=== PATIENT | female | born 1940 | race Hispanic/Latino ===

== ENCOUNTER 2024-09-11 08:48 | Emergency (ER) | payer OTHER ==
--- OUTSIDE RECORDS SUMMARY | 2024-09-11 09:03 | XMS REPORT | Continuity of Care Document ---
Author Name Unknown Address [address] [facility] [address] [place] [address] [facility] Address [address] [facility] [place] [address] Care Team Providers Care Eastern Philosophy Professor Name Role Phone Shayne ALBERTS, Renetta Primary Care Physic keith [phone] Pob, [facility] Main Attending Clinician UnavailDayne Flynn MD Attending Clinician [phone] DAYNE DE LA VEGA Attending Clinician Unavailable DAYNE DE LA VEGA Attending Clinician Unavailable Doctor Unassigned, Pearcy Attending Clinician U chiquita Marieb, [facility] Main Attending Clinician UnavailTOMASA Larios Attending Clinician Unavailab bree Blair MD, Tomasa Attending Clinician [phone] Heath De La Garza MD Attending Clinician [phone] HEATH DE LA GARZA Attending Clinician Unavailrashad martinez Doctor Unassigned, Pearcy Attending Clinician U Lauren Shafer RN Attending Clinician Unavailab MARIA LUISA Lee Attending Clinician Unavailable [place]onia VIDEO CONTROL OPERATOR, Samanta Douglass Attending Clinician [phone] Maria Luisa Mancia DO Attending Clinician [phone] AMADOR CHILDS Attending Clinician Unavailable Katy ALBERTS, Loraine Hooks Attending Clinician [phone] Jose Elias Lopes MD Attending Clinician [phone] Karli Benitez MD Attending Clinician [phone] Amador Childs MD Attending Clinician [phone] Heath Sorto DO Attending Clinician Chantelle Solo MD Attending Clinician [phone] Marcio Ely MD Attending Clinician [phone] MARIELA GIPSON Attending Clinician Unavailable Mariela Crook Attending Clinician RADIOLOGY Attending Clinician Unavailable RENETTA OSMAN Attending Clinician Un available TOMASA BLAIR Admitting Clinician Unavailab MARIA LUISA Lee Admitting Clinician Unavailable Maria Luisa Mancia DO Admitting Clinician [phone] KARLI BENITEZ Admitting Clinician Unavailable Karli Benitez MD Admitting Clinician [phone] RENETTA OSMAN Admitting Clinician Un available Payers Payer Name Policy Type Policy Number Effective Date Expirati on Date Source MEDICARE PART A \\[id number] 2007 00:00:00 FOR LIFE [id number] 2015 00:00:00 Problems Condition Name Condition Details Condition Category Status Onset Date Resolution Date Last Treatment Date Treating Clinician Comments Source COLLINS (dyspnea on exertion) COLLINS (dyspnea on exertion) Disease Active 02-13 00:00: 00 [facility] Pulmonary hypertensi on Pulmonary hypertensi on Disease Active 02-13 00:00: 00 [facility] 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 Disease Active 02-13 00:00: 00 [facility] Hypokalemi a Hypokalemi a Disease Active 02-13 00:00: 00 [facility] Essential hypertensi on Essential hypertensi on Disease Active 02-13 00:00: 00 [facility] Dyslipidem ia Dyslipidem ia Disease Active 02-13 00:00: 00 [facility] VHD (valvular heart disease) VHD (valvular heart disease) Disease Active 02-13 00:00: 00 [facility] Elevated brain natriureti c peptide (BNP) level Elevated brain natriureti c peptide (BNP) level Disease Active 8-06 00:00: 00 [facility] Elevated brain natriureti c peptide (BNP) level Elevated brain natriureti c peptide (BNP) level Disease Active 8-06 00:00: 00 [facility] COVID-19 virus infection COVID-19 virus infection Disease Active 8- 00:00: 00 [facility] Vomiting and diarrhea Vomiting and diarrhea Disease Active 7- 00:00: 00 [facility] Allergies, Adverse Reactions, Alerts Allergy Name Allergy Type Status Severity Reaction(s) Onset Date Inactive Date Treating Clinician Comments Source Sulfa (Sulfona mide Antibiot ics) Propensi ty to adverse reaction to drug Active 7-05 00:00: 00 Dev Steiner Sulfa Antibiot ics - CLASS Propensi ty to adverse reaction to drug Active 830 00:00: 00 Dev Steiner SULFA (SULFONA MIDE ANTIBIOT ICS) Drug Class Active Hives 3-14 00:00: 00 [facility] Sulfa (Sulfona mide Antibiot ics) Propensi ty to adverse reaction s Active Hives 3-14 00:00: 00 [facility] Social History Social Habit Start Date Stop Date Quantity Comments Source Gender identity [facility] Sexual orientation [facility] Alcoholic beverage intake 2023-11-04 00:00:00 2023-11-04 00:00:00 Lifetime non-drinker (finding) [facility] Alcohol intake 2023-11-04 00:00:00 2023-11-04 00:00:00 Lifetime non-drinker (finding) [facility] History of Social function 2023-02-10 00:00:00 2023-02-10 00:00:00 [facility] Tobacco use and exposure 2023-01-17 00:00:00 2023-01-17 00:00:00 Smokeless tobacco non-user [facility] Exposure to SARS-CoV-2 (event) 2022-10-17 00:00:00 2022-10-27 13:42:00 Not sure [facility] Sex assigned at 1940 00:00:00 1940 00:00:00 [facility] Smoking Status Start Date Stop Date Source Never smoked tobacco [facility] Tobacco smoking consumption unknown [facility] Medications Ordered Medication Name Filled Medication Name Start Date Stop Date Current Medication? Ordering Clinician Indication Dosage Frequency Signature (SIG) Comments Components Source sodium bicarbonate 325 mg tablet 2023-07 00:00: 00 Yes mg Dev Steiner sodium polystyrene sulfonate oral powder 2023-07 00:00: 00 Yes Dev Steiner hydralazine 50 mg tablet 2023-07 00:00: 00 Yes mg Dev Steiner Lantus U-100 Insulin 100 unit/mL subcutaneou s solution 2023-07 2- 00:00: 00 Yes unit/mL Dev Steiner pravastatin 40 mg tablet 2023-07 2- 00:00: 00 Yes 1mg Dev Steiner valsartan 160 mg tablet 2023-07 2- 00:00: 00 Yes mg Dev Steiner bisoprolol 10 mg-hydrochl orothiazide 6.25 mg tablet 2023-07 1-30 00:00: 00 Yes 5mg Dev Steiner Lantus U-100 Insulin 100 unit/mL subcutaneou s solution 2023-07 1-06 00:00: 00 Yes unit/mL Dev Steiner bisoprolol fumarate 10 mg tablet 2023-07 0-03 00:00: 00 Yes 1mg Dev Steiner Lantus U-100 Insulin 100 unit/mL subcutaneou s solution 9- 00:00: 00 Yes unit/mL Dev Steiner clonidine HCl 0.3 mg tablet - 00:00: 00 Yes mg Dev Steiner Lantus U-100 Insulin 100 unit/mL subcutaneou s solution -15 00:00: 00 Yes unit/mL Dev Steiner pravastatin 40 mg tablet - 00:00: 00 Yes 1mg Dev Steiner Lantus U-100 Insulin 100 unit/mL subcutaneou s solution - 00:00: 00 Yes unit/mL Dev Steiner Lantus Solostar U-100 Insulin 100 unit/mL (3 mL) subcutaneou s pen 12-14 00:00: 00 Yes (3 mL) Dev Steiner pravastatin 40 mg tablet 12-05 00:00: 00 Yes 1mg Dev Steiner ketorolac (TORADOL) injection 30 mg 11-03 17:52: 00 11-03 17:58 :00 No 30mg 30 mg, Intramuscu lar, ONCE, 1 dose, On Tue11/04/23 at 1300, BAKARI [facility] TAKE 1 TABLET BY MOUTH FOUR TIMES DAILY NEEDED FOR SEVERE PAIN 11-03 00:00: 00 Yes Dev Steiner methocarbam oL 500 mg tablet 11-03 00:00: 00 Yes [id number] 500mg Take 1 tablet by mouth 4 (four) times daily as needed for Pain (scale 7-10). [facility] SODIUM POLYSTYRENE SULF POWDER 10-13 00:00: 00 Yes Dev Steiner TAKE 1 TABLET BY MOUTH IN THE MORNING AND EVENING. DO THIS FOR 7 DAYS. 10-13 00:00: 00 Yes Dev Steiner SODIUM BICARBONATE 325MG TABLETS 10-13 00:00: 00 Yes Dev Steiner insulin glargine (U-100) 100 unit/mL (3 mL) subcutaneou s pen 09-18 00:00: 00 Yes 1(3 mL) Dev Steiner clonidine 0.3 mg/24 hr weekly transdermal patch 09-18 00:00: 00 Yes 1mg/24 hr Dev Steiner amlodipine 10 mg tablet - 00:00: 00 Yes 1mg Dev Steiner bisoprolol 10 mg-hydrochl orothiazide 6.25 mg tablet 09-18 00:00: 00 Yes 1mg Dev Steiner hydralazine 100 mg tablet - 00:00: 00 Yes 1mg Dev Steiner pravastatin 40 mg tablet - 00:00: 00 Yes 1mg Dev Steiner valsartan 320 mg tablet 3-11 00:00: 00 Yes 1mg Dev Steiner hydrochloro thiazide 12.5 mg capsule 3-11 00:00: 00 Yes 1mg Dev Steiner HYDROCHLORO THIAZIDE 12.5 MG TB 2-23 00:00: 00 Yes Dev Steiner AMLODIPINE BESYLATE 10 MG 2-12 00:00: 00 Yes Dev Steiner VALSARTAN 320 MG 1-24 00:00: 00 Yes Dev Steiner TAKE 1 TABLET BY MOUTH FOUR TIMES DAILY 2022-07 2-15 00:00: 00 Yes Dev Steiner PRAVASTATIN SODIUM 40 MG 2022-07 2-12 00:00: 00 Yes Dev Steiner APPLY TO AFFECTED AREA(S) ONCE DAILY DIRECTED. 2022-07 2-12 00:00: 00 Yes [id number] Dev Steiner AMLODIPINE BESYLATE 10 MG 2022-07 1-13 00:00: 00 Yes Dev Steiner BISOPROLOL- HCTZ 10-6.25 MG 2022-07 1-01 00:00: 00 Yes Dev Steiner TAKE 1 TABLET BY MOUTH THREE TIMES DAILY WITH FOOD 2022-07 0-17 00:00: 00 Yes Dev Steiner CLONIDINE HCL 0.3 MG 9-19 00:00: 00 Yes Dev Steiner AMLODIPINE BESYLATE 10 MG 8-15 00:00: 00 Yes 10 Dev Steiner APPLY TO AFFECTED AREA(S) ONCE DAILY DIRECTED. -14 00:00: 00 Yes [id number] Dev Steiner NYSTOP 100,000 UNIT/GM POWDER 8-14 00:00: 00 Yes Dev Steiner cloniDINE (CATAPRES) 0.1 mg tablet -06 15:49: 57 Yes .3mg Take 3 tablets by mouth 4 (four) times daily. [facility] olmesartan (BENICAR) 40 mg tablet 02-13 15:49: 57 Yes 40mg Take 1 tablet by mouth in the morning. [facility] pravastatin (PRAVACHOL) 40 mg tablet 8- 15:49: 57 Yes 40mg Take 1 tablet by mouth at bedtime. [facility] amlodipine besylate (AMLODIPINE ORAL) 02-13 15:49: 57 Yes 10mg Take 10 mg by mouth in the morning. [facility] insulin glargine,vitaliy enriquerec.anlog (LANTUS SC) 02-13 15:49: 57 Yes 25U inject 25 Units under the skin after meals and at bedtime. [facility] bisoproloL- hydrochloro thiazide 10-6.25 mg per tablet 02-13 15:49: 57 Yes 1{tbl} Take 1 tablet by mouth in the morning. [facility] hydrALAZINE 100 mg tablet 02-13 15:49: 57 Yes 100mg Take 1 tablet by mouth in the morning and 1 tablet at noon and 1 tablet in the evening. [facility] valsartan 320 mg tablet 02-13 15:49: 57 Yes 320mg Take 1 tablet by mouth in the morning. [facility] aspirin (ASPIR-81 ORAL) 02-13 15:49: 57 Yes 81mg Take 81 mg by mouth in the morning. [facility] amLODIPine (NORVASC) tablet 10 mg 02-13 14:00: 00 Yes 10mg 10 mg, Oral, DAILY, First dose (after last modificati on) on Tue02/13/23 at 0900, Until Discontinu ed [facility] hydrALAZINE (APRESOLINE ) tablet 100 mg 02-13 13:00: 00 Yes 100mg 100 mg, Oral, TID, First dose (after last modificati on) on Tue02/13/23 at 0800, Until Discontinu ed, Routine [facility] cloNIDine (CATAPRES) tablet 0.3 mg 02-13 13:00: 00 Yes .3mg 0.3 mg, Oral, QID, First dose (after last modificati on) on Tue02/13/23 at 0800, Until Discontinu ed, Routine [facility] metoprolol tartrate (LOPRESSOR) tablet 25 mg 02-13 03:00: 00 Yes 25mg 25 mg, Oral, BID, First dose (after last modificati on) on 02/12/23 at 2200, Until Discontinu ed, [facility] ([facility]AR[facility] 50 mg 02-13 03:00: 00 Yes 50mg 50 mg, Oral, BID, First dose (after last modificati on) on [facility] 02/12/23 at 2200, Until Discontinu ed, Routine [facility] insulin glargine (LANTUS U-100) injection 15 Units 02-13 02:00: 00 Yes 15U 15 Units, Subcutaneo us, QHS, First dose (after last modificati on) on [facility] 02/12/23 at 2100, Until Discontinu ed [facility] dextrometho rphan-guaif enesin 10-100 mg/5 mL solution 02-13 00:00: 00 Yes [id number] 5mL Take 5 mL by mouth every 6 (six) hours as needed for Cough. [facility] furosemide (LASIX) injection 20 mg 02-12 15:15: 00 02-12 18:30 :00 No 20mg 20 mg, Slow IV Push, ONCE, 1 dose, On [facility] 02/12/23 at 1015, Routine [facility] levalbutero l (XOPENEX) nebulizer solution 1.25 mg 02-10 11:00: 00 Yes 1.25mg 1.25 mg, Inhalation , TID, First dose on Tue02/10/23 at 0600, Until Discontinu ed, Routine [facility] dexamethaso ne (DECADRON PHOSPHATE) injection 2 mg 02-10 11:00: 00 02-10 20:46 :00 No 2mg 2 mg, Intravenou s, Q6H, 2 doses, First dose on Tue02/10/23 at 0600, Last dose on Tue02/10/23 at 1200, 1 mL [facility] Sliding Scale Insulin - Lispro (HumaLOG) 02-10 02:00: 00 Yes Subcutaneo us, TID MEALS+HS, First dose on Tue02/09/23 at 2100, Until Discontinu ed, Routine [facility] pravastatin (PRAVACHOL) tablet 40 mg 02-10 02:00: 00 Yes 40mg 40 mg, Oral, QHS, First dose on Tue02/09/23 at 2100, Until Discontinu ed, Routine [facility] insulin glargine (LANTUS U-100) injection 25 Units 02-10 02:00: 00 02-12 03:47 :55 No 25U 25 Units, Subcutaneo us, QHS, First dose on Tue02/09/23 at 2100, Until Discontinu ed [facility] glucagon (GLUCAGEN DIAGNOSTIC KIT) injection 1 mg 02-09 23:57: 00 Yes 1mg 1 mg, Intramuscu lar, PRN, Starting on Tue02/09/23 at 1857, Until Discontinu ed, BAKARI, Blood Glucose < or = 70 mg/dL and patient is NPO, unable to swallow or has mental changes. [facility] dextrose 50 % in water (D50W) injection 25 mL 02-09 23:57: 00 Yes 25mL 25 mL, Slow IV Push, PRN, Starting on Tue02/09/23 at 1857, Until Discontinu ed, BAKARI, Blood Glucose < or = 70 mg/dL and patient is NPO, unable to swallow or has mental status changes. [facility] KCL (KLOR-CON M20) tablet 40 mEq 02-09 22:00: 00 02-10 01:20 :00 No 40meq 40 mEq, Oral, BID, 2 doses, First dose on Tue02/09/23 at 1700, Last dose on Tue02/09/23 at 2000, Routine [facility] codeine-gua ifenesin (ROBITUSSIN AC) 10-100 mg/5 mL oral solution 5 mL 02-09 16:05: 07 Yes 5mL 5 mL, Oral, Q6HPRN, Starting on Tue02/09/23 at 1105, Until Discontinu ed, Routine, Cough [facility] aspirin EC tablet 81 mg 02-09 14:00: 00 Yes 81mg 81 mg, Oral, DAILY, First dose on Tue02/09/23 at 0900, Until Discontinu ed [facility] enoxaparin (LOVENOX) injection 30 mg 02-09 14:00: 00 Yes 30mg 30 mg, Subcutaneo us, DAILY, First dose on Tue02/09/23 at 0900, Until Discontinu ed, Routine [facility] amLODIPine (NORVASC) tablet 10 mg 02-09 14:00: 00 02-13 01:21 :24 No 10mg 10 mg, Oral, DAILY, First dose on Tue02/09/23 at 0900, Until Discontinu ed [facility] losartan (COZAAR) tablet 50 mg 02-09 13:00: 00 02-13 01:21 :24 No 50mg 50 mg, Oral, BID, First dose on Tue02/09/23 at 0800, Until Discontinu ed, Routine [facility] metoprolol tartrate (LOPRESSOR) tablet 25 mg 02-09 13:00: 00 02-13 01:21 :24 No 25mg 25 mg, Oral, BID, First dose on Tue02/09/23 at 0800, Until Discontinu ed, Routine [facility] hydrALAZINE (APRESOLINE ) tablet 100 mg 02-09 13:00: 00 02-13 01:21 :24 No 100mg 100 mg, Oral, TID, First dose on Tue02/09/23 at 0800, Until Discontinu ed, Routine [facility] cloNIDine (CATAPRES) tablet 0.3 mg 02-09 13:00: 00 02-13 01:21 :24 No .3mg 0.3 mg, Oral, QID, First dose on Tue02/09/23 at 0800, Until Discontinu ed, Routine [facility] acetaminoph en (TYLENOL) tablet 650 mg 02-09 04:36: 01 Yes 650mg 650 mg, Oral, Q6HPRN, Starting on Tue02/08/23 at 2336, Until Discontinu ed, Routine, Pain (scale 4-6) [facility] potassium chloride in water 10 mEq/100 mL RTU 10 mEq 02-09 01:00: 00 02-09 03:56 :00 No 10meq 10 mEq, IV Piggyback, Q1H, 2 doses, First dose on Tue02/08/23 at 2000, Last dose on Tue02/08/23 at 2100, Administer over 60 Minutes, 100 mL [facility] acetaminoph en (TYLENOL) tablet 650 mg 02-08 23:45: 55 Yes 650mg 650 mg, Oral, Q6HPRN, Starting on Tue02/08/23 at 1845, Until Discontinu ed, Routine, Pain (scale 1-3) [facility] cefTRIAXone (ROCEPHIN) 1,000 mg in NaCl 0.9% (NS) 100 mL MINI-BAG 02-08 21:45: 00 02-08 22:40 :00 No 1000mg 1,000 mg, IV Piggyback, ONCE, 1 dose, On Tue02/08/23 at 1645, Administer over 30 Minutes, 100 mL
Reas on for Anti-Infec tive: Documented Infection< br>Documen robert Infection Site: Urine
D uration of Therapy: Other (see Comments) [facility] potassium chloride in water 10 mEq/100 mL RTU 10 mEq 02-08 21:00: 00 02-09 01:06 :00 No 10meq 10 mEq, IV Piggyback, ONCE, 1 dose, On Tue02/08/23 at 1600, Administer over 60 Minutes, 100 mL [facility] magnesium sulfate in D5W 1 gram/100 mL RTU IV Piggyback 1 g 02-08 21:00: 00 02-08 22:43 :00 No 1g 1 g, IV Piggyback, ONCE, 1 dose, On Tue02/08/23 at 1600, Administer over 60 Minutes, 100 mL [facility] KCL (KLOR-CON M20) tablet 40 mEq 02-08 20:15: 00 02-08 21:45 :00 No 40meq 40 mEq, Oral, ONCE, 1 dose, On Tue02/08/23 at 1515, BAKARI [facility] NaCl 0.9% (NS) bolus infusion 500 mL 02-08 20:15: 00 02-08 22:50 :00 No 500mL at 999 mL/hr, 500 mL, IV Infusion, ONCE, 1 dose, On Tue02/08/23 at 1515, STAT [facility] cloniDINE (CATAPRES) 0.1 mg tablet 01-21 18:13: 59 Yes .1mg Take 0.1 mg by mouth 2 (two) times daily. [facility] olmesartan (BENICAR) 40 mg tablet 01-21 18:13: 59 Yes 40mg Take 40 mg by mouth daily. [facility] pravastatin (PRAVACHOL) 40 mg tablet 01-21 18:13: 59 Yes 40mg Take 40 mg by mouth at bedtime. [facility] amlodipine besylate (AMLODIPINE ORAL) 01-21 18:13: 59 Yes Take by mouth. [facility] losartan (COZAAR) tablet 50 mg 01-21 14:00: 00 Yes 50mg 50 mg, Oral, DAILY, First dose (after last modificati on) on Tue01/21/23 at 0900, Until Discontinu ed, Routine [facility] KCL (KLOR-CON M20) tablet 40 mEq 01-20 23:00: 00 01-20 22:44 :00 No 40meq 40 mEq, Oral, ONCE, 1 dose, On Tue01/20/23 at 1800, Routine [facility] KCL (KLOR-CON M20) tablet 40 mEq 01-20 17:45: 00 01-20 17:16 :00 No 40meq 40 mEq, Oral, ONCE, 1 dose, On Tue01/20/23 at 1245, BAKARI [facility] potassium chloride in water (KCL) 20 mEq/100 mL RTU IVPB 20 mEq 01-20 10:30: 00 01-20 17:17 :25 No 20meq 20 mEq, IV Piggyback, Q2H ES, 6 doses, First dose on Tue01/20/23 at 0530, Last dose on Tue01/20/23 at 1530, 100 mL [facility] acetaminoph en (TYLENOL) 325 mg tablet 01-20 00:00: 00 Yes [id number] 650mg Take 2 tablets by mouth every 6 (six) hours as needed for Pain (scale 4-6). [facility] benzocaine- menthoL (CEPACOL SORE THROAT (MICHELLE-MEN)) lozenge 1 Lozenge 01-19 21:28: 11 Yes 1{lozen ge} 1 Lozenge, Oral, Q4HPRN, Starting on Tue01/19/23 at 1628, Until Discontinu ed, Routine, Sore throat [facility] lactated ringers IV infusion 1,000 mL 01-19 16:15: 00 Yes 1000mL at 75 mL/hr, 1,000 mL, IV Infusion, CONTINUOUS , Starting on Tue01/19/23 at 1115, Until Discontinu ed, Routine, PACU [facility] bupivacaine (preserv free) (SENSORCAIN E MPF) 0.25 % (2.5 mg/mL) injection 01-19 15:57: 00 01-19 16:16 :43 No PRN, Starting on Tue01/19/23 at 1057, Until Tue01/19/23 at 1116, Routine, Intra-op [facility] sugammadex (BRIDION) injection 01-19 15:51: 00 01-19 16:14 :03 No IV Push, ONCE INTRA PROCEDURE, Starting on Tue01/19/23 at 1051, Until Tue01/19/23 at 1114, Routine, Intra-op [facility] dexamethaso ne (DECADRON PHOSPHATE) injection 01-19 15:09: 00 01-19 16:14 :16 No Slow IV Push, ONCE INTRA PROCEDURE, Starting on Tue01/19/23 at 1009, Until Tue01/19/23 at 1114, Routine, Intra-op [facility] PHENYLephri ne 1000 mcg/10 mL in 0.9% NaCl syringe 01-19 15:09: 00 01-19 16:14 :03 No Intravenou s, ONCE INTRA PROCEDURE, Starting on Tue01/19/23 at 1009, Until Discontinu ed, Routine, Intra-op [facility] FENTanyl PF (SUBLIMAZE (PF)) injection 01-19 15:01: 00 01-19 16:14 :03 No Epidural, ONCE INTRA PROCEDURE, Starting on Tue01/19/23 at 1001, Until Discontinu ed, Routine, Intra-op [facility] rocuronium (ZEMURON) injection 01-19 14:55: 00 01-19 16:14 :03 No IV Push, ONCE INTRA PROCEDURE, Starting on Tue01/19/23 at 0955, Until Discontinu ed, Routine, Intra-op [facility] propofoL IV infusion 01-19 14:55: 00 01-19 16:14 :03 No IV Infusion, ONCE INTRA PROCEDURE, Starting on Tue01/19/23 at 0955, Until Discontinu ed, Routine, Intra-op [facility] lidocaine 1% (XYLOCAINE) 100 mg/10 mL (1 %) injection 01-19 14:55: 00 01-19 16:14 :03 No Slow IV Push, ONCE INTRA PROCEDURE, Starting on Tue01/19/23 at 0955, Until Discontinu ed, Routine, Intra-op [facility] ceFAZolin (ANCEF) injection 01-19 14:41: 00 01-19 16:14 :03 No IV Piggyback, ONCE INTRA PROCEDURE, Starting on Tue01/19/23 at 0941, Until Discontinu ed, BAKARI, Intra-op [facility] magnesium sulfate in water 2 gram/50 mL (4 %) infusion 2 g 01-19 11:30: 00 01-19 18:19 :00 No 2g 2 g, IV Piggyback, Administer over 60 Minutes, ONCE, 1 dose, On Tue01/19/23 at 0630, [facility] in [facility] (KCL) 20 mEq/100 mL RTU IVPB 20 mEq 01-19 07:00: 00 01-19 10:26 :00 No 20meq 20 mEq, IV Piggyback, Q2H, 2 doses, First dose on Tue01/19/23 at 0200, Last dose on Tue01/19/23 at 0400, 100 mL [facility] potassium chloride in water (KCL) 20 mEq/100 mL RTU IVPB 20 mEq 01-18 22:30: 00 01-19 03:05 :00 No 20meq 20 mEq, IV Infusion, Q2H ES, 2 doses, First dose on Tue01/18/23 at 1730, Last dose on Tue01/18/23 at 1930, 100 mL [facility] aspirin EC tablet 81 mg 01-18 14:00: 00 Yes 81mg 81 mg, Oral, DAILY, First dose on Tue01/18/23 at 0900, Until Discontinu ed, Routine [facility] amLODIPine (NORVASC) tablet 10 mg 01-18 14:00: 00 Yes 10mg 10 mg, Oral, DAILY, First dose (after last modificati on) on Tue01/18/23 at 0900, Until Discontinu ed [facility] pantoprazol e (PROTONIX) EC tablet 40 mg 01-18 14:00: 00 Yes 40mg 40 mg, Oral, DAILY, First dose on Tue01/18/23 at 0900, Until Discontinu ed, Routine [facility] losartan (COZAAR) tablet 25 mg 01-18 14:00: 00 Yes 25mg 25 mg, Oral, DAILY, First dose on Tue01/18/23 at 0900, Until Discontinu ed, Routine [facility] hydralAZINE (APRESOLINE ) injection 10 mg 01-18 03:20: 53 Yes 10mg 10 mg, Slow IV Push, Q4HPRN, Starting on Tue01/17/23 at 2220, Until Discontinu ed, Routine, DBP=>100; SBP=>180 [facility] hydrALAZINE 100 mg tablet 01-18 03:00: 00 Yes 100mg Take 1 tablet by mouth in the morning and 1 tablet at noon and 1 tablet in the evening. [facility] heparin (porcine) injection 5,000 Units 01-18 03:00: 00 Yes 5000U 5,000 Units, Subcutaneo us, Q8H, First dose on Tue01/17/23 at 2200, Until Discontinu ed, Routine [facility] pravastatin (PRAVACHOL) tablet 40 mg 01-18 02:00: 00 Yes 40mg 40 mg, Oral, QHS, First dose on Tue01/17/23 at 2100, Until Discontinu ed, Routine [facility] cloNIDine (CATAPRES) tablet 0.1 mg 01-18 01:00: 00 Yes .1mg 0.1 mg, Oral, BID, First dose on Tue01/17/23 at 2000, Until Discontinu ed, Routine [facility] Sliding Scale Insulin-Reg ular 01-17 21:30: 00 Yes Subcutaneo us, AC+HS, First dose on Tue01/17/23 at 1630, Until Discontinu ed, Routine [facility] lactated ringers IV infusion 1,000 mL 01-17 20:00: 00 Yes 1000mL at 100 mL/hr, 1,000 mL, IV Infusion, CONTINUOUS , Starting on Tue01/17/23 at 1500, Until Discontinu ed, Routine [facility] acetaminoph en ADULT (OFIRMEV) injection 1,000 mg 01-17 20:00: 00 01-18 11:32 :00 No 1000mg 1,000 mg, IV Infusion, at 400 mL/hr Administer over 15 Minutes, Q8H, 3 doses, First dose on Tue01/17/23 at 1500, Last dose on Tue01/18/23 at 0600, Routine
Indicatio n: Perioperat boris Patient [facility] HYDROcodone -acetaminop hen (NORCO 5) 5-325 mg tablet 1 tablet 01-17 19:48: 59 Yes 1{tbl} 1 tablet, Oral, Q6HPRN, Starting on Tue01/17/23 at 1448, Until Discontinu ed, Routine, Pain (scale 4-6) [facility] morpHINE (2 mg/mL) injection 2 mg 01-17 19:48: 47 Yes 2mg 2 mg, Slow IV Push, Q4HPRN, Starting on Tue01/17/23 at 1448, Until Discontinu ed, Routine, Pain (scale 7-10) [facility] glucagon (GLUCAGEN DIAGNOSTIC KIT) injection 1 mg 01-17 19:46: 28 Yes 1mg 1 mg, Intramuscu lar, PRN, Starting on Tue01/17/23 at 1446, Until Discontinu ed, BAKARI, Blood Glucose < or = 70 mg/dL and patient is NPO, unable to swallow or has mental changes. [facility] dextrose 50 % in water (D50W) injection 25 mL 01-17 19:46: 28 Yes 25mL 25 mL, Slow IV Push, PRN, Starting on Tue01/17/23 at 1446, Until Discontinu ed, BAKARI, Blood Glucose < or = 70 mg/dL and patient is NPO, unable to swallow or has mental status changes. [facility] ondansetron (ZOFRAN (PF)) injection 4 mg 01-17 19:46: 24 Yes 4mg 4 mg, Slow IV Push, Q6HPRN, Starting on Tue01/17/23 at 1446, Until Discontinu ed, Routine, Nausea and Vomiting (N/V) [facility] metroNIDAZO LE in NaCl (iso-os) (FLAGYL I.V.) RTU IV infusion 500 mg 01-17 15:45: 00 01-17 16:07 :00 No 500mg 500 mg, IV Infusion, ONCE, 1 dose, On Tue01/17/23 at 1045, Administer over 60 Minutes, 100 mL
Reas on for Anti-Infec tive: Documented Infection< br>Documen robert Infection Site: Abdominal< br>Duratio n of Therapy: Other (see Comments) [facility] insulin glargine (LANTUS U-100) 100 unit/mL injection 01-17 14:48: 31 01-17 00:00 :00 No 15U inject 15 Units under the skin daily. [facility] cloniDINE (CATAPRES) 0.1 mg tablet 01-17 14:48: 28 Yes .1mg Take 0.1 mg by mouth 2 (two) times daily. [facility] olmesartan (BENICAR) 40 mg tablet 01-17 14:48: 28 Yes 40mg Take 40 mg by mouth daily. [facility] pravastatin (PRAVACHOL) 40 mg tablet 01-17 14:48: 28 Yes 40mg Take 40 mg by mouth at bedtime. [facility] amlodipine besylate (AMLODIPINE ORAL) 01-17 14:48: 28 Yes Take by mouth. [facility] ondansetron (ZOFRAN (PF)) injection 4 mg 01-17 13:38: 00 01-17 13:41 :00 No 4mg 4 mg, Slow IV Push, ONCE, 1 dose, On Tue01/17/23 at 0845, BAKARI [facility] iopamidol (ISOVUE 370-500 mL) injection 73 mL 01-17 13:15: 00 01-17 13:15 :00 No [id number] 73mL 73 mL, Intravenou s, ONCE, 1 dose, On Tue01/17/23 at 0815, Routine [facility] cefTRIAXone (ROCEPHIN) 1,000 mg in NaCl 0.9% (NS) 100 mL MINI-BAG 01-17 12:15: 00 01-17 12:23 :00 No 1000mg 1,000 mg, IV Piggyback, ONCE, 1 dose, On Tue01/17/23 at 0715, Administer over 30 Minutes, 100 mL
Reas on for Anti-Infec tive: Documented Infection< br>Documen robert Infection Site: Urine
D uration of Therapy: Other (see Comments) [facility] NaCl 0.9% (NS) IV infusion 1,000 mL 01-17 12:00: 00 01-17 19:49 :56 No 1000mL at 999 mL/hr, Intravenou s, CONTINUOUS , Starting on Tue01/17/23 at 0700, Until Tue01/17/23 at 1449, Routine [facility] ondansetron (ZOFRAN (PF)) injection 4 mg 01-17 10:30: 00 01-17 10:26 :00 No 4mg 4 mg, Slow IV Push, ONCE, 1 dose, On Tue01/17/23 at 0530, BAKARI [facility] BISOPROLOL- HCTZ 10-6.25 MG 01-10 00:00: 00 Yes 19032 Dev Steiner VALSARTAN 320 MG 12-29 00:00: 00 Yes 320 Dev Steiner TAKE 1 TABLET BY MOUTH AT BEDTIME 12-09 00:00: 00 Yes 40 Dev Steiner TAKE 1 TABLET BY MOUTH 4 TIMES DAILY 10-25 00:00: 00 Yes Dev Steiner TAKE 1 TABLET DAILY. 10-13 00:00: 00 11-17 00:00 :00 No 500 Dev Steiner TAKE 1 TABLET EVERY 12 HOURS NEEDED. 10-13 00:00: 00 11-17 00:00 :00 No 50 Dev Steiner INJECT 25 UNITS QHS 10-13 00:00: 00 11-17 00:00 :00 No 100 Dev Steiner TAKE 1 TABLET BY MOUTH ONCE DAILY 10-13 00:00: 00 11-17 00:00 :00 No 10 Dev Steiner BISOPROLOL- HCTZ 10-6.25 MG 2023-0 4-03 00:00: 00 Yes Dev Steiner INJECT 25 UNITS QHS 4-03 00:00: 00 11-17 00:00 :00 No 100 Dev Steiner TAKE 1 TABLET AT BEDTIME. 3-28 00:00: 00 11-17 00:00 :00 No 40 Dev Steiner AMLODIPINE BESYLATE 10 MG 2-16 00:00: 00 Yes Dev Steiner TAKE 1 TABLET BY MOUTH ONCE DAILY 2-13 00:00: 00 11-17 00:00 :00 No 10 Dev Steiner VALSARTAN 320 MG 1-10 00:00: 00 Yes Dev Steiner BISOPROLOL- HCTZ 10-6.25 MG 1- 00:00: 00 Yes Dev Steiner CLONIDINE HCL 0.3 MG TABLET 2021-07 2- 00:00: 00 Yes Dev Steiner Dose Unknown 2021-07 2- 00:00: 00 Yes Dev Steiner PRAVASTATIN SODIUM 40 MG TAB 2021-07 2-13 00:00: 00 Yes Dev Steiner Dose Unknown 2021-07 2-13 00:00: 00 Yes Dev Destini Steiner Dose Unknown 2021-07 2- 00:00: 00 Yes Dev F Jatin Dose Unknown 2021-07 2-13 00:00: 00 Yes Dev Steiner Dose Unknown 2021-07 2-13 00:00: 00 Yes Dev Steiner Dose Unknown 2021-07 2- 00:00: 00 Yes Dev Steiner Dose Unknown 2021-07 2-13 00:00: 00 Yes Dev Steiner TAKE 1 TABLET DAILY. 2021-07 2-13 00:00: 00 11-17 00:00 :00 No Dev Destini Steiner HYDRALAZINE 100 MG 2021-07 1-28 00:00: 00 Yes Dev Steiner INJECT 25 UNITS [facility] 2021-07 1-21 00:00: 00 11-17 00:00 :00 No 100 Dev Steiner METFORMIN HCL 500 MG 2021-07 0-14 00:00: 00 Yes 500 Dev Steiner AMLODIPINE BESYLATE 5 MG 2021-07 0-06 00:00: 00 Yes 5 Dve Destini Steiner LANTUS 100 UNIT/ML VIAL 9- 00:00: 00 11-17 00:00 :00 No Devlion Steiner HYDRALAZINE 100 MG TABLET 0 9-24 00:00: 00 Yes Dev Steiner TAKE 1 TABLET AT BEDTIME. 0 9-15 00:00: 00 11-17 00:00 :00 No 40 Dev Steiner HYDRALAZINE 100 MG TABLET 0 - 00:00: 00 Yes 100 Dev Steiner LANTUS 100 UNIT/ML VIAL 0 03-02 00:00: 00 Yes Dev Steiner CLONIDINE HCL 0.3 MG 0 - 00:00: 00 Yes 3 Dev F Jatin Dose Unknown 0 8- 00:00: 00 Yes 250 Dev F Jatin &lt 2-0 8- 00:00: 00 Yes 40 Dev Steiner Lantus U-100 Insulin 100 unit/mL subcutaneou s solution 0 8 00:00: 00 Yes unit/mL Dev Steiner metformin 500 mg tablet 0 8-08 00:00: 00 Yes 1mg Dev F Jatin Dose Unknown 0 8-05 00:00: 00 Yes 250 Dev F Jatin &lt 2022-0 8-05 00:00: 00 Yes 3 Dev F Jatin &lt 2022-0 8-05 00:00: 00 Yes 50 Dev F Jatin &lt 2022-0 7-11 00:00: 00 Yes 4 Dev F Jatin &lt 2022-0 7-11 00:00: 00 Yes 3 Dev F Jatin &lt 2022-0 7-07 00:00: 00 Yes 5 Dev F Jatin &lt 2022-0 7-07 00:00: 00 Yes 3 Dev F Jatin &lt 2022-0 7-07 00:00: 00 Yes 250 Dev F Jatin Dose Unknown 0 7-07 00:00: 00 Yes Dev F Jatin &lt 2022-0 7-07 00:00: 00 Yes 40 Dev F Jatin &lt 2022-0 7-07 00:00: 00 Yes 100 Dev F Jatin &lt 2022-0 7-07 00:00: 00 Yes 4 Dev Steiner &lt 2-0 7-07 00:00: 00 Yes 30 Dev Steiner &lt 2-0 7- 00:00: 00 Yes Dev Steiner &lt 2-0 7- 00:00: 00 Yes Dev Steiner HYDRALAZINE 100 MG 2021-0 4-12 00:00: 00 Yes 100 Dev Steiner AMLODIPINE BESYLATE 5 MG 0 4-11 00:00: 00 Yes 5 Dev Steiner Lantus U-100 Insulin 100 unit/mL subcutaneou s solution 0 4-08 00:00: 00 Yes unit/mL Dev Steiner pravastatin 40 mg tablet 3-09 00:00: 00 Yes 1mg Dev Steiner Dose Unknown 3-09 00:00: 00 Yes Dev Steiner Dose Unknown 2-15 00:00: 00 Yes Dev Steiner Dose Unknown 2- 00:00: 00 Yes eDv Steiner metformin 500 mg tablet 2-01 00:00: 00 Yes 1mg Dev Steiner tizanidine 4 mg capsule 2020-07 2-14 00:00: 00 Yes 1mg Dev Steiner duloxetine 30 mg capsule,del ayed release 2020-07 2-14 00:00: 00 Yes 1mg Dev Steiner metformin 500 mg tablet 2020-07 2-07 00:00: 00 Yes 1mg Dev Steiner Dose Unknown 2020-07 1-29 00:00: 00 Yes Dev Steiner Dose Unknown 2020-07 1-05 00:00: 00 Yes Dev Steiner hydralazine 100 mg tablet 2020-07 1-05 00:00: 00 Yes 1mg Dev Steiner clonidine HCl 0.3 mg tablet 2020-07 1-05 00:00: 00 Yes 1mg Dev Steiner Lantus U-100 Insulin 100 unit/mL subcutaneou s solution 2020-07 0-12 00:00: 00 Yes unit/mL Dev Steiner pravastatin 40 mg tablet 8-26 00:00: 00 Yes 1mg Dev Steiner amlodipine besylate (AMLODIPINE ORAL) 02-15 10:40: 19 Yes 10mg Take 10 mg by mouth in the morning. [facility] Lantus U-100 Insulin 100 unit/mL subcutaneou s solution 01-14 00:00: 00 Yes unit/mL Dev Steiner metformin 500 mg tablet 12-16 00:00: 00 Yes 1mg Dev Steiner Dose Unknown 12-16 00:00: 00 Yes Dev Steiner Lantus U-100 Insulin 100 unit/mL subcutaneou s solution 11-04 00:00: 00 Yes unit/mL Dev Steiner Benicar 40 mg tablet 09-15 00:00: 00 Yes 1mg Dev Steiner Lantus U-100 Insulin 100 unit/mL subcutaneou s solution 08-12 00:00: 00 Yes unit/mL Dev Steiner pravastatin 40 mg tablet 2 00:00: 00 Yes 1mg Dev Steiner Lantus U-100 Insulin 100 unit/mL subcutaneou s solution 1 00:00: 00 Yes unit/mL Dev Steiner clonidine HCl 0.1 mg tablet 2019-07 00:00: 00 Yes 1mg Dev Steiner Lantus U-100 Insulin 100 unit/mL subcutaneou s solution 2019-07 2- 00:00: 00 Yes unit/mL Dev Steiner Benicar 40 mg tablet 2019-07 2- 00:00: 00 Yes 1mg Dev Steiner pravastatin 40 mg tablet 2019-07 2 00:00: 00 Yes 1mg Dev Steiner Lantus U-100 Insulin 100 unit/mL subcutaneou s solution 2019-07 0-16 00:00: 00 Yes unit/mL Dev Steiner amlodipine 5 mg tablet 02-24 00:00: 00 Yes 1mg Dev Steiner Lantus U-100 Insulin 100 unit/mL subcutaneou s solution 02-03 00:00: 00 Yes 15unit/ mL Dev Steiner Lantus U-100 Insulin 100 unit/mL subcutaneou s solution 18 00:00: 00 Yes 15unit/ mL Dev Steiner Ziac 10 mg-6.25 mg tablet 0 -18 00:00: 00 Yes 1mg Dev Steiner buspirone 10 mg tablet 0 -18 00:00: 00 Yes 5mg Dev Steiner Benicar 40 mg tablet 0 -18 00:00: 00 Yes 1mg Dev Steiner pravastatin 40 mg tablet 0 -18 00:00: 00 Yes 1mg Dev Steiner clonidine 0.2 mg/24 hr weekly transdermal patch 0 -20 00:00: 00 Yes 1mg/24 hr Dev Steiner Lantus U-100 Insulin 100 unit/mL subcutaneou s solution 0 18 00:00: 00 Yes 15unit/ mL Dev Steiner Lantus U-100 Insulin 100 unit/mL subcutaneou s solution 0 -17 00:00: 00 Yes 15unit/ mL Dev Steiner meloxicam 15 mg tablet 0 -02 00:00: 00 Yes 1mg Dev Steiner nystatin 100,000 unit/gram topical powder 0 -18 00:00: 00 Yes 1unit/g estee Steiner clonidine HCl 0.1 mg tablet 0 -18 00:00: 00 Yes 1mg Dev Steiner amlodipine 5 mg tablet 0 -18 00:00: 00 Yes 1mg Dev Steiner nystatin 100,000 unit/gram topical powder 0 2-17 00:00: 00 Yes 1unit/g estee Steiner clonidine HCl 0.1 mg tablet 0 -17 00:00: 00 Yes 1mg Dev Steiner Lantus U-100 Insulin 100 unit/mL subcutaneou s solution 0 1-17 00:00: 00 Yes 1unit/m L Dev Steiner Ziac 10 mg-6.25 mg tablet 0 1-17 00:00: 00 Yes 1mg Dev Steiner Lantus U-100 Insulin 100 unit/mL subcutaneou s solution 0 1-07 00:00: 00 Yes 15unit/ mL Dev Steiner pravastatin 40 mg tablet 07-17 00:00: 00 Yes 1mg Dev Steiner clonidine HCl 0.1 mg tablet 07-17 00:00: 00 Yes 1mg Dev Steiner bisoprolol 10 mg-hydrochl orothiazide 6.25 mg tablet 07-17 00:00: 00 Yes 1mg Dev Steiner buspirone 10 mg tablet 07-17 00:00: 00 Yes 5mg Dev Steiner Benicar 40 mg tablet 07-17 00:00: 00 Yes 1mg Dev Steiner amlodipine 5 mg tablet 07-17 00:00: 00 Yes 1mg Dev Steiner pravastatin (PRAVACHOL) 40 mg tablet 09-21 07:50: 54 Yes 40mg Take 1 tablet by mouth at bedtime. [facility] insulin glargine (LANTUS U-100) 100 unit/mL injection 09-21 07:50: 54 Yes 15U inject 15 Units under the skin daily. [facility] cloniDINE (CATAPRES) 0.1 mg tablet 09-21 07:50: 54 Yes .1mg Take 0.1 mg by mouth 2 (two) times daily. [facility] olmesartan (BENICAR) 40 mg tablet 09-21 07:50: 54 Yes 40mg Take 1 tablet by mouth in the morning. [facility] Immunizations Ordered Immunization Name Filled Immunization Name Date Status Comments Source influenza, seasonal vaccine, quadrivalent, adjuvanted, .5mL dose, preservative-free influenza, seasonal vaccine, quadrivalent, adjuvanted, .5mL dose, preservative-free 2024-04-12 00:00:00 Completed Dev Steiner influenza, seasonal vaccine, quadrivalent, adjuvanted, .5mL dose, preservative-free influenza, seasonal vaccine, quadrivalent, adjuvanted, .5mL dose, preservative-free 2023-05-12 00:00:00 Completed Dev Steiner Remdesivir 2023-02-12 00:00:00 Completed [facility] Remdesivir 2023-02-12 00:00:00 Completed [facility] Remdesivir 2023-02-12 00:00:00 Completed [facility] Remdesivir 2023-02-11 00:00:00 Completed [facility] Remdesivir 2023-02-11 00:00:00 Completed [facility] Remdesivir 2023-02-11 00:00:00 Completed Remdesivir 2023-02-10 00:00:00 Completed [facility] Remdesivir 2023-02-10 00:00:00 Completed [facility] Remdesivir 2023-02-10 00:00:00 Completed Remdesivir 2023-02-09 00:00:00 Completed [facility] Remdesivir 2023-02-09 00:00:00 Completed [facility] Remdesivir 2023-02-09 00:00:00 Completed [facility] Remdesivir 2023-02-08 00:00:00 Completed [facility] Remdesivir 2023-02-08 00:00:00 Completed [facility] Remdesivir 2023-02-08 00:00:00 Completed [facility] Moderna COVID-19 Vaccine Moderna COVID-19 Vaccine 2020-09-06 00:00:00 Completed Dev Steiner Moderna COVID-19 Vaccine Moderna COVID-19 Vaccine 2020-08-09 00:00:00 Completed Dev Steiner influenza, high-dose, quadrivalent influenza, high-dose, quadrivalent 2020-04-21 00:00:00 Completed Dev Steiner Remdesivir Unknown Completed [facility] Remdesivir Unknown Completed [facility] Remdesivir Unknown Completed [facility] Remdesivir Unknown Completed [facility] Remdesivir Unknown Completed [facility] Remdesivir Unknown Completed [facility] Remdesivir Unknown [facility]pleted [facility] Remdesivir Unknown Completed [facility] Remdesivir Unknown Completed [facility] Remdesivir Unknown Completed [facility] Remdesivir Unknown Completed [facility] Remdes[facility] Unknown Completed [facility] Remdesivir Unknown Completed [facility]des[facility] Unknown Com[facility] Remdesivir Unknown Completed [facility] Remdesivir Unknown Completed [facility] Vital Signs Vital Name Observation Time Observation Value Comments S zunilda Systolic blood pressure 2023-11-04 17:05:00 143 mm[Hg] [facility] Diastolic blood pressure 2023-11-04 17:05:00 72 mm[Hg] [facility] Heart rate 2023-11-04 17:05:00 76 /min [facility] Body temperature 2023-11-04 17:05:00 37.22 [facility] Respiratory rate 2023-11-04 17:05:00 16 /min [facility] Body height 2023-11-04 17:05:[address] [facility] Body weight 2023-11-04 17:05:[address] [facility] BMI 2023-11-04 17:05:00 22.15 kg/m2 [facility] Oxygen saturation in Arterial blood by Pulse oximetry 2023-11-04 17:05:00 94 /min [facility] Systolic blood pressure 2023-02-13 17:03:00 134 mm[Hg] [facility] Diastolic blood pressure 2023-02-13 17:03:00 62 mm[Hg] [facility] Heart rate 2023-02-13 17:03:00 68 /min [facility] Body temperature 2023-02-13 17:03:00 36.17 [facility] Respiratory rate 2023-02-13 17:03:00 17 /min [facility] Oxygen saturation in Arterial blood by Pulse oximetry 2023-02-13 17:03:00 95 /min [facility] Body weight 2023-02-12 09:14:[address] [facility] BMI 2023-02-12 09:14:00 34.42 kg/m2 [facility] Body height 2023-02-09 00:39:[address] [facility] Systolic blood pressure 2023-01-21 13:33:00 155 mm[Hg] [facility] Diastolic blood pressure 2023-01-21 13:33:00 93 mm[Hg] [facility] Heart rate 2023-01-21 13:33:00 100 /min [facility] Body temperature 2023-01-21 13:33:00 36.89 [facility] Respiratory rate 2023-01-21 13:33:00 20 /min [facility] Oxygen saturation in Arterial blood by Pulse oximetry 2023-01-21 13:33:00 90 /min [facility] Body height 2023-01-17 10:13:[address] [facility] Body weight 2023-01-17 10:13:[address] [facility] BMI 2023-01-17 10:13:00 22.68 kg/m2 [facility] Systolic blood pressure 2023-01-19 16:30:00 156 mm[Hg] [facility] Diastolic blood pressure 2023-01-19 16:30:00 66 mm[Hg] [facility] Respiratory rate 2023-01-19 16:30:00 23 /min [facility] Oxygen saturation in Arterial blood by Pulse oximetry 2023-01-19 16:30:00 95 /min [facility] Heart rate 2023-01-19 16:14:00 87 /min [facility] Body temperature 2023-01-19 16:14:00 36.28 [facility] Body height 2023-01-17 10:13:[address] [facility] Body weight 2023-01-17 10:13:[address] [facility] BMI 2023-01-17 10:13:00 22.68 kg/m2 [facility] Systolic blood pressure 2022-10-27 18:55:00 174 mm[Hg] [facility] Diastolic blood pressure 2022-10-27 18:55:00 71 mm[Hg] [facility] Heart rate 2022-10-27 18:55:00 73 /min [facility] Body height 2022-10-27 18:55:[address] [facility] Body weight 2022-10-27 18:55:[address] [facility] BMI 2022-10-27 18:55:00 23.43 kg/m2 [facility] BP Systolic 2024-07-17 10:30:00 135 mm[Hg] Step hen F Jatin BP Diastolic 2024-07-17 10:30:00 77 mm[Hg] Greg phen F Jatin Weight Measured 2024-07-17 10:30:00 105.70 pounds Dev F Jatin Height Measured 2024-07-17 10:30:00 59.69 inches Dev F Jatin Body Temperature 2024-07-17 10:30:00 97.50 degrees Dev F Jatin Heart Rate 2024-07-17 10:30:00 56.00 /min [facility]atin Respiratory Rate 2024-07-17 10:30:00 16.00 /min Dev F Jatin BP Systolic 2024-07-17 10:27:00 135 mm[Hg] Step hen F Jatin BP Diastolic 2024-07-17 10:27:00 77 mm[Hg] Greg phen F Jatin Weight Measured 2024-07-17 10:27:00 105.70 pounds Dev F Jatin Height Measured 2024-07-17 10:27:00 59.69 inches Dev F Jatin Body Temperature 2024-07-17 10:27:00 97.50 degrees Dev F Jatin Heart Rate 2024-07-17 10:27:00 56.00 /min [facility] Jatin Respiratory Rate 2024-07-17 10:27:00 16.00 /min Dev F Jatin BP Systolic 2024-04-12 10:50:00 139 mm[Hg] Step hen F Jatin BP Diastolic 2024-04-12 10:50:00 78 mm[Hg] Greg phen F Jatin Weight Measured 2024-04-12 10:50:00 107.80 pounds Dev F Jatin Height Measured 2024-04-12 10:50:00 59.69 inches Dev F Jatin Body Temperature 2024-04-12 10:50:00 98.20 degrees Dev F Jatin Heart Rate 2024-04-12 10:50:00 58.00 /min [facility] F Jatin Respiratory Rate 2024-04-12 10:50:00 18.00 /min Dev F Jatin BP Systolic 2024-01-13 10:56:00 168 mm[Hg] Step hen F Jatin BP Diastolic 2024-01-13 10:56:00 72 mm[Hg] Greg phen F Jatin Weight Measured 2024-01-13 10:56:00 105.60 pounds Dev F Jatin Height Measured 2024-01-13 10:56:00 59.69 inches Dev F Jatin Body Temperature 2024-01-13 10:56:00 98.20 degrees Dev F Jatin Heart Rate 2024-01-13 10:56:00 59.00 /min [facility] F Jatin Respiratory Rate 2024-01-13 10:56:00 Dev F Jatin BP Systolic 2023-09-19 14:07:00 137 mm[Hg] Step hen F Jatin BP Diastolic 2023-09-19 14:07:00 82 mm[Hg] Greg phen F Jatin Weight Measured 2023-09-19 14:07:00 107.40 pounds Dev F Jatin Height Measured 2023-09-19 14:07:00 56.69 inches Dev F Jatin Body Temperature 2023-09-19 14:07:00 97.30 degrees Dev F Jatin Heart Rate 2023-09-19 14:07:00 55.00 /min Spring [facility] F Jatin Respiratory Rate 2023-09-19 14:07:00 Dev F Jatin BP Systolic 2023-06-21 13:43:00 152 mm[Hg] Step hen F Jatin BP Diastolic 2023-06-21 13:43:00 86 mm[Hg] Rgeg phen F Jatin Weight Measured 2023-06-21 13:43:00 108.20 pounds Dev F Jatin Height Measured 2023-06-21 13:43:00 56.69 inches Dev F Jatin Body Temperature 2023-06-21 13:43:00 98.00 degrees Dev F Jatin Heart Rate 2023-06-21 13:43:00 60.00 /min Spring en F Jatin Respiratory Rate 2023-06-21 13:43:00 Dev F Jatin BP Systolic 2023-05-12 14:56:00 146 mm[Hg] Step hen F Jatin BP Diastolic 2023-05-12 14:56:00 72 mm[Hg] Greg phen F Jatin Weight Measured 2023-05-12 14:56:00 106.50 pounds Dev F Jatin Height Measured 2023-05-12 14:56:00 56.69 inches Dev F Jatin Body Temperature 2023-05-12 14:56:00 97.90 degrees Dev F Jatin Heart Rate 2023-05-12 14:56:00 53.00 /min Spring en F Jatin Respiratory Rate 2023-05-12 14:56:00 Dev F Jatin BP Systolic 2023-03-22 13:16:00 137 mm[Hg] Step hen F Jatin BP Diastolic 2023-03-22 13:16:00 94 mm[Hg] Greg phen F Jatin Weight Measured 2023-03-22 13:16:00 105.80 pounds Dev F Jatin Height Measured 2023-03-22 13:16:00 56.69 inches Dev F Jatin Body Temperature 2023-03-22 13:16:00 97.90 degrees Dev F Jatin Heart Rate 2023-03-22 13:16:00 68.00 /min Spring en F Jatin Respiratory Rate 2023-03-22 13:16:00 Dev F Jatin BP Systolic 2023-03-22 12:40:00 137 mm[Hg] Step hen F Jatin BP Diastolic 2023-03-22 12:40:00 74 mm[Hg] Greg phen F Jatin Weight Measured 2023-03-22 12:40:00 105.80 pounds Dev F Jatin Height Measured 2023-03-22 12:40:00 56.69 inches Dev F Jatin Body Temperature 2023-03-22 12:40:00 97.90 degrees Dev F Jatin Heart Rate 2023-03-22 12:40:00 68.00 /min Spring en F Jatin Respiratory Rate 2023-03-22 12:40:00 Dev F Jatin BP Systolic 2023-01-26 09:23:00 176 mm[Hg] Step hen F Jatin BP Diastolic 2023-01-26 09:23:00 77 mm[Hg] Greg phen F Jatin Weight Measured 2023-01-26 09:23:00 113.40 pounds Dev F Jatin Height Measured 2023-01-26 09:23:00 56.69 inches Dev F Jatin Body Temperature 2023-01-26 09:23:00 98.20 degrees Dev F Jatin Heart Rate 2023-01-26 09:23:00 86.00 /min Spring en F Jatin Respiratory Rate 2023-01-26 09:23:00 Dev F Jatin BP Systolic 2022-11-25 10:49:00 176 mm[Hg] Step hen F Jatin BP Diastolic 2022-11-25 10:49:00 92 mm[Hg] Greg phen F Jatin Weight Measured 2022-11-25 10:49:00 111.20 pounds Dev F Jatin Height Measured 2022-11-25 10:49:00 56.69 inches Dev F Jatin Body Temperature 2022-11-25 10:49:00 97.00 degrees Dev F Jatin Heart Rate 2022-11-25 10:49:00 80.00 /min Spring en F Jatin Respiratory Rate 2022-11-25 10:49:00 Dev F Jatin BP Systolic 2022-10-13 15:10:00 187 mm[Hg] Step hen F Jatin BP Diastolic 2022-10-13 15:10:00 71 mm[Hg] Greg phen F Jatin Weight Measured 2022-10-13 15:10:00 113.40 pounds Dev F Jatin Height Measured 2022-10-13 15:10:00 56.69 inches Dev F Jatin Body Temperature 2022-10-13 15:10:00 97.90 degrees Dev F Jatin Heart Rate 2022-10-13 15:10:00 68.00 /min Spring en F Jatin Respiratory Rate 2022-10-13 15:10:00 Dev F Jatin BP Systolic 2022-08-23 11:03:00 210 mm[Hg] Step hen F Jatin BP Diastolic 2022-08-23 11:03:00 94 mm[Hg] Greg phen F Jatin Weight Measured 2022-08-23 11:03:00 113.40 pounds Dev F Jatin Height Measured 2022-08-23 11:03:00 56.69 inches Dev F Jatin Body Temperature 2022-08-23 11:03:00 97.90 degrees Dev F Jatin Heart Rate 2022-08-23 11:03:00 77.00 /min Spring en Destini Steiner Respiratory Rate 2022-08-23 11:03:00 Dev Steiner BP Systolic 2022-01-28 11:10:00 161 mm[Hg] Ruy Steiner BP Diastolic 2022-01-28 11:10:00 79 mm[Hg] Greg Steiner Weight Measured 2022-01-28 11:10:00 Dev Steiner Height Measured 2022-01-28 11:10:00 Dev Steiner Body Temperature 2022-01-28 11:10:00 Dev Steiner Heart Rate 2022-01-28 11:10:00 59.00 /min Spring en Destini Steiner Respiratory Rate 2022-01-28 11:10:00 Dev Steiner Procedures Procedure Date / Time Performed Performing Clinician Source PHYSICIAN ORDERS 2024-02-16 19:52:38 Doctor Unas signed, [facility] PHYSICIAN ORDERS 2024-01-04 17:55:51 Doctor Unas signed, [facility] XR CHEST 1 VW 2023-11-04 18:38:09 Tomasa [facility] PHYSICIAN ORDERS 2023-10-25 19:00:22 Doctor Unas signed, [facility] PHYSICIAN ORDERS 2023-09-05 06:01:00 Doctor Unas signed, [facility] POCT GLUCOSE (AUTOMATED) 2023-02-13 17:02:00 Mica Mancia [facility] POCT GLUCOSE (AUTOMATED) 2023-02-13 13:17:00 Mica Mancia [facility] MAGNESIUM 2023-02-13 09:09:00 Mike Cid [facility] acute hospital TROPONIN I 2023-02-13 09:09:00 Justin Leggett [facility] BASIC METABOLIC PANEL (NA, K, CL, CO2, GLUCOSE, BUN, CREATININE, CA) 2023-02-13 09:09:00 Mike Cid [facility] CBC WITH DIFF 2023-02-13 09:09:00 Mike Cid [facility] N-TERMINAL PRO-BNP 2023-02-13 09:09:00 Olekasndr, [facility] ([facility]OMATED) 2023-02-13 01:06:00 Mica Mancia [facility] POCT GLUCOSE (AUTOMATED) 2023-02-12 22:00:00 Mica Mancia [facility] POCT GLUCOSE (AUTOMATED) 2023-02-12 17:06:00 [facility] XR CHEST 1 VW 2023-02-12 15:24:01 Maria Luisa Mancia [facility] POCT GLUCOSE (AUTOMATED) 2023-02-12 13:00:00 Mica Mancia [facility] MAGNESIUM 2023-02-12 10:30:00 Florencia Taylor [facility] COMP. METABOLIC PANEL (46170) 2023-02-12 10:30:00 Florencia Taylor [facility] CBC WITH DIFF 2023-02-12 10:30:00 Florencia Taylor Un [facility] POCT GLUCOSE (AUTOMATED) 2023-02-12 03:12:00 [facility] POCT GLUCOSE (AUTOMATED) 2023-02-11 21:46:00 Mica Mancia [facility] POCT GLUCOSE (AUTOMATED) 2023-02-11 17:23:00 Mica Mancia [facility] POCT GLUCOSE (AUTOMATED) 2023-02-11 13:05:00 Mica Mancia [facility] BASIC METABOLIC PANEL (NA, K, CL, CO2, GLUCOSE, BUN, CREATININE, CA) 2023-02-11 09:51:00 Mike Cid [facility] CBC WITH DIFF 2023-02-11 09:51:00 Mike Cid [facility] POCT GLUCOSE (AUTOMATED) 2023-02-11 02:43:00 Mica Mancia [facility] POCT GLUCOSE (AUTOMATED) 2023-02-10 21:32:00 Mica Mancia [facility] POCT GLUCOSE (AUTOMATED) 2023-02-10 16:41:00 Mica [facility] POCT GLUCOSE (AUTOMATED) 2023-02-10 12:12:00 Mica Mancia [facility] XR CHEST 1 VW 2023-02-10 11:30:00 [facility] 2023-02-10 10:11:00 Mike Cid [facility] acute hospital BASIC METABOLIC PANEL (NA, K, CL, CO2, GLUCOSE, BUN, CREATININE, CA) 2023-02-10 10:11:00 Mike Cid [facility] LIPID PANEL (03834)(TOTAL CHOLESTEROL, TRIGLYCERIDES, HDL) 2023-02-10 10:11:00 Mike Cid [facility] CBC WITH DIFF 2023-02-10 10:11:00 Mike Cid Un [facility] POCT GLUCOSE (AUTOMATED) 2023-02-10 01:17:00 Mica [facility]ancia [facility] POCT GLUCOSE (AUTOMATED) 2023-02-09 21:59:00 Mica Mancia [facility] COMP. METABOLIC PANEL (89292) 2023-02-09 11:16:00 Florencia Taylor [facility] CBC WITH DIFF 2023-02-09 11:16:00 Florencia Taylor [facility] ASSIGNMENT OF BENEFITS 2023-02-08 19:23:13 Docto r Unassigned, [facility] CONSENT/REFUSAL FOR DIAGNOSIS AND TREATMENT 2023-02-08 19:22:41 Doctor Unassigned, [facility] LIPASE 2023-02-08 18:59:[address] [facility] MAGNESIUM 2023-02-08 18:59:[address] [facility] COMP. METABOLIC PANEL (56487) 2023-02-08 18:59:00 Samanta Arenas [facility] CBC WITH DIFF 2023-02-08 18:59:00 Samanta Arenas [facility] acute hospital URINALYSIS 2023-02-08 18:59:[address] [facility] COVID-19 (ID NOW RAPID TESTING) 2023-02-08 17:52:00 Samanta Arenas [facility] LAB ONLY COVID INTERPRETATION 2023-02-08 17:52:00 Samanta Arenas [facility] POCT GLUCOSE (AUTOMATED) 2023-01-21 13:34:00 [facility]FF 2023-01-21 10:30:00 Nicky Vicente [facility] POCT GLUCOSE (AUTOMATED) 2023-01-21 01:53:00 Person, Cece [facility] CLOSTRIDIUM DIFFICILE TOXIN 2023-01-20 23:42:00 Benjamin Moreno [facility] POCT GLUCOSE (AUTOMATED) 2023-01-20 21:06:00 Person, Cece [facility] BASIC METABOLIC PANEL (NA, K, CL, CO2, GLUCOSE, BUN, CREATININE, CA) 2023-01-20 20:43:00 Mikie Park [facility] POCT GLUCOSE (AUTOMATED) 2023-01-20 16:40:00 Person, Cece [facility] POCT GLUCOSE (AUTOMATED) 2023-01-20 16:40:00 Person, Cece [facility] POCT GLUCOSE (AUTOMATED) 2023-01-20 13:03:00 Person, Cece [facility] POCT GLUCOSE (AUTOMATED) 2023-01-20 13:03:00 [facility], [facility] PHOSPHORUS 2023-01-20 09:10:00 Nicky Vicente [facility] MAGNESIUM 2023-01-20 09:10:00 Nicky Vicente [facility] HEPATIC FUNCTION PANEL (19755) (ALB,T.PRO,BILI T,BU/BC,ALT,AST,ALK PHOS) 2023-01-20 09:10:00 Mikie Park [facility] BASIC METABOLIC PANEL (NA, K, CL, CO2, GLUCOSE, BUN, CREATININE, CA) 2023-01-20 09:10:00 Reji Vicente [facility] CBC WITH DIFF 2023-01-20 09:10:00 Nicky Vicente [facility] PHOSPHORUS 2023-01-20 09:10:00 Nicky Vicente [facility] MAGNESIUM 2023-01-20 09:10:00 Nicky Vicente [facility] HEPATIC FUNCTION PANEL (98682) (ALB,T.PRO,BILI T,BU/BC,ALT,AST,ALK PHOS) 2023-01-20 09:10:00 Mikie Prak [facility] BASIC METABOLIC PANEL (NA, K, CL, CO2, GLUCOSE, BUN, CREATININE, CA) 2023-01-20 09:10:00 Reji Vicente [facility] CBC WITH DIFF 2023-01-20 09:10:00 Nicky Vicente [facility] POCT GLUCOSE (AUTOMATED) 2023-01-20 01:54:00 PersonCece [facility] POCT GLUCOSE (AUTOMATED) 2023-01-20 01:54:00 PersonCece [facility] POCT GLUCOSE (AUTOMATED) 2023-01-19 16:56:00 PersonCece [facility] POCT GLUCOSE (AUTOMATED) 2023-01-19 16:56:00 [facility] SURGICAL PATHOLOGY EXAM 2023-01-19 15:28:00 Macario [facility] INTUBATION 2023-01-19 14:58:00 [facility] LAPAROSCOPIC CHOLECYSTECTOMY 2023-01-19 14:28:00 Macario [facility] LYSIS OF ABDOMINAL ADHESIONS 2023-01-19 14:28:00 Macario [facility] LAPAROSCOPIC CHOLECYSTECTOMY 2023-01-19 14:28:00 Macario [facility] LYSIS OF ABDOMINAL ADHESIONS 2023-01-19 14:28:00 Macario [facility] POCT GLUCOSE (AUTOMATED) 2023-01-19 12:31:00 [facility] POCT GLUCOSE (AUTOMATED) 2023-01-19 12:31:00 [facility] PHOSPHORUS 2023-01-19 08:34:00 Nicky Vicente [facility] MAGNESIUM 2023-01-19 08:34:00 Nicky Vicente [facility] BASIC METABOLIC PANEL (NA, K, CL, CO2, GLUCOSE, BUN, CREATININE, CA) 2023-01-19 08:34:00 Reji Vicente [facility] CBC WITH DIFF 2023-01-19 08:34:00 Nicky Vicente [facility] PHOSPHORUS 2023-01-19 08:34:00 Nicky Vicente [facility] MAGNESIUM 2023-01-19 08:34:00 Nicky Vicente [facility] BASIC METABOLIC PANEL (NA, K, CL, CO2, GLUCOSE, BUN, CREATININE, CA) 2023-01-19 08:34:00 Reji Vicente [facility] CBC WITH DIFF 2023-01-19 08:34:00 Nicky Vicente [facility] PHOSPHORUS 2023-01-19 04:33:00 Donovan Park [facility] MAGNESIUM 2023-01-19 04:33:00 Donovan Park [facility] BASIC METABOLIC PANEL (NA, K, CL, CO2, GLUCOSE, BUN, CREATININE, CA) 2023-01-19 04:33:00 Mikie Park [facility] PHOSPHORUS 2023-01-19 04:33:00 Donovan Park [facility] MAGNESIUM 2023-01-19 04:33:00 Donovan Park [facility] BASIC METABOLIC PANEL (NA, K, CL, CO2, GLUCOSE, BUN, CREATININE, CA) 2023-01-19 04:33:00 Mikie Park [facility] POCT GLUCOSE (AUTOMATED) 2023-01-19 [facility]:28[facility] 2023-01-19 01:28:00 Cece Childs [facility] PHOSPHORUS 2023-01-18 20:31:00 Nicky Vicente [facility] MAGNESIUM 2023-01-18 20:31:00 Nicky Vicente [facility] BASIC METABOLIC PANEL (NA, K, CL, CO2, GLUCOSE, BUN, CREATININE, CA) 2023-01-18 20:31:00 Reji Vicente [facility] EXTRA TUBE RED 2023-01-18 20:31:[address] [facility] PHOSPHORUS 2023-01-18 20:31:00 Nicky Vicente [facility] MAGNESIUM 2023-01-18 20:31:00 Nicky Vicente [facility] BASIC METABOLIC PANEL (NA, K, CL, CO2, GLUCOSE, BUN, CREATININE, CA) 2023-01-18 20:31:00 Reji Vicente [facility] EXTRA TUBE RED 2023-01-18 20:31:00 Amadeo [facility] POCT GLUCOSE (AUTOMATED) 2023-01-18 20:10:00 Susanna Benitez [facility] POCT GLUCOSE (AUTOMATED) 2023-01-18 20:10:00 Eli, Susanna [facility] POCT GLUCOSE (AUTOMATED) 2023-01-18 16:49:00 Eli, Susanna [facility] POCT GLUCOSE (AUTOMATED) 2023-01-18 16:49:00 Eli, Susanna [facility] POCT GLUCOSE (AUTOMATED) 2023-01-18 13:29:00 Eli, Susanna [facility] POCT GLUCOSE (AUTOMATED) 2023-01-18 13:29:00 Susanna Benitez [facility] CBC WITH DIFF 2023-01-18 09:52:00 Nicky Vicente [facility] CBC WITH DIFF 2023-01-18 09:52:00 Nicky Vicente [facility] POCT GLUCOSE (AUTOMATED) 2023-01-18 01:49:00 Susanna Benitez [facility] POCT GLUCOSE (AUTOMATED) 2023-01-18 01:49:00 Susanna Benitez [facility] CANCER ANTIGEN-GI (CA 19-9) 2023-01-17 22:00:00 [facility] CARCINOEMBRYONIC ANTIGEN 2023-01-17 22:00:00 [facility] CANCER ANTIGEN-GI (CA 19-9) 2023-01-17 22:00:00 [facility] CARCINOEMBRYONIC ANTIGEN 2023-01-17 22:00:00 [facility] HB ECG ROUTINE & RHYTHM STRIP 2023-01-17 21:27:50 SkylaJeremias gutierrez [facility] HB ECG ROUTINE & RHYTHM STRIP 2023-01-17 21:27:50 Jeremias Crum [facility] POCT GLUCOSE (AUTOMATED) 2023-01-17 21:21:00 Susanna Benitez [facility] POCT GLUCOSE (AUTOMATED) 2023-01-17 21:21:00 Susanna Benitez [facility] US GALL BLADDER 2023-01-17 14:01:41 Jose Elias Lopes [facility] US GALL BLADDER 2023-01-17 14:01:41 Jose Elias Lopes [facility] CT ABDOMEN PELVIS W CONTRAST 2023-01-17 12:21:10 Loraine Burns [facility] CT ABDOMEN PELVIS W CONTRAST 2023-01-17 12:21:10 Loraine Burns [facility] LIPASE 2023-01-17 10:27:[address] [facility] THYROID STIMULATING HORMONE 2023-01-17 10:27:00 Jeremias Crum [facility] COMP. METABOLIC PANEL (48620) 2023-01-17 10:27:00 Loraine Burns [facility] LIPID PANEL (85106)(TOTAL CHOLESTEROL, TRIGLYCERIDES, HDL) 2023-01-17 10:27:00 Jeremias Crum [facility] CBC WITH DIFF 2023-01-17 10:27:00 Loraine [facility] GLYCOSYLATED HEMOGLOBIN (A1C) 2023-01-17 10:27:00 Aren Stanton [facility] URINALYSIS 2023-01-17 10:27:[address] [facility] LIPASE 2023-01-17 10:27:[address] [facility] THYROID STIMULATING HORMONE 2023-01-17 10:27:00 Skyla [facility] COMP. METABOLIC PANEL (21073) 2023-01-17 10:27:00 Loraine Burns [facility] LIPID PANEL (20757)(TOTAL CHOLESTEROL, TRIGLYCERIDES, HDL) 2023-01-17 10:27:00 Skyla [facility] CBC WITH DIFF 2023-01-17 10:27:00 Loraine Burns [facility] GLYCOSYLATED HEMOGLOBIN (A1C) 2023-01-17 10:27:00 Nils Hernandez [facility] URINALYSIS 2023-01-17 10:27:[address] [facility] NOTICE OF PRIVACY PRACTICES 2023-01-17 10:04:58 Doctor Unassigned, [facility] NOTICE OF PRIVACY PRACTICES 2023-01-17 10:04:58 Doctor Unassigned, [facility] CONSENT/REFUSAL FOR DIAGNOSIS AND TREATMENT 2023-01-17 10:03:13 Doctor Unassigned, [facility] CONSENT/REFUSAL FOR DIAGNOSIS AND TREATMENT 2023-01-17 10:03:13 Doctor Unassigned, [facility] HOSPITAL ADMISSION 2023-01-17 05:01:00 Doctor Un assigned, [facility] HOSPITAL ADMISSION 2023-01-17 05:01:00 Doctor Un assigned, [facility] ASSIGNMENT OF BENEFITS 2022-10-27 18:42:25 Docto r Unassigned, [facility] REFERRAL- REQUEST/RESPONSE 2022-10-13 05:01:00 Mica lujan Unassigned, [facility] Encounters Start Date/Time End Date/Time Encounter Type Admission Type Attending [facility] Care Department Encounter ID Source 2021-05-11 13:54:37 Emergency [facility] [id number] [facility] 2024-09-07 11:45:00 2024-09-07 12:00:00 Machinist Supervisor Outside Visit Pob, Adc Lab Main EthelmoreDayne, Adc Lab Main [facility] 1.2.840.114 350.1.13.10 4.2.7.2.686 [id number] [facility] 2024-09-07 11:45:00 2024-09-07 11:45:00 Outpatient R DAYNE DE LA VE[place], DAYNE [facility] [id number] [facility] 2024-01-04 00:00:00 2024-08-25 07:26:33 Orders Only Doctor Unassigned, Pear[facility] Doctor Unassigned, Pear[facility] 1.2.840.114 350.1.13.10 4.2.7.2.686 [id number] [facility] 2024-02-16 00:00:00 2024-08-25 07:10:29 Orders Only Doctor Unassigned, Pearcy Doctor Unassigned, Pearcy [facility] 1.2.840.114 350.1.13.10 4.2.7.2.686 [id number] [facility] 2023-10-25 00:00:00 2024-08-25 02:19:06 Orders Only Doctor Unassigned, [facility] Doctor Unassigned, Pearcy [facility] 1.2.840.114 350.1.13.10 4.2.7.2.686 [id number] [facility] 2024-07-17 10:19:19 2024-07-17 10:19:19 Outpatient SFA [facility] [id number] Dev F Jatin 2024-07-17 00:00:00 2024-07-17 00:00:00 Outpatient Visit [facility] [id number] Dev Steiner 2024-04-12 10:46:03 2024-04-12 10:46:03 Outpatient SFA [facility] [id number] Dev Steiner 2024-04-12 00:00:00 2024-04-12 00:00:00 Outpatient Visit [facility] [id number] Dev Steiner 2024-02-23 10:49:50 2024-02-23 10:49:50 Outpatient SFA [facility] [id number] Dev Steiner 2024-01-13 10:51:42 2024-01-13 10:51:42 Outpatient SFA [facility] [id number] Dev Steiner 2024-01-13 00:00:00 2024-01-13 00:00:00 Outpatient Visit [facility] [id number] Dev Steiner 2023-12-30 13:45:00 2023-12-30 14:00:00 Machinist Supervisor Outside Visit Pob, Adc Lab [facility] Dayne De La Vega [facility] 1..840.114 350.1.13.10 4.2.7.2.686 [id number] [facility] 2023-12-30 13:45:00 2023-12-30 13:45:00 Outpatient R DAYNE DE LA VEGA [facility] [id number] [facility] 2023-11-04 12:09:00 2023-11-04 15:40:00 Emergency X TOMASA BLAIR [facility] ERT [id number] [facility] 2023-11-04 12:09:00 2023-11-04 15:40:00 Emergency SchTomasa cleaning [facility] .840.114 350.1.13.10 4.2.7.2.686 [id number] [facility] 2023-11-03 09:25:57 2023-11-03 09:25:57 Outpatient SFA [facility] [id number] Dev Steiner 2023-11-03 00:00:00 2023-11-03 00:00:00 Outpatient Visit [facility] [id number] Dev Steiner 2023-10-28 11:15:00 2023-10-28 11:30:00 Machinist Supervisor Outside Visit Pob[facility] 1.2.840.114 350.1.13.10 4.2.7.2.686 [id number] [facility] 2023-10-28 11:15:00 2023-10-28 11:15:00 Outpatient R DAYNE DE LA VEGA NAVEED [facility] [id number] [facility] 2023-10-06 12:00:00 2023-10-06 12:15:00 Machinist Supervisor Outside Visit Pob, Adc Lab Main Holli [facility] 1.2.840.114 350.1.13.10 4.2.7.2.686 [id number] [facility] 2023-10-06 12:00:00 2023-10-06 12:00:00 Outpatient Sanaz DE LA GARZA [facility] [id number] [facility] 2023-09-19 14:03:33 2023-09-19 14:03:33 Outpatient SFA [facility] [id number] Dev Steiner 2023-09-05 10:00:00 2023-09-05 10:15:00 Machinist Supervisor Outside Visit Pob, Adc Lab Main [facility] 1.2.840.114 350.1.13.10 4.2.7.2.686 [id number] [facility] 2023-09-05 10:00:00 2023-09-05 10:00:00 Outpatient DAYNE TERRAZAS NAVEED [facility] [id number] [facility] 2023-09-05 00:00:00 2023-09-05 00:00:00 Orders Only Doctor Unassigned, Pearcy [facility] 1.2.840.114 350.1.13.10 4.2.7.2.686 [id number] [facility] 2023-06-21 13:43:03 2023-06-21 13:43:03 Outpatient [facility] [id number] Dev [place] 2023-05-12 14:55:02 2023-05-12 14:55:02 Outpatient [facility] [id number] Dev [place] 2023-03-22 12:38:20 2023-03-22 12:38:20 Outpatient [facility] [id number] Dev [place] 2023-03-02 00:00:00 2023-03-02 00:00:00 Patient Secure Msg Doctor Unassigned, Pearcy [facility] 1.2840.114 350.1.13.10 4.2.7.2.686 [id number] [facility] 2023-02-15 00:00:00 2023-02-15 00:00:00 Transition of Care Lauren Giles ATKINS MIRIAM 1.2.840.114 350.1.13.10 4.2.7.2.686 [id number] [facility] 2023-02-14 00:00:00 2023-02-14 00:00:00 Patient Secure Msg Doctor Unassigned, Pearcy [facility] 1.2.840.114 350.1.13.10 4.2.7.2.686 [id number] [facility] 2023-02-08 12:08:00 2023-02-13 15:39:00 Inpatient MARIA LUISA ZAYAS [facility] [id number] [facility] 2023-02-08 12:08:00 2023-02-13 15:39:00 Hospital Encounter Samanta ArenasMaria Luisa [facility] 1.2.840.114 350.1.13.10 4.2.7.2.686 [id number] [facility] 2023-01-26 09:09:42 2023-01-26 09:09:42 Outpatient SFA [facility] [id number] Dev Steiner 2023-01-24 00:00:00 2023-01-24 00:00:00 Transition of Care Lauren Giles [facility] 1.2.840.114 350.1.13.10 4.2.7.2.686 [id number] [facility] 2023-01-17 05:15:00 2023-01-21 18:13:00 [facility] [id number] [facility] 2023-01-17 05:15:00 2023-01-21 18:13:00 Emergency Loraine Burns, Jose Elias Benitez, Karli Childs [facility] 1.2.840.114 350.1.13.10 4.2.7.2.686 [id number] [facility] 2023-01-19 09:00:00 2023-01-19 11:37:00 Surgery Heath Sorto [facility] 1.2.840.114 350.1.13.10 4.2.7.2.686 [id number] [facility] 2023-01-19 09:43:00 2023-01-19 11:14:00 Anesthesia Event Chantelle Solo Victor [facility] 1.2.840.114 350.1.13.10 4.2.7.2.686 [id number] [facility] 2022-10-27 13:55:00 2022-10-27 23:59:00 Outpatient R MARIELA GIPSON [facility] [id number] [facility] 2022-10-27 14:00:00 2022-10-27 14:30:00 [facility] 1.2.840.114 350.1.13.10 4.2.7.2.686 [id number] [facility] 2022-10-27 00:00:00 2022-10-27 00:00:00 Orders Only Doctor Unassigned, Pearcy [facility] 1.2.840.114 350.1.13.10 4.2.7.2.686 [id number] [facility] 2022-10-13 15:06:29 2022-10-13 15:06:29 Outpatient SFA [facility] [id number] Dev Georges Jatin 2022-10-13 00:00:00 2022-10-13 00:00:00 Orders Only Doctor Unassigned, Pearcy [facility] 1.2.840.114 350.1.13.10 4.2.7.2.686 [id number] [facility] 2022-08-23 10:53:50 2022-08-23 10:53:50 Outpatient SFA [facility] [id number] Dev Georges Jatin 2020-12-04 00:00:00 2020-12-04 00:00:00 Outpatient R [facility] [id number] [facility] 2020-12-03 00:00:00 2020-12-03 00:00:00 Outpatient R [facility] [id number] [facility] 2020-11-26 00:00:00 2020-11-26 00:00:00 Outpatient R RADIOLOGY [facility] [id number] [facility] 2019-09-19 14:47:23 2019-09-19 23:59:00 Outpatient R STEF OSMAN I [facility] [id number] [facility] 2019-08-30 09:49:51 2019-08-30 23:59:00 Outpatient R STEF OSMAN I [facility] [id number] [facility] Results Test Description Test Time Test Comments Results Result Co mments Source HEMOGLOBIN [id number] 00:00:00* Test Item Value Reference Range Interpretation Comme nts HEMOGLOBIN A1c (test code = 41080) 7.1 % Dev SteinerALBUMIN/CREATININE RATIO, URINE, [id number] 07:50:47* Test Item Value Reference Range Interpretation Comme nts CREATININE, URINE, CONC. (test code = 2072) 96.7 MG/DL NOT ESTAB ALBUMIN, URINE, RANDOM (test code = 66559) 82.4 MG/DL NOT ESTAB CALC ALBUMIN/CREAT, RND (test code = 29390) 852 MG/G <30 H Note: Albumin/Cr eatinine ratio reference interval reflects ADA and NKF guidelines. UNLESS OTHERWISE INDICATED, ALL TESTING PERFORMED AT [facility] [address] [place] [address] DIRECTOR GROUP SALES: FREDDY HUTCHISON M.D. CLIA NUMBER [id number] [facility] [place]. [id number] LIPID [id number] 05:51:57* Test Item Value Reference Range Interpretation Comme nts CHOLESTEROL (test code = 2210) 140 MG/DL <200 TRIGLYCERIDES (test code = 2232) 263 MG/DL <150 H HDL CHOLESTEROL (test code = 2220) 39 MG/DL >39 L CALC LDL CHOL (test code = 2237) 66 MG/DL <100 NOTE: CALCULATED LDL IS BASED ON BARBER-MATA METHOD WHICHINCLUDES ADJUSTABLE TRIGLYCERIDE:VLDL CHOLESTEROL RATIO.THIS FACTOR VARIES BY MEASURED TRIGLYCERIDE AND NON-HDLCHOLESTEROL CONCENTRATIONS WITH INCREASED CALCULATED LDL SEENIN HIGHER TRIGLYCERIDE OR LOWER NON-HDL SPECIMENS. FOR MOREINFORMATION, SEE CLIENT ANNOUNCEMENT AT [email or web address] RATIO LDL/HDL (test code = 2238) 1.69 RATIO <3.22 COMPREHENSIVE METABOLIC [id number] 05:51:57* Test Item Value Reference Range Interpretation Comme nts GLUCOSE (test code = 2217) 210 MG/DL 70-99 H BUN (test code = 2208) 36 MG/DL 8-23 H CREATININE (test code = 2213) 1.42 MG/DL 0.60-1.30 H eGFR (2020 CKD-EPI) (test co de = 69838) 37 ML/MIN/1.73 >60 L CALC BUN/CREAT (test code = 2234) 25 RATIO 6-28 SODIUM (test code = 2230) 138 MEQ/L 133-146 POTASSIUM (test code = 2227) 4.8 MEQ/L 3.5-5.4 CHLORIDE (test code = 2214) 104 MEQ/L 95-107 CARBON DIOXIDE (test code = 2205) 19 MEQ/L 19-31 CALCIUM (test code = 2208) 9.3 MG/DL 8.5-10.5 PROTEIN, TOTAL (test code = 2228) 7.3 G/DL 6.1-8.3 ALBUMIN (test code = 2200) 4.3 G/DL 3.5-5.2 CALC GLOBULIN (test code = 0) 3.0 G/DL 1.9-3.7 CALC A/G RATIO (test code = 2233) 1.4 RATIO 1.0-2.6 BILIRUBIN, TOTAL (test code = 2206) 0.2 MG/DL <=1.2 ALKALINE PHOSPHATASE (test code = 2203) 98 U/L 40-142 AST (test code = 8) 14 U/L 9-40 ALT (test code = 2219) 12 U/L 5-40 HEMOGLOBIN [id number] 03:27:05* Test Item Value Reference Range Interpretation Comme [facility] HEMOGLOBIN A1c (test code = 27644) 7.3 % 4.2-5.6 H [employer] GUIDELINES FOR HGB A1C: PREDIABETES/INCREASED RISK . . . . . . . 5.7-6.4% DIAGNOSIS OF DIABETES . . . . . . . . . >=6.5% WITH CONFIRMATION OR APPROPRIATE SYMPTOMS NOTE: ASSAY MAY BE AFFECTED BY HEMOGLOBINOPATHIES (SICKLE CELL ANEMIA, S-C DISEASE, OTHERS) OR ARTIFICIALLY LOWERED BY DECREASED RED CELL SURVIVAL (HEMOLYTIC ANEMIAS, BLOOD LOSS, ETC.). CONSIDER ALTERNATE TESTING OR LABORATORY CONSULTATION. HEMOGLOBIN [id number] 00:00:00* Test Item Value Reference Range Interpretation Comme [facility] HEMOGLOBIN A1c (test code = 71621) 7.3 % Dev F AustinLIPID [id number] 00:00:00* Test Item Value Reference Range Interpretation Comme nts CHOLESTEROL (test code = 2210) 140 MG/DL TRIGLYCERIDES (test code = 2232) 263 MG/DL HDL CHOLESTEROL (test code = 2220) 39 MG/DL CALC LDL CHOL (test code = 2237) 66 MG/DL RISK RATIO LDL/HDL (test cod e = 2238) 1.69 RATIO Dev SteinerCOMPREHENSIVE METABOLIC [id number] 00:00:00* Test Item Value Reference Range Interpretation Comme nts GLUCOSE (test code = 2217) 210 MG/DL BUN (test code = 2208) 36 MG/DL CREATININE (test code = 2214) 1.42 MG/DL eGFR (2020 CKD-EPI) (test co de = 41028) 37 ML/MIN/1.73 CALC BUN/CREAT (test code = 2235) 25 RATIO SODIUM (test code = 2231) 138 MEQ/L POTASSIUM (test code = 2228) 4.8 MEQ/L CHLORIDE (test code = 2215) 104 MEQ/L CARBON DIOXIDE (test code = 2206) 19 MEQ/L CALCIUM (test code = 2209) 9.3 MG/DL PROTEIN, TOTAL (test code = 2229) 7.3 G/DL ALBUMIN (test code = 2201) 4.3 G/DL CALC GLOBULIN (test code = 2240) 3.0 G/DL CALC A/G RATIO (test code = 2234) 1.4 RATIO BILIRUBIN, TOTAL (test code = 2207) 0.2 MG/DL ALKALINE PHOSPHATASE (test code = 2204) 98 U/L AST (test code = 2218) 14 U/L ALT (test code = 2219) 12 U/L Dev SteinerALBUMIN/CREATININE RATIO, RANDOM [id number] 00:00:00* Test Item Value Reference Range Interpretation Comme nts CREATININE, URINE, CONC. (te st code = 2072) 96.7 MG/DL ALBUMIN, URINE, RANDOM (test code = 84994) 82.4 MG/DL CALC ALBUMIN/CREAT, RND (eitan t code = 33103) 852 MG/G Dev SteinerHEMOGLOBIN [id number] 00:00:00* Test Item Value Reference Range Interpretation Comme nts HEMOGLOBIN A1c (test code = 85174) 7.3 % Dev SteinerLIPID [id number] 00:00:00* Test Item Value Reference Range Interpretation Comme nts CHOLESTEROL (test code = 2210) 140 MG/DL TRIGLYCERIDES (test code = 2232) 263 MG/DL HDL CHOLESTEROL (test code = 2220) 39 MG/DL CALC LDL CHOL (test code = 2237) 66 MG/DL RISK RATIO LDL/HDL (test cod e = 2238) 1.69 RATIO Dev SteinerCOMPREHENSIVE METABOLIC [id number] 00:00:00* Test Item Value Reference Range Interpretation Comme nts GLUCOSE (test code = 2217) 210 MG/DL BUN (test code = 2208) 36 MG/DL CREATININE (test code = 2214) 1.42 MG/DL eGFR (2020 CKD-EPI) (test co de = 17321) 37 ML/MIN/1.73 CALC BUN/CREAT (test code = 2235) 25 RATIO SODIUM (test code = 2231) 138 MEQ/L POTASSIUM (test code = 2228) 4.8 MEQ/L CHLORIDE (test code = 2215) 104 MEQ/L CARBON DIOXIDE (test code = 2206) 19 MEQ/L CALCIUM (test code = 2209) 9.3 MG/DL PROTEIN, TOTAL (test code = 2229) 7.3 G/DL ALBUMIN (test code = 2201) 4.3 G/DL CALC GLOBULIN (test code = 2240) 3.0 G/DL CALC A/G RATIO (test code = 2234) 1.4 RATIO BILIRUBIN, TOTAL (test code = 2207) 0.2 MG/DL ALKALINE PHOSPHATASE (test code = 2204) 98 U/L AST (test code = 2218) 14 U/L ALT (test code = 2219) 12 U/L Dev SteinerALBUMIN/CREATININE RATIO, RANDOM [id number] 00:00:00* Test Item Value Reference Range Interpretation Comme nts CREATININE, URINE, CONC. (te st code = 2072) 96.7 MG/DL ALBUMIN, URINE, RANDOM (test code = 34701) 82.4 MG/DL CALC ALBUMIN/CREAT, RND (eitan t code = 51783) 852 MG/G Dev SteinerPHYSICIAN [id number] 19:52:38Ordered by an unspecified provider.[facility] [id number] 17:55:51 Ordered by an unspecified provider.[facility] 1 [id number] 19:00:05EXAM: XR CHEST 1 VW COMPARISON: 02/12/2023 HISTORY: pain & decreased ROM L shoulder ?x 3 days FINDINGS: Lungs: The lungs are adequately expanded. Persistent chronic prominence ofthe interstitium and peribronchial cuffing. Reticulonodular opacities areagain noted especially in the right suprahilarregion. Slightly increasedpatchy opacities in the right infrahilar region and left lung base. Heart/Mediastinum: Mild cardiomegaly persists. Prominent central pulmonaryarteries. Unfolded descending thoracic aorta. Bones and soft tissues: Moderate degenerative changes of the right shoulderjoint with decreased joint space. Moderate spondylosisUnMethod[facility] PH[facility]ICIAN [id number] 19:00:22Ordered by an unspecified provider.[facility]COM[facility] [id number] 05:28:36* Test Item Value Reference Range Interpretation Comme nts GLUCOSE (test code = 2217) 123 MG/DL 70-99 H BUN (test code = 2208) 78 MG/DL 8-23 H CREATININE (test code = 2214) 1.88 MG/DL 0.60-1.30 H eGFR (2020 CKD-EPI) (test code = 51452) 27 ML/MIN/1.73 >60 L CALC BUN/CREAT (test code = 2235) 41 RATIO 6-28 H SODIUM (test code = 2231) 138 MEQ/L 133-146 POTASSIUM (test code = 2228) 6.4 MEQ/L 3.5-5.4 H Analytic results reviewed and verified. Specimen received with red cells in contact with serum. Certain results may be affected. Clinical correlation is advised to determine need for recollection. CHLORIDE (test code = 2215) 105 MEQ/L 95-107 CARBON DIOXIDE (test code = 2206) 18 MEQ/L 19-31 L CALCIUM (test code = 2209) 9.9 MG/DL 8.5-10.5 PROTEIN, TOTAL (test code = 2229) 8.4 G/DL 6.1-8.3 H ALBUMIN (test code = 2201) 5.0 G/DL 3.5-5.2 CALC GLOBULIN (test code = 2240) 3.4 G/DL 1.9-3.7 CALC A/G RATIO (test code = 2234) 1.5 RATIO 1.0-2.6 BILIRUBIN, TOTAL (test code = 7) <0.2 MG/DL <=1.2 ALKALINE PHOSPHATASE (test code = 4) 101 U/L 40-142 AST (test code = 2218) 18 U/L 9-40 ALT (test code = 2219) 15 U/L 5-40 LIPID [id number] 05:28:36* Test Item Value Reference Range Interpretation Comme nts CHOLESTEROL (test code = 2210) 153 MG/DL <200 TRIGLYCERIDES (test code = 2232) 286 MG/DL <150 H HDL CHOLESTEROL (test code = 0) 45 MG/DL >39 CALC LDL CHOL (test code = 2236) 70 MG/DL <100 NOTE: CALCULATED LDL IS BASED ON BARBER-MATA METHOD WHICHINCLUDES ADJUSTABLE TRIGLYCERIDE:VLDL CHOLESTEROL RATIO.THIS FACTOR VARIES BY MEASURED TRIGLYCERIDE AND NON-HDLCHOLESTEROL CONCENTRATIONS WITH INCREASED CALCULATED LDL SEENIN HIGHER TRIGLYCERIDE OR LOWER NON-HDL SPECIMENS. FOR MOREINFORMATION, SEE CLIENT ANNOUNCEMENT AT [email or web address] RISK RATIO LDL/HDL (test code = 2238) 1.56 RATIO <3.22 UNLESS OTHERW ISE INDICATED, ALL TESTING PERFORMED AT [facility] [address] [place] [address] DIRECTOR GROUP SALES: FREDDY HUTCHISON M.D. CLIA NUMBER [id number] [facility] [place]. [id number] HEMOGLOBIN [id number] 02:29:10* Test Item Value Reference Range Interpretation Comme nts HEMOGLOBIN A1c (test code = 00566) 7.0 % 4.2-5.6 H [employer] GUIDELINES FOR HGB A1C: PREDIABETES/INCREASED RISK . . . . . . . 5.7-6.4% DIAGNOSIS OF DIABETES . . . . . . . . . >=6.5% WITH CONFIRMATION OR APPROPRIATE SYMPTOMS NOTE: ASSAY MAY BE AFFECTED BY HEMOGLOBINOPATHIES (SICKLE CELL ANEMIA, S-C DISEASE, OTHERS) OR ARTIFICIALLY LOWERED BY DECREASED RED CELL SURVIVAL (HEMOLYTIC ANEMIAS, BLOOD LOSS, ETC.). CONSIDER ALTERNATE TESTING OR LABORATORY CONSULTATION. HEMOGLOBIN [id number] 00:00:00* Test Item Value Reference Range Interpretation Comme nts HEMOGLOBIN A1c (test code = 12459) 7.0 % Dev Georges AustinLIPID [id number] 00:00:00* Test Item Value Reference Range Interpretation Comme nts CHOLESTEROL (test code = 2210) 153 MG/DL TRIGLYCERIDES (test code = 2232) 286 MG/DL HDL CHOLESTEROL (test code = 2220) 45 MG/DL CALC LDL CHOL (test code = 2237) 70 MG/DL RISK RATIO LDL/HDL (test cod e = 2238) 1.56 RATIO Dev SteinerCOMPREHENSIVE METABOLIC [id number] 00:00:00* Test Item Value Reference Range Interpretation Comme nts GLUCOSE (test code = 2217) 123 MG/DL BUN (test code = 2208) 78 MG/DL CREATININE (test code = 2214) 1.88 MG/DL eGFR (2020 CKD-EPI) (test co de = 12214) 27 ML/MIN/1.73 CALC BUN/CREAT (test code = 2235) 41 RATIO SODIUM (test code = 2231) 138 MEQ/L POTASSIUM (test code = 2228) 6.4 MEQ/L CHLORIDE (test code = 2215) 105 MEQ/L CARBON DIOXIDE (test code = 2206) 18 MEQ/L CALCIUM (test code = 2209) 9.9 MG/DL PROTEIN, TOTAL (test code = 2229) 8.4 G/DL ALBUMIN (test code = 2201) 5.0 G/DL CALC GLOBULIN (test code = 2240) 3.4 G/DL CALC A/G RATIO (test code = 2234) 1.5 RATIO BILIRUBIN, TOTAL (test code = 2207) <0.2 MG/DL ALKALINE PHOSPHATASE (test code = 2204) 101 U/L AST (test code = 2218) 18 U/L ALT (test code = 2219) 15 U/L Dev SteinerHEMOGLOBIN [id number] 00:00:00* Test Item Value Reference Range Interpretation Comme nts HEMOGLOBIN A1c (test code = 53518) 7.0 % Dev Georges AustinLIPID [id number] 00:00:00* Test Item Value Reference Range Interpretation Comme nts CHOLESTEROL (test code = 2210) 153 MG/DL TRIGLYCERIDES (test code = 2232) 286 MG/DL HDL CHOLESTEROL (test code = 2220) 45 MG/DL CALC LDL CHOL (test code = 2237) 70 MG/DL RISK RATIO LDL/HDL (test cod e = 2238) 1.56 RATIO Dev SteinerCOMPREHENSIVE METABOLIC [id number] 00:00:00* Test Item Value Reference Range Interpretation Comme nts GLUCOSE (test code = 2217) 123 MG/DL BUN (test code = 2208) 78 MG/DL CREATININE (test code = 2214) 1.88 MG/DL eGFR (2020 CKD-EPI) (test co de = 96072) 27 ML/MIN/1.73 CALC BUN/CREAT (test code = 2235) 41 RATIO SODIUM (test code = 2231) 138 MEQ/L POTASSIUM (test code = 2228) 6.4 MEQ/L CHLORIDE (test code = 2215) 105 MEQ/L CARBON DIOXIDE (test code = 2206) 18 MEQ/L CALCIUM (test code = 2209) 9.9 MG/DL PROTEIN, TOTAL (test code = 2229) 8.4 G/DL ALBUMIN (test code = 2201) 5.0 G/DL CALC GLOBULIN (test code = 2240) 3.4 G/DL CALC A/G RATIO (test code = 2234) 1.5 RATIO BILIRUBIN, TOTAL (test code = 2207) <0.2 MG/DL ALKALINE PHOSPHATASE (test code = 2204) 101 U/L AST (test code = 2218) 18 U/L ALT (test code = 2219) 15 U/L Dev SteinerHEMOGLOBIN [id number] 00:00:00* Test Item Value Reference Range Interpretation Comme nts HEMOGLOBIN A1c (test code = 29239) 7.0 % Dev SteinerLIPID [id number] 00:00:00* Test Item Value Reference Range Interpretation Comme nts CHOLESTEROL (test code = 2210) 153 MG/DL TRIGLYCERIDES (test code = 2232) 286 MG/DL HDL CHOLESTEROL (test code = 2220) 45 MG/DL CALC LDL CHOL (test code = 2237) 70 MG/DL RISK RATIO LDL/HDL (test cod e = 2238) 1.56 RATIO Dev SteinerCOMPREHENSIVE METABOLIC [id number] 00:00:00* Test Item Value Reference Range Interpretation Comme nts GLUCOSE (test code = 2217) 123 MG/DL BUN (test code = 2208) 78 MG/DL CREATININE (test code = 2214) 1.88 MG/DL eGFR (2020 CKD-EPI) (test co de = 92902) 27 ML/MIN/1.73 CALC BUN/CREAT (test code = 2235) 41 RATIO SODIUM (test code = 2231) 138 MEQ/L POTASSIUM (test code = 2228) 6.4 MEQ/L CHLORIDE (test code = 2215) 105 MEQ/L CARBON DIOXIDE (test code = 2206) 18 MEQ/L CALCIUM (test code = 2209) 9.9 MG/DL PROTEIN, TOTAL (test code = 2229) 8.4 G/DL ALBUMIN (test code = 2201) 5.0 G/DL CALC GLOBULIN (test code = 2240) 3.4 G/DL CALC A/G RATIO (test code = 2234) 1.5 RATIO BILIRUBIN, TOTAL (test code = 2207) <0.2 MG/DL ALKALINE PHOSPHATASE (test code = 2204) 101 U/L AST (test code = 2218) 18 U/L ALT (test code = 2219) 15 U/L Dev SteinerHEMOGLOBIN [id number] 00:00:00* Test Item Value Reference Range Interpretation Comme nts HEMOGLOBIN A1c (test code = 71766) 7.0 % Dev SteinerLIPID [id number] 00:00:00* Test Item Value Reference Range Interpretation Comme nts CHOLESTEROL (test code = 2210) 153 MG/DL TRIGLYCERIDES (test code = 2232) 286 MG/DL HDL CHOLESTEROL (test code = 2220) 45 MG/DL CALC LDL CHOL (test code = 2237) 70 MG/DL RISK RATIO LDL/HDL (test cod e = 2238) 1.56 RATIO Dev Georges AustinCOMPREHENSIVE METABOLIC [id number] 00:00:00* Test Item Value Reference Range Interpretation Comme nts GLUCOSE (test code = 2217) 123 MG/DL BUN (test code = 2208) 78 MG/DL CREATININE (test code = 2214) 1.88 MG/DL eGFR (2020 CKD-EPI) (test co de = 05211) 27 ML/MIN/1.73 CALC BUN/CREAT (test code = 2235) 41 RATIO SODIUM (test code = 223) 138 MEQ/L POTASSIUM (test code = 2228) 6.4 MEQ/L CHLORIDE (test code = 2215) 105 MEQ/L CARBON DIOXIDE (test code = 2206) 18 MEQ/L CALCIUM (test code = 2209) 9.9 MG/DL PROTEIN, TOTAL (test code = 2228) 8.4 G/DL ALBUMIN (test code = 220) 5.0 G/DL CALC GLOBULIN (test code = 2240) 3.4 G/DL CALC A/G RATIO (test code = 2234) 1.5 RATIO BILIRUBIN, TOTAL (test code = 2206) <0.2 MG/DL ALKALINE PHOSPHATASE (test code = 2203) 101 U/L AST (test code = 2217) 18 U/L ALT (test code = 221) 15 U/L Dev SteinerHEPATIC FUNCTION [id number] 05:49:16* Test Item Value Reference Range Interpretation Comme nts PROTEIN, TOTAL (test code = 2228) 7.5 G/DL 6.1-8.3 ALBUMIN (test code = 220) 4.7 G/DL 3.5-5.2 BILIRUBIN, TOTAL (test code = 2206) <0.2 MG/DL <=1.2 BILIRUBIN, DIRECT (test code = 2021) <0.2 MG/DL 0.0-0.3 ALKALINE PHOSPHATASE (test c ode = 2203) 92 U/L 40-142 AST (test code = 221) 17 U/L 9-40 ALT (test code = 2219) 16 U/L 5-40 RENAL FUNCTION [id number] 05:49:16* Test Item Value Reference Range Interpretation Comme nts GLUCOSE (test code = 2217) 163 MG/DL 70-99 H BUN (test code = 2208) 48 MG/DL 8-23 H CREATININE (test code = 2214) 1.54 MG/DL 0.60-1.30 H eGFR (2020 CKD-EPI) (test co de = 14119) 34 ML/MIN/1.73 >60 L CALC BUN/CREAT (test code = 2235) 31 RATIO 6-28 H SODIUM (test code = 2231) 139 MEQ/L 133-146 POTASSIUM (test code = 2228) 5.7 MEQ/L 3.5-5.4 H CHLORIDE (test code = 2215) 104 MEQ/L 95-107 CARBON DIOXIDE (test code = 2206) 19 MEQ/L 19-31 CALCIUM (test code = 2209) 9.5 MG/DL 8.5-10.5 PHOSPHORUS (test code = 2227) 5.4 MG/DL 2.5-4.5 H ALBUMIN (test code = 2201) 4.7 G/DL 3.5-5.2 LIPID [id number] 05:49:16* Test Item Value Reference Range Interpretation Comme nts CHOLESTEROL (test code = 2210) 152 MG/DL <200 TRIGLYCERIDES (test code = 2232) 357 MG/DL <150 H HDL CHOLESTEROL (test code = 2220) 36 MG/DL >39 L CALC LDL CHOL (test code = 2237) 73 MG/DL <100 NOTE: CALCULATED LDL IS BASED ON BARBER-MATA METHOD WHICHINCLUDES ADJUSTABLE TRIGLYCERIDE:VLDL CHOLESTEROL RATIO.THIS FACTOR VARIES BY MEASURED TRIGLYCERIDE AND NON-HDLCHOLESTEROL CONCENTRATIONS WITH INCREASED CALCULATED LDL SEENIN HIGHER TRIGLYCERIDE OR LOWER NON-HDL SPECIMENS. FOR MOREINFORMATION, SEE CLIENT ANNOUNCEMENT AT [email or web address] RISK RATIO LDL/HDL (test code = 2238) 2.03 RATIO <3.22 UNLESS OTHERW ISE INDICATED, ALL TESTING PERFORMED AT [facility] [address] [place] [id number] DIRECTOR GROUP SALES: FREDDY HUTCHISON M.D. CLIA NUMBER [id number] [facility] [place]. [id number] KIDNEY (RENAL) FUNCTION [id number] 00:00:00* Test Item Value Reference Range Interpretation Comme nts GLUCOSE (test code = 2217) 163 MG/DL BUN (test code = 2208) 48 MG/DL CREATININE (test code = 2214) 1.54 MG/DL eGFR (2020 CKD-EPI) (test co de = 03838) 34 ML/MIN/1.73 CALC BUN/CREAT (test code = 223) 31 RATIO SODIUM (test code = 223) 139 MEQ/L POTASSIUM (test code = 2228) 5.7 MEQ/L CHLORIDE (test code = 2215) 104 MEQ/L CARBON DIOXIDE (test code = 2206) 19 MEQ/L CALCIUM (test code = 2209) 9.5 MG/DL PHOSPHORUS (test code = 2227) 5.4 MG/DL ALBUMIN (test code = 2201) 4.7 G/DL Dev SteinerLIPID [id number] 00:00:00* Test Item Value Reference Range Interpretation Comme nts CHOLESTEROL (test code = 2210) 152 MG/DL TRIGLYCERIDES (test code = 2232) 357 MG/DL HDL CHOLESTEROL (test code = 2220) 36 MG/DL CALC LDL CHOL (test code = 2237) 73 MG/DL RISK RATIO LDL/HDL (test cod e = 2238) 2.03 RATIO Dev Colmenares (HEPATIC) FUNCTION [id number] 00:00:00* Test Item Value Reference Range Interpretation Comme nts PROTEIN, TOTAL (test code = 2229) 7.5 G/DL ALBUMIN (test code = 2201) 4.7 G/DL BILIRUBIN, TOTAL (test code = 2207) <0.2 MG/DL BILIRUBIN, DIRECT (test code = 2) <0.2 MG/DL ALKALINE PHOSPHATASE (test c ode = 2204) 92 U/L AST (test code = 2218) 17 U/L ALT (test code = 2219) 16 U/L Devlion Jarquin (RENAL) FUNCTION [id number] 00:00:00* Test Item Value Reference Range Interpretation Comme nts GLUCOSE (test code = 2217) 163 MG/DL BUN (test code = 2208) 48 MG/DL CREATININE (test code = 2214) 1.54 MG/DL eGFR (2020 CKD-EPI) (test co de = 15746) 34 ML/MIN/1.73 CALC BUN/CREAT (test code = 2235) 31 RATIO SODIUM (test code = 2231) 139 MEQ/L POTASSIUM (test code = 2228) 5.7 MEQ/L CHLORIDE (test code = 2215) 104 MEQ/L CARBON DIOXIDE (test code = 2206) 19 MEQ/L CALCIUM (test code = 2209) 9.5 MG/DL PHOSPHORUS (test code = 2227) 5.4 MG/DL ALBUMIN (test code = 2201) 4.7 G/DL Dev SteinerLIPID [id number] 00:00:00* Test Item Value Reference Range Interpretation Comme nts CHOLESTEROL (test code = 2210) 152 MG/DL TRIGLYCERIDES (test code = 2232) 357 MG/DL HDL CHOLESTEROL (test code = 2220) 36 MG/DL CALC LDL CHOL (test code = 2237) 73 MG/DL RISK RATIO LDL/HDL (test cod e = 2238) 2.03 RATIO Dev Georges Dedra (HEPATIC) FUNCTION [id number] 00:00:00* Test Item Value Reference Range Interpretation Comme nts PROTEIN, TOTAL (test code = 2229) 7.5 G/DL ALBUMIN (test code = 2201) 4.7 G/DL BILIRUBIN, TOTAL (test code = 2207) <0.2 MG/DL BILIRUBIN, DIRECT (test code = 2021) <0.2 MG/DL ALKALINE PHOSPHATASE (test c ode = 2204) 92 U/L AST (test code = 2218) 17 U/L ALT (test code = 2219) 16 U/L Dev SteinerNANDO (RENAL) FUNCTION [id number] 00:00:00* Test Item Value Reference Range Interpretation Comme nts GLUCOSE (test code = 2217) 163 MG/DL BUN (test code = 2208) 48 MG/DL CREATININE (test code = 2214) 1.54 MG/DL eGFR (2020 CKD-EPI) (test co de = 85808) 34 ML/MIN/1.73 CALC BUN/CREAT (test code = 2235) 31 RATIO SODIUM (test code = 2231) 139 MEQ/L POTASSIUM (test code = 2228) 5.7 MEQ/L CHLORIDE (test code = 2215) 104 MEQ/L CARBON DIOXIDE (test code = 2206) 19 MEQ/L CALCIUM (test code = 2209) 9.5 MG/DL PHOSPHORUS (test code = 2227) 5.4 MG/DL ALBUMIN (test code = 2201) 4.7 G/DL Dev SteinerLIPID [id number] 00:00:00* Test Item Value Reference Range Interpretation Comme nts CHOLESTEROL (test code = 2210) 152 MG/DL TRIGLYCERIDES (test code = 2232) 357 MG/DL HDL CHOLESTEROL (test code = 2220) 36 MG/DL CALC LDL CHOL (test code = 2237) 73 MG/DL RISK RATIO LDL/HDL (test cod e = 2238) 2.03 RATIO Dev Georges Dedra (HEPATIC) FUNCTION [id number] 00:00:00* Test Item Value Reference Range Interpretation Comme nts PROTEIN, TOTAL (test code = 2229) 7.5 G/DL ALBUMIN (test code = 2201) 4.7 G/DL BILIRUBIN, TOTAL (test code = 2207) <0.2 MG/DL BILIRUBIN, DIRECT (test code = 2021) <0.2 MG/DL ALKALINE PHOSPHATASE (test c ode = 2204) 92 U/L AST (test code = 2218) 17 U/L ALT (test code = 2219) 16 U/L Dev Georges Milka (RENAL) FUNCTION [id number] 00:00:00* Test Item Value Reference Range Interpretation Comme nts GLUCOSE (test code = 2217) 163 MG/DL BUN (test code = 2208) 48 MG/DL CREATININE (test code = 2214) 1.54 MG/DL eGFR (2020 CKD-EPI) (test co de = 28946) 34 ML/MIN/1.73 CALC BUN/CREAT (test code = 2235) 31 RATIO SODIUM (test code = 2231) 139 MEQ/L POTASSIUM (test code = 2228) 5.7 MEQ/L CHLORIDE (test code = 2215) 104 MEQ/L CARBON DIOXIDE (test code = 2206) 19 MEQ/L CALCIUM (test code = 2209) 9.5 MG/DL PHOSPHORUS (test code = 2227) 5.4 MG/DL ALBUMIN (test code = 2201) 4.7 G/DL Dev Georges JatinLIPID [id number] 00:00:00* Test Item Value Reference Range Interpretation Comme nts CHOLESTEROL (test code = 2210) 152 MG/DL TRIGLYCERIDES (test code = 2232) 357 MG/DL HDL CHOLESTEROL (test code = 2220) 36 MG/DL CALC LDL CHOL (test code = 2237) 73 MG/DL RISK RATIO LDL/HDL (test cod e = 2238) 2.03 RATIO Dev Georges Dedra (HEPATIC) FUNCTION [id number] 00:00:00* Test Item Value Reference Range Interpretation Comme nts PROTEIN, TOTAL (test code = 2229) 7.5 G/DL ALBUMIN (test code = 2201) 4.7 G/DL BILIRUBIN, TOTAL (test code = 2207) <0.2 MG/DL BILIRUBIN, DIRECT (test code = 2021) <0.2 MG/DL ALKALINE PHOSPHATASE (test c ode = 2204) 92 U/L AST (test code = 2218) 17 U/L ALT (test code = 2219) 16 U/L Dev tSeinerHEMOGLOBIN [id number] 03:00:27* Test Item Value Reference Range Interpretation Comme nts HEMOGLOBIN A1c (test code = 88978) 6.4 % 4.2-5.6 H [employer] GUIDELINES FOR HGB A1C: PREDIABETES/INCREASED RISK . . . . . . . 5.7-6.4% DIAGNOSIS OF DIABETES . . . . . . . . . >=6.5% WITH CONFIRMATION OR APPROPRIATE SYMPTOMS NOTE: ASSAY MAY BE AFFECTED BY HEMOGLOBINOPATHIES (SICKLE CELL ANEMIA, S-C DISEASE, OTHERS) OR ARTIFICIALLY LOWERED BY DECREASED RED CELL SURVIVAL (HEMOLYTIC ANEMIAS, BLOOD LOSS, ETC.). CONSIDER ALTERNATE TESTING OR LABORATORY CONSULTATION. UNLESS OTHERWISE INDICATED, ALL TESTING PERFORMED AT [facility] [address] [place] [address] DIRECTOR GROUP SALES: FREDDY HUTCHISON M.D. CLIA NUMBER [id number] [facility] [place] [id number] HEMOGLOBIN A1c [ADDED]2023-03-23 00:00:00* Test Item Value Reference Range Interpretation Comme [facility] HEMOGLOBIN A1c (test code = 26508) 6.4 % Dev Georges AustinHEMOGLOBIN A1c [ADDED]2023-03-23 00:00:00* Test Item Value Reference Range Interpretation Comme nts HEMOGLOBIN A1c (test code = 01141) 6.4 % Dev Georges AustinHEMOGLOBIN A1c [ADDED]2023-03-23 00:00:00* Test Item Value Reference Range Interpretation Comme [facility] HEMOGLOBIN A1c (test code = 50488) 6.4 % Dev Georges AustinHEMOGLOBIN A1c [ADDED]2023-03-23 00:00:00* Test Item Value Reference Range Interpretation Comme [facility] HEMOGLOBIN A1c (test code = 26019) 6.4 % Dev Georges AustinPOCT GLUCOSE (AUTOMATED)2023-02-13 17:03:20* Test Item Value Reference Range Interpretation Comme nts POCT GLU (test code = 6174454714) 136 mg/dL 70-110 H Lab Interpretation (test cod e = 32972-4) [id number] 14:02:05* Test Item Value Reference Range Interpretation Comme nts TROPONIN I (test code = 9301405873) 0.001 ng/mL <=0.034 ABRAM (test code = ABRAM) Reference (Normal) Range (defined by the 99th percentile reference limit): <= 0.034 ng/mL Note: Cardiac troponin begins to rise 3-4 hours after the onset of ischemia. Repeat in 4-6 hours if the sample was drawn within 3-4 hours of the onset of the symptom and found normal. Diagnosis of myocardial injury is made with acute changes in cTn concentrations with at least one serial sample above the 99th percentile upper reference limit (URL), taken together with the patient's clinical presentation. Biotin has been reported to cause a negative bias, interpret results relative to patient's use of biotin. Lab Interpretation (test code = 93137-7) [facility] [id number] 14:02:05* Test Item Value Reference Range Interpretation Comme nts NT-proBNP (test code = 21121-1) 651 pg/mL <=125 ABRAM (test code = ABRAM) Result Indeterminate-Consid er causes of NT-proBNP elevation other than Heart failure such as acute coronary syndrome, pulmonary embolism, pulmonary hypertension, sepsis, stroke, and renal dysfunction. Lab Interpretation (test code = 76129-0) [facility]2023-02-13 13:18:32* Test Item Value Reference Range Interpretation Comme nts POCT GLU (test code = 2602549443) 89 mg/dL 70-110 Lab Interpretation (test cod e = 76890-4) [facility] (NA, K, CL, CO2, GLUCOSE, BUN, CREATININE, CA)2023-02-13 10:20:15* Test Item Value Reference Range Interpretation Comme nts NA (test code = 3338983599) 139 mmol/L 135-145 K (test code = 3058311707) 4.7 mmol/L 3.5-5.0 CL (test code = 8259807591) 107 mmol/L 98-108 CO2 TOTAL (test code = 8420884339) 24 mmol/L 23-31 AGAP (test code = 3286225135) 8 2-16 BUN (test code = 2896883066) 16 mg/dL 7-23 GLUCOSE (test code = 7218750216) 109 mg/dL 70-110 CREATININE (test code = 0260432778) 1.21 mg/dL 0.50-1.04 H CALCIUM (test code = 9352954219) 8.3 mg/dL 8.6-10.6 L eGFR (test code = 5212384181) 42.8 mL/min/1.73m2 ABRAM (test code = ABRAM) Association of Glomerular Filtration Rate (GFR) and Staging of Kidney Disease* + --+ --+ ------+| GFR (mL/min/1.73 m2) ?| With Kidney Damage ?| ?Without Kidney Damage+ --------+ --------+ +| ?>90 ?| ?Stage one ?| ? Normal ?+ ---+ ---+ -------+| ?60-89 ?| ?Stage two ?| ? Decreased GFR ? + --+ --+ ------+| ?30-59 ?| ?Stage three ?| ? Stage three ? + --+ --+ ------+| ?15-29 ?| ?Stage four ? | ? Stage four ?+ ---+ ---+ -------+| ?<15 (or dialysis) ? ?| ?Stage five ? | ? Stage five ?+ ---+ ---+ -------+ *Each stage assumes the associated GFR level has been in effect for at least three months. ?Stages 1 to 5, with or without kidney disease, indicate chronic kidney disease. Notes: Determination of stages one and two (with eGFR >59mL/min/1.73 m2) requires estimation of kidney damage for at least three months as defined by structural or functional abnormalities of the kidney, manifested by either:Pathological abnormalities or Markers of kidney damage (including abnormalities in the composition of the blood or urine or abnormalities in imaging tests). Lab Interpretation (test code = 49232-0) [facility] Test Item Value Reference Range Interpretation Comme nts MAGNESIUM (test code = 4433308289) 1.8 mg/dL 1.7-2.4 Lab Interpretation (test cod e = 31668-9) Normal [facility] WITH [id number] 09:58:31* Test Item Value Reference Range Interpretation Comme nts WBC (test code = 6690-2) 6.92 See_Comment [Automated messa ge] The system which generated this result transmitted reference range: 4.30 - 11.10 10*3/?L. The reference range was not used to interpret this result as normal/abnormal. RBC (test code = 789-8) 2.83 See_Comment L [Automated messa ge] The system which generated this result transmitted reference range: 3.93 - 5.25 10*6/?L. The reference range was not used to interpret this result as normal/abnormal. HGB (test code = 718-7) 8.5 g/dL 11.6-15.0 L HCT (test code = 4544-3) 26.5 % 35.7-45.2 L MCV (test code = 787-2) 93.6 fL 80.6-95.5 MCH (test code = 785-6) 30.0 pg 25.9-32.8 MCHC (test code = 786-4) 32.1 g/dL 31.6-35.1 RDW-SD (test code = 38112-0) 45.1 fL 39.0-49.9 RDW-CV (test code = 788-0) 13.3 % 12.0-15.5 PLT (test code = 777-3) 256 See_Comment [Automated messa ge] The system which generated this result transmitted reference range: 166 - 358 10*3/?L. The reference range was not used to interpret this result as normal/abnormal. MPV (test code = 27429-5) 10.9 fL 9.5-12.9 NRBC/100 WBC (test code = 4944541058) 0.0 See_Comment [Automated me ssage] The system which generated this result transmitted reference range: 0.0 - 10.0 /100 WBCs. The reference range was not used to interpret this result as normal/abnormal. NRBC x10^3 (test code = 6950670594) See_Comment [Automated messa ge] The system which generated this result transmitted reference range: 10*3/?L. The reference range was not used to interpret this result as normal/abnormal. GRAN MAT (NEUT) % (test code = 770-8) 61.7 % IMM GRAN % (test code = 8797828027) 1.60 % LYMPH % (test code = 736-9) 27.6 % MONO % (test code = 5905-5) 5.8 % EOS % (test code = 713-8) 3.0 % BASO % (test code = 706-2) 0.3 % GRAN MAT x10^3(ANC) (test code = 3540341398) 4.27 10*3/uL 1.88-7.09 IMM GRAN x10^3 (test code = 1483223895) 0.11 10*3/uL 0.00-0.06 H LYMPH x10^3 (test code = 731-0) 1.91 10*3/uL 1.32-3.29 MONO x10^3 (test code = 742-7) 0.40 10*3/uL 0.33-0.92 EOS x10^3 (test code = 711-2) 0.21 10*3/uL 0.03-0.39 BASO x10^3 (test code = 704-7) 0.01-0.07 Lab Interpretation (test code = 06619-1) Abnormal [facility] GLUCOSE (AUTOMATED)2023-02-13 01:17:31* Test Item Value Reference Range Interpretation Comme nts POCT GLU (test code = 1863716100) 174 mg/dL 70-110 H Lab Interpretation (test cod e = 55708-4) Abnormal [facility] GLUCOSE (AUTOMATED)2023-02-12 22:03:01* Test Item Value Reference Range Interpretation Comme nts POCT GLU (test code = 5508641667) 197 mg/dL 70-110 H Lab Interpretation (test cod e = 55916-9) Abnormal [facility] GLUCOSE (AUTOMATED)2023-02-12 17:07:42* Test Item Value Reference Range Interpretation Comme nts POCT GLU (test code = 9605471114) 137 mg/dL 70-110 H Lab Interpretation (test cod e = 05650-0) Abnormal [facility] GLUCOSE (AUTOMATED)2023-02-12 13:02:23* Test Item Value Reference Range Interpretation Comme nts POCT GLU (test code = 1541112786) 97 mg/dL 70-110 Lab Interpretation (test cod e = 64674-1) Normal [facility] GLUCOSE (AUTOMATED)2023-02-12 03:18:11* Test Item Value Reference Range Interpretation Comme nts POCT GLU (test code = 9618539081) 108 mg/dL 70-110 Lab Interpretation (test cod e = 13310-6) Normal [facility] GLUCOSE (AUTOMATED)2023-02-11 21:47:53* Test Item Value Reference Range Interpretation Comme nts POCT GLU (test code = 9951774374) 152 mg/dL 70-110 H Lab Interpretation (test cod e = 38029-4) Abnormal [facility] GLUCOSE (AUTOMATED)2023-02-11 17:24:08* Test Item Value Reference Range Interpretation Comme nts POCT GLU (test code = 3286540580) 148 mg/dL 70-110 H Lab Interpretation (test cod e = 08236-9) Abnormal [facility] GLUCOSE (AUTOMATED)2023-02-11 13:06:16* Test Item Value Reference Range Interpretation Comme nts POCT GLU (test code = 6997337546) 117 mg/dL 70-110 H Lab Interpretation (test cod e = 45642-0) Abnormal [facility] GLUCOSE (AUTOMATED)2023-02-11 02:44:50* Test Item Value Reference Range Interpretation Comme nts POCT GLU (test code = 8393441192) 122 mg/dL 70-110 H Lab Interpretation (test cod e = 25599-6) Abnormal [facility] GLUCOSE (AUTOMATED)2023-02-10 21:39:06* Test Item Value Reference Range Interpretation Comme nts POCT GLU (test code = 4692846264) 224 mg/dL 70-110 H Lab Interpretation (test cod e = 46858-8) Abnormal [facility] GLUCOSE (AUTOMATED)2023-02-10 16:43:33* Test Item Value Reference Range Interpretation Comme nts POCT GLU (test code = 0006497569) 121 mg/dL 70-110 H Lab Interpretation (test cod e = 42344-6) Abnormal [facility] GLUCOSE (AUTOMATED)2023-02-10 12:23:09* Test Item Value Reference Range Interpretation Comme nts POCT GLU (test code = 2877345552) 87 mg/dL 70-110 Lab Interpretation (test cod e = 60909-5) Normal [facility] GLUCOSE (AUTOMATED)2023-02-10 01:18:25* Test Item Value Reference Range Interpretation Comme nts POCT GLU (test code = 4889466579) 130 mg/dL 70-110 H Lab Interpretation (test cod e = 83905-7) Abnormal [facility] GLUCOSE (AUTOMATED)2023-02-09 22:00:20* Test Item Value Reference Range Interpretation Comme nts POCT GLU (test code = 3385935806) 133 mg/dL 70-110 H Lab Interpretation (test cod e = 27253-9) [facility] [id number] 02:48:02* Test Item Value Reference Range Interpretation Comme nts GLUCOSE (test code = 2217) 139 MG/DL 70-99 H BUN (test code = 2208) 10 MG/DL 8-23 CREATININE (test code = 2214) 0.96 MG/DL 0.60-1.30 eGFR (2020 CKD-EPI) (test code = 20244) 60 ML/MIN/1.73 >60 L CALC BUN/CREAT (test code = 2235) 10 RATIO 6-28 SODIUM (test code = 2231) 141 MEQ/L 133-146 POTASSIUM (test code = 2228) 3.2 MEQ/L 3.5-5.4 L CHLORIDE (test code = 2215) 105 MEQ/L 95-107 CARBON DIOXIDE (test code = 2206) 21 MEQ/L 19-31 CALCIUM (test code = 2209) 8.6 MG/DL 8.5-10.5 PROTEIN, TOTAL (test code = 2229) 6.6 G/DL 6.1-8.3 ALBUMIN (test code = 2201) 3.6 G/DL 3.5-5.2 CALC GLOBULIN (test code = 2240) 3.0 G/DL 1.9-3.7 CALC A/G RATIO (test code = 2234) 1.2 RATIO 1.0-2.6 BILIRUBIN, TOTAL (test code = 2207) 0.2 MG/DL See_Comment [Automated me ssage] The system which generated this result transmitted reference range: <=1.2. The reference range was not used to interpret this result as normal/abnormal. ALKALINE PHOSPHATASE (test code = 2204) 83 U/L 40-142 AST (test code = 2218) 20 U/L 9-40 ALT (test code = 2219) 15 U/L 5-40 UNLESS OTHERWISE INDICATED, ALL TESTING PERFORMED AT [facility] [address] [place] [address] DIRECTOR GROUP SALES: FREDDY HUTCHISON M.D. CLIA NUMBER [id number] [facility] [place]. [id number] CBC W/AUTO DIFF WITH [id number] 02:19:01* Test Item Value Reference Range Interpretation Comme nts WBC (test code = 1001) 9.8 K/UL 3.5-11.0 RBC (test code = 1002) 3.18 M/UL 3.80-5.40 L HEMOGLOBIN (test code = 1003) 10.0 G/DL 11.5-15.5 L HEMATOCRIT (test code = 1004) 29.4 % 34.0-45.0 L MCV (test code = 1005) 92.5 fL 80.0-99.0 MCH (test code = 1006) 31.4 PG 25.0-33.0 MCHC (test code = 1007) 34.0 G/DL 31.0-36.0 RDW (test code = 1038) 13.1 % 11.5-15.0 NEUTROPHILS (test code = 1008) 74.3 % LYMPHOCYTES (test code = 1010) 16.5 % MONOCYTES (test code = 1011) 7.4 % EOSINOPHILS (test code = 1012) 0.6 % BASOPHILS (test code = 1013) 0.1 % IMMATURE GRANULOCYTES (test code = 1036) 1.1 % NUCLEATED RBCS (test code = 1065) 0.0 /100 WBC'S See_Comment [Automated messa ge] The system which generated this result transmitted reference range: 0.0. The reference range was not used to interpret this result as normal/abnormal. PLATELET COUNT (test code = 1015) 325 K/UL 130-400 ABSOLUTE NEUTROPHILS (test code = 1066) 7.31 K/UL 1.50-7.50 ABSOLUTE LYMPHOCYTES (test code = 1067) 1.62 K/UL 1.00-4.00 ABSOLUTE MONOCYTES (test code = 1068) 0.73 K/UL 0.20-1.00 ABSOLUTE EOSINOPHILS (test code = 1040) 0.06 K/UL 0.00-0.50 ABSOLUTE BASOPHILS (test code = 1069) 0.01 K/UL 0.00-0.20 ABS IMMATURE GRANULOCYTES (test code = 1020) 0.11 K/UL 0.00-0.10 H ABS NUCLEATED RBCS (test code = 66078) 0.00 K/UL 0.00-0.11 COMPREHENSIVE METABOLIC PANEL [ADDED]2023-01-27 00:00:00* Test Item Value Reference Range Interpretation Comme nts GLUCOSE (test code = 2217) 139 MG/DL BUN (test code = 2208) 10 MG/DL CREATININE (test code = 2214) 0.96 MG/DL eGFR (2020 CKD-EPI) (test co de = 86181) 60 ML/MIN/1.73 CALC BUN/CREAT (test code = 2235) 10 RATIO SODIUM (test code = 2231) 141 MEQ/L POTASSIUM (test code = 2228) 3.2 MEQ/L CHLORIDE (test code = 2215) 105 MEQ/L CARBON DIOXIDE (test code = 2206) 21 MEQ/L CALCIUM (test code = 2209) 8.6 MG/DL PROTEIN, TOTAL (test code = 2229) 6.6 G/DL ALBUMIN (test code = 2201) 3.6 G/DL CALC GLOBULIN (test code = 2240) 3.0 G/DL CALC A/G RATIO (test code = 2234) 1.2 RATIO BILIRUBIN, TOTAL (test code = 2207) 0.2 MG/DL ALKALINE PHOSPHATASE (test code = 2204) 83 U/L AST (test code = 2218) 20 U/L ALT (test code = 2219) 15 U/L Dev SteinerDenia W/AUTO DIFF WITH PLATELETS [ADDED]2023-01-27 00:00:00* Test Item Value Reference Range Interpretation Comme nts WBC (test code = 1001) 9.8 K/UL RBC (test code = 1002) 3.18 M/UL HEMOGLOBIN (test code = 1003) 10.0 G/DL HEMATOCRIT (test code = 1004) 29.4 % MCV (test code = 1005) 92.5 fL MCH (test code = 1006) 31.4 PG MCHC (test code = 1007) 34.0 G/DL RDW (test code = 1038) 13.1 % NEUTROPHILS (test code = 1008) 74.3 % LYMPHOCYTES (test code = 1010) 16.5 % MONOCYTES (test code = 1011) 7.4 % EOSINOPHILS (test code = 1012) 0.6 % BASOPHILS (test code = 1013) 0.1 % IMMATURE GRANULOCYTES (test code = 1036) 1.1 % NUCLEATED RBCS (test code = 1065) 0.0 /100WBC'S PLATELET COUNT (test code = 1015) 325 K/UL ABSOLUTE NEUTROPHILS (test c ode = 1066) 7.31 K/UL ABSOLUTE LYMPHOCYTES (test c ode = 1067) 1.62 K/UL ABSOLUTE MONOCYTES (test cod e = 1068) 0.73 K/UL ABSOLUTE EOSINOPHILS (test c ode = 1040) 0.06 K/UL ABSOLUTE BASOPHILS (test cod e = 1069) 0.01 K/UL ABS IMMATURE GRANULOCYTES (t est code = 1020) 0.11 K/UL ABS NUCLEATED RBCS (test cod e = 33650) 0.00 K/UL Dev SteinerCOMPREHENSIVE METABOLIC PANEL [ADDED]2023-01-27 00:00:00* Test Item Value Reference Range Interpretation Comme nts GLUCOSE (test code = 2217) 139 MG/DL BUN (test code = 2208) 10 MG/DL CREATININE (test code = 2214) 0.96 MG/DL eGFR (2020 CKD-EPI) (test co de = 12642) 60 ML/MIN/1.73 CALC BUN/CREAT (test code = 2235) 10 RATIO SODIUM (test code = 2231) 141 MEQ/L POTASSIUM (test code = 2228) 3.2 MEQ/L CHLORIDE (test code = 2215) 105 MEQ/L CARBON DIOXIDE (test code = 2206) 21 MEQ/L CALCIUM (test code = 2209) 8.6 MG/DL PROTEIN, TOTAL (test code = 2229) 6.6 G/DL ALBUMIN (test code = 2201) 3.6 G/DL CALC GLOBULIN (test code = 2240) 3.0 G/DL CALC A/G RATIO (test code = 2234) 1.2 RATIO BILIRUBIN, TOTAL (test code = 2207) 0.2 MG/DL ALKALINE PHOSPHATASE (test code = 2204) 83 U/L AST (test code = 2218) 20 U/L ALT (test code = 2219) 15 U/L Dev SteinerCBC W/AUTO DIFF WITH PLATELETS [ADDED]2023-01-27 00:00:00* Test Item Value Reference Range Interpretation Comme nts WBC (test code = 1001) 9.8 K/UL RBC (test code = 1002) 3.18 M/UL HEMOGLOBIN (test code = 1003) 10.0 G/DL HEMATOCRIT (test code = 1004) 29.4 % MCV (test code = 1005) 92.5 fL MCH (test code = 1006) 31.4 PG MCHC (test code = 1007) 34.0 G/DL RDW (test code = 1038) 13.1 % NEUTROPHILS (test code = 1008) 74.3 % LYMPHOCYTES (test code = 1010) 16.5 % MONOCYTES (test code = 1011) 7.4 % EOSINOPHILS (test code = 1012) 0.6 % BASOPHILS (test code = 1013) 0.1 % IMMATURE GRANULOCYTES (test code = 1036) 1.1 % NUCLEATED RBCS (test code = 1065) 0.0 /100WBC'S PLATELET COUNT (test code = 1015) 325 K/UL ABSOLUTE NEUTROPHILS (test c ode = 1066) 7.31 K/UL ABSOLUTE LYMPHOCYTES (test c ode = 1067) 1.62 K/UL ABSOLUTE MONOCYTES (test cod e = 1068) 0.73 K/UL ABSOLUTE EOSINOPHILS (test c ode = 1040) 0.06 K/UL ABSOLUTE BASOPHILS (test cod e = 1069) 0.01 K/UL ABS IMMATURE GRANULOCYTES (t est code = 1020) 0.11 K/UL ABS NUCLEATED RBCS (test cod e = 74516) 0.00 K/UL Dev SteinerCOMPREHENSIVE METABOLIC PANEL [ADDED]2023-01-27 00:00:00* Test Item Value Reference Range Interpretation Comme nts GLUCOSE (test code = 2217) 139 MG/DL BUN (test code = 2208) 10 MG/DL CREATININE (test code = 2214) 0.96 MG/DL eGFR (2020 CKD-EPI) (test co de = 42901) 60 ML/MIN/1.73 CALC BUN/CREAT (test code = 2235) 10 RATIO SODIUM (test code = 2231) 141 MEQ/L POTASSIUM (test code = 2228) 3.2 MEQ/L CHLORIDE (test code = 2215) 105 MEQ/L CARBON DIOXIDE (test code = 2206) 21 MEQ/L CALCIUM (test code = 2209) 8.6 MG/DL PROTEIN, TOTAL (test code = 2229) 6.6 G/DL ALBUMIN (test code = 2201) 3.6 G/DL CALC GLOBULIN (test code = 2240) 3.0 G/DL CALC A/G RATIO (test code = 2234) 1.2 RATIO BILIRUBIN, TOTAL (test code = 2207) 0.2 MG/DL ALKALINE PHOSPHATASE (test code = 2204) 83 U/L AST (test code = 2218) 20 U/L ALT (test code = 2219) 15 U/L Dev SteinerCBC W/AUTO DIFF WITH PLATELETS [ADDED]2023-01-27 00:00:00* Test Item Value Reference Range Interpretation Comme nts WBC (test code = 1001) 9.8 K/UL RBC (test code = 1002) 3.18 M/UL HEMOGLOBIN (test code = 1003) 10.0 G/DL HEMATOCRIT (test code = 1004) 29.4 % MCV (test code = 1005) 92.5 fL MCH (test code = 1006) 31.4 PG MCHC (test code = 1007) 34.0 G/DL RDW (test code = 1038) 13.1 % NEUTROPHILS (test code = 1008) 74.3 % LYMPHOCYTES (test code = 1010) 16.5 % MONOCYTES (test code = 1011) 7.4 % EOSINOPHILS (test code = 1012) 0.6 % BASOPHILS (test code = 1013) 0.1 % IMMATURE GRANULOCYTES (test code = 1036) 1.1 % NUCLEATED RBCS (test code = 1065) 0.0 /100WBC'S PLATELET COUNT (test code = 1015) 325 K/UL ABSOLUTE NEUTROPHILS (test c ode = 1066) 7.31 K/UL ABSOLUTE LYMPHOCYTES (test c ode = 1067) 1.62 K/UL ABSOLUTE MONOCYTES (test cod e = 1068) 0.73 K/UL ABSOLUTE EOSINOPHILS (test c ode = 1040) 0.06 K/UL ABSOLUTE BASOPHILS (test cod e = 1069) 0.01 K/UL ABS IMMATURE GRANULOCYTES (t est code = 1020) 0.11 K/UL ABS NUCLEATED RBCS (test cod e = 40877) 0.00 K/UL Dev SteinerCOMPREHENSIVE METABOLIC PANEL [ADDED]2023-01-27 00:00:00* Test Item Value Reference Range Interpretation Comme nts GLUCOSE (test code = 2217) 139 MG/DL BUN (test code = 2208) 10 MG/DL CREATININE (test code = 2214) 0.96 MG/DL eGFR (2020 CKD-EPI) (test co de = 04151) 60 ML/MIN/1.73 CALC BUN/CREAT (test code = 2235) 10 RATIO SODIUM (test code = 2231) 141 MEQ/L POTASSIUM (test code = 2228) 3.2 MEQ/L CHLORIDE (test code = 2215) 105 MEQ/L CARBON DIOXIDE (test code = 2206) 21 MEQ/L CALCIUM (test code = 2209) 8.6 MG/DL PROTEIN, TOTAL (test code = 2229) 6.6 G/DL ALBUMIN (test code = 2201) 3.6 G/DL CALC GLOBULIN (test code = 2240) 3.0 G/DL CALC A/G RATIO (test code = 2234) 1.2 RATIO BILIRUBIN, TOTAL (test code = 2207) 0.2 MG/DL ALKALINE PHOSPHATASE (test code = 2204) 83 U/L AST (test code = 2218) 20 U/L ALT (test code = 2219) 15 U/L Dev SteinerCBC W/AUTO DIFF WITH PLATELETS [ADDED]2023-01-27 00:00:00* Test Item Value Reference Range Interpretation Comme nts WBC (test code = 1001) 9.8 K/UL RBC (test code = 1002) 3.18 M/UL HEMOGLOBIN (test code = 1003) 10.0 G/DL HEMATOCRIT (test code = 1004) 29.4 % MCV (test code = 1005) 92.5 fL MCH (test code = 1006) 31.4 PG MCHC (test code = 1007) 34.0 G/DL RDW (test code = 1038) 13.1 % NEUTROPHILS (test code = 1008) 74.3 % LYMPHOCYTES (test code = 1010) 16.5 % MONOCYTES (test code = 1011) 7.4 % EOSINOPHILS (test code = 1012) 0.6 % BASOPHILS (test code = 1013) 0.1 % IMMATURE GRANULOCYTES (test code = 1036) 1.1 % NUCLEATED RBCS (test code = 1065) 0.0 /100WBC'S PLATELET COUNT (test code = 1015) 325 K/UL ABSOLUTE NEUTROPHILS (test c ode = 1066) 7.31 K/UL ABSOLUTE LYMPHOCYTES (test c ode = 1067) 1.62 K/UL ABSOLUTE MONOCYTES (test cod e = 1068) 0.73 K/UL ABSOLUTE EOSINOPHILS (test c ode = 1040) 0.06 K/UL ABSOLUTE BASOPHILS (test cod e = 1069) 0.01 K/UL ABS IMMATURE GRANULOCYTES (t est code = 1020) 0.11 K/UL ABS NUCLEATED RBCS (test cod e = 52167) 0.00 K/UL Dev [facility] [id number] 19:55:36* Test Item Value Reference Range Interpretation Comme [facility] Case Report (test code = 0756512523) Surgical Pathology ?Case: [id number] ? Authorizing Provider: ?Heath Sorto DO ? ? ?Collected: ? 01/19/2023 1028 ?Ordering Location: ? ? [facility] OR ? Received: ?01/19/2023 1117 ? Department ? Pathologist: ? Daniel Finnegan MD PhD ?Specimen: ? ?GALLBLADDER, Gallbladder ? Final Diagnosis (test code = 9029717728) c9rfcCSsPBQhv1jiPNNvjK FuZzEwMzNcZnRuYmpcdWMx TRwhbzSrYUiigKodTOO9WK NjVL1zcBkfjHc0kBdbLXVr aiZ8pGOwIAvak1vyPWL5l1 jjzzniUEXzAOcnIp3cySOu yUcwEpScZJZcESj3hX37QL GgsU0ydIDgPSp4AXWhiJCq kzRhKtOhISMofKPsxFT7EM QrKJ1pytldLHnyDTzwIGWs bdM3MOJwmDYqJ1GkHBDlUX 5ojvalRRL4MDtjBMZwRMV3 AsHnHTBgj1Ktgve9PtBdhY FyZFxwbGFpblxmczIwXHBh ciBBLiBHQUxMQkxBRERFUi ffN0ySINVGHJSUIOJCX45D OlxwYXIgICAgICAtIENIUk 7GJXApW4aZYDDQEXNUTGBL G1ocNMSdxSHgjAjvkyImRT qjn8WsW7CaBbXjSEytagDp NBNcAdkmgfmkSOQfDYX1ih FtCSCzHQpoGWGlBBfdCp7g qNPvcAamWnZtFGTje2tgzm QOGZziOmFxX810NDDnSIim w0tyq2OzCKHjbAVyx0X7LH XPpdytfZk5m7izQnSqTeD7 zTPhZOfcS7fwywShzZMzN6 AunSDwrRo3pVfoS41gy5R0 WmftW1vjHLLpRYVgK9GmPU 5uIXBjCth0COY8VPO5XXGp EHVxU6DzIC7sBBMwtUAbQR z6c0lntBeyKEOrQMZ7h8hc QFokkwX5VY1utl6vwYe9d3 xjczEgRGVmYXVsdCBQYXJh V5UbbXfkOh5qaVs1kEdcDy mzKML8Bjw7QR1rew66yvp4 oXkeOYVpdorbJkU7BBtlWQ RvnzmkPPl7OSirWYQugTI7 NYMlmOXiY5JwWPHrCG7pbc s1GRX0MCguQZWvDrB2VTDw yCHqMYYqzWjgQPrnc200IC Y7QqGlCM9dK9Siu0C0pS9d aXRcZGVmdGFiNzIwXGZvcm 8pvUQfIPeuh2FuLTJ7pyP2 rOTpxBBnXWRcDS98Dsikj4 RcVdgqQSZ1SWGkmyZbm6Co i7fkCwXljlLtJ8pqB5KcWA WwOHKgXXXxHqDzoqSkf9Ds b2CmsKMlrWa5o1ylBUBtUS TamMfan4rvIWQ7TFIiU3O0 nCIcm5zpFInvULWytRU0up P2LLAagRKmH9IkeH4cOVZi HQ6hffu2p7ofREO2FIskPM JfSoO6zwK2ETXiwEVvRLHu pIzuCKxim612EPD7XpNcMF Bqq1SyI3XoaYrrL98blKrp B80nPJSuwUpddE0rcSzotC 5cZjBcZnMyNFxxbFxwbGFp blxmMVxmczIwXGxhbmcxMD LtPUmgX0vdWsEgDIRmqWvj CZfex8XyCMXcSDBiOgzbcq IwXHBhciBJIGhhdmUgcGVy n57tAHswsIYyPQNoBQyqLU GryZesb2LuZ2hrEF5wM5Af aWRlcyBhbmQgYWdyZWUgd2 l8wTKvcAjsv1FmvXBwQE00 bdHkMOZtHNI7JSExp9csEJ 99byrjBfVpgC57ugXuavAi UBHnx6unV0uizPSyb9Wst1 XppjArZLqpe6XiVQ3upPIo jumywWJ2ERUplVBekzDjkj N4hZlhPVXetZ9ykC6pcXxz nD1cOdPhJwQdNYczGE6cJY MrO7oirZGtFQRcJLRdN2kv RiFacU6wzSzpCrbxzrE3HW Bhcn19 Clinical Information (test code = [id number]) ABD PAIN Gross Description (test code = [id number]) j9dvsFNrLJRcuHUUTVN9DO ExWJ4iuWpvcOm0hOrdWUNq trX9kZOjARcyj6tuFKQ1v9 ukyhWDDeyvIFWaZS5rMTbf XMWvNQ5pOeAdAZUeJnFvLU BhcGVydzEyMjQwXHBhcGVy xRW9WVPkWM2ahnkvUBdgHB duJTGuksM4IZFkrRFnG7Xj HIHkCZ1eftuoQQT3JABJGq itEn1uvFNxyEsjQsZoZeJf YXJzZXQwXGZuaWwgQXJpYW l1zW6ZKnfjKRE8ZJMBZoil HeypoRjaf0GdrZZmYWIhOL xcaWQgNTEwMDAgXFxkYiBP FhRmPlT5PCJjPNp5HxT9EJ b1SHTLZHPhSgloSKC9QZY9 LQk9SJCpEC5rATgqbWOsPE maRqcmQYfmF595EYjuBDBc V2AsH9KyBBqxUkBhZSllJK UkIPVbQVoxBJMtB6FDZKSx QAGyQnQ8UWQoQDc6XMsjZ2 VOGOViZMTvNPV5YSW1ZqT6 EJg1QOGTRh6oXJk0TYL2Wy etXKC1DTe9NFJdRDEhFxXi OAGwBWJwATfpgMFsRJ0ohS dhZPIlAY6GWDCaUYcbSRVl VoNfF8SFH5tXBS9lUArkqS JjaFxmczIyXHBhciANClxw ZSXxOW6WISYaWDqyLUk1zf EeVBRgNaUpRANqA68mm2GN p9QdMA9MJWx2fhAlpgkzwS 6jKPLckgCoZOlUoYEwcC4e fjXPKZpvYAUpD0UrhqXdVL saQNKigr7avPfzZEosTpUi MSWrj7o1lYK0nBQkzOB8rZ ZtqSkiVN2fpAOwTHOSCZ57 bWJlciwgImdhbGxibGFkZG EaAaqhHO2bQHQjztFeo6Yw MH6uBCOdAUqlkHJkuKUspO IwTo6uzNB4KZ9xfCDmmYgd IUqpgNxklQJuIYQdEOu5Ao IfkRJfJjrnbPDbDsHqO36q LiAgQSBjbGlwIGlzIHByZX UozaKmuBObj5jdZhE2nOBn R9edkFcsSBM1I7OoKWNLpS Gsh4Lby0YtWWrpYOKtmg3w gUSsgFHzGQ1aKRmdfVP0QJ 5fdmhxKVXBnTIyhR6pWTFo ZSBnYWxsYmxhZGRlciByZX ZlYWxzIGdyZWVuLXllbGxv akF7dGXlo6YfAT4siZLyaS IkPjLpB9NbzUF9t54pxxQt vxXgvy42LVGyBSAkqwXqk1 p5fEpiVBOaKQZdMBboCahy EZDhigKsxfRzxERhmA8xub Rxj552FRgfLBLvWZFoNJBl qKAks9JuyFOuuqDpluO8pL U8QB7hL1VlCX2nNX6dGWTg ZZR0XZowYXbjSIIvQiQwrS ZsmcE4qFguk57oi5SuGRER dcHqAJDcr14hEDBuUWShRR VudGlmaWVkLiAgUmVwcmVz ST47IWIxcfLjo1JvtHnexb IkzQ7bqLRyxP6bKVU3s5Fi VdUtyHT1VCXiuxSaJFGvCG hpbmtlZCBibHVlKSwgZnVu UTGsAKQnp1G7RAAldxAnye DwhrYrapEoj8WbvRd1kMZl IGluIEExLlxwYXIgDQpccG EyQU2SBAeeDR3vIG0pgnxr LCBQQSAoQVNDUClccGFyIA 9HKFKaWuLtBLSkP2fdAIMu UT6ZFxrbsH4qyPXiC93gHR poKVMmpLgFNTH6yQQfbfIx ZJyjHNMrH07ot2FXm5Ktz6 hcqRkkp3BkrRSfAZ80VWVd kHIrJWJ2UO1ydMiiBSHlVQ pccGFyZCANCn0= Disclaimer (test code = [id number]) w6zsfZSyBZRxa7gaTXJwkM FuZzEwMzNcZnRuYmpcdWMx NWbgroZoCWwus2EvQ1GgUf AwMFxhbnNpXGRlZmxhbmcx SMYcWGI1jlOjBXOcEZtpVW FxGJdtFd2jlYIalZlsRqSk DZXqp2zdzqDHTWjpRuHtH9 05QWLdXIapr7zjb7OyQXVk sCQuc9E6PGIRhxtegFu3mI gmV55at8G2InelF0ouYSEf IQJyM8PiBX4kRWGbNjv0DE K8OSM1AXDbXCKoM9NaAQ3p RQPhqFGrPZq1o5bxxBhpAW CtDCI0k3juVSmvvxAwVV9n vx7zdLv5b7lcsvDqJTTlZR LdmSVXMEKiX6UxeMpdNa7m jOu3fVewDvuxKIJ8Obe3CG 5hnx86lwq5sWnlIDYbmifu UzG0SDejQOAyjreaWUf5HK fpKWIrhVB2UFIooANcF2Pf SAArHA9wagb2MXZ0SQgaRC YrRqK7XHYiqUBnCMBqrXsv GOxpv955FNK2JpIfBG1yQ5 Vci5V2hM0dnFWuERUffYYp GoZeCWJjce3rgUEyMFdzr3 PiQKP3asA7wFRlsDBaTLUj YB97Vcitx4CbFewjd1LjK2 7cqOR0VBndo0vnZH2fPzO9 swZvPXbam6xgmN8fOyY6GE trQE6pKG1oPKFytW2ucflv XHBnYnJkcmhlYWRccGdicm QnDm5vhUnhQWO9UAfbM4ox gD0iZrE1LVmhC3ehiE1tBU c6MWigaLX9JJYhqU2fXZ3y qiivw3ibWCjaOXbyRLVpok Y7rpH4LFUunQVdL4SxlO6x LGQiKX9akaogd3jsRNB6CZ gwYRUtQNV4HuAsZGYzl0Lu xbt1CjQnt2KuuRRwKUyqR2 2yv646XTZrutRdZ0jgwBEd ixzynCQnqufhFZpeixT3KU XifqZud0FgHTLrOWU5TLfm UOdemLTxIDVvrYbqs7msB6 RscGFyXHBsYWluXGYxXGZz MjBcbGFuZzEwMzNcaGljaF klYJrkFyImTPUzGDzvO7fq AmVuR1SbPAUdHnCpcQCqS1 ggVGhpcyByZXBvcnQgbWF5 FZjwQ0h6WHFalbRwwOx1dc NgHsAlEXBtWDJ9SPkkeDZa PCVzu0YkefrooXReIv5yvT ItKJJgkU0rBAAzCKFyXSyg CR6biCr0QFFKzELuwTSzZf AEJXNbZY49lmNsNFCIgkke z5X8TTquRLAih6TacWXsA5 yqn0DwYAYhb42pXB5gv6N6 q6saCED2IL5ec2HcAZMdaC YivSBiIOWaq9Chsrnmz6Ma UNDtegCkv5TeHNYotoFqsH WnKFTqidOeqe8xzlIeUQZe XTViO5NeexhveRacbjNuON Xmxo2vezBtFYK8DTXVPDVg KPPma4XhfC5muHDCWBC6cQ Ulju9glrVGnMXnFEZgrn81 JSDhET2pA5quJUUdQGDxgr IutOQfs5OpDMEdvPC9oIGj IJ1VFhOBb85hUKTiEUSYke EeBTDkzKrstPY5rmF5tO0o IChGREEpLlx+IFRoZSBGRE QmOD0eyeQqk7SspxPnwZxy FDYkcWNbc2SwbTBur2PdwW yzd6ArpUJthNWeIF9nIRTw clxwYXIgVVRNQiBMYWJvcm V4r6AjSCSaWFSlSTA5sVnm suq2KRCgwN3vHPKxL7tobl qjKGziAXXjh6XyqN2pzXTV wQGqt6ZnuDRseYPTyCAaSN 5aqoGpBOoDUNgUUOH2qlRn JAWhx9McYMqfQ3duD45awW cvvMe9fDR0XVT3lH4iFgw+ IFxwYXJccGFyIEFwcHJvcH SxNLIkkVdcjzWxV2CoxkTy yV9rtPVdmoQlSN1kCM9fT1 S9rCQcWSHyxrSib8yuXMlj dmUgYmVlbiByZXZpZXdlZC Jkp3TaYFibSTN3YFjpwzTj bmNsdWRpbmcgSCZFLCBTcG SneNGoPPF9RBogyuJmhoQt DE8khE4fvHxheQ0jdOOdnE N5otchTSQmDZGgoSgxJTOa FW0hrUOvNCLnhmYFrSohhE LwpM1pP3HnJTCvGPGkan0k NDPmoF5ePLfcx1PtwqrgFA AiDUFbDNNuewGfjd1rOSWn tYAFLA7NTSdwbMUbm8Nsgx OzQ9cMTCQ7ULGmZeKhPtxk ZDAcmXDouGWbFASamo61AS HjqY9kySdxOWCohW4tlM4u mYxlaL4lWxWbTjCmMQqrBW 8vEDBtP6fijAAfXWDiNDTw T3ooTkWngM3szNqwGIjkYq XrIlVyPXbrGJN7pR== Embedded Images (test code = 9794348603) [facility] 13:35:48* Test Item Value Reference Range Interpretation Comme [facility] POCT GLU (test code = 2136632255) 97 mg/dL 70-110 Notified Provide r Lab Interpretation (test code = 79870-4) Normal [facility] WITH [id number] 10:50:03* Test Item Value Reference Range Interpretation Comme [facility] WBC (test code = 6690-2) 9.09 See_Comment [Automated messa ge] The system which generated this result transmitted reference range: 4.30 - 11.10 10*3/?L. The reference range was not used to interpret this result as normal/abnormal. RBC (test code = 789-8) 3.55 See_Comment L [Automated messa ge] The system which generated this result transmitted reference range: 3.93 - 5.25 10*6/?L. The reference range was not used to interpret this result as normal/abnormal. HGB (test code = 718-7) 11.0 g/dL 11.6-15.0 L HCT (test code = 4544-3) 33.2 % 35.7-45.2 L MCV (test code = 787-2) 93.5 fL 80.6-95.5 MCH (test code = 785-6) 31.0 pg 25.9-32.8 MCHC (test code = 786-4) 33.1 g/dL 31.6-35.1 RDW-SD (test code = 26986-1) 42.8 fL 39.0-49.9 RDW-CV (test code = 788-0) 12.6 % 12.0-15.5 PLT (test code = 777-3) 154 See_Comment L [Automated messa ge] The system which generated this result transmitted reference range: 166 - 358 10*3/?L. The reference range was not used to interpret this result as normal/abnormal. MPV (test code = 54848-1) 11.0 fL 9.5-12.9 NRBC/100 WBC (test code = 2276985919) 0.0 See_Comment [Automated [employer] ssage] The system which generated this result transmitted reference range: 0.0 - 10.0 /100 WBCs. The reference range was not used to interpret this result as normal/abnormal. NRBC x10^3 (test code = 6124365968) See_Comment [Automated [employer] ge] The system which generated this result transmitted reference range: 10*3/?L. The reference range was not used to interpret this result as normal/abnormal. GRAN MAT (NEUT) % (test code = 770-8) 71.4 % IMM GRAN % (test code = 8651487125) 1.10 % LYMPH % (test code = 736-9) 19.9 % MONO % (test code = 5905-5) 7.2 % EOS % (test code = 713-8) 0.2 % BASO % (test code = 706-2) 0.2 % GRAN MAT x10^3(ANC) (test code = 8615287150) 6.49 10*3/uL 1.88-7.09 IMM GRAN x10^3 (test code = 8849083151) 0.10 10*3/uL 0.00-0.06 H LYMPH x10^3 (test code = 731-0) 1.81 10*3/uL 1.32-3.29 MONO x10^3 (test code = 742-7) 0.65 10*3/uL 0.33-0.92 EOS x10^3 (test code = 711-2) 0.03-0.39 L BASO x10^3 (test code = 704-7) 0.01-0.07 Lab Interpretation (test code = 60081-4) Abnormal [facility] GLUCOSE (AUTOMATED)2023-01-21 01:54:15* Test Item Value Reference Range Interpretation Comme nts POCT GLU (test code = 4373347349) 91 mg/dL 70-110 Lab Interpretation (test cod e = 97427-4) Normal [facility] GLUCOSE (AUTOMATED)2023-01-20 21:06:44* Test Item Value Reference Range Interpretation Comme nts POCT GLU (test code = 0899562284) 126 mg/dL 70-110 H Notified Provide r Lab Interpretation (test code = 57713-6) Abnormal [facility] GLUCOSE (AUTOMATED)2023-01-20 16:44:17* Test Item Value Reference Range Interpretation Comme nts POCT GLU (test code = 3978507331) 235 mg/dL 70-110 H Notified Provide r Lab Interpretation (test code = 04901-9) Abnormal [facility] GLUCOSE (AUTOMATED)2023-01-20 16:44:17* Test Item Value Reference Range Interpretation Comme nts POCT GLU (test code = 1765590584) 235 mg/dL 70-110 H Notified Provide r Lab Interpretation (test code = 33323-7) Abnormal [facility] GLUCOSE (AUTOMATED)2023-01-20 13:04:49* Test Item Value Reference Range Interpretation Comme nts POCT GLU (test code = 5630091275) 101 mg/dL 70-110 Notified Provide r Lab Interpretation (test code = 29727-7) Normal [facility] GLUCOSE (AUTOMATED)2023-01-20 13:04:49* Test Item Value Reference Range Interpretation Comme nts POCT GLU (test code = 5131212611) 101 mg/dL 70-110 Notified Provide r Lab Interpretation (test code = 81247-8) [facility] (NA, K, CL, CO2, GLUCOSE, BUN, CREATININE, CA)2023-01-20 10:01:16* Test Item Value Reference Range Interpretation Comme nts NA (test code = 2936958333) 142 mmol/L 135-145 K (test code = 2888177558) 2.7 mmol/L 3.5-5.0 LL CL (test code = 1231566290) 110 mmol/L 98-108 H CO2 TOTAL (test code = 1353424997) 22 mmol/L 23-31 L AGAP (test code = 1000824453) 10 2-16 BUN (test code = 6750057968) 14 mg/dL 7-23 GLUCOSE (test code = 7493765890) 108 mg/dL 70-110 CREATININE (test code = 9132331237) 1.04 mg/dL 0.50-1.04 CALCIUM (test code = 7702290445) 7.9 mg/dL 8.6-10.6 L eGFR (test code = 2599624258) 51.0 mL/min/1.73m2 ABRAM (test code = ABRAM) Association of Glomerular Filtration Rate (GFR) and Staging of Kidney Disease* + --+ --+ ------+| GFR (mL/min/1.73 m2) ?| With Kidney Damage ?| ?Without Kidney Damage+ --------+ --------+ +| ?>90 ?| ?Stage one ?| ? Normal ?+ ---+ ---+ -------+| ?60-89 ?| ?Stage two ?| ? Decreased GFR ? + --+ --+ ------+| ?30-59 ?| ?Stage three ?| ? Stage three ? + --+ --+ ------+| ?15-29 ?| ?Stage four ? | ? Stage four ?+ ---+ ---+ -------+| ?<15 (or dialysis) ? ?| ?Stage five ? | ? Stage five ?+ ---+ ---+ -------+ *Each stage assumes the associated GFR level has been in effect for at least three months. ?Stages 1 to 5, with or without kidney disease, indicate chronic kidney disease. Notes: Determination of stages one and two (with eGFR >59mL/min/1.73 m2) requires estimation of kidney damage for at least three months as defined by structural or functional abnormalities of the kidney, manifested by either:Pathological abnormalities or Markers of kidney damage (including abnormalities in the composition of the blood or urine or abnormalities in imaging tests). Lab Interpretation (test code = 26505-7) Abnormal [facility] METABOLIC PANEL (NA, K, CL, CO2, GLUCOSE, BUN, CREATININE, CA)2023-01-20 10:01:16* Test Item Value Reference Range Interpretation Comme nts NA (test code = 1889034816) 142 mmol/L 135-145 K (test code = 6986352085) 2.7 mmol/L 3.5-5.0 LL CL (test code = 0968335587) 110 mmol/L 98-108 H CO2 TOTAL (test code = 8765993479) 22 mmol/L 23-31 L AGAP (test code = 4262315650) 10 2-16 BUN (test code = 5255034735) 14 mg/dL 7-23 GLUCOSE (test code = 9598432999) 108 mg/dL 70-110 CREATININE (test code = 5033599134) 1.04 mg/dL 0.50-1.04 CALCIUM (test code = 9175327668) 7.9 mg/dL 8.6-10.6 L eGFR (test code = 9574217601) 51.0 mL/min/1.73m2 ABRAM (test code = ABRAM) Association of Glomerular Filtration Rate (GFR) and Staging of Kidney Disease* + --+ --+ ------+| GFR (mL/min/1.73 m2) ?| With Kidney Damage ?| ?Without Kidney Damage+ --------+ --------+ +| ?>90 ?| ?Stage one ?| ? Normal ?+ ---+ ---+ -------+| ?60-89 ?| ?Stage two ?| ? Decreased GFR ? + --+ --+ ------+| ?30-59 ?| ?Stage three ?| ? Stage three ? + --+ --+ ------+| ?15-29 ?| ?Stage four ? | ? Stage four ?+ ---+ ---+ -------+| ?<15 (or dialysis) ? ?| ?Stage five ? | ? Stage five ?+ ---+ ---+ -------+ *Each stage assumes the associated GFR level has been in effect for at least three months. ?Stages 1 to 5, with or without kidney disease, indicate chronic kidney disease. Notes: Determination of stages one and two (with eGFR >59mL/min/1.73 m2) requires estimation of kidney damage for at least three months as defined by structural or functional abnormalities of the kidney, manifested by either:Pathological abnormalities or Markers of kidney damage (including abnormalities in the composition of the blood or urine or abnormalities in imaging tests). Lab Interpretation (test code = 61219-3) [facility] 09:56:28* Test Item Value Reference Range Interpretation Comme nts PHOSPHORUS (test code = 7005876280) 2.4 mg/dL 2.5-5.0 L Lab Interpretation (test cod e = 48400-6) [facility] 09:56:28* Test Item Value Reference Range Interpretation Comme nts MAGNESIUM (test code = 4357995187) 1.9 mg/dL 1.7-2.4 Lab Interpretation (test cod e = 47075-2) [facility] (ALB,T.PRO,BILI T,BU/BC,ALT,AST,ALK PHOS)2023-01-20 09:56:28* Test Item Value Reference Range Interpretation Comme nts TOTAL BILI (test code = 1429559765) 0.5 mg/dL 0.1-1.1 BILI UNCON (test code = 9600031191) 0.3 mg/dL 0.1-1.1 BILI CONJ (test code = 3203703917) 0.0 mg/dL 0.0-0.3 T PROTEIN (test code = 3216309063) 5.9 g/dL 6.3-8.2 L ALBUMIN (test code = 2260143534) 3.1 g/dL 3.5-5.0 L ALK PHOS (test code = 3984300191) 48 U/L 34-122 ALTv (test code = 1742-6) 29 U/L 5-35 AST(SGOT) (test code = 4877186085) 79 U/L 13-40 H Lab Interpretation (test cod e = 76129-6) [facility] 09:56:28* Test Item Value Reference Range Interpretation Comme nts PHOSPHORUS (test code = 5069130529) 2.4 mg/dL 2.5-5.0 L Lab Interpretation (test cod e = 67187-4) [facility] 09:56:28* Test Item Value Reference Range Interpretation Comme nts MAGNESIUM (test code = 5332038098) 1.9 mg/dL 1.7-2.4 Lab Interpretation (test cod e = 96519-4) [facility]80567[facility] (ALB,T.PRO,BILI T,BU/BC,ALT,AST,ALK PHOS)2023-01-20 09:56:28* Test Item Value Reference Range Interpretation Comme nts TOTAL BILI (test code = 4629666820) 0.5 mg/dL 0.1-1.1 BILI UNCON (test code = 1619300875) 0.3 mg/dL 0.1-1.1 BILI CONJ (test code = 5900219793) 0.0 mg/dL 0.0-0.3 T PROTEIN (test code = 9121379139) 5.9 g/dL 6.3-8.2 L ALBUMIN (test code = 2194486082) 3.1 g/dL 3.5-5.0 L ALK PHOS (test code = 8356662694) 48 U/L 34-122 ALTv (test code = 1742-6) 29 U/L 5-35 AST(SGOT) (test code = 9553836895) 79 U/L 13-40 H Lab Interpretation (test cod e = 99368-0) [facility] [id number] 09:38:25* Test Item Value Reference Range Interpretation Comme nts WBC (test code = 6690-2) 7.92 See_Comment [Automated messa ge] The system which generated this result transmitted reference range: 4.30 - 11.10 10*3/?L. The reference range was not used to interpret this result as normal/abnormal. RBC (test code = 789-8) 3.12 See_Comment L [Automated messa ge] The system which generated this result transmitted reference range: 3.93 - 5.25 10*6/?L. The reference range was not used to interpret this result as normal/abnormal. HGB (test code = 718-7) 9.8 g/dL 11.6-15.0 L HCT (test code = 4544-3) 28.7 % 35.7-45.2 L MCV (test code = 787-2) 92.0 fL 80.6-95.5 MCH (test code = 785-6) 31.4 pg 25.9-32.8 MCHC (test code = 786-4) 34.1 g/dL 31.6-35.1 RDW-SD (test code = 28820-4) 42.3 fL 39.0-49.9 RDW-CV (test code = 788-0) 12.7 % 12.0-15.5 PLT (test code = 777-3) 164 See_Comment L [Automated messa ge] The system which generated this result transmitted reference range: 166 - 358 10*3/?L. The reference range was not used to interpret this result as normal/abnormal. MPV (test code = 94328-7) 10.5 fL 9.5-12.9 NRBC/100 WBC (test code = 3797161760) 0.0 See_Comment [Automated me ssage] The system which generated this result transmitted reference range: 0.0 - 10.0 /100 WBCs. The reference range was not used to interpret this result as normal/abnormal. NRBC x10^3 (test code = 9747178985) See_Comment [Automated messa ge] The system which generated this result transmitted reference range: 10*3/?L. The reference range was not used to interpret this result as normal/abnormal. GRAN MAT (NEUT) % (test code = 770-8) 71.1 % IMM GRAN % (test code = 1237707369) 0.60 % LYMPH % (test code = 736-9) 19.8 % MONO % (test code = 5905-5) 8.3 % EOS % (test code = 713-8) 0.1 % BASO % (test code = 706-2) 0.1 % GRAN MAT x10^3(ANC) (test code = 9670644107) 5.62 10*3/uL 1.88-7.09 IMM GRAN x10^3 (test code = 0599294565) 0.05 10*3/uL 0.00-0.06 LYMPH x10^3 (test code = 731-0) 1.57 10*3/uL 1.32-3.29 MONO x10^3 (test code = 742-7) 0.66 10*3/uL 0.33-0.92 EOS x10^3 (test code = 711-2) 0.03-0.39 L BASO x10^3 (test code = 704-7) 0.01-0.07 Lab Interpretation (test code = 34398-5) Abnormal [facility] WITH [id number] 09:38:25* Test Item Value Reference Range Interpretation Comme nts WBC (test code = 6690-2) 7.92 See_Comment [Automated [employer]] The system which generated this result transmitted reference range: 4.30 - 11.10 10*3/?L. The reference range was not used to interpret this result as normal/abnormal. RBC (test code = 789-8) 3.12 See_Comment L [Automated [employer]] The system which generated this result transmitted reference range: 3.93 - 5.25 10*6/?L. The reference range was not used to interpret this result as normal/abnormal. HGB (test code = 718-7) 9.8 g/dL 11.6-15.0 L HCT (test code = 4544-3) 28.7 % 35.7-45.2 L MCV (test code = 787-2) 92.0 fL 80.6-95.5 MCH (test code = 785-6) 31.4 pg 25.9-32.8 MCHC (test code = 786-4) 34.1 g/dL 31.6-35.1 RDW-SD (test code = 31059-9) 42.3 fL 39.0-49.9 RDW-CV (test code = 788-0) 12.7 % 12.0-15.5 PLT (test code = 777-3) 164 See_Comment L [Automated messa ge] The system which generated this result transmitted reference range: 166 - 358 10*3/?L. The reference range was not used to interpret this result as normal/abnormal. MPV (test code = 28803-0) 10.5 fL 9.5-12.9 NRBC/100 WBC (test code = 9780048571) 0.0 See_Comment [Automated me ssage] The system which generated this result transmitted reference range: 0.0 - 10.0 /100 WBCs. The reference range was not used to interpret this result as normal/abnormal. NRBC x10^3 (test code = 2839891171) See_Comment [Automated messa ge] The system which generated this result transmitted reference range: 10*3/?L. The reference range was not used to interpret this result as normal/abnormal. GRAN MAT (NEUT) % (test code = 770-8) 71.1 % IMM GRAN % (test code = 4116973101) 0.60 % LYMPH % (test code = 736-9) 19.8 % MONO % (test code = 5905-5) 8.3 % EOS % (test code = 713-8) 0.1 % BASO % (test code = 706-2) 0.1 % GRAN MAT x10^3(ANC) (test code = 9554743721) 5.62 10*3/uL 1.88-7.09 IMM GRAN x10^3 (test code = 0894983679) 0.05 10*3/uL 0.00-0.06 LYMPH x10^3 (test code = 731-0) 1.57 10*3/uL 1.32-3.29 MONO x10^3 (test code = 742-7) 0.66 10*3/uL 0.33-0.92 EOS x10^3 (test code = 711-2) 0.03-0.39 L BASO x10^3 (test code = 704-7) 0.01-0.07 Lab Interpretation (test code = 30858-0) Abnormal [facility] GLUCOSE (AUTOMATED)2023-01-20 01:55:21* Test Item Value Reference Range Interpretation Comme nts POCT GLU (test code = 0802422863) 126 mg/dL 70-110 H Lab Interpretation (test cod e = 29584-8) Abnormal [facility] GLUCOSE (AUTOMATED)2023-01-20 01:55:21* Test Item Value Reference Range Interpretation Comme nts POCT GLU (test code = 1497244603) 126 mg/dL 70-110 H Lab Interpretation (test cod e = 21576-2) Abnormal [facility] GLUCOSE (AUTOMATED)2023-01-19 16:57:26* Test Item Value Reference Range Interpretation Comme nts POCT GLU (test code = 2616739308) 119 mg/dL 70-110 H Lab Interpretation (test cod e = 98259-5) Abnormal [facility] GLUCOSE (AUTOMATED)2023-01-19 16:57:26* Test Item Value Reference Range Interpretation Comme nts POCT GLU (test code = 1394525605) 119 mg/dL 70-110 H Lab Interpretation (test cod e = 74507-4) Abnormal [facility] GLUCOSE (AUTOMATED)2023-01-19 12:33:01* Test Item Value Reference Range Interpretation Comme nts POCT GLU (test code = 1325028344) 87 mg/dL 70-110 Lab Interpretation (test cod e = 93866-3) Normal [facility] GLUCOSE (AUTOMATED)2023-01-19 12:33:01* Test Item Value Reference Range Interpretation Comme nts POCT GLU (test code = 0844899820) 87 mg/dL 70-110 Lab Interpretation (test cod e = 53102-1) Normal [facility] METABOLIC PANEL (NA, K, CL, CO2, GLUCOSE, BUN, CREATININE, CA)2023-01-19 09:22:46* Test Item Value Reference Range Interpretation Comme nts NA (test code = 6274474859) 145 mmol/L 135-145 K (test code = 7742049610) 3.5 mmol/L 3.5-5.0 Slight hemolysis CL (test code = 5905496227) 111 mmol/L 98-108 H CO2 TOTAL (test code = 3504873957) 20 mmol/L 23-31 L AGAP (test code = 8844173404) 14 2-16 BUN (test code = 1402831935) 21 mg/dL 7-23 Slight hemolysis GLUCOSE (test code = 5501886824) 111 mg/dL 70-110 H CREATININE (test code = 1009633331) 1.21 mg/dL 0.50-1.04 H CALCIUM (test code = 8315684019) 8.3 mg/dL 8.6-10.6 L eGFR (test code = 7151994877) 42.8 mL/min/1.73m2 ABRAM (test code = ABRAM) Association of Glomerular Filtration Rate (GFR) and Staging of Kidney Disease* + -----+ --------+ +| GFR (mL/min/1.73 m2) ?| With Kidney Damage ?| ?Without Kidney Damage+ +------- +---- --+| ?>90 ?| ?Stage one ?| ? Normal ?+ ------+ ---------+--------- +| ?60-89 ?| ?Stage two ?| ? Decreased GFR ? + -----+ --------+ +| ?30-59 ?| ?Stage three ?| ? Stage three ? + -----+ --------+ +| ?15-29 ?| ?Stage four ? | ? Stage four ?+ ------+ ---------+--------- +| ?<15 (or dialysis) ? ?| ?Stage five ? | ? Stage five ?+ ------+ ---------+--------- + *Each stage assumes the associated GFR level has been in effect for at least three months. ?Stages 1 to 5, with or without kidney disease, indicate chronic kidney disease. Notes: Determination of stages one and two (with eGFR >59mL/min/1.73 m2) requires estimation of kidney damage for at least three months as defined by structural or functional abnormalities of the kidney, manifested by either:Pathological abnormalities or Markers of kidney damage (including abnormalities in the composition of the blood or urine or abnormalities in imaging tests). Lab Interpretation (test code = 93641-2) [facility] 09:22:46* Test Item Value Reference Range Interpretation Comme nts PHOSPHORUS (test code = 5223008443) 3.1 mg/dL 2.5-5.0 Lab Interpretation (test cod e = 74515-8) [facility] 09:22:46* Test Item Value Reference Range Interpretation Comme nts MAGNESIUM (test code = 1541831083) 1.9 mg/dL 1.7-2.4 Lab Interpretation (test cod e = 10299-1) Normal [facility] METABOLIC PANEL (NA, K, CL, CO2, GLUCOSE, BUN, CREATININE, CA)2023-01-19 09:22:46* Test Item Value Reference Range Interpretation Comme nts NA (test code = 2980019150) 145 mmol/L 135-145 K (test code = 0336362983) 3.5 mmol/L 3.5-5.0 Slight hemolysis CL (test code = 4640205984) 111 mmol/L 98-108 H CO2 TOTAL (test code = 2292320143) 20 mmol/L 23-31 L AGAP (test code = 1511800032) 14 2-16 BUN (test code = 6023812959) 21 mg/dL 7-23 Slight hemolysis GLUCOSE (test code = 3954974863) 111 mg/dL 70-110 H CREATININE (test code = 1349099100) 1.21 mg/dL 0.50-1.04 H CALCIUM (test code = 2026312963) 8.3 mg/dL 8.6-10.6 L eGFR (test code = 1213575754) 42.8 mL/min/1.73m2 ABRAM (test code = ABRAM) Association of Glomerular Filtration Rate (GFR) and Staging of Kidney Disease* + -----+ --------+ +| GFR (mL/min/1.73 m2) ?| With Kidney Damage ?| ?Without Kidney Damage+ +------- +---- --+| ?>90 ?| ?Stage one ?| ? Normal ?+ ------+ ---------+--------- +| ?60-89 ?| ?Stage two ?| ? Decreased GFR ? + -----+ --------+ +| ?30-59 ?| ?Stage three ?| ? Stage three ? + -----+ --------+ +| ?15-29 ?| ?Stage four ? | ? Stage four ?+ ------+ ---------+--------- +| ?<15 (or dialysis) ? ?| ?Stage five ? | ? Stage five ?+ ------+ ---------+--------- + *Each stage assumes the associated GFR level has been in effect for at least three months. ?Stages 1 to 5, with or without kidney disease, indicate chronic kidney disease. Notes: Determination of stages one and two (with eGFR >59mL/min/1.73 m2) requires estimation of kidney damage for at least three months as defined by structural or functional abnormalities of the kidney, manifested by either:Pathological abnormalities or Markers of kidney damage (including abnormalities in the composition of the blood or urine or abnormalities in imaging tests). Lab Interpretation (test code = 71840-5) [facility] 09:22:46* Test Item Value Reference Range Interpretation Comme nts PHOSPHORUS (test code = 4869786462) 3.1 mg/dL 2.5-5.0 Lab Interpretation (test cod e = 82479-6) [facility] 09:22:46* Test Item Value Reference Range Interpretation Comme nts MAGNESIUM (test code = 0303236588) 1.9 mg/dL 1.7-2.4 Lab Interpretation (test cod e = 96853-6) [facility] [id number] 08:46:39* Test Item Value Reference Range Interpretation Comme nts WBC (test code = 6690-2) 7.24 See_Comment [Automated [employer]] The system which generated this result transmitted reference range: 4.30 - 11.10 10*3/?L. The reference range was not used to interpret this result as normal/abnormal. RBC (test code = 789-8) 3.41 See_Comment L [Automated [employer]] The system which generated this result transmitted reference range: 3.93 - 5.25 10*6/?L. The reference range was not used to interpret this result as normal/abnormal. HGB (test code = 718-7) 10.5 g/dL 11.6-15.0 L HCT (test code = 4544-3) 31.7 % 35.7-45.2 L MCV (test code = 787-2) 93.0 fL 80.6-95.5 MCH (test code = 785-6) 30.8 pg 25.9-32.8 MCHC (test code = 786-4) 33.1 g/dL 31.6-35.1 RDW-SD (test code = 97692-6) 43.1 fL 39.0-49.9 RDW-CV (test code = 788-0) 12.6 % 12.0-15.5 PLT (test code = 777-3) 197 See_Comment [Automated messa ge] The system which generated this result transmitted reference range: 166 - 358 10*3/?L. The reference range was not used to interpret this result as normal/abnormal. MPV (test code = 61651-2) 10.2 fL 9.5-12.9 NRBC/100 WBC (test code = 2772940951) 0.0 See_Comment [Automated me ssage] The system which generated this result transmitted reference range: 0.0 - 10.0 /100 WBCs. The reference range was not used to interpret this result as normal/abnormal. NRBC x10^3 (test code = 9568763354) See_Comment [Automated messa ge] The system which generated this result transmitted reference range: 10*3/?L. The reference range was not used to interpret this result as normal/abnormal. GRAN MAT (NEUT) % (test code = 770-8) 69.2 % IMM GRAN % (test code = 6912558918) 0.40 % LYMPH % (test code = 736-9) 21.8 % MONO % (test code = 5905-5) 8.3 % EOS % (test code = 713-8) 0.0 % BASO % (test code = 706-2) 0.3 % GRAN MAT x10^3(ANC) (test code = 2526612129) 5.01 10*3/uL 1.88-7.09 IMM GRAN x10^3 (test code = 9603757203) 0.03 10*3/uL 0.00-0.06 LYMPH x10^3 (test code = 731-0) 1.58 10*3/uL 1.32-3.29 MONO x10^3 (test code = 742-7) 0.60 10*3/uL 0.33-0.92 EOS x10^3 (test code = 711-2) 0.03-0.39 L BASO x10^3 (test code = 704-7) 0.01-0.07 Lab Interpretation (test code = 52448-8) Abnormal [facility] WITH [id number] 08:46:39* Test Item Value Reference Range Interpretation Comme nts WBC (test code = 6690-2) 7.24 See_Comment [Automated messa ge] The system which generated this result transmitted reference range: 4.30 - 11.10 10*3/?L. The reference range was not used to interpret this result as normal/abnormal. RBC (test code = 789-8) 3.41 See_Comment L [Automated messa ge] The system which generated this result transmitted reference range: 3.93 - 5.25 10*6/?L. The reference range was not used to interpret this result as normal/abnormal. HGB (test code = 718-7) 10.5 g/dL 11.6-15.0 L HCT (test code = 4544-3) 31.7 % 35.7-45.2 L MCV (test code = 787-2) 93.0 fL 80.6-95.5 MCH (test code = 785-6) 30.8 pg 25.9-32.8 MCHC (test code = 786-4) 33.1 g/dL 31.6-35.1 RDW-SD (test code = 28937-2) 43.1 fL 39.0-49.9 RDW-CV (test code = 788-0) 12.6 % 12.0-15.5 PLT (test code = 777-3) 197 See_Comment [Automated messa ge] The system which generated this result transmitted reference range: 166 - 358 10*3/?L. The reference range was not used to interpret this result as normal/abnormal. MPV (test code = 82001-5) 10.2 fL 9.5-12.9 NRBC/100 WBC (test code = 6443574095) 0.0 See_Comment [Automated me ssage] The system which generated this result transmitted reference range: 0.0 - 10.0 /100 WBCs. The reference range was not used to interpret this result as normal/abnormal. NRBC x10^3 (test code = 1765306127) See_Comment [Automated messa ge] The system which generated this result transmitted reference range: 10*3/?L. The reference range was not used to interpret this result as normal/abnormal. GRAN MAT (NEUT) % (test code = 770-8) 69.2 % IMM GRAN % (test code = 9786245918) 0.40 % LYMPH % (test code = 736-9) 21.8 % MONO % (test code = 5905-5) 8.3 % EOS % (test code = 713-8) 0.0 % BASO % (test code = 706-2) 0.3 % GRAN MAT x10^3(ANC) (test code = 1713647822) 5.01 10*3/uL 1.88-7.09 IMM GRAN x10^3 (test code = 5135779560) 0.03 10*3/uL 0.00-0.06 LYMPH x10^3 (test code = 731-0) 1.58 10*3/uL 1.32-3.29 MONO x10^3 (test code = 742-7) 0.60 10*3/uL 0.33-0.92 EOS x10^3 (test code = 711-2) 0.03-0.39 L BASO x10^3 (test code = 704-7) 0.01-0.07 Lab Interpretation (test code = 96111-0) Abnormal [facility] METABOLIC PANEL (NA, K, CL, CO2, GLUCOSE, BUN, CREATININE, CA)2023-01-19 05:31:14* Test Item Value Reference Range Interpretation Comme nts NA (test code = 5954206562) 147 mmol/L 135-145 H K (test code = 0206333315) 3.4 mmol/L 3.5-5.0 L Slight hemolysis CL (test code = 6999042606) 112 mmol/L 98-108 H CO2 TOTAL (test code = 7181704178) 21 mmol/L 23-31 L AGAP (test code = 5016440735) 14 2-16 BUN (test code = 4876290645) 22 mg/dL 7-23 Slight hemolysis GLUCOSE (test code = 1616684656) 127 mg/dL 70-110 H CREATININE (test code = 9573335304) 1.23 mg/dL 0.50-1.04 H CALCIUM (test code = 3698691575) 8.4 mg/dL 8.6-10.6 L eGFR (test code = 3466715159) 42.0 mL/min/1.73m2 ABRAM (test code = ABRAM) Association of Glomerular Filtration Rate (GFR) and Staging of Kidney Disease* + -----+ --------+ +| GFR (mL/min/1.73 m2) ?| With Kidney Damage ?| ?Without Kidney Damage+ +------- +---- --+| ?>90 ?| ?Stage one ?| ? Normal ?+ ------+ ---------+--------- +| ?60-89 ?| ?Stage two ?| ? Decreased GFR ? + -----+ --------+ +| ?30-59 ?| ?Stage three ?| ? Stage three ? + -----+ --------+ +| ?15-29 ?| ?Stage four ? | ? Stage four ?+ ------+ ---------+--------- +| ?<15 (or dialysis) ? ?| ?Stage five ? | ? Stage five ?+ ------+ ---------+--------- + *Each stage assumes the associated GFR level has been in effect for at least three months. ?Stages 1 to 5, with or without kidney disease, indicate chronic kidney disease. Notes: Determination of stages one and two (with eGFR >59mL/min/1.73 m2) requires estimation of kidney damage for at least three months as defined by structural or functional abnormalities of the kidney, manifested by either:Pathological abnormalities or Markers of kidney damage (including abnormalities in the composition of the blood or urine or abnormalities in imaging tests). Lab Interpretation (test code = 67116-2) Abnormal [facility] METABOLIC PANEL (NA, K, CL, CO2, GLUCOSE, BUN, CREATININE, CA)2023-01-19 05:31:14* Test Item Value Reference Range Interpretation Comme nts NA (test code = 0399371884) 147 mmol/L 135-145 H K (test code = 1601609499) 3.4 mmol/L 3.5-5.0 L Slight hemolysis CL (test code = 5354016043) 112 mmol/L 98-108 H CO2 TOTAL (test code = 5336378920) 21 mmol/L 23-31 L AGAP (test code = 2471750581) 14 2-16 BUN (test code = 7283717323) 22 mg/dL 7-23 Slight hemolysis GLUCOSE (test code = 1753518204) 127 mg/dL 70-110 H CREATININE (test code = 4900949861) 1.23 mg/dL 0.50-1.04 H CALCIUM (test code = 5819694474) 8.4 mg/dL 8.6-10.6 L eGFR (test code = 2594169440) 42.0 mL/min/1.73m2 ABRAM (test code = ABRAM) Association of Glomerular Filtration Rate (GFR) and Staging of Kidney Disease* + -----+ --------+ +| GFR (mL/min/1.73 m2) ?| With Kidney Damage ?| ?Without Kidney Damage+ +------- +---- --+| ?>90 ?| ?Stage one ?| ? Normal ?+ ------+ ---------+--------- +| ?60-89 ?| ?Stage two ?| ? Decreased GFR ? + -----+ --------+ +| ?30-59 ?| ?Stage three ?| ? Stage three ? + -----+ --------+ +| ?15-29 ?| ?Stage four ? | ? Stage four ?+ ------+ ---------+--------- +| ?<15 (or dialysis) ? ?| ?Stage five ? | ? Stage five ?+ ------+ ---------+--------- + *Each stage assumes the associated GFR level has been in effect for at least three months. ?Stages 1 to 5, with or without kidney disease, indicate chronic kidney disease. Notes: Determination of stages one and two (with eGFR >59mL/min/1.73 m2) requires estimation of kidney damage for at least three months as defined by structural or functional abnormalities of the kidney, manifested by either:Pathological abnormalities or Markers of kidney damage (including abnormalities in the composition of the blood or urine or abnormalities in imaging tests). Lab Interpretation (test code = 13873-2) [facility]* Test Item Value Reference Range Interpretation Comme nts MAGNESIUM (test code = 9580002675) 2.0 mg/dL 1.7-2.4 Lab Interpretation (test cod e = 57650-5) [facility]:07:[facility]* Test Item Value Reference Range Interpretation Comme nts PHOSPHORUS (test code = 6556424451) 3.1 mg/dL 2.5-5.0 Lab Interpretation (test cod e = 68513-5) [facility] 05:07:33* Test Item Value Reference Range Interpretation Comme nts MAGNESIUM (test code = 6654045387) 2.0 mg/dL 1.7-2.4 Lab Interpretation (test cod e = 38725-7) [facility] 05:07:[facility]* Test Item Value Reference Range Interpretation Comme nts PHOSPHORUS (test code = 2388728796) 3.1 mg/dL 2.5-5.0 Lab Interpretation (test cod e = 26947-8) Normal [facility] GLUCOSE (AUTOMATED)2023-01-19 01:30:01* Test Item Value Reference Range Interpretation Comme nts POCT GLU (test code = 4959191511) 153 mg/dL 70-110 H Lab Interpretation (test cod e = 56891-4) Abnormal [facility] GLUCOSE (AUTOMATED)2023-01-19 01:30:01* Test Item Value Reference Range Interpretation Comme nts POCT GLU (test code = 3522519403) 153 mg/dL 70-110 H Lab Interpretation (test cod e = 95380-8) Abnormal [facility] GLUCOSE (AUTOMATED)2023-01-18 20:11:32* Test Item Value Reference Range Interpretation Comme nts POCT GLU (test code = 1969320885) 145 mg/dL 70-110 H Lab Interpretation (test cod e = 97927-3) Abnormal [facility] GLUCOSE (AUTOMATED)2023-01-18 20:11:32* Test Item Value Reference Range Interpretation Comme nts POCT GLU (test code = 0835709954) 145 mg/dL 70-110 H Lab Interpretation (test cod e = 65939-0) Abnormal [facility] GLUCOSE (AUTOMATED)2023-01-18 16:50:23* Test Item Value Reference Range Interpretation Comme nts POCT GLU (test code = 9201937674) 196 mg/dL 70-110 H Lab Interpretation (test cod e = 67160-8) Abnormal [facility] GLUCOSE (AUTOMATED)2023-01-18 16:50:23* Test Item Value Reference Range Interpretation Comme nts POCT GLU (test code = 5594871781) 196 mg/dL 70-110 H Lab Interpretation (test cod e = 31333-0) Abnormal [facility] GLUCOSE (AUTOMATED)2023-01-18 13:30:37* Test Item Value Reference Range Interpretation Comme nts POCT GLU (test code = 1823297434) 193 mg/dL 70-110 H Lab Interpretation (test cod e = 67315-4) Abnormal [facility] GLUCOSE (AUTOMATED)2023-01-18 13:30:37* Test Item Value Reference Range Interpretation Comme nts POCT GLU (test code = 1961675785) 193 mg/dL 70-110 H Lab Interpretation (test cod e = 60771-6) Abnormal [facility] WITH [id number] 10:18:27* Test Item Value Reference Range Interpretation Comme nts WBC (test code = 6690-2) 7.06 See_Comment [Automated messa ge] The system which generated this result transmitted reference range: 4.30 - 11.10 10*3/?L. The reference range was not used to interpret this result as normal/abnormal. RBC (test code = 789-8) 3.81 See_Comment L [Automated messa ge] The system which generated this result transmitted reference range: 3.93 - 5.25 10*6/?L. The reference range was not used to interpret this result as normal/abnormal. HGB (test code = 718-7) 11.8 g/dL 11.6-15.0 HCT (test code = 4544-3) 34.6 % 35.7-45.2 L MCV (test code = 787-2) 90.8 fL 80.6-95.5 MCH (test code = 785-6) 31.0 pg 25.9-32.8 MCHC (test code = 786-4) 34.1 g/dL 31.6-35.1 RDW-SD (test code = 43081-2) 41.4 fL 39.0-49.9 RDW-CV (test code = 788-0) 12.6 % 12.0-15.5 PLT (test code = 777-3) 229 See_Comment [Automated [employer]] The system which generated this result transmitted reference range: 166 - 358 10*3/?L. The reference range was not used to interpret this result as normal/abnormal. MPV (test code = 97085-9) 10.7 fL 9.5-12.9 NRBC/100 WBC (test code = 8055441207) 0.0 See_Comment [Automated [employer] ssage] The system which generated this result transmitted reference range: 0.0 - 10.0 /100 WBCs. The reference range was not used to interpret this result as normal/abnormal. NRBC x10^3 (test code = 6582066509) See_Comment [Automated [employer]] The system which generated this result transmitted reference range: 10*3/?L. The reference range was not used to interpret this result as normal/abnormal. GRAN MAT (NEUT) % (test code = 770-8) 65.1 % IMM GRAN % (test code = 9738199676) 0.10 % LYMPH % (test code = 736-9) 21.1 % MONO % (test code = 5905-5) 13.6 % EOS % (test code = 713-8) 0.0 % BASO % (test code = 706-2) 0.1 % GRAN MAT x10^3(ANC) (test code = 1609773562) 4.59 10*3/uL 1.88-7.09 IMM GRAN x10^3 (test code = 1898817938) 0.00-0.06 LYMPH x10^3 (test code = 731-0) 1.49 10*3/uL 1.32-3.29 MONO x10^3 (test code = 742-7) 0.96 10*3/uL 0.33-0.92 H EOS x10^3 (test code = 711-2) 0.03-0.39 L BASO x10^3 (test code = 704-7) 0.01-0.07 Lab Interpretation (test code = 26386-4) Abnormal [facility] WITH [id number] 10:18:27* Test Item Value Reference Range Interpretation Comme nts WBC (test code = 6690-2) 7.06 See_Comment [Automated messa ge] The system which generated this result transmitted reference range: 4.30 - 11.10 10*3/?L. The reference range was not used to interpret this result as normal/abnormal. RBC (test code = 789-8) 3.81 See_Comment L [Automated messa ge] The system which generated this result transmitted reference range: 3.93 - 5.25 10*6/?L. The reference range was not used to interpret this result as normal/abnormal. HGB (test code = 718-7) 11.8 g/dL 11.6-15.0 HCT (test code = 4544-3) 34.6 % 35.7-45.2 L MCV (test code = 787-2) 90.8 fL 80.6-95.5 MCH (test code = 785-6) 31.0 pg 25.9-32.8 MCHC (test code = 786-4) 34.1 g/dL 31.6-35.1 RDW-SD (test code = 83862-4) 41.4 fL 39.0-49.9 RDW-CV (test code = 788-0) 12.6 % 12.0-15.5 PLT (test code = 777-3) 229 See_Comment [Automated messa ge] The system which generated this result transmitted reference range: 166 - 358 10*3/?L. The reference range was not used to interpret this result as normal/abnormal. MPV (test code = 86255-3) 10.7 fL 9.5-12.9 NRBC/100 WBC (test code = 6492294092) 0.0 See_Comment [Automated [employer] ssage] The system which generated this result transmitted reference range: 0.0 - 10.0 /100 WBCs. The reference range was not used to interpret this result as normal/abnormal. NRBC x10^3 (test code = 2960481042) See_Comment [Automated messa ge] The system which generated this result transmitted reference range: 10*3/?L. The reference range was not used to interpret this result as normal/abnormal. GRAN MAT (NEUT) % (test code = 770-8) 65.1 % IMM GRAN % (test code = 0664375941) 0.10 % LYMPH % (test code = 736-9) 21.1 % MONO % (test code = 5905-5) 13.6 % EOS % (test code = 713-8) 0.0 % BASO % (test code = 706-2) 0.1 % GRAN MAT x10^3(ANC) (test code = 9699530129) 4.59 10*3/uL 1.88-7.09 IMM GRAN x10^3 (test code = 5556558260) 0.00-0.06 LYMPH x10^3 (test code = 731-0) 1.49 10*3/uL 1.32-3.29 MONO x10^3 (test code = 742-7) 0.96 10*3/uL 0.33-0.92 H EOS x10^3 (test code = 711-2) 0.03-0.39 L BASO x10^3 (test code = 704-7) 0.01-0.07 Lab Interpretation (test code = 81867-0) Abnormal [facility] GLUCOSE (AUTOMATED)2023-01-18 01:50:38* Test Item Value Reference Range Interpretation Comme nts POCT GLU (test code = 7890259590) 192 mg/dL 70-110 H Lab Interpretation (test cod e = 64044-4) Abnormal [facility] GLUCOSE (AUTOMATED)2023-01-18 01:50:38* Test Item Value Reference Range Interpretation Comme nts POCT GLU (test code = 8134061586) 192 mg/dL 70-110 H Lab Interpretation (test cod e = 03742-1) [facility] [id number] 22:41:19 * Test Item Value Reference Range Interpretation Comme nts TSH (test code = 6625810264) 0.59 See_Comment [Automated messa ge] The system which generated this result transmitted reference range: 0.45 - 4.70 mIU/L. The reference range was not used to interpret this result as normal/abnormal. Lab Interpretation (test code = 19580-6) [facility] [id number] 22:41:19 * Test Item Value Reference Range Interpretation Comme nts TSH (test code = 4344058392) 0.59 See_Comment [Automated [employer]] The system which generated this result transmitted reference range: 0.45 - 4.70 mIU/L. The reference range was not used to interpret this result as normal/abnormal. Lab Interpretation (test code = 81978-0) [facility] (86601)(TOTAL CHOLESTEROL, TRIGLYCERIDES, HDL)2023-01-17 22:10:08* Test Item Value Reference Range Interpretation Comme nts CHOL (test code = 4496652895) 151 mg/dL 120-200 HDL (test code = 5717646632) 52 mg/dL >=50 HDLC RATIO (test code = 8288402291) 2.9 <=4.5 TRIG (test code = 7539464922) 148 mg/dL 30-170 LDL CHOL (test code = 71325-2) 69 mg/dL <=160 VLDL (test code = 0937438796) 30 mg/dL 5-60 Lab Interpretation (test cod e = 89436-6) [facility] (67680)(TOTAL CHOLESTEROL, TRIGLYCERIDES, HDL)2023-01-17 22:10:08* Test Item Value Reference Range Interpretation Comme nts CHOL (test code = 6662355122) 151 mg/dL 120-200 HDL (test code = 1370292030) 52 mg/dL >=50 HDLC RATIO (test code = 7127600622) 2.9 <=4.5 TRIG (test code = 1726621757) 148 mg/dL 30-170 LDL CHOL (test code = 11424-4) 69 mg/dL <=160 VLDL (test code = 3938648302) 30 mg/dL 5-60 Lab Interpretation (test cod e = 05289-5) Normal [facility] GLUCOSE (AUTOMATED)2023-01-17 21:23:09* Test Item Value Reference Range Interpretation Comme nts POCT GLU (test code = 8934893004) 119 mg/dL 70-110 H Lab Interpretation (test cod e = 86792-2) Abnormal [facility] GLUCOSE (AUTOMATED)2023-01-17 21:23:09* Test Item Value Reference Range Interpretation Comme nts POCT GLU (test code = 0020279060) 119 mg/dL 70-110 H Lab Interpretation (test cod e = 04421-3) [facility]2023-01-17 20:50:54* Test Item Value Reference Range Interpretation Comme nts HGB A1C (test code = 4548-4) 7.1 % 4.0-5.7 H ABRAM (test code = ABRAM) Reference RangesNormal: <5.7%Prediabetes: 5.7 - 6.4%Diabetes: > 6.5% Lab Interpretation (test code = 62100-3) [facility]normal [facility]2023-01-17 20:50:54* Test Item Value Reference Range Interpretation Comme nts HGB A1C (test code = 4548-4) 7.1 % 4.0-5.7 H ABRAM (test code = ABRAM) Reference RangesNormal: <5.7%Prediabetes: 5.7 - 6.4%Diabetes: > 6.5% Lab Interpretation (test code = 66539-7) [facility]OL[facility] (16360)2023-01-17 11:58:31* Test Item Value Reference Range Interpretation Comme nts NA (test code = 9664920175) 147 mmol/L 135-145 H K (test code = 9748626720) 3.4 mmol/L 3.5-5.0 L CL (test code = 1510446341) 107 mmol/L 98-108 CO2 TOTAL (test code = 1804879398) 20 mmol/L 23-31 L AGAP (test code = 0361766209) 20 2-16 H BUN (test code = 3082916495) 33 mg/dL 7-23 H GLUCOSE (test code = 9920535752) 217 mg/dL 70-110 H CREATININE (test code = 0740274547) 1.45 mg/dL 0.50-1.04 H TOTAL BILI (test code = 2867129667) 0.6 mg/dL 0.1-1.1 CALCIUM (test code = 5540985164) 10.0 mg/dL 8.6-10.6 T PROTEIN (test code = 5144023770) 8.7 g/dL 6.3-8.2 H ALBUMIN (test code = 5439751400) 5.0 g/dL 3.5-5.0 ALK PHOS (test code = 9025647135) 86 U/L 34-122 ALTv (test code = 1742-6) 38 U/L 5-35 H AST(SGOT) (test code = 8950603305) 46 U/L 13-40 H eGFR (test code = 5336780023) 34.7 mL/min/1.73m2 ABRAM (test code = ABRAM) Association of Glomerular Filtration Rate (GFR) and Staging of Kidney Disease* + --+ --+ ------+| GFR (mL/min/1.73 m2) ?| With Kidney Damage ?| ?Without Kidney Damage+ --------+ --------+ +| ?>90 ?| ?Stage one ?| ? Normal ?+ ---+ ---+ -------+| ?60-89 ?| ?Stage two ?| ? Decreased GFR ? + --+ --+ ------+| ?30-59 ?| ?Stage three ?| ? Stage three ? + --+ --+ ------+| ?15-29 ?| ?Stage four ? | ? Stage four ?+ ---+ ---+ -------+| ?<15 (or dialysis) ? ?| ?Stage five ? | ? Stage five ?+ ---+ ---+ -------+ *Each stage assumes the associated GFR level has been in effect for at least three months. ?Stages 1 to 5, with or without kidney disease, indicate chronic kidney disease. Notes: Determination of stages one and two (with eGFR >59mL/min/1.73 m2) requires estimation of kidney damage for at least three months as defined by structural or functional abnormalities of the kidney, manifested by either:Pathological abnormalities or Markers of kidney damage (including abnormalities in the composition of the blood or urine or abnormalities in imaging tests). Lab Interpretation (test code = 30551-3) Abnormal [facility]. METABOLIC PANEL (45076)2023-01-17 11:58:31* Test Item Value Reference Range Interpretation Comme nts NA (test code = 4933068001) 147 mmol/L 135-145 H K (test code = 0258697771) 3.4 mmol/L 3.5-5.0 L CL (test code = 3965519393) 107 mmol/L 98-108 CO2 TOTAL (test code = 6495151853) 20 mmol/L 23-31 L AGAP (test code = 2168624388) 20 2-16 H BUN (test code = 9978371560) 33 mg/dL 7-23 H GLUCOSE (test code = 4168179602) 217 mg/dL 70-110 H CREATININE (test code = 1498914461) 1.45 mg/dL 0.50-1.04 H TOTAL BILI (test code = 4761971833) 0.6 mg/dL 0.1-1.1 CALCIUM (test code = 2322268899) 10.0 mg/dL 8.6-10.6 T PROTEIN (test code = 3293460319) 8.7 g/dL 6.3-8.2 H ALBUMIN (test code = 5478687647) 5.0 g/dL 3.5-5.0 ALK PHOS (test code = 2804004664) 86 U/L 34-122 ALTv (test code = 1742-6) 38 U/L 5-35 H AST(SGOT) (test code = 1727497731) 46 U/L 13-40 H eGFR (test code = 4393274903) 34.7 mL/min/1.73m2 ABRAM (test code = ABRAM) Association of Glomerular Filtration Rate (GFR) and Staging of Kidney Disease* + --+ --+ ------+| GFR (mL/min/1.73 m2) ?| With Kidney Damage ?| ?Without Kidney Damage+ --------+ --------+ +| ?>90 ?| ?Stage one ?| ? Normal ?+ ---+ ---+ -------+| ?60-89 ?| ?Stage two ?| ? Decreased GFR ? + --+ --+ ------+| ?30-59 ?| ?Stage three ?| ? Stage three ? + --+ --+ ------+| ?15-29 ?| ?Stage four ? | ? Stage four ?+ ---+ ---+ -------+| ?<15 (or dialysis) ? ?| ?Stage five ? | ? Stage five ?+ ---+ ---+ -------+ *Each stage assumes the associated GFR level has been in effect for at least three months. ?Stages 1 to 5, with or without kidney disease, indicate chronic kidney disease. Notes: Determination of stages one and two (with eGFR >59mL/min/1.73 m2) requires estimation of kidney damage for at least three months as defined by structural or functional abnormalities of the kidney, manifested by either:Pathological abnormalities or Markers of kidney damage (including abnormalities in the composition of the blood or urine or abnormalities in imaging tests). Lab Interpretation (test code = 54877-7) [facility] 11:15:48* Test Item Value Reference Range Interpretation Comme nts LIPASE (test code = 5152351735) 94 U/L 0-220 Lab Interpretation (test cod e = 91072-4) [facility] 11:15:48* Test Item Value Reference Range Interpretation Comme nts LIPASE (test code = 0846547927) 94 U/L 0-220 Lab Interpretation (test cod e = 31015-9) Normal [facility] WITH [id number] 11:10:34* Test Item Value Reference Range Interpretation Comme nts WBC (test code = 6690-2) 10.88 See_Comment [Automated [employer] The system which generated this result transmitted reference range: 4.30 - 11.10 10*3/?L. The reference range was not used to interpret this result as normal/abnormal. RBC (test code = 789-8) 4.37 See_Comment [[employer]] The system which generated this result transmitted reference range: 3.93 - 5.25 10*6/?L. The reference range was not used to interpret this result as normal/abnormal. HGB (test code = 718-7) 14.0 g/dL 11.6-15.0 HCT (test code = 4544-3) 41.1 % 35.7-45.2 MCV (test code = 787-2) 94.1 fL 80.6-95.5 MCH (test code = 785-6) 32.0 pg 25.9-32.8 MCHC (test code = 786-4) 34.1 g/dL 31.6-35.1 RDW-SD (test code = 83055-1) 41.4 fL 39.0-49.9 RDW-CV (test code = 788-0) 11.9 % 12.0-15.5 L PLT (test code = 777-3) 289 See_Comment [Automated messa ge] The system which generated this result transmitted reference range: 166 - 358 10*3/?L. The reference range was not used to interpret this result as normal/abnormal. MPV (test code = 90409-7) 11.0 fL 9.5-12.9 NRBC/100 WBC (test code = 2556803491) 0.0 See_Comment [Automated me ssage] The system which generated this result transmitted reference range: 0.0 - 10.0 /100 WBCs. The reference range was not used to interpret this result as normal/abnormal. NRBC x10^3 (test code = 7234825310) See_Comment [Automated messa ge] The system which generated this result transmitted reference range: 10*3/?L. The reference range was not used to interpret this result as normal/abnormal. GRAN MAT (NEUT) % (test code = 770-8) 59.3 % IMM GRAN % (test code = 3208376207) 0.50 % LYMPH % (test code = 736-9) 24.5 % MONO % (test code = 5905-5) 15.4 % EOS % (test code = 713-8) 0.0 % BASO % (test code = 706-2) 0.3 % GRAN MAT x10^3(ANC) (test code = 6784800024) 6.45 10*3/uL 1.88-7.09 IMM GRAN x10^3 (test code = 0414333192) 0.05 10*3/uL 0.00-0.06 LYMPH x10^3 (test code = 731-0) 2.67 10*3/uL 1.32-3.29 MONO x10^3 (test code = 742-7) 1.68 10*3/uL 0.33-0.92 H EOS x10^3 (test code = 711-2) 0.03-0.39 L BASO x10^3 (test code = 704-7) 0.03 10*3/uL 0.01-0.07 Lab Interpretation (test code = 95702-3) Abnormal [facility] WITH [id number] 11:10:34* Test Item Value Reference Range Interpretation Comme nts WBC (test code = 6690-2) 10.88 See_Comment [Automated messa ge] The system which generated this result transmitted reference range: 4.30 - 11.10 10*3/?L. The reference range was not used to interpret this result as normal/abnormal. RBC (test code = 789-8) 4.37 See_Comment [Automated messa ge] The system which generated this result transmitted reference range: 3.93 - 5.25 10*6/?L. The reference range was not used to interpret this result as normal/abnormal. HGB (test code = 718-7) 14.0 g/dL 11.6-15.0 HCT (test code = 4544-3) 41.1 % 35.7-45.2 MCV (test code = 787-2) 94.1 fL 80.6-95.5 MCH (test code = 785-6) 32.0 pg 25.9-32.8 MCHC (test code = 786-4) 34.1 g/dL 31.6-35.1 RDW-SD (test code = 23854-7) 41.4 fL 39.0-49.9 RDW-CV (test code = 788-0) 11.9 % 12.0-15.5 L PLT (test code = 777-3) 289 See_Comment [Automated messa ge] The system which generated this result transmitted reference range: 166 - 358 10*3/?L. The reference range was not used to interpret this result as normal/abnormal. MPV (test code = 48459-2) 11.0 fL 9.5-12.9 NRBC/100 WBC (test code = 3926652543) 0.0 See_Comment [Automated [employer] ssage] The system which generated this result transmitted reference range: 0.0 - 10.0 /100 WBCs. The reference range was not used to interpret this result as normal/abnormal. NRBC x10^3 (test code = [id number]) See_Comment [Automated messa ge] The system which generated this result transmitted reference range: 10*3/?L. The reference range was not used to interpret this result as normal/abnormal. GRAN MAT (NEUT) % (test code = 770-8) 59.3 % IMM GRAN % (test code = [id number]) 0.50 % LYMPH % (test code = 736-9) 24.5 % MONO % (test code = 5905-5) 15.4 % EOS % (test code = 713-8) 0.0 % BASO % (test code = 706-2) 0.3 % GRAN MAT x10^3(ANC) (test code = 1256724708) 6.45 10*3/uL 1.88-7.09 IMM GRAN x10^3 (test code = 0457260460) 0.05 10*3/uL 0.00-0.06 LYMPH x10^3 (test code = 731-0) 2.67 10*3/uL 1.32-3.29 MONO x10^3 (test code = 742-7) 1.68 10*3/uL 0.33-0.92 H EOS x10^3 (test code = 711-2) 0.03-0.39 L BASO x10^3 (test code = 704-7) 0.03 10*3/uL 0.01-0.07 Lab Interpretation (test code = 53736-5) [facility] [id number] 07:05:52* Test Item Value Reference Range Interpretation Comme nts HEMOGLOBIN A1c (test code = 46604) 7.6 % 4.2-5.6 H [employer] GUIDELINES FOR HGB A1C: PREDIABETES/INCREASED RISK . . . . . . . 5.7-6.4% DIAGNOSIS OF DIABETES . . . . . . . . . >=6.5% WITH CONFIRMATION OR APPROPRIATE SYMPTOMS NOTE: ASSAY MAY BE AFFECTED BY HEMOGLOBINOPATHIES (SICKLE CELL ANEMIA, S-C DISEASE, OTHERS) OR ARTIFICIALLY LOWERED BY DECREASED RED CELL SURVIVAL (HEMOLYTIC ANEMIAS, BLOOD LOSS, ETC.). CONSIDER ALTERNATE TESTING OR LABORATORY CONSULTATION. UNLESS OTHERWISE INDICATED, ALL TESTING PERFORMED AT [facility] [address] [place] [id number] DIRECTOR GROUP SALES: FREDDY HUTCHISON M.D. CLIA NUMBER [id number] [facility] [place]. [id number] HEMOGLOBIN [id number] 00:00:00* Test Item Value Reference Range Interpretation Comme sara HEMOGLOBIN A1c (test code = 98524) 7.6 % Dev SteinerHEMOGLOBIN [id number] 00:00:00* Test Item Value Reference Range Interpretation Comme sara HEMOGLOBIN A1c (test code = 89655) 7.6 % Dev SteinerHEMOGLOBIN [id number] 00:00:00* Test Item Value Reference Range Interpretation Comme sara HEMOGLOBIN A1c (test code = 94556) 7.6 % Dev SteinerHEMOGLOBIN [id number] 00:00:00* Test Item Value Reference Range Interpretation Comme sara HEMOGLOBIN A1c (test code = 62590) 7.6 % Dev SteinerURINE CULTURE, NO [id number] 13:07:33SPECIMEN NUMBER: [id number] URINE CULTURE, NO SENS SPECIMEN NUMBER: [id number] SPECIMEN COMMENT: URINE SOURCE: URINE REPORT STATUS: FINAL FINAL REPORT: 08/25/2022 <10,000 CFU/ML UROGENITAL VENANCIO PRESENT NO COMMON PATHOGENSURINE CULTURE, NO [id number] 00:00:00* Test Item Value Reference Range Interpretation Comme nts URINE CULTURE, NO SENS (test code = 17174) SPECIMEN NUMBER: [id number] Dev Georges AustinURINE CULTURE, NO [id number] 00:00:00* Test Item Value Reference Range Interpretation Comme nts URINE CULTURE, NO SENS (test code = 22690) SPECIMEN NUMBER: [id number] Dev Georges AustinURINE CULTURE, NO [id number] 00:00:00* Test Item Value Reference Range Interpretation Comme nts URINE CULTURE, NO SENS (test code = 26701) SPECIMEN NUMBER: [id number] Dev Georges AustinURINE CULTURE, NO [id number] 00:00:00* Test Item Value Reference Range Interpretation Comme nts URINE CULTURE, NO SENS (test code = 93154) SPECIMEN NUMBER: [id number] Dev SteinerLIPID [id number] 05:33:31* Test Item Value Reference Range Interpretation Comme nts CHOLESTEROL (test code = 2210) 165 MG/DL <200 TRIGLYCERIDES (test code = 2232) 182 MG/DL <150 H HDL CHOLESTEROL (test code = 2220) 50 MG/DL >39 CALC LDL CHOL (test code = 2236) 87 MG/DL <100 NOTE: CALCULATED LDL IS BASED ON BARBER-MATA METHOD WHICHINCLUDES ADJUSTABLE TRIGLYCERIDE:VLDL CHOLESTEROL RATIO.THIS FACTOR VARIES BY MEASURED TRIGLYCERIDE AND NON-HDLCHOLESTEROL CONCENTRATIONS WITH INCREASED CALCULATED LDL SEENIN HIGHER TRIGLYCERIDE OR LOWER NON-HDL SPECIMENS. FOR MOREINFORMATION, SEE CLIENT ANNOUNCEMENT AT [email or web address] RISK RATIO LDL/HDL (test code = 2237) 1.74 RATIO <3.22 HEPATIC FUNCTION [id number] 05:33:31* Test Item Value Reference Range Interpretation Comme nts PROTEIN, TOTAL (test code = 2228) 7.9 G/DL 6.1-8.3 ALBUMIN (test code = 2200) 4.9 G/DL 3.5-5.2 BILIRUBIN, TOTAL (test code = 2206) <0.2 MG/DL See_Comment [Automated [employer] The system which generated this result transmitted reference range: <=1.2. The reference range was not used to interpret this result as normal/abnormal. BILIRUBIN, DIRECT (test code = 2021) <0.2 MG/DL 0.0-0.3 ALKALINE PHOSPHATASE (test code = 4) 92 U/L 40-142 AST (test code = 2218) 18 U/L 9-40 ALT (test code = 2219) 16 U/L 5-40 RENAL FUNCTION [id number] 05:33:31* Test Item Value Reference Range Interpretation Comme nts GLUCOSE (test code = 2216) 144 MG/DL 70-99 H BUN (test code = 2208) 32 MG/DL 8-23 H CREATININE (test code = 2214) 1.14 MG/DL 0.60-1.30 eGFR (2020 CKD-EPI) (test code = 54264) 49 ML/MIN/1.73 >60 L The NKF-ASN Taskforce recommends use of Cystatin C to confirm eGFR inadults at risk for CKD. [facility] offers eGFR with Cystatin C-Creatinineusing the 2020 CKD-EPI eGFR_creat-cystat equation (order code 3057) toincrease the accuracy of estimated GFR. For more information, contactyour assistant account executive or see announcement [email or web address] CALC BUN/CREAT (test code = 2235) 28 RATIO 6-28 SODIUM (test code = 2231) 143 MEQ/L 133-146 POTASSIUM (test code = 2228) 4.6 MEQ/L 3.5-5.4 CHLORIDE (test code = 2215) 108 MEQ/L 95-107 H CARBON DIOXIDE (test code = 2206) 19 MEQ/L 19-31 CALCIUM (test code = 2209) 10.1 MG/DL 8.5-10.5 PHOSPHORUS (test code = 2227) 4.4 MG/DL 2.5-4.5 ALBUMIN (test code = 2201) 4.9 G/DL 3.5-5.2 [facility] has impo rtant pathology staff changes effective 09/08/2022. New pathology staff will provide uninterrupted, excellent patient care and clinical consultation. See URL: [email or web address]. UNLESS OTHERWISE INDICATED, ALL TESTING PERFORMED AT [facility] [address] [place] [address] CLIA: [id number], CAP: [id number] HEMOGLOBIN [id number] 03:58:30* Test Item Value Reference Range Interpretation Comme [facility] HEMOGLOBIN A1c (test code = 13622) 7.5 % 4.2-5.6 H [employer] GUIDELINES FOR HGB A1C: PREDIABETES/INCREASED RISK . . . . . . . 5.7-6.4% DIAGNOSIS OF DIABETES . . . . . . . . . >=6.5% WITH CONFIRMATION OR APPROPRIATE SYMPTOMS NOTE: ASSAY MAY BE AFFECTED BY HEMOGLOBINOPATHIES (SICKLE CELL ANEMIA, S-C DISEASE, OTHERS) OR ARTIFICIALLY LOWERED BY DECREASED RED CELL SURVIVAL (HEMOLYTIC ANEMIAS, BLOOD LOSS, ETC.). CONSIDER ALTERNATE TESTING OR LABORATORY CONSULTATION. HEMOGLOBIN [id number] 00:00:00* Test Item Value Reference Range Interpretation Comme nts HEMOGLOBIN A1c (test code = 40578) 7.5 % Dev Georges AustinLIPID [id number] 00:00:00* Test Item Value Reference Range Interpretation Comme nts CHOLESTEROL (test code = 2210) 165 MG/DL TRIGLYCERIDES (test code = 2232) 182 MG/DL HDL CHOLESTEROL (test code = 2220) 50 MG/DL CALC LDL CHOL (test code = 2237) 87 MG/DL RISK RATIO LDL/HDL (test cod e = 2238) 1.74 RATIO Dev Georges Dedra (HEPATIC) FUNCTION [id number] 00:00:00* Test Item Value Reference Range Interpretation Comme nts PROTEIN, TOTAL (test code = 2229) 7.9 G/DL ALBUMIN (test code = 2201) 4.9 G/DL BILIRUBIN, TOTAL (test code = 2207) <0.2 MG/DL BILIRUBIN, DIRECT (test code = 2021) <0.2 MG/DL ALKALINE PHOSPHATASE (test c ode = 2204) 92 U/L AST (test code = 2218) 18 U/L ALT (test code = 2219) 16 U/L Dev Georges Milka (RENAL) FUNCTION [id number] 00:00:00* Test Item Value Reference Range Interpretation Comme nts GLUCOSE (test code = 2217) 144 MG/DL BUN (test code = 2208) 32 MG/DL CREATININE (test code = 2214) 1.14 MG/DL eGFR (2020 CKD-EPI) (test co de = 91974) 49 ML/MIN/1.73 CALC BUN/CREAT (test code = 2235) 28 RATIO SODIUM (test code = 2231) 143 MEQ/L POTASSIUM (test code = 2228) 4.6 MEQ/L CHLORIDE (test code = 2215) 108 MEQ/L CARBON DIOXIDE (test code = 2206) 19 MEQ/L CALCIUM (test code = 2209) 10.1 MG/DL PHOSPHORUS (test code = 2227) 4.4 MG/DL ALBUMIN (test code = 2201) 4.9 G/DL Dev Georges JatinHEMOGLOBIN [id number] 00:00:00* Test Item Value Reference Range Interpretation Comme nts HEMOGLOBIN A1c (test code = 55956) 7.5 % Dev Georges JatinLIPID [id number] 00:00:00* Test Item Value Reference Range Interpretation Comme nts CHOLESTEROL (test code = 2210) 165 MG/DL TRIGLYCERIDES (test code = 2232) 182 MG/DL HDL CHOLESTEROL (test code = 2220) 50 MG/DL CALC LDL CHOL (test code = 2237) 87 MG/DL RISK RATIO LDL/HDL (test cod e = 2238) 1.74 RATIO Dev Georges Dedra (HEPATIC) FUNCTION [id number] 00:00:00* Test Item Value Reference Range Interpretation Comme nts PROTEIN, TOTAL (test code = 2229) 7.9 G/DL ALBUMIN (test code = 2201) 4.9 G/DL BILIRUBIN, TOTAL (test code = 2207) <0.2 MG/DL BILIRUBIN, DIRECT (test code = 2022) <0.2 MG/DL ALKALINE PHOSPHATASE (test c ode = 2204) 92 U/L AST (test code = 2218) 18 U/L ALT (test code = 2219) 16 U/L Dev Georges Milka (RENAL) FUNCTION [id number] 00:00:00* Test Item Value Reference Range Interpretation Comme nts GLUCOSE (test code = 2217) 144 MG/DL BUN (test code = 2208) 32 MG/DL CREATININE (test code = 2214) 1.14 MG/DL eGFR (2020 CKD-EPI) (test co de = 03042) 49 ML/MIN/1.73 CALC BUN/CREAT (test code = 2235) 28 RATIO SODIUM (test code = 2231) 143 MEQ/L POTASSIUM (test code = 2228) 4.6 MEQ/L CHLORIDE (test code = 2215) 108 MEQ/L CARBON DIOXIDE (test code = 2206) 19 MEQ/L CALCIUM (test code = 2209) 10.1 MG/DL PHOSPHORUS (test code = 2227) 4.4 MG/DL ALBUMIN (test code = 2201) 4.9 G/DL Dev SteinerHEMOGLOBIN [id number] 00:00:00* Test Item Value Reference Range Interpretation Comme nts HEMOGLOBIN A1c (test code = 72000) 7.5 % Dev SteinerLIPID [id number] 00:00:00* Test Item Value Reference Range Interpretation Comme nts CHOLESTEROL (test code = 2210) 165 MG/DL TRIGLYCERIDES (test code = 2232) 182 MG/DL HDL CHOLESTEROL (test code = 2220) 50 MG/DL CALC LDL CHOL (test code = 2237) 87 MG/DL RISK RATIO LDL/HDL (test cod e = 2238) 1.74 RATIO Dev Georges Dedra (HEPATIC) FUNCTION [id number] 00:00:00* Test Item Value Reference Range Interpretation Comme nts PROTEIN, TOTAL (test code = 2229) 7.9 G/DL ALBUMIN (test code = 2201) 4.9 G/DL BILIRUBIN, TOTAL (test code = 2207) <0.2 MG/DL BILIRUBIN, DIRECT (test code = 2022) <0.2 MG/DL ALKALINE PHOSPHATASE (test c ode = 2204) 92 U/L AST (test code = 2218) 18 U/L ALT (test code = 2219) 16 U/L Dev Jarquin (RENAL) FUNCTION [id number] 00:00:00* Test Item Value Reference Range Interpretation Comme nts GLUCOSE (test code = 2217) 144 MG/DL BUN (test code = 2208) 32 MG/DL CREATININE (test code = 2214) 1.14 MG/DL eGFR (2020 CKD-EPI) (test co de = 00439) 49 ML/MIN/1.73 CALC BUN/CREAT (test code = 2235) 28 RATIO SODIUM (test code = 2231) 143 MEQ/L POTASSIUM (test code = 2228) 4.6 MEQ/L CHLORIDE (test code = 2215) 108 MEQ/L CARBON DIOXIDE (test code = 2206) 19 MEQ/L CALCIUM (test code = 2209) 10.1 MG/DL PHOSPHORUS (test code = 2227) 4.4 MG/DL ALBUMIN (test code = 2201) 4.9 G/DL Dev Georges JatinHEMOGLOBIN [id number] 00:00:00* Test Item Value Reference Range Interpretation Comme nts HEMOGLOBIN A1c (test code = 62367) 7.5 % Dev Georges JatinLIPID [id number] 00:00:00* Test Item Value Reference Range Interpretation Comme nts CHOLESTEROL (test code = 2210) 165 MG/DL TRIGLYCERIDES (test code = 2232) 182 MG/DL HDL CHOLESTEROL (test code = 2220) 50 MG/DL CALC LDL CHOL (test code = 2237) 87 MG/DL RISK RATIO LDL/HDL (test cod e = 2238) 1.74 RATIO Dev Destini Dedra (HEPATIC) FUNCTION [id number] 00:00:00* Test Item Value Reference Range Interpretation Comme nts PROTEIN, TOTAL (test code = 2229) 7.9 G/DL ALBUMIN (test code = 2201) 4.9 G/DL BILIRUBIN, TOTAL (test code = 220) <0.2 MG/DL BILIRUBIN, DIRECT (test code = 2021) <0.2 MG/DL ALKALINE PHOSPHATASE (test c ode = 2204) 92 U/L AST (test code = 2218) 18 U/L ALT (test code = 2219) 16 U/L Dev Jarquin (RENAL) FUNCTION [id number] 00:00:00* Test Item Value Reference Range Interpretation Comme nts GLUCOSE (test code = 2217) 144 MG/DL BUN (test code = 2208) 32 MG/DL CREATININE (test code = 2214) 1.14 MG/DL eGFR (2020 CKD-EPI) (test co de = 50878) 49 ML/MIN/1.73 CALC BUN/CREAT (test code = 2235) 28 RATIO SODIUM (test code = 2231) 143 MEQ/L POTASSIUM (test code = 2228) 4.6 MEQ/L CHLORIDE (test code = 2215) 108 MEQ/L CARBON DIOXIDE (test code = 2206) 19 MEQ/L CALCIUM (test code = 2209) 10.1 MG/DL PHOSPHORUS (test code = 2227) 4.4 MG/DL ALBUMIN (test code = 2201) 4.9 G/DL Dev SteinerRENAL FUNCTION PANEL + [id number] 03:54:06* Test Item Value Reference Range Interpretation Comme nts GLUCOSE (test code = 2217) 214 MG/DL 70-99 H BUN (test code = 2208) 31 MG/DL 8-23 H CREATININE (test code = 2214) 1.13 MG/DL 0.60-1.30 eGFR (2020 CKD-EPI) (test code = 34979) 49 ML/MIN/1.73 >60 L CALC BUN/CREAT (test code = 2235) 27 RATIO 6-28 SODIUM (test code = 2231) 139 MEQ/L 133-146 POTASSIUM (test code = 2228) 4.6 MEQ/L 3.5-5.4 CHLORIDE (test code = 2215) 103 MEQ/L 95-107 CARBON DIOXIDE (test code = 2206) 21 MEQ/L 19-31 CALCIUM (test code = 2209) 9.7 MG/DL 8.5-10.5 PHOSPHORUS (test code = 2227) 3.8 MG/DL 2.5-4.5 ALBUMIN (test code = 2201) 4.4 G/DL 3.5-5.2 UNLESS OTHERWISE INDICATED, ALL TESTING PERFORMED ATCLINMailWriter [facility] [employer] [address] [place] [id number] DIRECTOR GROUP SALES: THAO CARDONA M.D. IA NUMBER [id number] [facility] [place] [place]. [id number] HEMOGLOBIN [id number] 03:30:01* Test Item Value Reference Range Interpretation Comme nts HEMOGLOBIN A1c (test code = 83253) 7.5 % 4.2-5.6 H [employer] GUIDELINES FOR HGB A1C: PREDIABETES/INCREASED RISK . . . . . . . 5.7-6.4% DIAGNOSIS OF DIABETES . . . . . . . . . >=6.5% WITH CONFIRMATION OR APPROPRIATE SYMPTOMS NOTE: ASSAY MAY BE AFFECTED BY HEMOGLOBINOPATHIES (SICKLE CELL ANEMIA, S-C DISEASE, OTHERS) OR ARTIFICIALLY LOWERED BY DECREASED RED CELL SURVIVAL (HEMOLYTIC ANEMIAS, BLOOD LOSS, ETC.). CONSIDER ALTERNATE TESTING OR LABORATORY CONSULTATION. RENAL FUNCTION PANEL + [id number] 00:00:00* Test Item Value Reference Range Interpretation Comme nts GLUCOSE (test code = 2217) 214 MG/DL BUN (test code = 2208) 31 MG/DL CREATININE (test code = 2214) 1.13 MG/DL eGFR (2020 CKD-EPI) (test co de = 63331) 49 ML/MIN/1.73 CALC BUN/CREAT (test code = 2235) 27 RATIO SODIUM (test code = 2231) 139 MEQ/L POTASSIUM (test code = 2228) 4.6 MEQ/L CHLORIDE (test code = 2215) 103 MEQ/L CARBON DIOXIDE (test code = 2206) 21 MEQ/L CALCIUM (test code = 2209) 9.7 MG/DL PHOSPHORUS (test code = 2227) 3.8 MG/DL ALBUMIN (test code = 2201) 4.4 G/DL Dev Georges AustinHEMOGLOBIN [id number] 00:00:00* Test Item Value Reference Range Interpretation Comme nts HEMOGLOBIN A1c (test code = 14748) 7.5 % Dev F AustinRENAL FUNCTION PANEL + [id number] 00:00:00* Test Item Value Reference Range Interpretation Comme nts GLUCOSE (test code = 2217) 214 MG/DL BUN (test code = 2208) 31 MG/DL CREATININE (test code = 2214) 1.13 MG/DL eGFR (2020 CKD-EPI) (test co de = 67868) 49 ML/MIN/1.73 CALC BUN/CREAT (test code = 2235) 27 RATIO SODIUM (test code = 2231) 139 MEQ/L POTASSIUM (test code = 2228) 4.6 MEQ/L CHLORIDE (test code = 2215) 103 MEQ/L CARBON DIOXIDE (test code = 2206) 21 MEQ/L CALCIUM (test code = 2209) 9.7 MG/DL PHOSPHORUS (test code = 2227) 3.8 MG/DL ALBUMIN (test code = 2201) 4.4 G/DL Dev Georges AustinHEMOGLOBIN [id number] 00:00:00* Test Item Value Reference Range Interpretation Comme nts HEMOGLOBIN A1c (test code = 02301) 7.5 % Dev Georges AustinRENAL FUNCTION PANEL + [id number] 00:00:00* Test Item Value Reference Range Interpretation Comme nts GLUCOSE (test code = 2217) 214 MG/DL BUN (test code = 2208) 31 MG/DL CREATININE (test code = 2214) 1.13 MG/DL eGFR (2020 CKD-EPI) (test co de = 66208) 49 ML/MIN/1.73 CALC BUN/CREAT (test code = 2235) 27 RATIO SODIUM (test code = 2231) 139 MEQ/L POTASSIUM (test code = 2228) 4.6 MEQ/L CHLORIDE (test code = 2215) 103 MEQ/L CARBON DIOXIDE (test code = 2206) 21 MEQ/L CALCIUM (test code = 2209) 9.7 MG/DL PHOSPHORUS (test code = 2227) 3.8 MG/DL ALBUMIN (test code = 2201) 4.4 G/DL Dev Georges AustinHEMOGLOBIN [id number] 00:00:00* Test Item Value Reference Range Interpretation Comme nts HEMOGLOBIN A1c (test code = 06413) 7.5 % Dev Georges AustinRENAL FUNCTION PANEL + [id number] 00:00:00* Test Item Value Reference Range Interpretation Comme nts GLUCOSE (test code = 2217) 214 MG/DL BUN (test code = 2208) 31 MG/DL CREATININE (test code = 2214) 1.13 MG/DL eGFR (2020 CKD-EPI) (test co de = 80343) 49 ML/MIN/1.73 CALC BUN/CREAT (test code = 2235) 27 RATIO SODIUM (test code = 2231) 139 MEQ/L POTASSIUM (test code = 2228) 4.6 MEQ/L CHLORIDE (test code = 2215) 103 MEQ/L CARBON DIOXIDE (test code = 2206) 21 MEQ/L CALCIUM (test code = 2209) 9.7 MG/DL PHOSPHORUS (test code = 2227) 3.8 MG/DL ALBUMIN (test code = 2201) 4.4 G/DL Dev SteinerHEMOGLOBIN [id number] 00:00:00* Test Item Value Reference Range Interpretation Comme nts HEMOGLOBIN A1c (test code = 62800) 7.5 % Dev Destini JatinCOMPREHENSIVE METABOLIC [id number] 04:09:01* Test Item Value Reference Range Interpretation Comme nts GLUCOSE (test code = 2217) 156 MG/DL 70-99 H BUN (test code = 2208) 42 MG/DL 8-23 H CREATININE (test code = 2214) 1.33 MG/DL 0.60-1.30 H eGFR (2020 CKD-EPI) (test code = 83089) 41 ML/MIN/1.73 >60 L CALC BUN/CREAT (test code = 2235) 32 RATIO 6-28 H SODIUM (test code = 2231) 138 MEQ/L 133-146 POTASSIUM (test code = 2228) 4.5 MEQ/L 3.5-5.4 CHLORIDE (test code = 2215) 102 MEQ/L 95-107 CARBON DIOXIDE (test code = 2206) 19 MEQ/L 19-31 CALCIUM (test code = 2209) 10.2 MG/DL 8.5-10.5 PROTEIN, TOTAL (test code = 2229) 7.9 G/DL 6.1-8.3 ALBUMIN (test code = 2201) 4.7 G/DL 3.5-5.2 CALC GLOBULIN (test code = 2240) 3.2 G/DL 1.9-3.7 CALC A/G RATIO (test code = 2234) 1.5 RATIO 1.0-2.6 BILIRUBIN, TOTAL (test code = 2207) 0.3 MG/DL See_Comment [Automated [employer]] The system which generated this result transmitted reference range: <=1.2. The reference range was not used to interpret this result as normal/abnormal. ALKALINE PHOSPHATASE (test code = 2204) 94 U/L 40-142 AST (test code = 2218) 17 U/L 9-40 ALT (test code = 2219) 13 U/L 5-40 LIPID [id number] 04:09:01* Test Item Value Reference Range Interpretation Comme nts CHOLESTEROL (test code = 2210) 137 MG/DL <200 TRIGLYCERIDES (test code = 2232) 150 MG/DL <150 H HDL CHOLESTEROL (test code = 2220) 48 MG/DL >39 CALC LDL CHOL (test code = 2237) 66 MG/DL <100 NOTE: CALCULATED LDL IS BASED ON BARBER-MATA METHOD WHICHINCLUDES ADJUSTABLE TRIGLYCERIDE:VLDL CHOLESTEROL RATIO.THIS FACTOR VARIES BY MEASURED TRIGLYCERIDE AND NON-HDLCHOLESTEROL CONCENTRATIONS WITH INCREASED CALCULATED LDL SEENIN HIGHER TRIGLYCERIDE OR LOWER NON-HDL SPECIMENS. FOR MOREINFORMATION, SEE CLIENT ANNOUNCEMENT AT [email or web address] /CalcLDL-C RISK RATIO LDL/HDL (test code = 2238) 1.38 RATIO <3.22 UNLESS OTHERW ISE INDICATED, ALL TESTING PERFORMED ATCL[facility] [address] [place] [id number] DIRECTOR GROUP SALES: THAO CARDONA M.D. CLIA NUMBER [id number] [facility] [place]. [id number] LIPID PANEL [ADDED]2021-10-17 00:00:00* Test Item Value Reference Range Interpretation Comme nts CHOLESTEROL (test code = 2210) 137 MG/DL TRIGLYCERIDES (test code = 2232) 150 MG/DL HDL CHOLESTEROL (test code = 2220) 48 MG/DL CALC LDL CHOL (test code = 2237) 66 MG/DL RISK RATIO LDL/HDL (test cod e = 2238) 1.38 RATIO Dev SteinerCOMPREHENSIVE METABOLIC PANEL [ADDED]2021-10-17 00:00:00* Test Item Value Reference Range Interpretation Comme nts GLUCOSE (test code = 2217) 156 MG/DL BUN (test code = 2208) 42 MG/DL CREATININE (test code = 2214) 1.33 MG/DL eGFR (2020 CKD-EPI) (test co de = 50668) 41 ML/MIN/1.73 CALC BUN/CREAT (test code = 2235) 32 RATIO SODIUM (test code = 2231) 138 MEQ/L POTASSIUM (test code = 2228) 4.5 MEQ/L CHLORIDE (test code = 2215) 102 MEQ/L CARBON DIOXIDE (test code = 2206) 19 MEQ/L CALCIUM (test code = 2209) 10.2 MG/DL PROTEIN, TOTAL (test code = 2229) 7.9 G/DL ALBUMIN (test code = 2201) 4.7 G/DL CALC GLOBULIN (test code = 2240) 3.2 G/DL CALC A/G RATIO (test code = 2234) 1.5 RATIO BILIRUBIN, TOTAL (test code = 2207) 0.3 MG/DL ALKALINE PHOSPHATASE (test code = 2204) 94 U/L AST (test code = 2218) 17 U/L ALT (test code = 2219) 13 U/L Dev SteinerLIPID PANEL [ADDED]2021-10-17 00:00:00* Test Item Value Reference Range Interpretation Comme nts CHOLESTEROL (test code = 2210) 137 MG/DL TRIGLYCERIDES (test code = 2232) 150 MG/DL HDL CHOLESTEROL (test code = 2220) 48 MG/DL CALC LDL CHOL (test code = 2237) 66 MG/DL RISK RATIO LDL/HDL (test cod e = 2238) 1.38 RATIO Dev SteinerCOMPREHENSIVE METABOLIC PANEL [ADDED]2021-10-17 00:00:00* Test Item Value Reference Range Interpretation Comme nts GLUCOSE (test code = 2217) 156 MG/DL BUN (test code = 2208) 42 MG/DL CREATININE (test code = 2214) 1.33 MG/DL eGFR (2020 CKD-EPI) (test co de = 47276) 41 ML/MIN/1.73 CALC BUN/CREAT (test code = 2235) 32 RATIO SODIUM (test code = 2231) 138 MEQ/L POTASSIUM (test code = 2228) 4.5 MEQ/L CHLORIDE (test code = 2215) 102 MEQ/L CARBON DIOXIDE (test code = 2206) 19 MEQ/L CALCIUM (test code = 2209) 10.2 MG/DL PROTEIN, TOTAL (test code = 2229) 7.9 G/DL ALBUMIN (test code = 2201) 4.7 G/DL CALC GLOBULIN (test code = 2240) 3.2 G/DL CALC A/G RATIO (test code = 2234) 1.5 RATIO BILIRUBIN, TOTAL (test code = 2207) 0.3 MG/DL ALKALINE PHOSPHATASE (test code = 2204) 94 U/L AST (test code = 2218) 17 U/L ALT (test code = 2219) 13 U/L Dev SteinerLIPID PANEL [ADDED]2021-10-17 00:00:00* Test Item Value Reference Range Interpretation Comme nts CHOLESTEROL (test code = 2210) 137 MG/DL TRIGLYCERIDES (test code = 2232) 150 MG/DL HDL CHOLESTEROL (test code = 2220) 48 MG/DL CALC LDL CHOL (test code = 2237) 66 MG/DL RISK RATIO LDL/HDL (test cod e = 2238) 1.38 RATIO Dev SteinerCOMPREHENSIVE METABOLIC PANEL [ADDED]2021-10-17 00:00:00* Test Item Value Reference Range Interpretation Comme nts GLUCOSE (test code = 2217) 156 MG/DL BUN (test code = 2208) 42 MG/DL CREATININE (test code = 2214) 1.33 MG/DL eGFR (2020 CKD-EPI) (test co de = 71407) 41 ML/MIN/1.73 CALC BUN/CREAT (test code = 2235) 32 RATIO SODIUM (test code = 2231) 138 MEQ/L POTASSIUM (test code = 2228) 4.5 MEQ/L CHLORIDE (test code = 2215) 102 MEQ/L CARBON DIOXIDE (test code = 2206) 19 MEQ/L CALCIUM (test code = 2209) 10.2 MG/DL PROTEIN, TOTAL (test code = 2229) 7.9 G/DL ALBUMIN (test code = 2201) 4.7 G/DL CALC GLOBULIN (test code = 2240) 3.2 G/DL CALC A/G RATIO (test code = 2234) 1.5 RATIO BILIRUBIN, TOTAL (test code = 2207) 0.3 MG/DL ALKALINE PHOSPHATASE (test code = 2204) 94 U/L AST (test code = 2218) 17 U/L ALT (test code = 2219) 13 U/L Dev SteinerLIPID PANEL [ADDED]2021-10-17 00:00:00* Test Item Value Reference Range Interpretation Comme nts CHOLESTEROL (test code = 2210) 137 MG/DL TRIGLYCERIDES (test code = 2232) 150 MG/DL HDL CHOLESTEROL (test code = 2220) 48 MG/DL CALC LDL CHOL (test code = 2237) 66 MG/DL RISK RATIO LDL/HDL (test cod e = 2238) 1.38 RATIO Dev SteinerCOMPREHENSIVE METABOLIC PANEL [ADDED]2021-10-17 00:00:00* Test Item Value Reference Range Interpretation Comme nts GLUCOSE (test code = 2217) 156 MG/DL BUN (test code = 2208) 42 MG/DL CREATININE (test code = 2214) 1.33 MG/DL eGFR (2020 CKD-EPI) (test co de = 17074) 41 ML/MIN/1.73 CALC BUN/CREAT (test code = 2235) 32 RATIO SODIUM (test code = 2231) 138 MEQ/L POTASSIUM (test code = 2228) 4.5 MEQ/L CHLORIDE (test code = 2215) 102 MEQ/L CARBON DIOXIDE (test code = 2206) 19 MEQ/L CALCIUM (test code = 2209) 10.2 MG/DL PROTEIN, TOTAL (test code = 2229) 7.9 G/DL ALBUMIN (test code = 2201) 4.7 G/DL CALC GLOBULIN (test code = 2240) 3.2 G/DL CALC A/G RATIO (test code = 2234) 1.5 RATIO BILIRUBIN, TOTAL (test code = 2207) 0.3 MG/DL ALKALINE PHOSPHATASE (test code = 2204) 94 U/L AST (test code = 2218) 17 U/L ALT (test code = 2219) 13 U/L Dev SteinerHEMOGLOBIN [id number] 04:37:22* Test Item Value Reference Range Interpretation Comme nts HEMOGLOBIN A1c (test code = 77477) 7.6 % 4.2-5.6 H [employer] GUIDELINES FOR HGB A1C: PREDIABETES/INCREASED RISK . . . . . . . 5.7-6.4% DIAGNOSIS OF DIABETES . . . . . . . . . >=6.5% WITH CONFIRMATION OR APPROPRIATE SYMPTOMS NOTE: ASSAY MAY BE AFFECTED BY HEMOGLOBINOPATHIES (SICKLE CELL ANEMIA, S-C DISEASE, OTHERS) OR ARTIFICIALLY LOWERED BY DECREASED RED CELL SURVIVAL (HEMOLYTIC ANEMIAS, BLOOD LOSS, ETC.). CONSIDER ALTERNATE TESTING OR LABORATORY CONSULTATION. UNLESS OTHERWISE INDICATED, ALL TESTING PERFORMED [facility] [employer] [address] [place] [id number] DIRECTOR GROUP SALES: THAO CARDONA M.D. [place] NUMBER [id number] [facility] [place]. [id number] HEMOGLOBIN [id number] 00:00:00* Test Item Value Reference Range Interpretation Comme [facility] HEMOGLOBIN A1c (test code = 66737) 7.6 % Dev Georges AustinHEMOGLOBIN [id number] 00:00:00* Test Item Value Reference Range Interpretation Comme [facility] HEMOGLOBIN A1c (test code = 95547) 7.6 % Dev Georges AustinHEMOGLOBIN [id number] 00:00:00* Test Item Value Reference Range Interpretation Comme [facility] HEMOGLOBIN A1c (test code = 16221) 7.6 % Dev Georges AustinHEMOGLOBIN [id number] 00:00:00* Test Item Value Reference Range Interpretation Comme [facility] HEMOGLOBIN A1c (test code = 00718) 7.6 % Dev Georges AustinHEMOGLOBIN [id number] 00:00:00* Test Item Value Reference Range Interpretation Comme [facility] HEMOGLOBIN A1c (test code = 05831) 7.8 % Dev Georges [place] RestCBC W/AUTO [id number] 00:00:00* Test Item Value Reference Range Interpretation Comme [facility] WBC (test code = 1001) 8.0 K/UL RBC (test code = 1002) 3.72 M/UL HEMOGLOBIN (test code = 1003) 11.5 G/DL HEMATOCRIT (test code = 1004) 34.5 % MCV (test code = 1005) 92.7 fL MCH (test code = 1006) 30.9 PG MCHC (test code = 1007) 33.3 G/DL RDW (test code = 1038) 11.8 % NEUTROPHILS (test code = 1008) 64.2 % LYMPHOCYTES (test code = 1010) 26.1 % MONOCYTES (test code = 1011) 8.4 % EOSINOPHILS (test code = 1012) 0.6 % BASOPHILS (test code = 1013) 0.5 % IMMATURE GRANULOCYTES (test code = 1036) 0.2 % NUCLEATED RBCS (test code = 1065) 0.0 /100WBC'S PLATELET COUNT (test code = 1015) 290 K/UL ABSOLUTE NEUTROPHILS (test c ode = 1066) 5.14 K/UL ABSOLUTE LYMPHOCYTES (test c ode = 1067) 2.09 K/UL ABSOLUTE MONOCYTES (test cod e = 1068) 0.67 K/UL ABSOLUTE EOSINOPHILS (test c ode = 1040) 0.05 K/UL ABSOLUTE BASOPHILS (test cod e = 1069) 0.04 K/UL ABS IMMATURE GRANULOCYTES (t est code = 1020) 0.02 K/UL ABS NUCLEATED RBCS (test cod e = 99577) 0.00 K/UL Dev SteinerHEMOGLOBIN [id number] 00:00:00* Test Item Value Reference Range Interpretation Comme nts HEMOGLOBIN A1c (test code = 82598) 7.8 % Dev SteinerCBC W/AUTO [id number] 00:00:00* Test Item Value Reference Range Interpretation Comme nts WBC (test code = 1001) 8.0 K/UL RBC (test code = 1002) 3.72 M/UL HEMOGLOBIN (test code = 1003) 11.5 G/DL HEMATOCRIT (test code = 1004) 34.5 % MCV (test code = 1005) 92.7 fL MCH (test code = 1006) 30.9 PG MCHC (test code = 1007) 33.3 G/DL RDW (test code = 1038) 11.8 % NEUTROPHILS (test code = 1008) 64.2 % LYMPHOCYTES (test code = 1010) 26.1 % MONOCYTES (test code = 1011) 8.4 % EOSINOPHILS (test code = 1012) 0.6 % BASOPHILS (test code = 1013) 0.5 % IMMATURE GRANULOCYTES (test code = 1036) 0.2 % NUCLEATED RBCS (test code = 1065) 0.0 /100WBC'S PLATELET COUNT (test code = 1015) 290 K/UL ABSOLUTE NEUTROPHILS (test c ode = 1066) 5.14 K/UL ABSOLUTE LYMPHOCYTES (test c ode = 1067) 2.09 K/UL ABSOLUTE MONOCYTES (test cod e = 1068) 0.67 K/UL ABSOLUTE EOSINOPHILS (test c ode = 1040) 0.05 K/UL ABSOLUTE BASOPHILS (test cod e = 1069) 0.04 K/UL ABS IMMATURE GRANULOCYTES (t est code = 1020) 0.02 K/UL ABS NUCLEATED RBCS (test cod e = 01780) 0.00 K/UL Dev Georges AustinHEMOGLOBIN [id number] 00:00:00* Test Item Value Reference Range Interpretation Comme nts HEMOGLOBIN A1c (test code = 61300) 7.8 % Dev SteinerCBC W/AUTO [id number] 00:00:00* Test Item Value Reference Range Interpretation Comme nts WBC (test code = 1001) 8.0 K/UL RBC (test code = 1002) 3.72 M/UL HEMOGLOBIN (test code = 1003) 11.5 G/DL HEMATOCRIT (test code = 1004) 34.5 % MCV (test code = 1005) 92.7 fL MCH (test code = 1006) 30.9 PG MCHC (test code = 1007) 33.3 G/DL RDW (test code = 1038) 11.8 % NEUTROPHILS (test code = 1008) 64.2 % LYMPHOCYTES (test code = 1010) 26.1 % MONOCYTES (test code = 1011) 8.4 % EOSINOPHILS (test code = 1012) 0.6 % BASOPHILS (test code = 1013) 0.5 % IMMATURE GRANULOCYTES (test code = 1036) 0.2 % NUCLEATED RBCS (test code = 1065) 0.0 /100WBC'S PLATELET COUNT (test code = 1015) 290 K/UL ABSOLUTE NEUTROPHILS (test c ode = 1066) 5.14 K/UL ABSOLUTE LYMPHOCYTES (test c ode = 1067) 2.09 K/UL ABSOLUTE MONOCYTES (test cod e = 1068) 0.67 K/UL ABSOLUTE EOSINOPHILS (test c ode = 1040) 0.05 K/UL ABSOLUTE BASOPHILS (test cod e = 1069) 0.04 K/UL ABS IMMATURE GRANULOCYTES (t est code = 1020) 0.02 K/UL ABS NUCLEATED RBCS (test cod e = 40036) 0.00 K/UL Dev Georges AustinHEMOGLOBIN [id number] 00:00:00* Test Item Value Reference Range Interpretation Comme nts HEMOGLOBIN A1c (test code = 30919) 7.8 % Dev SteinerCBC W/AUTO [id number] 00:00:00* Test Item Value Reference Range Interpretation Comme nts WBC (test code = 1001) 8.0 K/UL RBC (test code = 1002) 3.72 M/UL HEMOGLOBIN (test code = 1003) 11.5 G/DL HEMATOCRIT (test code = 1004) 34.5 % MCV (test code = 1005) 92.7 fL MCH (test code = 1006) 30.9 PG MCHC (test code = 1007) 33.3 G/DL RDW (test code = 1038) 11.8 % NEUTROPHILS (test code = 1008) 64.2 % LYMPHOCYTES (test code = 1010) 26.1 % MONOCYTES (test code = 1011) 8.4 % EOSINOPHILS (test code = 1012) 0.6 % BASOPHILS (test code = 1013) 0.5 % IMMATURE GRANULOCYTES (test code = 1036) 0.2 % NUCLEATED RBCS (test code = 1065) 0.0 /100WBC'S PLATELET COUNT (test code = 1015) 290 K/UL ABSOLUTE NEUTROPHILS (test c ode = 1066) 5.14 K/UL ABSOLUTE LYMPHOCYTES (test c ode = 1067) 2.09 K/UL ABSOLUTE MONOCYTES (test cod e = 1068) 0.67 K/UL ABSOLUTE EOSINOPHILS (test c ode = 1040) 0.05 K/UL ABSOLUTE BASOPHILS (test cod e = 1069) 0.04 K/UL ABS IMMATURE GRANULOCYTES (t est code = 1020) 0.02 K/UL ABS NUCLEATED RBCS (test cod e = 65513) 0.00 K/UL Dev SteinerLIPID [id number] 00:00:00* Test Item Value Reference Range Interpretation Comme nts CHOLESTEROL (test code = 2210) 157 MG/DL TRIGLYCERIDES (test code = 2232) 181 MG/DL HDL CHOLESTEROL (test code = 2220) 52 MG/DL CALC LDL CHOL (test code = 2237) 77 MG/DL RISK RATIO LDL/HDL (test cod e = 2238) 1.48 RATIO Dev SteinerCOMPREHENSIVE METABOLIC [id number] 00:00:00* Test Item Value Reference Range Interpretation Comme nts GLUCOSE (test code = 2216) 242 MG/DL BUN (test code = 2208) 32 MG/DL CREATININE (test code = 2214) 1.31 MG/DL eGFR AMER. (test cod e = 92987) 45 ML/MIN/1.73 eGFR NON- AMER. (test code = 38913) 39 ML/MIN/1.73 CALC BUN/CREAT (test code = 2235) 24 RATIO SODIUM (test code = 2231) 139 MEQ/L POTASSIUM (test code = 2228) 4.7 MEQ/L CHLORIDE (test code = 2215) 102 MEQ/L CARBON DIOXIDE (test code = 2206) 20 MEQ/L CALCIUM (test code = 2209) 9.9 MG/DL PROTEIN, TOTAL (test code = 222) 8.0 G/DL ALBUMIN (test code = 2201) 4.8 G/DL CALC GLOBULIN (test code = 2240) 3.2 G/DL CALC A/G RATIO (test code = 2234) 1.5 RATIO BILIRUBIN, TOTAL (test code = 2207) 0.3 MG/DL ALKALINE PHOSPHATASE (test code = 2204) 110 U/L AST (test code = 2218) 16 U/L ALT (test code = 2219) 13 U/L Dev SteinerVITAMIN D, 25 [id number] 00:00:00* Test Item Value Reference Range Interpretation Comme nts VITAMIN D, 25 OH (test code = 4958) 25 NG/ML Dev SteinerLIPID [id number] 00:00:00* Test Item Value Reference Range Interpretation Comme nts CHOLESTEROL (test code = 2210) 157 MG/DL TRIGLYCERIDES (test code = 2232) 181 MG/DL HDL CHOLESTEROL (test code = 2220) 52 MG/DL CALC LDL CHOL (test code = 2237) 77 MG/DL RISK RATIO LDL/HDL (test cod e = 2238) 1.48 RATIO Dev SteinerCOMPREHENSIVE METABOLIC [id number] 00:00:00* Test Item Value Reference Range Interpretation Comme nts GLUCOSE (test code = 2216) 242 MG/DL BUN (test code = 8) 32 MG/DL CREATININE (test code = 2214) 1.31 MG/DL eGFR AMER. (test cod e = 21528) 45 ML/MIN/1.73 eGFR NON- AMER. (test code = 47039) 39 ML/MIN/1.73 CALC BUN/CREAT (test code = 2235) 24 RATIO SODIUM (test code = 2231) 139 MEQ/L POTASSIUM (test code = 2228) 4.7 MEQ/L CHLORIDE (test code = 2215) 102 MEQ/L CARBON DIOXIDE (test code = 2206) 20 MEQ/L CALCIUM (test code = 2209) 9.9 MG/DL PROTEIN, TOTAL (test code = 2229) 8.0 G/DL ALBUMIN (test code = 2201) 4.8 G/DL CALC GLOBULIN (test code = 2240) 3.2 G/DL CALC A/G RATIO (test code = 2234) 1.5 RATIO BILIRUBIN, TOTAL (test code = 2207) 0.3 MG/DL ALKALINE PHOSPHATASE (test code = 2204) 110 U/L AST (test code = 2218) 16 U/L ALT (test code = 2219) 13 U/L Dev Georges JatinVITAMIN D, 25 [id number] 00:00:00* Test Item Value Reference Range Interpretation Comme nts VITAMIN D, 25 OH (test code = 4958) 25 NG/ML Dev SteinerLIPID [id number] 00:00:00* Test Item Value Reference Range Interpretation Comme nts CHOLESTEROL (test code = 2210) 157 MG/DL TRIGLYCERIDES (test code = 2232) 181 MG/DL HDL CHOLESTEROL (test code = 2220) 52 MG/DL CALC LDL CHOL (test code = 2237) 77 MG/DL RISK RATIO LDL/HDL (test cod e = 2238) 1.48 RATIO Dev Georges JatinCOMPREHENSIVE METABOLIC [id number] 00:00:00* Test Item Value Reference Range Interpretation Comme nts GLUCOSE (test code = 2217) 242 MG/DL BUN (test code = 2208) 32 MG/DL CREATININE (test code = 2214) 1.31 MG/DL eGFR AMER. (test cod e = 51021) 45 ML/MIN/1.73 eGFR NON- AMER. (test code = 62995) 39 ML/MIN/1.73 CALC BUN/CREAT (test code = 2235) 24 RATIO SODIUM (test code = 2231) 139 MEQ/L POTASSIUM (test code = 2228) 4.7 MEQ/L CHLORIDE (test code = 2215) 102 MEQ/L CARBON DIOXIDE (test code = 2206) 20 MEQ/L CALCIUM (test code = 2209) 9.9 MG/DL PROTEIN, TOTAL (test code = 2229) 8.0 G/DL ALBUMIN (test code = 2201) 4.8 G/DL CALC GLOBULIN (test code = 2240) 3.2 G/DL CALC A/G RATIO (test code = 2234) 1.5 RATIO BILIRUBIN, TOTAL (test code = 2207) 0.3 MG/DL ALKALINE PHOSPHATASE (test code = 220) 110 U/L AST (test code = 221) 16 U/L ALT (test code = 221) 13 U/L Dev SteinerVITAMIN D, 25 [id number] 00:00:00* Test Item Value Reference Range Interpretation Comme nts VITAMIN D, 25 OH (test code = 4958) 25 NG/ML Dev SteinerLIPID [id number] 00:00:00* Test Item Value Reference Range Interpretation Comme nts CHOLESTEROL (test code = 2210) 157 MG/DL TRIGLYCERIDES (test code = 2232) 181 MG/DL HDL CHOLESTEROL (test code = 0) 52 MG/DL CALC LDL CHOL (test code = 7) 77 MG/DL RISK RATIO LDL/HDL (test cod e = 2238) 1.48 RATIO Dev SteinerCOMPREHENSIVE METABOLIC [id number] 00:00:00* Test Item Value Reference Range Interpretation Comme nts GLUCOSE (test code = 2217) 242 MG/DL BUN (test code = 8) 32 MG/DL CREATININE (test code = 2214) 1.31 MG/DL eGFR AMER. (test cod e = 07528) 45 ML/MIN/1.73 eGFR NON- AMER. (test code = 98224) 39 ML/MIN/1.73 CALC BUN/CREAT (test code = 2235) 24 RATIO SODIUM (test code = 2231) 139 MEQ/L POTASSIUM (test code = 2228) 4.7 MEQ/L CHLORIDE (test code = 2215) 102 MEQ/L CARBON DIOXIDE (test code = 2206) 20 MEQ/L CALCIUM (test code = 2209) 9.9 MG/DL PROTEIN, TOTAL (test code = 2229) 8.0 G/DL ALBUMIN (test code = 2201) 4.8 G/DL CALC GLOBULIN (test code = 2240) 3.2 G/DL CALC A/G RATIO (test code = 2234) 1.5 RATIO BILIRUBIN, TOTAL (test code = 2207) 0.3 MG/DL ALKALINE PHOSPHATASE (test code = 2204) 110 U/L AST (test code = 2218) 16 U/L ALT (test code = 2219) 13 U/L Dev SteinerVITAMIN D, 25 [id number] 00:00:00* Test Item Value Reference Range Interpretation Comme nts VITAMIN D, 25 OH (test code = 4958) 25 NG/ML Dev Jarquin (RENAL) FUNCTION [id number] 00:00:00* Test Item Value Reference Range Interpretation Comme nts GLUCOSE (test code = 2217) 173 MG/DL BUN (test code = 2208) 31 MG/DL CREATININE (test code = 2214) 1.09 MG/DL eGFR AMER. (test cod e = 40898) 56 ML/MIN/1.73 eGFR NON- AMER. (test code = 31880) 49 ML/MIN/1.73 CALC BUN/CREAT (test code = 2235) 28 RATIO SODIUM (test code = 2231) 140 MEQ/L POTASSIUM (test code = 2228) 4.3 MEQ/L CHLORIDE (test code = 2215) 104 MEQ/L CARBON DIOXIDE (test code = 2206) 21 MEQ/L CALCIUM (test code = 2209) 9.8 MG/DL PHOSPHORUS (test code = 2227) 3.5 MG/DL ALBUMIN (test code = 2201) 4.4 G/DL Dev Jarquin (RENAL) FUNCTION [id number] 00:00:00* Test Item Value Reference Range Interpretation Comme nts GLUCOSE (test code = 2217) 173 MG/DL BUN (test code = 2208) 31 MG/DL CREATININE (test code = 2214) 1.09 MG/DL eGFR AMER. (test cod e = 98526) 56 ML/MIN/1.73 eGFR NON- AMER. (test code = 44183) 49 ML/MIN/1.73 CALC BUN/CREAT (test code = 2235) 28 RATIO SODIUM (test code = 2231) 140 MEQ/L POTASSIUM (test code = 2228) 4.3 MEQ/L CHLORIDE (test code = 2215) 104 MEQ/L CARBON DIOXIDE (test code = 2206) 21 MEQ/L CALCIUM (test code = 2209) 9.8 MG/DL PHOSPHORUS (test code = 2227) 3.5 MG/DL ALBUMIN (test code = 2201) 4.4 G/DL Dev Jarquin (RENAL) FUNCTION [id number] 00:00:00* Test Item Value Reference Range Interpretation Comme nts GLUCOSE (test code = 2217) 173 MG/DL BUN (test code = 2208) 31 MG/DL CREATININE (test code = 2214) 1.09 MG/DL eGFR AMER. (test cod e = 27811) 56 ML/MIN/1.73 eGFR NON- AMER. (test code = 56683) 49 ML/MIN/1.73 CALC BUN/CREAT (test code = 2235) 28 RATIO SODIUM (test code = 2231) 140 MEQ/L POTASSIUM (test code = 2228) 4.3 MEQ/L CHLORIDE (test code = 2215) 104 MEQ/L CARBON DIOXIDE (test code = 2206) 21 MEQ/L CALCIUM (test code = 2209) 9.8 MG/DL PHOSPHORUS (test code = 2227) 3.5 MG/DL ALBUMIN (test code = 2201) 4.4 G/DL Dev Jarquin (RENAL) FUNCTION [id number] 00:00:00* Test Item Value Reference Range Interpretation Comme nts GLUCOSE (test code = 2217) 173 MG/DL BUN (test code = 2208) 31 MG/DL CREATININE (test code = 2214) 1.09 MG/DL eGFR AMER. (test cod e = 29278) 56 ML/MIN/1.73 eGFR NON- AMER. (test code = 52103) 49 ML/MIN/1.73 CALC BUN/CREAT (test code = 2235) 28 RATIO SODIUM (test code = 2231) 140 MEQ/L POTASSIUM (test code = 2228) 4.3 MEQ/L CHLORIDE (test code = 2215) 104 MEQ/L CARBON DIOXIDE (test code = 2206) 21 MEQ/L CALCIUM (test code = 2209) 9.8 MG/DL PHOSPHORUS (test code = 2227) 3.5 MG/DL ALBUMIN (test code = 2201) 4.4 G/DL Dev SteinerLIPID [id number] 00:00:00* Test Item Value Reference Range Interpretation Comme nts CHOLESTEROL (test code = 2210) 156 MG/DL TRIGLYCERIDES (test code = 2232) 206 MG/DL HDL CHOLESTEROL (test code = 2220) 47 MG/DL CALC LDL CHOL (test code = 2237) 79 MG/DL RISK RATIO LDL/HDL (test cod e = 2238) 1.68 RATIO Dev SteinerTSH + FREE T4 [id number] 00:00:00* Test Item Value Reference Range Interpretation Comme nts TSH, THIRD GENERATION (test code = 2821) 1.660 UIU/ML FREE T4 (THYROXINE) (test co de = 2823) 1.17 NG/DL Dev SteinerVITAMIN D, 25 [id number] 00:00:00* Test Item Value Reference Range Interpretation Comme nts VITAMIN D, 25 OH (test code = 4958) 16 NG/ML Dev SteinerLIVER (HEPATIC) FUNCTION [id number] 00:00:00* Test Item Value Reference Range Interpretation Comme nts PROTEIN, TOTAL (test code = 2229) 7.9 G/DL ALBUMIN (test code = 2201) 4.6 G/DL BILIRUBIN, TOTAL (test code = 2207) 0.2 MG/DL BILIRUBIN, DIRECT (test code = 2021) 0.1 MG/DL ALKALINE PHOSPHATASE (test c ode = 2204) 90 U/L AST (test code = 2218) 19 U/L ALT (test code = 2219) 16 U/L Dev SteinerRENAL FUNCTION PANEL + [id number] 00:00:00* Test Item Value Reference Range Interpretation Comme nts GLUCOSE (test code = 2217) 234 MG/DL BUN (test code = 2208) 36 MG/DL CREATININE (test code = 2214) 1.16 MG/DL eGFR AMER. (test cod e = 69433) 52 ML/MIN/1.73 eGFR NON- AMER. (test code = 63423) 45 ML/MIN/1.73 CALC BUN/CREAT (test code = 2235) 31 RATIO SODIUM (test code = 2231) 140 MEQ/L POTASSIUM (test code = 2228) 4.6 MEQ/L CHLORIDE (test code = 2215) 101 MEQ/L CARBON DIOXIDE (test code = 2206) 21 MEQ/L CALCIUM (test code = 2209) 10.0 MG/DL PHOSPHORUS (test code = 2227) 4.4 MG/DL ALBUMIN (test code = 2201) 4.6 G/DL Dev Georges JatinHEMOGLOBIN [id number] 00:00:00* Test Item Value Reference Range Interpretation Comme nts HEMOGLOBIN A1c (test code = 98264) 8.7 % Dev Georges JatinLIPID [id number] 00:00:00* Test Item Value Reference Range Interpretation Comme nts CHOLESTEROL (test code = 2210) 156 MG/DL TRIGLYCERIDES (test code = 2232) 206 MG/DL HDL CHOLESTEROL (test code = 2220) 47 MG/DL CALC LDL CHOL (test code = 2237) 79 MG/DL RISK RATIO LDL/HDL (test cod e = 2238) 1.68 RATIO Dev Georges JatinTSH + FREE T4 [id number] 00:00:00* Test Item Value Reference Range Interpretation Comme nts TSH, THIRD GENERATION (test code = 2821) 1.660 UIU/ML FREE T4 (THYROXINE) (test co de = 2823) 1.17 NG/DL Dev Georges JatinVITAMIN D, 25 [id number] 00:00:00* Test Item Value Reference Range Interpretation Comme nts VITAMIN D, 25 OH (test code = 4958) 16 NG/ML Dev Georges JatinLIVER (HEPATIC) FUNCTION [id number] 00:00:00* Test Item Value Reference Range Interpretation Comme nts PROTEIN, TOTAL (test code = 2229) 7.9 G/DL ALBUMIN (test code = 2201) 4.6 G/DL BILIRUBIN, TOTAL (test code = 2207) 0.2 MG/DL BILIRUBIN, DIRECT (test code = 2021) 0.1 MG/DL ALKALINE PHOSPHATASE (test c ode = 2203) 90 U/L AST (test code = 2218) 19 U/L ALT (test code = 2219) 16 U/L Dev SteinerRENAL FUNCTION PANEL + [id number] 00:00:00* Test Item Value Reference Range Interpretation Comme nts GLUCOSE (test code = 2217) 234 MG/DL BUN (test code = 2208) 36 MG/DL CREATININE (test code = 2214) 1.16 MG/DL eGFR AMER. (test cod e = 40281) 52 ML/MIN/1.73 eGFR NON- AMER. (test code = 51961) 45 ML/MIN/1.73 CALC BUN/CREAT (test code = 2235) 31 RATIO SODIUM (test code = 2231) 140 MEQ/L POTASSIUM (test code = 2228) 4.6 MEQ/L CHLORIDE (test code = 2215) 101 MEQ/L CARBON DIOXIDE (test code = 2206) 21 MEQ/L CALCIUM (test code = 2209) 10.0 MG/DL PHOSPHORUS (test code = 2227) 4.4 MG/DL ALBUMIN (test code = 2201) 4.6 G/DL Dev SteinerHEMOGLOBIN [id number] 00:00:00* Test Item Value Reference Range Interpretation Comme nts HEMOGLOBIN A1c (test code = 79798) 8.7 % Dev SteinerLIPID [id number] 00:00:00* Test Item Value Reference Range Interpretation Comme nts CHOLESTEROL (test code = 2210) 156 MG/DL TRIGLYCERIDES (test code = 2232) 206 MG/DL HDL CHOLESTEROL (test code = 2220) 47 MG/DL CALC LDL CHOL (test code = 2237) 79 MG/DL RISK RATIO LDL/HDL (test cod e = 2238) 1.68 RATIO Dev SteinerTSH + FREE T4 [id number] 00:00:00* Test Item Value Reference Range Interpretation Comme nts TSH, THIRD GENERATION (test code = 2821) 1.660 UIU/ML FREE T4 (THYROXINE) (test co de = 2823) 1.17 NG/DL Dev SteinerVITAMIN D, 25 [id number] 00:00:00* Test Item Value Reference Range Interpretation Comme nts VITAMIN D, 25 OH (test code = 4958) 16 NG/ML Dev SteinerLIVER (HEPATIC) FUNCTION [id number] 00:00:00* Test Item Value Reference Range Interpretation Comme nts PROTEIN, TOTAL (test code = 2229) 7.9 G/DL ALBUMIN (test code = 2201) 4.6 G/DL BILIRUBIN, TOTAL (test code = 2207) 0.2 MG/DL BILIRUBIN, DIRECT (test code = 2021) 0.1 MG/DL ALKALINE PHOSPHATASE (test c ode = 2204) 90 U/L AST (test code = 2218) 19 U/L ALT (test code = 2219) 16 U/L Dev SteinerRENAL FUNCTION PANEL + [id number] 00:00:00* Test Item Value Reference Range Interpretation Comme nts GLUCOSE (test code = 2217) 234 MG/DL BUN (test code = 2208) 36 MG/DL CREATININE (test code = 2214) 1.16 MG/DL eGFR AMER. (test cod e = 42996) 52 ML/MIN/1.73 eGFR NON- AMER. (test code = 56460) 45 ML/MIN/1.73 CALC BUN/CREAT (test code = 2235) 31 RATIO SODIUM (test code = 2231) 140 MEQ/L POTASSIUM (test code = 2228) 4.6 MEQ/L CHLORIDE (test code = 2215) 101 MEQ/L CARBON DIOXIDE (test code = 2206) 21 MEQ/L CALCIUM (test code = 2209) 10.0 MG/DL PHOSPHORUS (test code = 2227) 4.4 MG/DL ALBUMIN (test code = 2201) 4.6 G/DL Dev SteinerHEMOGLOBIN [id number] 00:00:00* Test Item Value Reference Range Interpretation Comme nts HEMOGLOBIN A1c (test code = 77025) 8.7 % Dev SteinerLIPID [id number] 00:00:00* Test Item Value Reference Range Interpretation Comme nts CHOLESTEROL (test code = 2210) 156 MG/DL TRIGLYCERIDES (test code = 2232) 206 MG/DL HDL CHOLESTEROL (test code = 2220) 47 MG/DL CALC LDL CHOL (test code = 2237) 79 MG/DL RISK RATIO LDL/HDL (test cod e = 2238) 1.68 RATIO Dev SteinerTSH + FREE T4 [id number] 00:00:00* Test Item Value Reference Range Interpretation Comme nts TSH, THIRD GENERATION (test code = 2821) 1.660 UIU/ML FREE T4 (THYROXINE) (test co de = 2823) 1.17 NG/DL Dev SteinerVITAMIN D, 25 [id number] 00:00:00* Test Item Value Reference Range Interpretation Comme nts VITAMIN D, 25 OH (test code = 4958) 16 NG/ML Dev SteinerLIVER (HEPATIC) FUNCTION [id number] 00:00:00* Test Item Value Reference Range Interpretation Comme nts PROTEIN, TOTAL (test code = 2229) 7.9 G/DL ALBUMIN (test code = 2201) 4.6 G/DL BILIRUBIN, TOTAL (test code = 2207) 0.2 MG/DL BILIRUBIN, DIRECT (test code = 2021) 0.1 MG/DL ALKALINE PHOSPHATASE (test c ode = 2204) 90 U/L AST (test code = 2218) 19 U/L ALT (test code = 2219) 16 U/L Dev SteinerRENAL FUNCTION PANEL + [id number] 00:00:00* Test Item Value Reference Range Interpretation Comme nts GLUCOSE (test code = 2217) 234 MG/DL BUN (test code = 2208) 36 MG/DL CREATININE (test code = 2214) 1.16 MG/DL eGFR AMER. (test cod e = 26666) 52 ML/MIN/1.73 eGFR NON- AMER. (test code = 31545) 45 ML/MIN/1.73 CALC BUN/CREAT (test code = 2235) 31 RATIO SODIUM (test code = 2231) 140 MEQ/L POTASSIUM (test code = 2228) 4.6 MEQ/L CHLORIDE (test code = 2215) 101 MEQ/L CARBON DIOXIDE (test code = 2206) 21 MEQ/L CALCIUM (test code = 2209) 10.0 MG/DL PHOSPHORUS (test code = 2227) 4.4 MG/DL ALBUMIN (test code = 2201) 4.6 G/DL Dev SteinerHEMOGLOBIN [id number] 00:00:00* Test Item Value Reference Range Interpretation Comme nts HEMOGLOBIN A1c (test code = 32734) 8.7 % Dev SteinerHEMOGLOBIN [id number] 00:00:00* Test Item Value Reference Range Interpretation Comme nts HEMOGLOBIN A1c (test code = 39976) 9.7 % Dev SteinerLIPID [id number] 00:00:00* Test Item Value Reference Range Interpretation Comme nts CHOLESTEROL (test code = 2210) 143 MG/DL TRIGLYCERIDES (test code = 2232) 204 MG/DL HDL CHOLESTEROL (test code = 2220) 46 MG/DL CALC LDL CHOL (test code = 2237) 70 MG/DL RISK RATIO LDL/HDL (test cod e = 2238) 1.52 RATIO Dev SteinerCOMPREHENSIVE METABOLIC [id number] 00:00:00* Test Item Value Reference Range Interpretation Comme nts GLUCOSE (test code = 2217) 339 MG/DL BUN (test code = 2208) 30 MG/DL CREATININE (test code = 2214) 1.12 MG/DL eGFR AMER. (test cod e = 20213) 55 ML/MIN/1.73 eGFR NON- AMER. (test code = 15288) 47 ML/MIN/1.73 CALC BUN/CREAT (test code = 2235) 27 RATIO SODIUM (test code = 2231) 140 MEQ/L POTASSIUM (test code = 2228) 4.4 MEQ/L CHLORIDE (test code = 2215) 103 MEQ/L CARBON DIOXIDE (test code = 2206) 24 MEQ/L CALCIUM (test code = 2209) 9.6 MG/DL PROTEIN, TOTAL (test code = 2229) 7.9 G/DL ALBUMIN (test code = 2201) 4.2 G/DL CALC GLOBULIN (test code = 2240) 3.7 G/DL CALC A/G RATIO (test code = 2234) 1.1 RATIO BILIRUBIN, TOTAL (test code = 2207) 0.2 MG/DL ALKALINE PHOSPHATASE (test code = 2204) 98 U/L AST (test code = 2218) 12 U/L ALT (test code = 2219) 12 U/L Dev SteinerMICROALBUMIN/CREATININE, RANDOM AND [id number] 00:00:00* Test Item Value Reference Range Interpretation Comme nts CREATININE, URINE, CONC. (te st code = 2072) 137.7 MG/DL ALBUMIN, URINE, RANDOM (test code = 10312) 137.1 MG/DL CALC ALBUMIN/CREAT, RND (eitan t code = 62675) 996 MG/G Dev SteinerHEMOGLOBIN [id number] 00:00:00* Test Item Value Reference Range Interpretation Comme sara HEMOGLOBIN A1c (test code = 44480) 9.7 % Dve SteinerLIPID [id number] 00:00:00* Test Item Value Reference Range Interpretation Comme nts CHOLESTEROL (test code = 2210) 143 MG/DL TRIGLYCERIDES (test code = 2232) 204 MG/DL HDL CHOLESTEROL (test code = 2220) 46 MG/DL CALC LDL CHOL (test code = 2237) 70 MG/DL RISK RATIO LDL/HDL (test cod e = 2238) 1.52 RATIO Dev SteinerCOMPREHENSIVE METABOLIC [id number] 00:00:00* Test Item Value Reference Range Interpretation Comme nts GLUCOSE (test code = 2217) 339 MG/DL BUN (test code = 2208) 30 MG/DL CREATININE (test code = 2214) 1.12 MG/DL eGFR AMER. (test cod e = 66981) 55 ML/MIN/1.73 eGFR NON- AMER. (test code = 95688) 47 ML/MIN/1.73 CALC BUN/CREAT (test code = 2235) 27 RATIO SODIUM (test code = 2231) 140 MEQ/L POTASSIUM (test code = 2228) 4.4 MEQ/L CHLORIDE (test code = 2215) 103 MEQ/L CARBON DIOXIDE (test code = 2206) 24 MEQ/L CALCIUM (test code = 2209) 9.6 MG/DL PROTEIN, TOTAL (test code = 2229) 7.9 G/DL ALBUMIN (test code = 2201) 4.2 G/DL CALC GLOBULIN (test code = 2240) 3.7 G/DL CALC A/G RATIO (test code = 2234) 1.1 RATIO BILIRUBIN, TOTAL (test code = 2207) 0.2 MG/DL ALKALINE PHOSPHATASE (test code = 2204) 98 U/L AST (test code = 2218) 12 U/L ALT (test code = 2219) 12 U/L Dev SteinerMICROALBUMIN/CREATININE, RANDOM AND [id number] 00:00:00* Test Item Value Reference Range Interpretation Comme nts CREATININE, URINE, CONC. (te st code = 2072) 137.7 MG/DL ALBUMIN, URINE, RANDOM (test code = 07787) 137.1 MG/DL CALC ALBUMIN/CREAT, RND (eitan t code = 34681) 996 MG/G Dev SteinerHEMOGLOBIN [id number] 00:00:00* Test Item Value Reference Range Interpretation Comme nts HEMOGLOBIN A1c (test code = 32481) 9.7 % Dev SteinerLIPID [id number] 00:00:00* Test Item Value Reference Range Interpretation Comme nts CHOLESTEROL (test code = 2210) 143 MG/DL TRIGLYCERIDES (test code = 2232) 204 MG/DL HDL CHOLESTEROL (test code = 2220) 46 MG/DL CALC LDL CHOL (test code = 2237) 70 MG/DL RISK RATIO LDL/HDL (test cod e = 2238) 1.52 RATIO Dev SteinerCOMPREHENSIVE METABOLIC [id number] 00:00:00* Test Item Value Reference Range Interpretation Comme nts GLUCOSE (test code = 2217) 339 MG/DL BUN (test code = 2208) 30 MG/DL CREATININE (test code = 2214) 1.12 MG/DL eGFR AMER. (test cod e = 89834) 55 ML/MIN/1.73 eGFR NON- AMER. (test code = 79458) 47 ML/MIN/1.73 CALC BUN/CREAT (test code = 2235) 27 RATIO SODIUM (test code = 2231) 140 MEQ/L POTASSIUM (test code = 2228) 4.4 MEQ/L CHLORIDE (test code = 2215) 103 MEQ/L CARBON DIOXIDE (test code = 2206) 24 MEQ/L CALCIUM (test code = 2209) 9.6 MG/DL PROTEIN, TOTAL (test code = 2229) 7.9 G/DL ALBUMIN (test code = 2201) 4.2 G/DL CALC GLOBULIN (test code = 2240) 3.7 G/DL CALC A/G RATIO (test code = 2234) 1.1 RATIO BILIRUBIN, TOTAL (test code = 2207) 0.2 MG/DL ALKALINE PHOSPHATASE (test code = 2204) 98 U/L AST (test code = 2218) 12 U/L ALT (test code = 2219) 12 U/L Dev SteinerMICROALBUMIN/CREATININE, RANDOM AND [id number] 00:00:00* Test Item Value Reference Range Interpretation Comme nts CREATININE, URINE, CONC. (te st code = 2072) 137.7 MG/DL ALBUMIN, URINE, RANDOM (test code = 53121) 137.1 MG/DL CALC ALBUMIN/CREAT, RND (eitan t code = 23380) 996 MG/G Dev SteinerHEMOGLOBIN [id number] 00:00:00* Test Item Value Reference Range Interpretation Comme sara HEMOGLOBIN A1c (test code = 07785) 9.7 % Dev SteinerLIPID [id number] 00:00:00* Test Item Value Reference Range Interpretation Comme nts CHOLESTEROL (test code = 2210) 143 MG/DL TRIGLYCERIDES (test code = 2232) 204 MG/DL HDL CHOLESTEROL (test code = 2220) 46 MG/DL CALC LDL CHOL (test code = 2237) 70 MG/DL RISK RATIO LDL/HDL (test cod e = 2238) 1.52 RATIO Dev SteinerCOMPREHENSIVE METABOLIC [id number] 00:00:00* Test Item Value Reference Range Interpretation Comme nts GLUCOSE (test code = 2217) 339 MG/DL BUN (test code = 2208) 30 MG/DL CREATININE (test code = 2214) 1.12 MG/DL eGFR AMER. (test cod e = 27399) 55 ML/MIN/1.73 eGFR NON- AMER. (test code = 76629) 47 ML/MIN/1.73 CALC BUN/CREAT (test code = 2235) 27 RATIO SODIUM (test code = 2231) 140 MEQ/L POTASSIUM (test code = 2228) 4.4 MEQ/L CHLORIDE (test code = 2215) 103 MEQ/L CARBON DIOXIDE (test code = 2206) 24 MEQ/L CALCIUM (test code = 2209) 9.6 MG/DL PROTEIN, TOTAL (test code = 2229) 7.9 G/DL ALBUMIN (test code = 2201) 4.2 G/DL CALC GLOBULIN (test code = 2240) 3.7 G/DL CALC A/G RATIO (test code = 2234) 1.1 RATIO BILIRUBIN, TOTAL (test code = 2207) 0.2 MG/DL ALKALINE PHOSPHATASE (test code = 2204) 98 U/L AST (test code = 2218) 12 U/L ALT (test code = 2219) 12 U/L Dev Georges AustinMICROALBUMIN/CREATININE, RANDOM AND [id number] 00:00:00* Test Item Value Reference Range Interpretation Comme nts CREATININE, URINE, CONC. (te st code = 2072) 137.7 MG/DL ALBUMIN, URINE, RANDOM (test code = 31528) 137.1 MG/DL CALC ALBUMIN/CREAT, RND (eitan t code = 71774) 996 MG/G Dev Georges AustinCCP [id number] 00:00:00* Test Item Value Reference Range Interpretation Comme nts CCP IgG (test code = 32994) 2 UNITS Dev Georges AustinCCP [id number] 00:00:00* Test Item Value Reference Range Interpretation Comme nts CCP IgG (test code = 74011) 2 UNITS Dev Georges AustinCCP [id number] 00:00:00* Test Item Value Reference Range Interpretation Comme nts CCP IgG (test code = 74308) 2 UNITS Dev Georges AustinCCP [id number] 00:00:00* Test Item Value Reference Range Interpretation Comme nts CCP IgG (test code = 69741) 2 UNITS Dev SteinerCOMPREHENSIVE METABOLIC [id number] 00:00:00* Test Item Value Reference Range Interpretation Comme nts GLUCOSE (test code = 2217) 199 MG/DL BUN (test code = 2208) 31 MG/DL CREATININE (test code = 2214) 0.94 MG/DL eGFR AMER. (test cod e = 03765) 68 ML/MIN/1.73 eGFR NON- AMER. (test code = 45190) 59 ML/MIN/1.73 CALC BUN/CREAT (test code = 2235) 33 RATIO SODIUM (test code = 2231) 139 MEQ/L POTASSIUM (test code = 2228) 3.9 MEQ/L CHLORIDE (test code = 2215) 101 MEQ/L CARBON DIOXIDE (test code = 2206) 22 MEQ/L CALCIUM (test code = 2209) 9.6 MG/DL PROTEIN, TOTAL (test code = 2229) 7.8 G/DL ALBUMIN (test code = 2201) 4.5 G/DL CALC GLOBULIN (test code = 2240) 3.3 G/DL CALC A/G RATIO (test code = 2234) 1.4 RATIO BILIRUBIN, TOTAL (test code = 2207) <0.2 MG/DL ALKALINE PHOSPHATASE (test code = 2204) 90 U/L AST (test code = 2218) 15 U/L ALT (test code = 2219) 13 U/L Dev SteinerSEDIMENTATION [id number] 00:00:00* Test Item Value Reference Range Interpretation Comme nts SEDIMENTATION RATE (test cod e = 1017) 71 MM/HOUR Dev SteinerANA (ANTI-NUCLEAR AB) WITH REFLEX [id number] 00:00:00* Test Item Value Reference Range Interpretation Comme sara ANTI-NUCLEAR ANTIBODIES (eitan t code = 3506) NEGATIVE Dev SteinerURIC [id number] 00:00:00* Test Item Value Reference Range Interpretation Comme nts URIC ACID (test code = 2233) 7.8 MG/DL Dev SteinerC-REACTIVE [id number] 00:00:00* Test Item Value Reference Range Interpretation Comme nts C-REACTIVE PROTEIN (test cod e = 3513) 0.8 MG/DL Dev SteinerRHEUMATOID FACTOR, [id number] 00:00:00* Test Item Value Reference Range Interpretation Comme nts RHEUMATOID FACTOR, QUANT (te st code = 3502) <10 IU/ML Dev SteinerCBC W/AUTO [id number] 00:00:00* Test Item Value Reference Range Interpretation Comme nts WBC (test code = 1001) 8.7 K/UL RBC (test code = 1002) 4.18 M/UL HEMOGLOBIN (test code = 1003) 13.3 G/DL HEMATOCRIT (test code = 1004) 38.7 % MCV (test code = 1005) 92.6 fL MCH (test code = 1006) 31.8 PG MCHC (test code = 1007) 34.4 G/DL RDW (test code = 1038) 11.7 % NEUTROPHILS (test code = 1008) 66.4 % LYMPHOCYTES (test code = 1010) 25.9 % MONOCYTES (test code = 1011) 6.7 % EOSINOPHILS (test code = 1012) 0.5 % BASOPHILS (test code = 1013) 0.5 % PLATELET COUNT (test code = 1015) 255 K/UL Dev SteinerCOMPREHENSIVE METABOLIC [id number] 00:00:00* Test Item Value Reference Range Interpretation Comme nts GLUCOSE (test code = 2217) 199 MG/DL BUN (test code = 2208) 31 MG/DL CREATININE (test code = 2214) 0.94 MG/DL eGFR AMER. (test cod e = 04519) 68 ML/MIN/1.73 eGFR NON- AMER. (test code = 36080) 59 ML/MIN/1.73 CALC BUN/CREAT (test code = 2235) 33 RATIO SODIUM (test code = 2231) 139 MEQ/L POTASSIUM (test code = 2228) 3.9 MEQ/L CHLORIDE (test code = 2215) 101 MEQ/L CARBON DIOXIDE (test code = 2206) 22 MEQ/L CALCIUM (test code = 2209) 9.6 MG/DL PROTEIN, TOTAL (test code = 2229) 7.8 G/DL ALBUMIN (test code = 2201) 4.5 G/DL CALC GLOBULIN (test code = 2240) 3.3 G/DL CALC A/G RATIO (test code = 2234) 1.4 RATIO BILIRUBIN, TOTAL (test code = 2207) <0.2 MG/DL ALKALINE PHOSPHATASE (test code = 2204) 90 U/L AST (test code = 2218) 15 U/L ALT (test code = 2219) 13 U/L Dev SteinerSEDIMENTATION [id number] 00:00:00* Test Item Value Reference Range Interpretation Comme nts SEDIMENTATION RATE (test cod e = 1017) 71 MM/HOUR Dev SteinerANA (ANTI-NUCLEAR AB) WITH REFLEX [id number] 00:00:00* Test Item Value Reference Range Interpretation Comme nts ANTI-NUCLEAR ANTIBODIES (eitan t code = 3506) NEGATIVE Dev SteinerURIC [id number] 00:00:00* Test Item Value Reference Range Interpretation Comme nts URIC ACID (test code = 2233) 7.8 MG/DL Dev SteinerC-REACTIVE [id number] 00:00:00* Test Item Value Reference Range Interpretation Comme nts C-REACTIVE PROTEIN (test cod e = 3513) 0.8 MG/DL Dev SteinerRHEUMATOID FACTOR, [id number] 00:00:00* Test Item Value Reference Range Interpretation Comme nts RHEUMATOID FACTOR, QUANT (te st code = 3502) <10 IU/ML Dev SteinerCBC W/AUTO [id number] 00:00:00* Test Item Value Reference Range Interpretation Comme nts WBC (test code = 1001) 8.7 K/UL RBC (test code = 1002) 4.18 M/UL HEMOGLOBIN (test code = 1003) 13.3 G/DL HEMATOCRIT (test code = 1004) 38.7 % MCV (test code = 1005) 92.6 fL MCH (test code = 1006) 31.8 PG MCHC (test code = 1007) 34.4 G/DL RDW (test code = 1038) 11.7 % NEUTROPHILS (test code = 1008) 66.4 % LYMPHOCYTES (test code = 1010) 25.9 % MONOCYTES (test code = 1011) 6.7 % EOSINOPHILS (test code = 1012) 0.5 % BASOPHILS (test code = 1013) 0.5 % PLATELET COUNT (test code = 1015) 255 K/UL Dev SteinerCOMPREHENSIVE METABOLIC [id number] 00:00:00* Test Item Value Reference Range Interpretation Comme nts GLUCOSE (test code = 2217) 199 MG/DL BUN (test code = 2208) 31 MG/DL CREATININE (test code = 2214) 0.94 MG/DL eGFR AMER. (test cod e = 40765) 68 ML/MIN/1.73 eGFR NON- AMER. (test code = 11398) 59 ML/MIN/1.73 CALC BUN/CREAT (test code = 2235) 33 RATIO SODIUM (test code = 2231) 139 MEQ/L POTASSIUM (test code = 2228) 3.9 MEQ/L CHLORIDE (test code = 2215) 101 MEQ/L CARBON DIOXIDE (test code = 2206) 22 MEQ/L CALCIUM (test code = 2209) 9.6 MG/DL PROTEIN, TOTAL (test code = 2229) 7.8 G/DL ALBUMIN (test code = 2201) 4.5 G/DL CALC GLOBULIN (test code = 2240) 3.3 G/DL CALC A/G RATIO (test code = 2234) 1.4 RATIO BILIRUBIN, TOTAL (test code = 2207) <0.2 MG/DL ALKALINE PHOSPHATASE (test code = 2204) 90 U/L AST (test code = 2218) 15 U/L ALT (test code = 2219) 13 U/L Dev SteinerSEDIMENTATION [id number] 00:00:00* Test Item Value Reference Range Interpretation Comme nts SEDIMENTATION RATE (test cod e = 1017) 71 MM/HOUR Dev Hoffman (ANTI-NUCLEAR AB) WITH REFLEX [id number] 00:00:00* Test Item Value Reference Range Interpretation Comme nts ANTI-NUCLEAR ANTIBODIES (eitan t code = 3506) NEGATIVE Dev SteinerURIC [id number] 00:00:00* Test Item Value Reference Range Interpretation Comme nts URIC ACID (test code = 2233) 7.8 MG/DL Dev SteinerC-REACTIVE [id number] 00:00:00* Test Item Value Reference Range Interpretation Comme nts C-REACTIVE PROTEIN (test cod e = 3513) 0.8 MG/DL Dev SteinerRHEUMATOID FACTOR, [id number] 00:00:00* Test Item Value Reference Range Interpretation Comme nts RHEUMATOID FACTOR, QUANT (te st code = 3502) <10 IU/ML Dev SteinerCBC W/AUTO [id number] 00:00:00* Test Item Value Reference Range Interpretation Comme nts WBC (test code = 1001) 8.7 K/UL RBC (test code = 1002) 4.18 M/UL HEMOGLOBIN (test code = 1003) 13.3 G/DL HEMATOCRIT (test code = 1004) 38.7 % MCV (test code = 1005) 92.6 fL MCH (test code = 1006) 31.8 PG MCHC (test code = 1007) 34.4 G/DL RDW (test code = 1038) 11.7 % NEUTROPHILS (test code = 1008) 66.4 % LYMPHOCYTES (test code = 1010) 25.9 % MONOCYTES (test code = 1011) 6.7 % EOSINOPHILS (test code = 1012) 0.5 % BASOPHILS (test code = 1013) 0.5 % PLATELET COUNT (test code = 1015) 255 K/UL Dev SteinerCOMPREHENSIVE METABOLIC [id number] 00:00:00* Test Item Value Reference Range Interpretation Comme nts GLUCOSE (test code = 2217) 199 MG/DL BUN (test code = 2208) 31 MG/DL CREATININE (test code = 2214) 0.94 MG/DL eGFR AMER. (test cod e = 51668) 68 ML/MIN/1.73 eGFR NON- AMER. (test code = 07519) 59 ML/MIN/1.73 CALC BUN/CREAT (test code = 2235) 33 RATIO SODIUM (test code = 2231) 139 MEQ/L POTASSIUM (test code = 2228) 3.9 MEQ/L CHLORIDE (test code = 2215) 101 MEQ/L CARBON DIOXIDE (test code = 2206) 22 MEQ/L CALCIUM (test code = 2209) 9.6 MG/DL PROTEIN, TOTAL (test code = 2229) 7.8 G/DL ALBUMIN (test code = 2201) 4.5 G/DL CALC GLOBULIN (test code = 2240) 3.3 G/DL CALC A/G RATIO (test code = 2234) 1.4 RATIO BILIRUBIN, TOTAL (test code = 2207) <0.2 MG/DL ALKALINE PHOSPHATASE (test code = 2204) 90 U/L AST (test code = 2218) 15 U/L ALT (test code = 2219) 13 U/L Dev SteinerSEDIMENTATION [id number] 00:00:00* Test Item Value Reference Range Interpretation Comme nts SEDIMENTATION RATE (test cod e = 1017) 71 MM/HOUR Dev SteinerANA (ANTI-NUCLEAR AB) WITH REFLEX [id number] 00:00:00* Test Item Value Reference Range Interpretation Comme nts ANTI-NUCLEAR ANTIBODIES (eitan t code = 3506) NEGATIVE Dev SteinerURIC [id number] 00:00:00* Test Item Value Reference Range Interpretation Comme nts URIC ACID (test code = 2233) 7.8 MG/DL Dev SteinerC-REACTIVE [id number] 00:00:00* Test Item Value Reference Range Interpretation Comme nts C-REACTIVE PROTEIN (test cod e = 3513) 0.8 MG/DL Dev SteinerRHEUMATOID FACTOR, [id number] 00:00:00* Test Item Value Reference Range Interpretation Comme sara RHEUMATOID FACTOR, QUANT (te st code = 3502) <10 IU/ML Dev SteinerCBC W/AUTO [id number] 00:00:00* Test Item Value Reference Range Interpretation Comme nts WBC (test code = 1001) 8.7 K/UL RBC (test code = 1002) 4.18 M/UL HEMOGLOBIN (test code = 1003) 13.3 G/DL HEMATOCRIT (test code = 1004) 38.7 % MCV (test code = 1005) 92.6 fL MCH (test code = 1006) 31.8 PG MCHC (test code = 1007) 34.4 G/DL RDW (test code = 1038) 11.7 % NEUTROPHILS (test code = 1008) 66.4 % LYMPHOCYTES (test code = 1010) 25.9 % MONOCYTES (test code = 1011) 6.7 % EOSINOPHILS (test code = 1012) 0.5 % BASOPHILS (test code = 1013) 0.5 % PLATELET COUNT (test code = 1015) 255 K/UL Dev SteinerLIPID [id number] 00:00:00* Test Item Value Reference Range Interpretation Comme nts CHOLESTEROL (test code = 2210) 139 MG/DL TRIGLYCERIDES (test code = 2232) 131 MG/DL HDL CHOLESTEROL (test code = 2220) 48 MG/DL CALC LDL CHOL (test code = 2237) 65 MG/DL RISK RATIO LDL/HDL (test cod e = 2238) 1.35 RATIO Dev SteinerHEMOGLOBIN [id number] 00:00:00* Test Item Value Reference Range Interpretation Comme sara HEMOGLOBIN A1c (test code = 66972) 9.0 % Dev SteinerCOMPREHENSIVE METABOLIC [id number] 00:00:00* Test Item Value Reference Range Interpretation Comme nts GLUCOSE (test code = 2217) 168 MG/DL BUN (test code = 2208) 27 MG/DL CREATININE (test code = 2214) 1.01 MG/DL eGFR AMER. (test cod e = 74105) 62 ML/MIN/1.73 eGFR NON- AMER. (test code = 75574) 54 ML/MIN/1.73 CALC BUN/CREAT (test code = 2235) 27 RATIO SODIUM (test code = 2231) 139 MEQ/L POTASSIUM (test code = 2228) 4.9 MEQ/L CHLORIDE (test code = 2215) 100 MEQ/L CARBON DIOXIDE (test code = 2206) 23 MEQ/L CALCIUM (test code = 2209) 9.7 MG/DL PROTEIN, TOTAL (test code = 2229) 7.8 G/DL ALBUMIN (test code = 2201) 4.3 G/DL CALC GLOBULIN (test code = 2240) 3.5 G/DL CALC A/G RATIO (test code = 2234) 1.2 RATIO BILIRUBIN, TOTAL (test code = 2207) 0.3 MG/DL ALKALINE PHOSPHATASE (test code = 2204) 89 U/L AST (test code = 2218) 13 U/L ALT (test code = 2219) 13 U/L Dev SteinerLIPID [id number] 00:00:00* Test Item Value Reference Range Interpretation Comme nts CHOLESTEROL (test code = 2210) 139 MG/DL TRIGLYCERIDES (test code = 2232) 131 MG/DL HDL CHOLESTEROL (test code = 2220) 48 MG/DL CALC LDL CHOL (test code = 2237) 65 MG/DL RISK RATIO LDL/HDL (test cod e = 2238) 1.35 RATIO Dev SteinerHEMOGLOBIN [id number] 00:00:00* Test Item Value Reference Range Interpretation Comme nts HEMOGLOBIN A1c (test code = 99538) 9.0 % Dev SteinerCOMPREHENSIVE METABOLIC [id number] 00:00:00* Test Item Value Reference Range Interpretation Comme nts GLUCOSE (test code = 2217) 168 MG/DL BUN (test code = 2208) 27 MG/DL CREATININE (test code = 2214) 1.01 MG/DL eGFR AMER. (test cod e = 57993) 62 ML/MIN/1.73 eGFR NON- AMER. (test code = 87186) 54 ML/MIN/1.73 CALC BUN/CREAT (test code = 2235) 27 RATIO SODIUM (test code = 2231) 139 MEQ/L POTASSIUM (test code = 2228) 4.9 MEQ/L CHLORIDE (test code = 2215) 100 MEQ/L CARBON DIOXIDE (test code = 2206) 23 MEQ/L CALCIUM (test code = 2209) 9.7 MG/DL PROTEIN, TOTAL (test code = 2229) 7.8 G/DL ALBUMIN (test code = 2201) 4.3 G/DL CALC GLOBULIN (test code = 2240) 3.5 G/DL CALC A/G RATIO (test code = 2234) 1.2 RATIO BILIRUBIN, TOTAL (test code = 2207) 0.3 MG/DL ALKALINE PHOSPHATASE (test code = 2204) 89 U/L AST (test code = 2218) 13 U/L ALT (test code = 2219) 13 U/L Dev SteinerLIPID [id number] 00:00:00* Test Item Value Reference Range Interpretation Comme nts CHOLESTEROL (test code = 2210) 139 MG/DL TRIGLYCERIDES (test code = 2232) 131 MG/DL HDL CHOLESTEROL (test code = 2220) 48 MG/DL CALC LDL CHOL (test code = 2237) 65 MG/DL RISK RATIO LDL/HDL (test cod e = 223) 1.35 RATIO Dev SteinerHEMOGLOBIN [id number] 00:00:00* Test Item Value Reference Range Interpretation Comme sara HEMOGLOBIN A1c (test code = 49464) 9.0 % Dev SteinerCOMPREHENSIVE METABOLIC [id number] 00:00:00* Test Item Value Reference Range Interpretation Comme nts GLUCOSE (test code = 2217) 168 MG/DL BUN (test code = 8) 27 MG/DL CREATININE (test code = 2214) 1.01 MG/DL eGFR AMER. (test cod e = 20720) 62 ML/MIN/1.73 eGFR NON- AMER. (test code = 77481) 54 ML/MIN/1.73 CALC BUN/CREAT (test code = 2235) 27 RATIO SODIUM (test code = 2231) 139 MEQ/L POTASSIUM (test code = 2228) 4.9 MEQ/L CHLORIDE (test code = 2215) 100 MEQ/L CARBON DIOXIDE (test code = 2206) 23 MEQ/L CALCIUM (test code = 2209) 9.7 MG/DL PROTEIN, TOTAL (test code = 2229) 7.8 G/DL ALBUMIN (test code = 2201) 4.3 G/DL CALC GLOBULIN (test code = 2240) 3.5 G/DL CALC A/G RATIO (test code = 2234) 1.2 RATIO BILIRUBIN, TOTAL (test code = 2207) 0.3 MG/DL ALKALINE PHOSPHATASE (test code = 2204) 89 U/L AST (test code = 2218) 13 U/L ALT (test code = 2219) 13 U/L Dev SteinerLIPID [id number] 00:00:00* Test Item Value Reference Range Interpretation Comme nts CHOLESTEROL (test code = 2210) 139 MG/DL TRIGLYCERIDES (test code = 2232) 131 MG/DL HDL CHOLESTEROL (test code = 2220) 48 MG/DL CALC LDL CHOL (test code = 2237) 65 MG/DL RISK RATIO LDL/HDL (test cod e = 2238) 1.35 RATIO Dev SteinerHEMOGLOBIN [id number] 00:00:00* Test Item Value Reference Range Interpretation Comme nts HEMOGLOBIN A1c (test code = 66827) 9.0 % Dev SteinerCOMPREHENSIVE METABOLIC [id number] 00:00:00* Test Item Value Reference Range Interpretation Comme nts GLUCOSE (test code = 2217) 168 MG/DL BUN (test code = 2208) 27 MG/DL CREATININE (test code = 2214) 1.01 MG/DL eGFR AMER. (test cod e = 70406) 62 ML/MIN/1.73 eGFR NON- AMER. (test code = 19049) 54 ML/MIN/1.73 CALC BUN/CREAT (test code = 2235) 27 RATIO SODIUM (test code = 2231) 139 MEQ/L POTASSIUM (test code = 2228) 4.9 MEQ/L CHLORIDE (test code = 2215) 100 MEQ/L CARBON DIOXIDE (test code = 2206) 23 MEQ/L CALCIUM (test code = 2209) 9.7 MG/DL PROTEIN, TOTAL (test code = 2229) 7.8 G/DL ALBUMIN (test code = 2201) 4.3 G/DL CALC GLOBULIN (test code = 2240) 3.5 G/DL CALC A/G RATIO (test code = 2234) 1.2 RATIO BILIRUBIN, TOTAL (test code = 2207) 0.3 MG/DL ALKALINE PHOSPHATASE (test code = 2204) 89 U/L AST (test code = 2218) 13 U/L ALT (test code = 2219) 13 U/L Dev Georges Jatin Consult Notes Date/Time Note Provider Source 2023-02-12 12:19:00 Associated Order(s): CONSULT CARDIOLOGY [facility] Cardiology Consult Note Patient: Latasha Elam Date of : 1940 Date of service: 02/13/2023 Primary Care Physician: Renetta Osman CHIEF COMPLAINT: Chief Complaint Patient presents with Cough Other "Test to see if I still have covid" HISTORY OF PRESENT ILLNESS: Latasha Elam is a 82 year old female presented to the ER for evaluation for intractable nausea and vomiting. History from patient. Pertinent cardiac related history reviewed from chart Presented with intractable nausea and vomiting that has been going on for the last couple of weeks. She had a laparoscopic cholecystectomy performed about 2 weeks ago at [place]. Earlier today she was having intractable nausea and vomiting. In the emergency room patient was found to have severe hypokalemia and acute renal insufficiency. Patient also has tested positive for COVID-19 on Tuesday. COLLINS NYHA class II. Reports having exertional fatigue. No chest pain at rest. No PND or orthopnea. No pedal edema. No exertional palpitations or palpitations at rest. No syncopal attacks. Patient with a history of congestive heart failure, type 2 diabetes, and dyslipidemia. Previous Cardiac Studies: IMAGING - I personally reviewed, pertinent results as below: EKG 01/17/2023 reviewed shows sinus rhythm, T wave inversion across anterior leads/inferior leads., Narrow QRS complex. Chest x-ray 02/12/2023 reviewed shows bilateral consolidation noted which is improving. PAST MEDICAL HISTORY No past medical history on file. Past Surgical History: Procedure Laterality Date LAPAROSCOPIC CHOLECYSTECTOMY N/A 01/19/2023 Surgeon: Heath Sorto DO; [facility] LYSIS OF ABDOMINAL ADHESIONS N/A 01/19/2023 Surgeon: Heath Sorto DO; [facility] No family history on file. SOCIAL HISTORY Social History Socioeconomic History Marital status: Number of children: 3 Years of education: 10 Tobacco Use Smoking status: Never Passive exposure: Never Smokeless tobacco: Never Substance and Sexual Activity Alcohol use: Never Drug use: Never Social Determinants of Health Financial Resource Strain: Low Risk (02/10/2023) Overall Financial Resource Strain (CARDIA) Difficulty of Paying Living Expenses: Not hard at all Food Insecurity: No Food Insecurity (02/10/2023) Hunger Vital Sign Worried About Running Out of Food in the Last Year: Never true Ran Out of Food in the Last Year: Never true Transportation Needs: No Transportation Needs (02/10/2023) PRAPARE - Transportation Lack of Transportation (Medical): No Lack of Transportation (Non-Medical): No Physical Activity: Inactive (02/10/2023) Exercise Vital Sign Days of Exercise per Week: 0 days Minutes of Exercise per Session: 0 min Social Connections: Unknown (02/10/2023) Social Connection and Isolation Panel [NHANES] Frequency of Communication with Friends and Family: More than three times a week Marital Status: Housing Stability: Low Risk (02/10/2023) Housing Stability Vital Sign Unable to Pay for Housing in the Last Year: No Number of Places Lived in the Last Year: 1 Unstable Housing in the Last Year: No ALLERGIES Allergies Allergen Reactions Sulfa (Sulfonamide Antibiotics) Hives MEDICATIONS Current Discharge Medication List STOP taking these medications aspirin (ASPIR-81 ORAL) Comments: Reason for Stopping: bisoproloL-hydrochlorothiazid e 10-6.25 mg per tablet Comments: Reason for Stopping: hydrALAZINE 100 mg tablet Comments: Reason for Stopping: insulin glargine,hum.[email or web address].anlog (LANTUS SC) Comments: Reason for Stopping: valsartan 320 mg tablet Comments: Reason for Stopping: acetaminophen (TYLENOL) 325 mg tablet Comments: Reason for Stopping: amlodipine besylate (AMLODIPINE ORAL) Comments: Reason for Stopping: cloniDINE (CATAPRES) 0.1 mg tablet Comments: Reason for Stopping: olmesartan (BENICAR) 40 mg tablet Comments: Reason for Stopping: pravastatin (PRAVACHOL) 40 mg tablet Comments: Reason for Stopping: Current Facility-Administered Medications: amLODIPine (NORVASC) tablet 10 mg, 10 mg, Oral, DAILY, Triny Roman MD cloNIDine (CATAPRES) tablet 0.3 mg, 0.3 mg, Oral, QID, Triny Roman MD hydrALAZINE (APRESOLINE) tablet 100 mg, 100 mg, Oral, TID, Triny Roman MD losartan (COZAAR) tablet 50 mg, 50 mg, Oral, BID, Triny Roman MD, 50 mg at 02/12/232208 metoprolol tartrate (LOPRESSOR) tablet 25 mg, 25 mg, Oral, BID, Triny Roman MD, 25 mg at 02/12/232209 insulin glargine (LANTUS U-100) injection 15 Units, 15 Units, Subcutaneous, QHS, Florencia Taylor MD, 15 Units at 02/12/232006 levalbuterol (XOPENEX) nebulizer solution 1.25 mg, 1.25 mg, Inhalation, TID, Florencia Taylor MD, 1.25 mg at 02/12/232107 codeine-guaifenesin (ROBITUSSIN AC) 10-100 mg/5 mL oral solution 5 mL, 5 mL, Oral, Q6HPRN, Mike Cid PA, 5 mL at 02/12/23 0416 dextrose 50 % in water (D50W) injection 25 mL, 25 mL, Slow IV Push, PRN, Mike Cid PA glucagon (GLUCAGEN DIAGNOSTIC KIT) injection 1 mg, 1 mg, Intramuscular, PRN, Mike Cid PA Sliding Scale Insulin - Lispro (HumaLOG), , Subcutaneous, TID MEALS+HS, Mike Cid PA, 2 Units at 02/12/232009 acetaminophen (TYLENOL) tablet 650 mg, 650 mg, Oral, Q6HPRN, Maria Luisa Mancia DO acetaminophen (TYLENOL) tablet 650 mg, 650 mg, Oral, Q6HPSanazN, Florencia Taylor MD aspirin EC tablet 81 mg, 81 mg, Oral, DAILY, Florencia Taylor MD, 81 mg at 02/12/23 0826 enoxaparin (LOVENOX) injection 30 mg, 30 mg, Subcutaneous, DAILY, Maria Luisa Mancia DO, 30 mg at 02/12/23 0825 pravastatin (PRAVACHOL) tablet 40 mg, 40 mg, Oral, QHS, Florencia Taylor MD, 40 mg at 02/12/232006 REVIEW OF SYSTEMS: Comprehensive 10-system review was conducted and were negative except for what's noted in the HPI. The following systems were reviewed: Constitutional, cardiovascular, respiratory, gastrointestinal, genitourinary, musculoskeletal, neurologic, psychiatric, endocrinological, and hematological. PHYSICAL EXAMINATION: Vitals: 02/12/23200502/12/23 2108 02/12/23 2206 02/12/23 2352 BP: 122/66 123/57 BP Location: Left arm Pulse: 62 60 72 68 Resp: 18 18 Temp: 35.9 ?C (96.6 ?F) 36.1 ?C (97 ?F) TempSrc: Temporal Artery SpO2: 96% 96% 95% 90% Weight: Height: General: no apparent distress HEENT: normocephalic atraumatic Neck: supple, no lymphadenopathy, no bruits, no JVD Lungs: clear to auscultation bilaterally. No wheezes or rhonchi. No increased work of breathing. Cardio: Regular rate and rhythm, S1&S2 normal, no murmurs, rubs or gallops Abdomen: soft; non-tender; non-distended; normoactive bowel sounds. : not examined Rectal: not examined Extremities: no clubbing, cyanosis, or edema. Skin: no rashes, no visible lesions. Neuro: no gross focal deficits LABS - Reviewed pertinent labs as below: CBC BMP PT/INR WBC (10*3/?L) Date Value 02/12/2023 7.01 NA (mmol/L) Date Value 02/12/2023 141 No results found for: "PT" PLT (10*3/?L) Date Value 02/12/2023 240 K (mmol/L) Date Value 02/12/2023 4.6 INR (no units) Date Value 10/03/2017 1.0 HGB (g/dL) Date Value 02/12/2023 8.2 (L) BUN (mg/dL) Date Value 02/12/2023 16 HCT (%) Date Value 02/12/2023 26.1 (L) CREATININE (mg/dL) Date Value 02/12/2023 1.15 (H) LIPID PROFILE GLUCOSE (mg/dL) Date Value 02/12/2023 102 CHOL (mg/dL) Date Value 02/10/2023 126 TSH LDL CHOL (mg/dL) Date Value 02/10/2023 66 TSH (mIU/L) Date Value 01/17/2023 0.59 CARDIAC ENZYMES HDL (mg/dL) Date Value 02/10/2023 23 (L) No results found for: "CK" TRIG (mg/dL) Date Value 02/10/2023 185 (H) LFTs CK-MB (ng/mL) Date Value 09/22/2015 0.37 AST(SGOT) (U/L) Date Value 02/12/2023 31 TROPONIN I (ng/mL) Date Value 02/15/2021 0.004 ALT(SGPT) (U/L) Date Value 10/03/2017 24 ALTv (U/L) Date Value 02/12/2023 15 No results found for: "BNP" LDL CHOL (mg/dL) Date Value 02/10/2023 66 There are no current results on file for these tests and/or test for 1 year. Recent Labs 02/10/23 0511 TRIG 185* LDL CHOL (mg/dL) Date Value 02/10/2023 66 NT-proBNP (pg/mL) Date Value 02/15/2021 183 ASSESSMENT/PLAN Principal Problem: COVID-19 virus infection Active Problems: COLLINS (dyspnea on exertion) Pulmonary hypertension Anemia associated with nutritional deficiency Hypokalemia Essential hypertension Dyslipidemia VHD (valvular heart disease) Outside cardiac testing from Dr. Matute's office reviewed. Echocardiogram dated 11/07/2022 reviewed shows mild positive LVH, biatrial enlargement, moderate tricuspid regurgitation, moderate mitral regurgitation, mild mitral regurgitation, preserved LV systolic function, preserved systolic function, pulmonary hypertension noted 25-60. Nuclear stress test dated 10/24/2020 negative for ischemic noted. COVID-19: Rx/work-up as per primary team. Shortness of breath NYHA class II-III along with exertional fatigue. EKG 01/17/2023 reviewed shows sinus rhythm, T wave inversion across anterior leads/inferior leads., Narrow QRS complex. Chest x-ray 02/12/2023 reviewed shows bilateral consolidation noted which is improving. Recommend Serial trop X 2, Echo to assess to EF and wall motion changes. Telemetry reviewed. No significant arrhythmias noted. Continue telemetry monitoring Continue aspirin 81 daily. NT-proBNP (pg/mL) Date Value 02/15/2021 183 Hypertension: Stable. Continue with the current dose of amlodipine 10 mg daily along with Catapres 0.3 mg 4 times daily, hydralazine 100 3 times daily, metoprolol 25 mg twice daily Dyslipidemia: Continue with pravastatin 40 mg daily. Anemia: Rx/work-up as per primary. Recommended keep hemoglobin more than 8 from the cardiac standpoint. Pulmonary hypertension: Stable. Will reassess based on echocardiogram in a.m. tomorrow. May consider starting low-dose diuretics. My diagnostic impression and treatment plans were discussed at length with the patient. Primary propellant charge loader: Dr. Matute Thank you for allowing us to participate in the care of aLtasha Elam. If you have any questions or concerns please feel free to call our office at [phone]. I would be happy to be of further assistance for Latasha Elam wellbeing. Voice recognition software has been used to create portions of this document. An attempt to proofread has been made to minimize errors. Please do not hesitate to call with any questions. Jake Orourke MD Bag Filler Machine Operator, Division of Cardiology [facility] hospital 2023-02-10 11:11:00 Associated Order(s): CONSULT ADULT PHYSICAL THERAPY 02/10/23 Patient agreeable to working with physical therapy. Patient met semi reclined in bed. Recommend nursing staff utilize gait belt, hand held assist, and SBA to safely assist patient with mobility out of the bed or chair. PHYSICAL THERAPY EVALUATION Consult received, chart reviewed and evaluation complete this date. Patient is referred to PT for evaluation and treatment. Patient is a 82 year old female who presents to hospital for COVID-19 virus infection [U07.1]. Discharge Recommendations: Therapy Needs and Potential: Patient would benefit from continued physical therapy services to address: decline in gait and/or balance Challenges to Home Transition: increased risk of falls Equipment recommendations: Patient has or access to necessary equipment Current Functional Status and/or Treatment: AM-PAC 6 Clicks (Raw Score 0=Dependent, 24=Independent; Low function Raw Score 0= Dependent, 32=Independent): 02/10/23 1110 AM-PAC? Basic Mobility Inpatient Short Form (6-Clicks) 1) Turning from your back to your side while in a flat bed without using bedrails? 4 2) Moving from lying on back to sitting on the side of the bed without using bedrails? 4 3) Moving to and from a bed to a chair (including a wheelchair)? 3 4) Standing up from a chair using your arms (e.g., wheelchair, or bedside chair)? 3 5) Walking in hospital room? 3 6) Climbing 3-5 steps with a railing? 3 Raw Score - Basic Mobility 20 T-Scale Score - Basic Mobility 43.99 Bed Mobility: Rolling: Independent Supine-sit: Supervision Sitting balance Good Scooting to edge of bed: Independent Transfers: Sit to stand: Supervision using no device Stand to sit: Minimal Assistance using no device Static/dynamic standing balance: Fair+ Verbal cueing provided for correct hand placement and correct use of AD Ambulation: Assisted patient with ambulation as follows: 45 feet using hand held assistance by therapist, but patient would benefit from RW and Minimal Assistance. After session, patient up in chair. Call button provided. RN made aware of status. SPO2 during evaluation was stable and varied between 88-97%. Pt on 2L of NC and room air numbers were stable as well. PLAN OF CARE: While in the hospital, PT will follow patient at least 2 times per week,once or twice a day, per patient's tolerance and needs. See below for complete details. Admit Date: 02/08/2023 Hospital Diagnosis:COVID-19 virus infection [U07.1] PT Diagnosis: Weakness Weight Bearing Precaution: NA General Precautions: PPE used:Gloves, Gown, N-95 Mask, and Goggles, General, Covid isolation,IV LUE Bracing/Cast present or required:N/A PMH: No past medical history on file. PSH: Past Surgical History: Procedure Laterality Date LAPAROSCOPIC CHOLECYSTECTOMY N/A 01/19/2023 Surgeon: Heath Sorto DO; Location: [facility] LYSIS OF ABDOMINAL ADHESIONS N/A 01/19/2023 Surgeon: Heath Sorto DO; Location: [facility] Prior Living Situation: lives with their family and in a house, level entry DME: Single Point Cane, Rolling Walker Prior level of Mobility: house hold ambulation Suspected ischemic or hemorraghic stroke:No Subjective: " I can move around, I don't feel too bad." Patient/Family Goals: Get better Patient/Family verbalizes understanding of condition: Yes PAIN: denies pain before and after session COMMUNICATION Primary Language: [place]ese Able to Verbalize needs: Yes Vision:good; no issues reported Hearing:good; no issues reported ORIENTATION/COGNITION: Oriented to: person, place, date/time, and situation Awake: Yes Alert: Yes Dizzy: No Follows Commands: Yes 1-Step Yes Multi-Step Yes Inconsistent: No NEUROLOGICAL Light Touch: within functional limits bilateral LE BALANCE: Sitting: Static: Good Dynamic: Good Standing: Static: Fair+ Dynamic: Fair+ RANGE OF MOTION: within functional limits bilateral LE STRENGTH: 4-/5 (G-), bilateral LE ENDURANCE: Fair+, Nasal canula, Room air SKIN INTEGRITY: intact PROBLEM LIST: Decline in gait, Decreased endurance, and Decreased balance ASSESSMENT: Patient is a 82 year old female seen secondary to the above listed diagnosis. Patient would benefit from continued PT to address the above listed deficits to maximize independence and safety with functional mobility. Rehabilitation Potential: good Goals: The following goals are to maximize independence and safety with functional mobility to eventually return to prior living situation and prior functional status. Upon discharge, patient and/or family will demonstrate the followin. Supine-sit: Independent Sit to supine: Independent 2. Sit to stand: Independent using no device Stand to sit: Independent using no device 3. Supervision with ambulation, Feet: 100 using least assistive device. Treatment Plan: Gait training, Therapeutic exercise, Balance training, Equipment needs assessment, and Safety education, patient/caregiver education PATIENT EDUCATION: Patient provided with preferred teaching of verbal information, written information, and demonstration on role of PT, plan of care, and goals. Shows readiness to learn. Verbal instruction, Written material, and Demonstration teaching provided. Individual is able to read and verbalizes understanding of teaching provided and accurately returns demonstration of skill. Total Time Tx Codes in Minutes: 15 min Total Treatment Time in Minutes: 25 min Lizeth Pina PT Pharmacy Clerk [place] PT License [id number] [facility] Health Rehab Services Dept [facility] [phone] (fax) Lizeth Fields PT [facility] - Health History and Physical Notes Date/Time Note Provider Source 2023-02-08 23:35:39 Formatting of this n ote is different from the original. [facility] Hospitalist Admission H&P Date of Service: 02/08/2023 CHIEF COMPLAINT: Intractable nausea and vomiting; hypokalemia HISTORY OF PRESENT ILLNESS Latasha Elam is a 82 year old female who presents with intractable nausea and vomiting that has been going on for the last couple of weeks. She had a laparoscopic cholecystectomy performed about 2 weeks ago at [place]. She had recovered and had gone home from that hospitalization. Still having some mild pain but she was noticing that she was really weak. She went to see her PCP and they encouraged her to increase her hydration. Earlier today she was having intractable nausea and vomiting. She vomited twice. She called her primary care provider yesterday who told her to come into the emergency room. In the emergency room patient was found to have severe hypokalemia and acute renal insufficiency. Patient also has tested positive for COVID-19 on Tuesday. Patient with a history of congestive heart failure, type 2 diabetes, and dyslipidemia. Patient urine analysis was also positive. She did have some diarrhea over the last couple of days since her COVID diagnosis but this is let up a little bit. She will be admitted to the hospital for IV hydration and correction of her potassium. We will monitor her pulmonary status and anticipate discharge over the next 48 to 72 hours. She will need some physical therapy to get her strength built up. PAST MEDICAL HISTORY No past medical history on file. PAST SURGICAL HISTORY Past Surgical History: Procedure Laterality Date LAPAROSCOPIC CHOLECYSTECTOMY N/A 01/19/2023 Surgeon: Heath Sorto DO; [facility] LYSIS OF ABDOMINAL ADHESIONS N/A 01/19/2023 Surgeon: Heath Sorto DO; Location: [facility] ALLERGIES Allergies Allergen Reactions Sulfa (Sulfonamide Antibiotics) Hives MEDICATIONS Current home medication list reviewed: Current Discharge Medication List STOP taking these medications aspirin (ASPIR-81 ORAL) Comments: Reason for Stopping: bisoproloL-hydrochlorothiazide 10-6.25 mg per tablet Comments: Reason for Stopping: hydrALAZINE 100 mg tablet Comments: Reason for Stopping: insulin glargine,hum.rec.anlog (LANTUS SC) Comments: Reason for Stopping: valsartan 320 mg tablet Comments: Reason for Stopping: acetaminophen (TYLENOL) 325 mg tablet Comments: Reason for Stopping: amlodipine besylate (AMLODIPINE ORAL) Comments: Reason for Stopping: cloniDINE (CATAPRES) 0.1 mg tablet Comments: Reason for Stopping: olmesartan (BENICAR) 40 mg tablet Comments: Reason for Stopping: pravastatin (PRAVACHOL) 40 mg tablet Comments: Reason for Stopping: FAMILY HISTORY No family history on file. SOCIAL HISTORY Social History Socioeconomic History Marital status: Number of children: 3 Years of education: 10 Tobacco Use Smoking status: Never Passive exposure: Never Smokeless tobacco: Never Substance and Sexual Activity Alcohol use: Never Drug use: Never Social Determinants of Health Financial Resource Strain: Low Risk (01/18/2023) Overall Financial Resource Strain (CARDIA) Difficulty of Paying Living Expenses: Not hard at all Food Insecurity: No Food Insecurity (01/18/2023) Hunger Vital Sign Worried About Running Out of Food in the Last Year: Never true Ran Out of Food in the Last Year: Never true Transportation Needs: No Transportation Needs (01/18/2023) PRAPARE - Transportation Lack of Transportation (Medical): No Lack of Transportation (Non-Medical): No Physical Activity: Inactive (01/18/2023) Exercise Vital Sign Days of Exercise per Week: 0 days Minutes of Exercise per Session: 0 min Social Connections: Unknown (01/18/2023) Social Connection and Isolation Panel [NHANES] Frequency of Communication with Friends and Family: More than three times a week Marital Status: Housing Stability: Low Risk (01/18/2023) Housing Stability Vital Sign Unable to Pay for Housing in the Last Year: No Number of Places Lived in the Last Year: 1 Unstable Housing in the Last Year: No REVIEW OF SYSTEMS 10 systems negative except per HPI PHYSICAL EXAMINATION BP (!) 166/76 | Pulse 78 | Temp 36.2 ?C (97.1 ?F) | Resp 17 | Ht 1.168 m (3' 10") | Wt 45.5 kg (100 lb 4.8 oz) | SpO2 100% | BMI 33.33 kg/m? General: No acute distress HEENT: Normal oral mucosa, anicteric sclerae, NCAT Cardiovascular: RRR Lungs: Symmetric expansion, CTAB Abdomen: Soft, NTND Musculoskeletal: No synovitis, normal muscle mass Genitourinary: Normal Skin: No rash, lesions Neuro: AAOx3, no focal deficits Psych: Normal affect LABS - reviewed pertinent labs as below: CBC BMP PT/INR WBC (10*3/?L) Date Value 02/08/2023 10.25 NA (mmol/L) Date Value 02/08/2023 142 No results found for: "PT" RBC (10*6/?L) Date Value 02/08/2023 3.46 (L) K (mmol/L) Date Value 02/08/2023 2.7 (LL) INR (no units) Date Value 10/03/2017 1.0 PLT (10*3/?L) Date Value 02/08/2023 328 CALCIUM (mg/dL) Date Value 02/08/2023 8.9 HGB (g/dL) Date Value 02/08/2023 10.3 (L) CL (mmol/L) Date Value 02/08/2023 101 aPTT HCT (%) Date Value 02/08/2023 32.4 (L) BUN (mg/dL) Date Value 02/08/2023 19 APTT Patient (Seconds) Date Value 10/03/2017 26 CREATININE (mg/dL) Date Value 02/08/2023 1.57 (H) IMAGING - reviewed, pertinent results as below: No results found for this visit on 02/08/23. ASSESSMENT: 1. Intractable nausea and vomiting 2. Acute renal insufficiency 3. Urinary tract infection 4. Hypokalemia 5. Anemia 6. COVID-19 7. History of type 2 diabetes 8. History of dyslipidemia 9. History of CHF PLAN: 1. IV fluids 2. Monitor renal function 3. IV antibiotics 4. Correct potassium level 5. Monitor H&H 6. Monitor pulmonary status as well as O2 sats 7. Strict blood pressure and blood sugar control 8. Resume immunosuppressant 9. GI DVT prophylaxis DVT prophylaxis: enoxaparin Stress ulcer prophylaxis: pantoprazole Code status: full Advanced Care Planning (Z71.89) Above assessment and plan discussed at length with patient, patient expressed full understanding. Questions and concerned addressed. Surrogate decision maker: N/A Level of care expected after discharge: HOME Time spent: 3 minutes discussing the advanced care plan Smoking Cessation: (Z71.6) Tobacco user?: NO Patient will require inpatient stay of 2 midnights or more given high risk of morbidity and mortality. [place] [employer] was verified during stay Florencia Taylor MD [facility] Notes Date/Time Note Provider Source 2024-09-07 11:45:00 Images from the original note were not included. Venipuncture collection performed by clean technique on the left anticubitus. Total of 1 attempts were made. Slight pressure and a bandage/dressing were applied to the site(s). The patient experienced no complications. The following specimens were processed according to instructions and sent to [facility] laboratories per lab order on 06/29/24: LT BLUE SST 1 RED LAV PPT DK GREEN (LiHep) DK GREEN (SodH) BOOTH DK BLUE (K2) DK BLUE (S) ACD Blood Culture NIPT/NTD [place]2024-10-03 00:00:00 [facility]2024-07-05 00:00:00 [facility]2024-06-21 13:45:00 Images from the original note were not included. Venipuncture collection performed by clean technique on the left anticubitus. Total of 1 attempts were made. Slight pressure and a bandage/dressing were applied to the site(s). The patient experienced no complications. The following specimens were processed according to instructions and sent to [facility] laboratories per lab order on 12/30/23: LT BLUE SST 1 RED LAV 1 PPT DK GREEN (LiHep) DK GREEN (SodH) BOOTH DK BLUE (K2) DK BLUE (S) ACD Blood Culture [facility]D [id number] 12:04:12 Patient arrived ambulatory with daughter in law via private car c/o of left shoulder pain. Denies any falls, denies any injury to her knowledge. Left shoulder pain started 3 days ago. [id number] Dev Shaffer [facility]2024-04-19 11:15:00 Images from the original note were not included. Venipuncture collection performed by clean technique on the left anticubitus. Total of 1 attempts were made. Slight pressure and a bandage/dressing were applied to the site(s). The patient experienced no complications. The following specimens were processed according to instructions and sent to [facility] laboratories per lab order on 10/28/2023 : LT BLUE SST 1 RED LAV PPT DK GREEN (LiHep) DK GREEN (SodH) BOOTH DK BLUE (K2) DK BLUE (S) ACD Blood Culture NIPT/NTD Patient has been identified by and name and was provided with cup, antiseptic towelette, and clean catch instructions. 4 urine specimen(s) sent. Unpreserved 3 Urine Culture 1 Aptima tube Other urine [id number] 12:00:00 Images from the original note were not included. Venipuncture collection performed by clean technique on the left anticubitus. Total of 1 attempts were made. Slight pressure and a bandage/dressing were applied to the site(s). The patient experienced no complications. The following specimens were processed according to instructions and sent to [facility] laboratories per lab order on 10/06/2023: LT BLUE SST 1 RED LAV PPT DK GREEN (LiHep) DK GREEN (SodH) BOOTH DK BLUE (K2) DK BLUE (S) ACD Blood Culture NIPT/NTD Patient has been identified by and name and was provided with cup, antiseptic towelette, and clean catch instructions. 2 urine specimen(s) sent. Unpreserved 1 Urine Culture 1 Aptima tube Other urine [id number] 10:00:00 Images from the original note were not included. Venipuncture collection performed by clean technique on the right anticubitus. Total of 1 attempts were made. Slight pressure and a bandage/dressing were applied to the site(s). The patient experienced no complications. The following specimens were processed according to instructions and sent to [facility] laboratories per lab order on 09/05/2023: LT BLUE SST 1 RED LAV PPT DK GREEN (LiHep) DK GREEN (SodH) BOOTH DK BLUE (K2) DK BLUE (S) ACD Blood Culture NIPT/NTD Patient has been identified by and name and was provided with cup, antiseptic towelette, and clean catch instructions. 3 urine specimen(s) sent. 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 She was discharged on 02/13/23 with discharge disposition of HR- Routine Discharge. Admitting Physician: Maria Luisa Mancia Discharge Diagnosis: COVID-19 No linked episodes TCM Tla-bdvw-ez-face outreach documentation: Discharge Assessment Chart Assessed: 02/15/23 TCM Outreach Completed: 02/15/23 Do you have a few minutes to speak with me about how you are doing at home?: Yes (Per daughter patient is doing much better) Discharge Instructions Do you understand your at-home instructions?: Yes Medications Have you filled your prescriptions and do you have them in your home? : See comments (Per daughter will pickle solution maker today) Do you know how to take your medications?: Yes Supplies Did you receive applicable home medical supplies/equipment?: N/A Follow Up Appointment Has a follow up appointment been scheduled?: No May I assist with scheduling this appointment?: Patient will schedule (Daughter to follow up) Do you have any questions about your follow up appointments?: No Are you able to get to your appointment? Who will be taking you?: Yes (family member) Home Health Assistance Has the home health nurse contacted you since you've been home?: N/A Survey - Recognition Is there anything you would like to share about your recent hospitalization, or anyone you would like to recognize?: No Do you have any suggestions for improvement?: No Do you have any other questions or concerns at this time?: No Future Appointments: Lauren Giles [facility] - [id number] 12:23:23 Problem: Pain Goal: Control of pain at or below patient's documented comfort goal Outcome: Adequate for discharge Goal: Reduction in pain sensation Outcome: Adequate for discharge Problem: Venous Thromboembolism, (actual or risk of) Goal: Absence of venous thromboembolism (Risk) Outcome: Adequate for discharge Problem: Falls, Risk of Goal: Absence of falls Outcome: Adequate for discharge Problem: Discharge Planning Goal: Adequate for discharge Outcome: Adequate for discharge Goal: Effective communication Outcome: Adequate for discharge Problem: Skin integrity Impaired (Risk or Actual) Goal: Wound healing Outcome: Adequate for discharge Goal: Prevention of new skin breakdown Outcome: Adequate for discharge Nancy Leyva [facility] - [id number] 22:21:49 Problem: Pain Goal: Control of pain at or below patient's documented comfort goal Outcome: Progressing as expected Goal: Reduction in pain sensation Outcome: Progressing as expected Problem: Venous Thromboembolism, (actual or risk of) Goal: Absence of venous thromboembolism (Risk) Outcome: Progressing as expected Problem: Falls, Risk of Goal: Absence of falls Outcome: Progressing as expected Problem: Discharge Planning Goal: Adequate for discharge Outcome: Progressing as expected Goal: Effective communication Outcome: Progressing as expected Problem: Skin integrity Impaired (Risk or Actual) Goal: Wound healing Outcome: Progressing as expected Goal: Prevention of new skin breakdown Outcome: Progressing as expected Isa Sal [facility] - [id number] 10:13:15 Problem: Pain Goal: Control of pain at or below patient's documented comfort goal Outcome: Progressing as expected Problem: Venous Thromboembolism, (actual or risk of) Goal: Absence of venous thromboembolism (Risk) Outcome: Progressing as expected Problem: Falls, Risk of Goal: Absence of falls Outcome: Progressing as expected Problem: Discharge Planning Goal: Adequate for discharge Outcome: Progressing as expected Problem: Skin integrity Impaired (Risk or Actual) Goal: Wound healing Outcome: Progressing as expected [facility] [id number] 01:41:37 Problem: Pain Goal: Control of pain at or below patient's documented comfort goal Outcome: Progressing as expected Goal: Reduction in pain sensation Outcome: Progressing as expected Problem: Venous Thromboembolism, (actual or risk of) Goal: Absence of venous thromboembolism (Risk) Outcome: Progressing as expected Goal: Prevent further complications associated with VTE diagnosis (Actual) Outcome: Progressing as expected Problem: Falls, Risk of Goal: Absence of falls Outcome: Progressing as expected Problem: Discharge Planning Goal: Adequate for discharge Outcome: Progressing as expected Goal: Effective communication Outcome: Progressing as expected Problem: Skin integrity Impaired (Risk or Actual) Goal: Wound healing Outcome: Progressing as expected Goal: Prevention of new skin breakdown Outcome: Progressing as expected Tim Aquino [facility] - [id number] 15:11:48 Problem: Pain Goal: Control of pain at or below patient's documented comfort goal Outcome: Progressing as expected Goal: Reduction in pain sensation Outcome: Progressing as expected Problem: Venous Thromboembolism, (actual or risk of) Goal: Absence of venous thromboembolism (Risk) Outcome: Progressing as expected Goal: Prevent further complications associated with VTE diagnosis (Actual) Outcome: Progressing as expected Problem: Falls, Risk of Goal: Absence of falls Outcome: Progressing as expected Problem: Discharge Planning Goal: Adequate for discharge Outcome: Progressing as expected Goal: Effective communication Outcome: Progressing as expected Problem: Skin integrity Impaired (Risk or Actual) Goal: Wound healing Outcome: Progressing as expected Goal: Prevention of new skin breakdown Outcome: Progressing as expected [facility] 02:13:25 Problem: Pain Goal: Control of pain at or below patient's documented comfort goal Outcome: Progressing as expected Goal: Reduction in pain sensation Outcome: Progressing as expected Problem: Venous Thromboembolism, (actual or risk of) Goal: Absence of venous thromboembolism (Risk) Outcome: Progressing as expected Goal: Prevent further complications associated with VTE diagnosis (Actual) Outcome: Progressing as expected Problem: Falls, Risk of Goal: Absence of falls Outcome: Progressing as expected Problem: Discharge Planning Goal: Adequate for discharge Outcome: Progressing as expected Goal: Effective communication Outcome: Progressing as expected Problem: Skin integrity Impaired (Risk or Actual) Goal: Wound healing Outcome: Progressing as expected Goal: Prevention of new skin breakdown Outcome: Progressing as expected [facility]2023[facility]08[facility]02 22:53:13 Problem: Pain Goal: Control of pain at or below patient's documented comfort goal 02/09/20232252 by Lynn Mesa RN Outcome: Progressing as expected 02/09/20232209 by Lynn Mesa RN Outcome: Progressing as expected Goal: Reduction in pain sensation 02/09/20232252 by Lynn Mesa RN Outcome: Progressing as expected 02/09/20232209 by Lynn Mesa RN Outcome: Progressing as expected Problem: Venous Thromboembolism, (actual or risk of) Goal: Absence of venous thromboembolism (Risk) 02/09/20232252 by Lynn Mesa, RN Outcome: Progressing as expected 02/09/20232209 by Lynn Mesa RN Outcome: Progressing as expected Goal: Prevent further complications associated with VTE diagnosis (Actual) 02/09/20232252 by Lynn Mesa RN Outcome: Progressing as expected 02/09/20232209 by Lynn Mesa RN Outcome: Progressing as expected Problem: Falls, Risk of Goal: Absence of falls 02/09/20232252 by Lynn Mesa RN Outcome: Progressing as expected 02/09/20232209 by Lynn Mesa RN Outcome: Progressing as expected Problem: Discharge Planning Goal: Adequate for discharge Outcome: Progressing as expected Goal: Effective communication Outcome: Progressing as expected Problem: Skin integrity Impaired (Risk or Actual) Goal: Wound healing Outcome: Progressing as expected Goal: Prevention of new skin breakdown Outcome: Progressing as expected [place] [id number] 22:10:30 Problem: Pain Goal: Control of pain at or below patient's documented comfort goal Outcome: Progressing as expected Goal: Reduction in pain sensation Outcome: Progressing as expected Problem: Venous Thromboembolism, (actual or risk of) Goal: Absence of venous thromboembolism (Risk) Outcome: Progressing as expected Goal: Prevent further complications associated with VTE diagnosis (Actual) Outcome: Progressing as expected Problem: Falls, Risk of Goal: Absence of falls Outcome: Progressing as expected [facility]2023[facility]02 04:48:32 Problem: Pain Goal: Control of pain at or below patient's documented comfort goal Outcome: Progressing as expected Goal: Reduction in pain sensation Outcome: Progressing as expected Problem: Venous Thromboembolism, (actual or risk of) Goal: Absence of venous thromboembolism (Risk) Outcome: Progressing as expected Goal: Prevent further complications associated with VTE diagnosis (Actual) Outcome: Progressing as expected Problem: Falls, Risk of Goal: Absence of falls Outcome: Progressing as expected [place] [id number] 19:15:33 Report given to T[employer] accounts investigator Maria Isabel De Los [facility] - [id number] 12:05:35 Nausea/vomiting x1 month. Had gallbladder taken out shortly after. Still has some nausea when eating. Also complaining of cough-diagnosed with covid 2 days ago. Wants to know if she still has covid. Called her PCP Dr Gunter and was advised to come to ED. Mayela Mota [facility] - [id number] 12:00:00 [facility] Emergency Department Note Patient Name: Latasha Elam Date of : 1940 82 year old female Treatment Room: [place] [address] Primary Care Physician: Renetta Osman Patient Escorted by: Self [9] Mode of Arrival: EMS - [place] [46] EMS Treatment Prior to ED Arrival: [facility] treatment: None Chief Complaint: Chief Complaint Patient presents with Cough Other "Test to see if I still have covid" History of Present Illness: Latasha Elam is a 82 year old female who presents to the ED with complaint of continued vomitingand diarrhea since early January .Seen here at that time and underwent a cholecystectomy . She reportsvomiting and diarrhea continue. Contacted her PCP who advised to come to ED. Diagnosed Tuesday Home Test + Covid Plan: COVID-19 (ID NOW TESTING) LAB ONLY COVID INTERPRETATION CBC WITH DIFF URINALYSIS COMP. METABOLIC PANEL (68586) LIPASE History provided by: Patient Vomiting Severity: Moderate Duration: 4 weeks Timing: Intermittent Quality: Undigested food Progression: Unchanged Chronicity: New Recent urination: Normal Relieved by: None tried Worsened by: Food smell and liquids Ineffective treatments: None tried Associated symptoms: cough, diarrhea and myalgias Associated symptoms: no abdominal pain and no headaches Past Medical History/Immunizations: No past medical history on file. Tetanus received in last 5 years: Unknown Childhood immunizations: Up-to-date Allergies: Allergies Allergen Reactions Sulfa (Sulfonamide Antibiotics) Hives Past Social History: Tobacco Use Never smoked or used smokeless tobacco. Passive Exposure: Never Alcohol Use Never. Drug Use Never. Past Surgical History: Past Surgical History: Procedure Laterality Date LAPAROSCOPIC CHOLECYSTECTOMY N/A 01/19/2023 Surgeon: Heath Sorto DO; Location: [facility] OR [facility] LYSIS OF ABDOMINAL ADHESIONS N/A 01/19/2023 Surgeon: Heath Sorto DO; Location: [facility] OR LOCATION Review of Systems: Review of Systems Unable to perform ROS Constitutional: Negative. HENT: Negative. Respiratory: Positive for cough. Cardiovascular: Negative. Gastrointestinal: Positive for diarrhea and vomiting. Negative for abdominal pain. Genitourinary: Negative. Musculoskeletal: Positive for myalgias. Neurological: Negative for headaches. Psychiatric/Behavioral: Negative. All other systems reviewed and are negative. Endocrine: Endocrine negative Physical Exam: ED Triage Vitals [02/08/23 1206] Weight 47.2 kg (104 lb) Actual or estimated Estimated by patient/family report Height 1.448 m (4' 9") BP 109/69 Pulse 67 Resp 14 Temp 37.2 ?C (99 ?F) Temp source Oral SpO2 95 % Measured on Room air Physical Exam Vitals and nursing note reviewed. Constitutional: General: She is not in acute distress. Appearance: Normal appearance. She is well-developed and normal weight. She is not ill-appearing, toxic-appearing or diaphoretic. HENT: Head: Normocephalic. Right Ear: External ear normal. Left Ear: External ear normal. Nose: Nose normal. Mouth/Throat: Mouth: Mucous membranes are moist. Pharynx: Oropharynx is clear. No oropharyngeal exudate or posterior oropharyngeal erythema. Eyes: General: No scleral icterus. Right eye: No discharge. Left eye: No discharge. Extraocular Movements: Extraocular movements intact. Conjunctiva/sclera: Conjunctivae normal. Pupils: Pupils are equal, round, and reactive to light. Neck: Vascular: No carotid bruit. Cardiovascular: Rate and Rhythm: Normal rate and regular rhythm. Pulses: Normal pulses. Heart sounds: Normal heart sounds. No murmur heard. No friction rub. No gallop. Pulmonary: Effort: Pulmonary effort is normal. No respiratory distress. Breath sounds: Normal breath sounds. No stridor. No wheezing, rhonchi or rales. Chest: Chest wall: No tenderness. Abdominal: General: Abdomen is flat. Bowel sounds are normal. There is no distension. Palpations: Abdomen is soft. There is no mass. Tenderness: There is no abdominal tenderness. There is no right CVA tenderness, left CVA tenderness, guarding or rebound. Hernia: No hernia is present. Musculoskeletal: General: No swelling, tenderness, deformity or signs of injury. Normal range of motion. Cervical back: Normal range of motion and neck supple. No rigidity or tenderness. Right lower leg: No edema. Left lower leg: No edema. Lymphadenopathy: Cervical: No cervical adenopathy. Skin: General: Skin is warm and dry. Capillary Refill: Capillary refill takes less than 2 seconds. Coloration: Skin is not jaundiced or pale. Findings: No bruising, erythema or lesion. Neurological: General: No focal deficit present. Mental Status: She is alert and oriented to person, place, and time. Cranial Nerves: No cranial nerve deficit. Sensory: No sensory deficit. Motor: No weakness. Coordination: Coordination normal. Gait: Gait normal. Psychiatric: Mood and Affect: Mood normal. Behavior: Behavior normal. Thought Content: Thought content normal. Judgment: Judgment normal. Radiology: No orders to display Lab Results: covid + mild anemia , urine + , K+ decreased , creatinine trending up Lab Results COVID-19 (ID NOW RAPID TESTING) - Abnormal Result Value Ref Range SARS-CoV-2 Rapid ID NOW Positive (*) Not Detected CBC WITH DIFF - Abnormal WBC 10.25 4.30 - 11.10 10*3/?L RBC 3.46 (*) 3.93 - 5.25 10*6/?L HGB 10.3 (*) 11.6 - 15.0 g/dL HCT 32.4 (*) 35.7 - 45.2 % MCV 93.6 80.6 - 95.5 fL MCH 29.8 25.9 - 32.8 pg MCHC 31.8 31.6 - 35.1 g/dL RDW-SD 44.9 39.0 - 49.9 fL RDW-CV 13.2 12.0 - 15.5 % PLT 328 166 - 358 10*3/?L MPV 10.2 9.5 - 12.9 fL NRBC/100 WBC 0.0 0.0 - 10.0 /100 WBCs NRBC x10^3 <0.01 10*3/?L GRAN MAT (NEUT) % 67.5 % IMM GRAN % 1.20 % LYMPH % 17.6 % MONO % 10.0 % EOS % 3.2 % BASO % 0.5 % GRAN MAT x10^3(ANC) 6.92 1.88 - 7.09 10*3/uL IMM GRAN x10^3 0.12 (*) 0.00 - 0.06 10*3/uL LYMPH x10^3 1.80 1.32 - 3.29 10*3/uL MONO x10^3 1.03 (*) 0.33 - 0.92 10*3/uL EOS x10^3 0.33 0.03 - 0.39 10*3/uL BASO x10^3 0.05 0.01 - 0.07 10*3/uL URINALYSIS - Abnormal APPEARANCE Cloudy (*) Clear COLOR Kassandra (*) Yellow PH 5.0 4.8 - 8.0 SP GRAVITY 1.024 1.003 - 1.030 GLU U QUAL 50 mg/dL (*) Normal BLOOD Negative Negative KETONES Negative Negative PROTEIN 500 mg/dL (*) Negative UROBILIN Normal Normal BILIRUBIN Negative Negative NITRITE Negative Negative LEUK DIONICIO 25/uL (*) Negative RBC/HPF 26 (*) 0 - 3 HPF WBC/HPF 18 (*) 0 - 5 HPF BACTERIA Few (*) Negative MUCOUS Slight (*) Negative LPF SQ EPITH 15 HPF YEAST BUD 7 (*) <=1 HPF HYAL CAST 3 (*) <=2 LPF COMP. METABOLIC PANEL (84213) - Abnormal NA 142 135 - 145 mmol/L K 2.7 (*) 3.5 - 5.0 mmol/L CL 101 98 - 108 mmol/L CO2 TOTAL 28 23 - 31 mmol/L AGAP 13 2 - 16 BUN 19 7 - 23 mg/dL GLUCOSE 209 (*) 70 - 110 mg/dL CREATININE 1.57 (*) 0.50 - 1.04 mg/dL TOTAL BILI 0.6 0.1 - 1.1 mg/dL CALCIUM 8.9 8.6 - 10.6 mg/dL T PROTEIN 7.7 6.3 - 8.2 g/dL ALBUMIN 3.7 3.5 - 5.0 g/dL ALK PHOS 86 34 - 122 U/L ALTv 32 5 - 35 U/L AST(SGOT) 30 13 - 40 U/L eGFR 31.7 mL/min/1.73m2 LIPASE - Normal LIPASE 54 0 - 220 U/L MAGNESIUM - Normal MAGNESIUM 2.2 1.7 - 2.4 mg/dL Orders and Treatments: Orders Placed This Encounter Procedures COVID-19 (ID NOW TESTING) LAB ONLY COVID INTERPRETATION CBC WITH DIFF URINALYSIS COMP. METABOLIC PANEL (56482) LIPASE MAGNESIUM O2 Per Protocol Incentive Spirometer Set Up and Education by RT Orders Placed This Encounter Medications NaCl 0.9% (NS) bolus infusion 500 mL magnesium sulfate in D5W 1 gram/100 mL RTU IV Piggyback 1 g potassium chloride in water 10 mEq/100 mL RTU 10 mEq KCL (KLOR-CON M20) tablet 40 mEq cefTRIAXone (ROCEPHIN) 1,000 mg in NaCl 0.9% (NS) 100 mL MINI-BAG DISCONTD: enoxaparin (LOVENOX) injection 40 mg acetaminophen (TYLENOL) tablet 650 mg HYDROcodone-acetaminophen (NORCO 5) 5-325 mg tablet 1 tablet AND Linked Order Group remdesivir 200 mg in NaCl 0.9% (NS) 100 mL infusion remdesivir 100 mg in NaCl 0.9% (NS) 100 mL MINI-BAG DISCONTD: furosemide (LASIX) injection 20 mg potassium chloride in water 10 mEq/100 mL RTU 10 mEq enoxaparin (LOVENOX) injection 30 mg First Provider Eval: ED Events Date/Time Event User Comments 02/08/23 133 Medical Screening Begins [facility]AILASH ARENAS -- 02/08/23 133 First Provider Evaluation KAILASH ARENAS -- No notes of EC Admission Criteria type on file. ED COURSE ED Course as of 02/08/231944Feb 08, 2023 1800 Accepts by Hospitalist for observation, Potassium repleted, rocephin for UTI [PD] 1658 Discussed lab findings, diagnosis, , given age, NIESHA, UTI and hypokalemia offered admission. She agrees. NOtified [facility]spital team of request [PD] ED Course User Index [PD] Samanta Arenas NP Diagnosis/Impression as of 02/08/231944 COVID-19 virus infection Acute renal failure superimposed on chronic kidney disease, unspecified CKD stage, unspecified acute renal failure type Anemia, unspecified type Urinary tract infection without hematuria, site unspecified Hyperglycemia Hypokalemia Procedures: Procedures MDM: Medical Decision Making Latasha Elam is a 82 year old female who presents to the ED with complaint of continued vomitingand diarrhea since early January .Seen here at that time and underwent a cholecystectomy . She reportsvomiting and diarrhea continue. Contacted her PCP who advised to come to ED. Differentials : gastroenteritis, electrolyze abnormality, colitis , gastroparesis , DKA Problems Addressed: Anemia, unspecified type: acute illness or injury COVID-19 virus infection: acute illness or injury Hyperglycemia: acute illness or injury Hypokalemia: acute illness or injury Urinary tract infection without hematuria, site unspecified: acute illness or injury Amount and/or Complexity of Data Reviewed Labs: ordered. Decision-making details documented in ED Course. Details: covid + mild anemia , urine + , K+ decreased , creatinine trending up Risk Prescription drug management. Flowsheet Documentation: Patient Vitals for the past 24 hrs: BP Temp Temp src Pulse Resp SpO2 Height Weight 02/08/23 1939 (!) 166/76 36.2 ?C (97.1 ?F) -- 78 17 100 % 1.168 m (3' 10") 45.5 kg (100 lb 4.8 oz) 02/08/23 1900 (!) 141/93 -- -- 82 21 97 % -- -- 02/08/23 1830 (!) 142/69 -- -- 73 26 100 % -- -- 02/08/23 1800 (!) 156/69 -- -- 75 (!) 37 100 % -- -- 02/08/23 1730 (!) 151/70 -- -- 76 (!) 35 97 % -- -- 02/08/23 1717 -- -- -- 81 17 92 % -- -- 02/08/23 1700 (!) 152/52 -- -- 76 17 94 % -- -- 02/08/23 1630 125/63 -- -- 82 18 94 % -- -- 02/08/23 1206 109/69 37.2 ?C (99 ?F) Oral 67 14 95 % 1.448 m (4' 9") 47.2 kg (104 lb) Disposition/Condition: ED Disposition ED Disposition Admit - Observation Condition -- Comment Is (or was) this a planned re-admission?: No Treatment Team: [facility] [[id number]] Is this patient COVID positive or a patient under investigation (PUI)?: No Electronically signed by: Samanta Arenas NP 02/08/231945 Associated attestation - Sumeet Marin MD - 02/08/2023 10:40 PM CDT Addendum I was personally available for consultation in the Emergency Department during this encounter and patient evaluation by ELKE Arenas. [facility]
[2024-09-11 09:39] LABS: Absolute Basophils 0.1 K/uL (0-0.5); Absolute Eosinophils 0.1 K/uL (0-0.5); Absolute Lymphocytes (CBC) 1.6 K/uL (0.7-4.9); Absolute Monocytes 0.8 K/uL (0.1-1.3); Absolute Neutrophil 10.9 K/uL (1.8-8.0); Basophils % 0.8 % (0-1.3); Eosinophils % 0.5 % (0-4.4); Hematocrit 36.2 % (36.0-45.0); Hemoglobin 12.5 g/dL (12.0-15.0); Lymphocytes % 11.8 % (15.3-44.8); MCH 32.3 pg (27.0-35.0); MCHC 34.6 g/dL (32.0-36.0); MCV 93.5 fL (80-100); MPV 8.9 fL (7.6-11.3); Monocytes % 6.2 % (3.3-12.3); Neutrophils % 80.7 % (41.7-73.7); Nucleated Red Blood Cells % 0.1 % (0-0); Platelets 303 thou/uL (152-406); RBC Red Blood Cell Count 3.87 M/uL (3.86-4.86); Red Cell Distribution Width 12.7 % (12.1-15.2)
[2024-09-11] MEDS ORDERED: NA CHLORIDE 0.9% 500 ML ONE (09:44)
[2024-09-11 09:51] LABS: Anion Gap 12.4 mEq/L (5.0-15.0); Potassium 4.4 mEq/L (3.5-5.1)
[2024-09-11 11:36] LABS: Specific Gravity 1.013 (1.005-1.030); Transitional Epithelial <5 /HPF (None Seen); Urine Bacteria <20 /HPF (<20); Urine Bilirubin NEGATIVE (Negative); Urine Blood Negative (Negative); Urine Clarity Turbid (Clear); Urine Color Light-Yellow (Yellow); Urine Culture Reflex Order REFLEXED; Urine Glucose NEGATIVE (Negative); Urine Ketones NEGATIVE (Negative); Urine Microscopic Reflex YN ORDER UMIC; Urine Mucus Slight /HPF (None Seen); Urine Nitrite NEGATIVE (Negative); Urine Protein 1+ (Negative); Urine RBC <5 /HPF (None Seen); Urine Urobilinogen Normal (Normal); Urine WBC 20-50 /HPF (<5)
--- NOTE | 2024-09-11 12:24 | EDPHYS ---
Physician Documentation [facility] Name: Latasha Black Age: 84 yrs Sex: Female : 1940 Arrival Date: 09/11/2024 Time: 08:48 Bed 6 Private MD: ED Physician Yg Garcia HPI: 09/11 09:22 This 84 yrs old Female presents to ER via Wheelchair with complaints of Low rn Blood Sugar. 09:22 The patient or guardian reports hypoglycemia. Associated signs and symptoms: Pertinent rn positives: Shaking. Current symptoms: In the emergency department the patient's symptoms have improved. The patient has experienced similar episodes in the past. Patient reports low blood sugar this morning, blood sugar read in the 70s. Patient checked blood sugar because she felt shaky. No fever or chills. Went to bed fine last night. No recent illness. No cough or shortness of breath. No vomiting or diarrhea. No chest pain. Patient ate peanut butter and feels a little better but still does not feel back to baseline. Patient has known chronic kidney disease and family member states has been getting worse, sees nephrology for this. Insulin dosing has not been modified accordingly. Patient states this is what it felt like the other times her blood sugar goes low.. Historical: - Allergies: 09:21 No Known Allergies; bp - PMHx: 09:21 Diabetes mellitus; Kidney disease; bp - Immunization history:: Adult Immunizations up to date. - Infectious Disease History:: Denies. - Social history:: Smoking status: Patient denies any tobacco usage or history of. - Family history:: not pertinent. - Hospitalizations: : No recent hospitalization is reported. ROS: 09:22 Constitutional: Negative for fever, chills, and weight loss, Neck: Negative for injury, rn pain, and swelling, Cardiovascular: Negative for chest pain, palpitations, and edema, Respiratory: Negative for shortness of breath, cough, wheezing, and pleuritic chest pain, Abdomen/GI: Negative for abdominal pain, nausea, vomiting, diarrhea, and constipation, MS/Extremity: Negative for injury and deformity, Skin: Negative for injury, rash, and discoloration, Neuro: Negative for headache, weakness, numbness, tingling, and seizure, Exam: :22 Constitutional: This is a well developed, well nourished patient who is awake, alert, rn and in no acute distress. Head/Face: Normocephalic, atraumatic. ENT: Dry mucous membranes Cardiovascular: Regular rate and rhythm. No pulse deficits. Respiratory: No increased work of breathing, no retractions or nasal flaring. Abdomen/GI: Soft, non-tender MS/ Extremity: Pulses equal, no cyanosis. Neuro: Awake and alert, GCS 15, oriented to person, place, time, and situation. Cranial nerves II-XII grossly intact. Motor strength 5/5 in all extremities. Sensory grossly intact. Cerebellar exam normal. 16:45 ECG was reviewed by the Attending Physician. rn Vital Signs: 09:19 BP 151 / 71; Pulse 72; Resp 16; Temp 97; Pulse Ox 96% ; bp 10:01 BP 117 / 57; Pulse 60; Pulse Ox 98% on R/A; rs6 10:35 BP 117 / 57; Pulse 56; Pulse Ox 92% on R/A; rs6 11:12 BP 103 / 56; Pulse 58; Pulse Ox 98% on R/A; rs6 12:36 BP 118 / 80; Pulse 58; Resp 16; Pulse Ox 96% ; bp MDM: 08:59 Medical Screening Exam initiated rn 12:22 Differential diagnosis: hypoglycemic episode, Worsening renal function, dehydration, rn urinary tract infection. Data reviewed: vital signs, nurses notes, lab test result(s), and as a result, I will discharge patient. Counseling: I had a detailed discussion with the patient and/or guardian regarding the historical points, exam findings, and any diagnostic results supporting the discharge/admit diagnosis, lab results, the need for outpatient follow up, to return to the emergency department if symptoms worsen or persist or if there are any questions or concerns that arise at home. Response to treatment: the patient's symptoms have markedly improved after treatment, and as a result, I will discharge patient. Special discussion: I discussed with the patient/guardian in detail that at this point there is no indication for admission to the hospital. It is understood, however, that if the symptoms persist or worsen the patient needs to return immediately for re-evaluation. ED course: Patient feels much better, back to baseline, no further shaking episodes since correction of glucose. Had long conversation with patient and family regarding chronic kidney disease and its effect on insulin clearance, they will follow-up with nephrology and PCP. For now recommend close glucose monitoring and might need decrease in insulin dose. Possible UTI. Will discharge home with antibiotics and return precautions. 09/11 09:14 Order name: CBC with Diff; Complete Time: 09:40 rn 09/11 09:14 Order name: Basic Metabolic Panel; Complete Time: 10:26 rn 09/11 09:14 Order name: Urinalysis w/ reflexes; Complete Time: 12:14 rn 09/11 09:29 Order name: Glucose, Ancillary Testing; Complete Time: 09:40 EDMS 09/11 11:40 Order name: Urine Culture EDMS 09/11 09:15 Order name: EKG; Complete Time: 09:15 rn 09/11 09:14 Order name: Glucose Level; Complete Time: 09:25 rn 09/11 09:14 Order name: IV Start; Complete Time: :25 rn 09/11 09:14 Order name: Cardiac monitoring; Complete Time: 09:25 rn 09/11 09:14 Order name: PO challenge; Complete Time: 09:25 rn 09/11 09:15 Order name: EKG - Nurse/Tech; Complete Time: 09:42 rn EC:45 Rate is 58 beats/min. Rhythm is regular. QRS [place] is Normal. [place] interval is normal. QRS rn interval is normal. QT interval is normal. No Q waves. No ST changes noted. Clinical impression: Sinus bradycardia. Interpreted by me. Reviewed by me. Administered Medications: 09:46 Drug: NS 0.9% IV 500 ml 500 ml IV at 1 bolus once; to be given as a bolus over 30 bp minutes Volume: 500 ml; Route: IV; Rate: 1 bolus; Site: right forearm; 12:35 Follow up: IV Status: Completed infusion; IV Intake: 500ml bp Disposition Summary: 09/11/24 12:23 Discharge Ordered Notes: Location: Home rn Problem: new rn Symptoms: have improved rn Condition: Stable rn Diagnosis - Hypoglycemia, unspecified rn - UTI/ Urinary tract infection, site not specified rn Followup: rn - With: Private Physician - When: As needed - Reason: Recheck today's complaints, Re-evaluation by your physician Discharge Instructions: - Discharge Summary Sheet rn - Urinary Tract Infection, Adult rn Forms: - Medication Reconciliation Form rn - Antibiotic warning analyst - Prescription Opioid Use rn - Patient Portal Instructions rn - Leadership Thank You Letter rn Prescriptions: - Augmentin 875-125 mg Oral Tablet - take 1 tablet ORAL route every 12 hours for 10 days; 20 tablet; Refills: 0, rn Product Selection Permitted Signatures: Dispatcher [employer] Yg Rodriguez MD MD rn Jose Stoner, RN RN bp
--- NOTE | 2024-09-11 12:24 | ER ---
Nurse's Notes [facility] Name: Latasha Black Age: 84 yrs Sex: Female : 1940 Arrival Date: 09/11/2024 Time: 08:48 Bed 6 Private MD: Diagnosis: Hypoglycemia, unspecified;UTI/ Urinary tract infection, site not specified Presentation: 09/11 09:19 Chief complaint: Patient states: SHAKY AFTER BGL 78 THIS AM. Coronavirus screen: At bp this time, the client does not indicate any symptoms associated with coronavirus-19. Ebola Screen: No symptoms or risks identified at this time. Initial Sepsis Screen: Does the patient meet any 2 criteria? No. Patient's initial sepsis screen is negative. Does the patient have a suspected source of infection? No. Patient's initial sepsis screen is negative. Risk Assessment: Do you want to hurt yourself or someone else? Patient reports no desire to harm self or others. Onset of symptoms was September 11, 2024. 09:19 Method Of Arrival: Wheelchair bp 09:19 Acuity: SESAR 3 bp Triage Assessment: 09:21 General: Appears in no apparent distress. Behavior is cooperative, appropriate for age, bp anxious. Pain: Denies pain. EENT: No deficits noted. Neuro: No deficits noted. Cardiovascular: No deficits noted. Respiratory: No deficits noted. GI: No signs and/or symptoms were reported involving the gastrointestinal system. : No signs and/or symptoms were reported regarding the genitourinary system. Derm: No deficits noted. Musculoskeletal: No deficits noted. Historical: - Allergies: 09:21 No Known Allergies; bp - PMHx: 09:21 Diabetes mellitus; Kidney disease; bp - Immunization history:: Adult Immunizations up to date. - Infectious Disease History:: Denies. - Social history:: Smoking status: Patient denies any tobacco usage or history of. - Family history:: not pertinent. - Hospitalizations: : No recent hospitalization is reported. Screenin:24 [facility] ED Fall Risk Assessment (Adult) History of falling in the last 3 months, bp including since admission No falls in past 3 months (0 pts) Confusion or Disorientation No (0 pts) Intoxicated or Sedated No (0 pts) Impaired Gait No (0 pts) Mobility Assist Device Used No (0 pt) Altered Elimination No (0 pt) Score/Fall Risk Level 0 - 2 = Low Risk Oriented to surroundings. Abuse screen: Denies threats or abuse. Denies injuries from another. Nutritional screening: No deficits noted. Tuberculosis screening: No symptoms or risk factors identified. Assessment: 09:24 General: Appears in no apparent distress. Behavior is cooperative, appropriate for age, bp anxious. Vital Signs: 09:19 BP 151 / 71; Pulse 72; Resp 16; Temp 97; Pulse Ox 96% ; bp 10:01 BP 117 / 57; Pulse 60; Pulse Ox 98% on R/A; rs6 10:35 BP 117 / 57; Pulse 56; Pulse Ox 92% on R/A; rs6 11:12 BP 103 / 56; Pulse 58; Pulse Ox 98% on R/A; rs6 12:36 BP 118 / 80; Pulse 58; Resp 16; Pulse Ox 96% ; bp ED Course: 08:52 Patient arrived in ED. cj3 08:59 Yg Garcia MD is Attending Physician. rn 09:02 Jose Stoner RN is Primary Nurse. bp 09:18 Initial lab(s) drawn, by de, sent to lab. Inserted saline lock: 22 gauge in right bp forearm, using aseptic technique. Blood collected. Flushed with 10 mL NS. 09:21 Triage completed. bp 09:21 Arm band placed on. bp 09:24 Patient has correct armband on for positive identification. bp 12:35 No provider procedures requiring assistance completed. IV discontinued, intact, bp bleeding controlled, No redness/swelling at site. Pressure dressing applied. Administered Medications: 09:46 Drug: NS 0.9% IV 500 ml 500 ml IV at 1 bolus once; to be given as a bolus over 30 bp minutes Volume: 500 ml; Route: IV; Rate: 1 bolus; Site: right forearm; 12:35 Follow up: IV Status: Completed infusion; IV Intake: 500ml bp Medication: 12:35 VIS not applicable for this client. bp Intake: 12:35 IV: 500ml; Total: 500ml. bp Outcome: 12:23 Discharge ordered by MD. rn 12:35 Discharged to home ambulatory, with family, bp 12:35 Condition: stable 12:35 Discharge instructions given to patient, family, Instructed on discharge instructions, follow up and referral plans. medication usage, Demonstrated understanding of instructions, follow-up care, medications, Prescriptions given X 1, 12:36 Patient left the ED. bp Signatures: Yg Garcia MD MD rn Peltier, Brian, RN RN bp Smith, Ryan rs6 Marge Arias cj3
[2024-09-11 12:54] VITALS: TEMP 97
[2024-09-11 13:03] VITALS: BP 118/80; O2SAT 96
--- NOTE | 2024-09-12 11:06 | EKG ---
Test Date: 2024-09-11 Test Time: 09:39:30 Aeronautical Engineering Teacher: ZACK MEASUREMENT RESULTS: Intervals: Rate: 58 RI: 146 QRSD: 74 QT: 442 QTc: 433 [place]: P: 42 RI: 146 QRS: -4 T: -2 INTERPRETIVE STATEMENTS: Sinus bradycardia Anterior infarct, age undetermined T wave abnormality, consider lateral ischemia Abnormal ECG Compared to ECG 08/04/2005 09:17:00 Myocardial infarct finding now present T-wave abnormality now present Possible ischemia now present Sinus tachycardia no longer present Left ventricular hypertrophy no longer present Electronically Signed On 09-12-24 11:05:21 BODY COMPONENT ENGINEER by James Bird
== END 2024-09-11 12:36 | disposition home or self-care (01) ==
LOC: ER 08:48
DX: E11.649 Type 2 diabetes mellitus with hypoglycemia without coma (principal); N39.0 Urinary tract infection, site not specified
CPT/HCPCS: 96361; 93005; 87088; 85025; 81001; 87086; 80048; 36415; 82947; 96360; 99284; J7040

== ENCOUNTER 2025-02-24 14:52 | Inpatient (IN) | payer OTHER ==
--- OUTSIDE RECORDS SUMMARY | 2025-02-24 15:12 | XMS REPORT | Continuity of Care Document ---
Author Name Unknown Address [address] [facility] [address] [place] [address] [facility] [place] Address [address] [facility] [place] [address] Care Team Providers Care Charge Attendant Name Role Phone Shayne ALBERTS, Renetta Primary Care Physic keith [phone] Pob, [facility] Main Attending Clinician Dayne Bonner MD Attending Clinician [phone] DAYNE DE LA VEGA Attending Clinician Unavailable DAYNE DE LA VEGA Attending Clinician Unavailable Doctor Unassigned, [employer] Attending Clinician U chiquita Pob, [facility] Main Attending Clinician UnavailTOMASA Larios Attending Clinician Unavailab bree Blair MD, Tomasa Attending Clinician [phone] Heath De La Garza MD Attending Clinician [phone] HEATH DE LA GARZA Attending Clinician Unavailrashad martinez Doctor Unassigned, [employer] Attending Clinician U Lauren Shafer RN Attending Clinician Unavailab MARIA LUISA Lee Attending Clinician Unavailable [place] [employer], Samanta Douglass Attending Clinician [phone] Maria Luisa Hernández DO Attending Clinician [phone] AMADOR CHILDS Attending Clinician Unavailable Katy ALBERTS, Loraine Hooks Attending Clinician [phone] Jose Elias Lopes MD Attending Clinician [phone] Karli Benitez MD Attending Clinician [phone] Amador Childs MD Attending Clinician Heath Sorto DO Attending Clinician [phone] Chantelle Solo MD Attending Clinician [phone] Marcio Ely MD Attending Clinician [phone] MARIELA GIPSON Attending Clinician Unavailable Mariela Crook Attending Clinician [phone] RADIOLOGY Attending Clinician Unavailable RENETTA OSMAN Attending Clinician Un available TOMASA BLAIR Admitting Clinician Unavailab MARIA LUISA Lee Admitting Clinician Unavailable Maria Luisa Hernández DO Admitting Clinician KARLI BENITEZ Admitting Clinician Unavailable Karli Benitez MD Admitting Clinician [phone] RENETTA OSMAN Admitting Clinician Un available Payers Payer Name Policy Type Policy Number Effective Date Expirati on Date Source MEDICARE PART A \\T\\ [id number] 2007 00:00:00 FOR LIFE [id number] 2015 00:00:00 Problems Condition Name Condition Details Condition Category Status Onset Date Resolution Date Last Treatment Date Treating Clinician Comments Source COLLINS (dyspnea on exertion) COLLINS (dyspnea on exertion) Disease Active 02-13 00:00: 00 [facility] Pulmonary hypertensi on Pulmonary hypertensi on Disease Active 02-13 00:00: 00 [facility] 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 Disease Active 02-13 00:00: 00 [facility] Hypokalemi a Hypokalemi a Disease Active 02-13 00:00: 00 [facility] Essential hypertensi on Essential hypertensi on Disease Active 8 00:00: 00 [facility] Dyslipidem ia Dyslipidem ia Disease Active 02-13 00:00: 00 [facility] VHD (valvular heart disease) VHD (valvular heart disease) Disease Active 02-13 00:00: 00 [facility] Elevated brain natriureti c peptide (BNP) level Elevated brain natriureti c peptide (BNP) level Disease Active 8-06 00:00: 00 [facility] Elevated brain natriureti c peptide (BNP) level Elevated brain natriureti c peptide (BNP) level Disease Active 8-06 00:00: 00 [facility] COVID-19 virus infection COVID-19 virus infection Disease Active 8- 00:00: 00 [facility] Vomiting and diarrhea Vomiting and diarrhea Disease Active 7- 00:00: 00 [facility] Allergies, Adverse Reactions, Alerts Allergy Name Allergy [...] Drug Class Active Hives 3-14 00:00: 00 [facility] Sulfa (Sulfona mide Antibiot ics) Propensi ty to adverse reaction s Active Hives 3-14 00:00: 00 [facility] Social History Social Habit Start Date Stop Date Quantity Comments Source Gender identity [facility] Alcoholic beverage intake 2023-11-04 00:00:00 2023-11-04 00:00:00 Lifetime non-drinker (finding) [facility] Alcohol intake 2023-11-04 00:00:00 2023-11-04 00:00:00 Lifetime non-drinker (finding) [facility] History of Social function 2023-02-10 00:00:00 2023-02-10 00:00:00 [facility] Tobacco use and exposure 2023-01-17 00:00:00 2023-01-17 00:00:00 Smokeless tobacco non-user [facility] Exposure to SARS-CoV-2 (event) 2022-10-17 00:00:00 2022-10-27 13:42:00 Not sure [facility] Sex assigned at 1940 00:00:00 1940 00:00:00 [facility] Smoking Status Start Date Stop Date Source Never smoked tobacco [facility] Tobacco smoking consumption unknown [facility] Medications Ordered Medication Name Filled Medication Name Start Date Stop Date Current Medication? Ordering Clinician Indication Dosage Frequency Signature (SIG) Comments Components Source Lantus U-100 Insulin 100 unit/mL subcutaneou s solution 3-13 00:00: 00 Yes unit/mL Dev Steiner Lantus U-100 Insulin 100 unit/mL subcutaneou s solution 08-09 00:00: 00 Yes unit/mL Dev Steiner sodium bicarbonate 325 mg tablet 2023-07 2-20 00:00: 00 Yes mg Dev Steiner sodium polystyrene sulfonate oral powder 2023-07 2-20 00:00: 00 Yes Dev Steiner hydralazine 50 mg tablet 2023-07 2-08 00:00: 00 Yes mg Dev Steiner Lantus U-100 Insulin 100 unit/mL subcutaneou s solution 2023-07 2-05 00:00: 00 Yes unit/mL Dev Steiner pravastatin 40 mg tablet 2023-07 2-05 00:00: 00 Yes 1mg Dev Steiner valsartan [...] U-100 Insulin 100 unit/mL subcutaneou s solution 9-03 00:00: 00 Yes unit/mL Dev Steiner clonidine HCl 0.3 mg tablet 8- 00:00: 00 Yes mg Dev Steiner Lantus U-100 Insulin 100 unit/mL subcutaneou s solution 8-15 00:00: 00 Yes unit/mL Dev Steiner pravastatin 40 mg tablet 815 00:00: 00 Yes 1mg Dev Steiner Lantus U-100 Insulin 100 unit/mL subcutaneou s solution 8-02 00:00: 00 Yes unit/mL Dev Steiner Lantus Solostar U-100 Insulin 100 unit/mL (3 mL) subcutaneou s pen 06 00:00: 00 Yes (3 mL) Dev Steiner pravastatin 40 mg tablet 12-05 00:00: 00 Yes 1mg Dev Steiner ketorolac (TORADOL) injection 30 mg 11-03 17:52: 00 11-03 17:58 :00 No 30mg 30 mg, Intramuscu lar, ONCE, 1 dose, On Tue11/04/23 at 1300, BAKARI [facility] methocarbam oL 500 mg tablet 11-03 00:00: 00 Yes [id number] 500mg Take 1 tablet by mouth 4 (four) times daily as needed for Pain (scale 7-10). [facility] TAKE 1 TABLET BY MOUTH FOUR TIMES DAILY NEEDED FOR SEVERE PAIN 11-03 00:00: 00 Yes Dev Steiner SODIUM POLYSTYRENE SULF POWDER 10-13 00:00: 00 [...] clonidine 0.3 mg/24 hr weekly transdermal patch - 00:00: 00 Yes 1mg/24 hr Dev Steiner amlodipine 10 mg tablet - 00:00: 00 Yes 1mg Dev Steiner bisoprolol 10 mg-hydrochl orothiazide 6.25 mg tablet 3-11 00:00: 00 Yes 1mg Dev Steiner hydralazine 100 mg tablet 3-11 00:00: 00 Yes 1mg Dev Steiner pravastatin 40 mg tablet 3-11 00:00: 00 Yes 1mg Dev Stiener valsartan 320 mg tablet 3-11 00:00: 00 [...] DAILY DIRECTED. 2022-07 2-12 00:00: 00 Yes [id number] Dev Steiner AMLODIPINE BESYLATE 10 MG 2022-07 [...] APPLY TO AFFECTED AREA(S) ONCE DAILY DIRECTED. 8-14 00:00: 00 Yes [id number] Dev Steiner NYSTOP 100,000 UNIT/GM POWDER 8-14 00:00: 00 Yes Dev Steiner cloniDINE (CATAPRES) 0.1 mg tablet 8-06 15:49: 57 Yes .3mg Take 3 tablets by mouth 4 (four) times daily. [facility] olmesartan (BENICAR) 40 mg tablet 02-13 15:49: 57 Yes 40mg Take 1 tablet by mouth in the morning. [facility] pravastatin (PRAVACHOL) 40 mg tablet 02-13 15:49: 57 Yes 40mg Take 1 tablet by mouth at bedtime. [facility] amlodipine besylate (AMLODIPINE ORAL) 02-13 15:49: 57 Yes 10mg Take 10 mg by mouth in the morning. [facility] insulin glargine,hu m.rec.anlog (LANTUS SC) 02-13 15:49: 57 Yes 25U inject 25 Units under the skin after meals and at bedtime. [facility] bisoproloL- hydrochloro thiazide 10-6.25 mg per tablet 02-13 15:49: 57 Yes 1{tbl} Take 1 tablet by mouth in the morning. [facility] hydrALAZINE 100 mg tablet 02-13 15:49: 57 Yes 100mg Take 1 tablet by mouth in the morning and 1 tablet at noon and 1 tablet in the evening. [facility] valsartan 320 mg tablet 02-13 15:49: 57 Yes 320mg Take 1 tablet by mouth in the morning. [facility] aspirin (ASPIR-81 ORAL) 02-13 15:49: 57 Yes 81mg Take 81 mg by mouth in the morning. [facility] amLODIPine (NORVASC) tablet 10 mg 02-13 14:00: 00 Yes 10mg 10 mg, Oral, DAILY, First dose (after last modificati on) on Tue02/13/23 at 0900, Until Discontinu ed [facility] hydrALAZINE (APRESOLINE ) tablet 100 mg 02-13 13:00: 00 Yes 100mg 100 mg, Oral, TID, First dose (after last modificati on) on Tue02/13/23 at 0800, Until Discontinu ed, Routine [facility] cloNIDine (CATAPRES) tablet 0.3 mg 02-13 13:00: 00 Yes .3mg 0.3 mg, Oral, QID, First dose (after last modificati on) on 02/13/23 at 0800, Until Discontinu ed, Routine [facility] metoprolol tartrate (LOPRESSOR) tablet 25 mg 02-13 03:00: 00 Yes 25mg 25 mg, Oral, BID, First dose (after last modificati on) on 02/12/23 at 2200, Until Discontinu ed, Routine [facility] losartan (COZAAR) tablet 50 mg 02-13 03:00: 00 Yes 50mg 50 mg, Oral, BID, First dose (after last modificati on) on 02/12/23 at 2200, Until Discontinu ed, Routine [facility] insulin glargine (LANTUS U-100) injection 15 Units 02-13 02:00: 00 Yes 15U 15 Units, Subcutaneo us, QHS, First dose (after last modificati on) on 02/12/23 at 2100, Until Discontinu ed [facility] dextrometho rphan-guaif enesin 10-100 mg/5 mL solution 02-13 00:00: 00 Yes [id number] 5mL Take 5 mL by mouth every 6 (six) hours as needed for Cough. [facility] furosemide (LASIX) injection 20 mg 02-12 15:15: 00 02-12 18:30 :00 No 20mg 20 mg, Slow IV Push, ONCE, 1 dose, On 02/12/23 at 1015, Routine [facility] levalbutero l (XOPENEX) nebulizer solution 1.25 mg 02-10 11:00: 00 Yes 1.25mg 1.25 mg, Inhalation , TID, First dose on Vanessa 02/10/23 at 0600, Until Discontinu ed, Routine [facility] dexamethaso ne (DECADRON PHOSPHATE) injection 2 mg 02-10 11:00: 00 02-10 20:46 :00 No 2mg 2 mg, Intravenou s, Q6H, 2 doses, First dose on Tue02/10/23 at 0600, Last dose on Tue02/10/23 at 1200, 1 mL [facility] Sliding Scale Insulin - Lispro (HumaLOG) 02-10 02:00: 00 Yes Subcutaneo us, TID MEALS+HS, First dose on Tue02/09/23 at 2100, Until Discontinu ed, Routine [facility] pravastatin (PRAVACHOL) tablet 40 mg 02-10 02:00: 00 Yes 40mg 40 mg, Oral, QHS, First dose on Tue02/09/23 at 2100, Until Discontinu ed, Routine [facility] insulin glargine (LANTUS U-100) injection 25 Units 02-10 02:00: 00 02-12 03:47 :55 No 25U 25 Units, Subcutaneo us, QHS, First dose on Tue02/09/23 at 2100, Until Discontinu ed [facility] glucagon (GLUCAGEN DIAGNOSTIC KIT) injection 1 mg 02-09 23:57: 00 Yes 1mg 1 mg, Intramuscu lar, PRN, Starting on Tue02/09/23 at 1857, Until Discontinu ed, BAKARI, Blood Glucose < or = 70 mg/dL and patient is NPO, unable to swallow or has mental changes. [facility] dextrose 50 % in water (D50W) injection 25 mL 02-09 23:57: 00 Yes 25mL 25 mL, Slow IV Push, PRN, Starting on Tue02/09/23 at 1857, Until Discontinu ed, BAKARI, Blood Glucose < or = 70 mg/dL and patient is NPO, unable to swallow or has mental status changes. [facility] KCL (KLOR-CON M20) tablet 40 mEq 02-09 22:00: 00 02-10 01:20 :00 No 40meq 40 mEq, Oral, BID, 2 doses, First dose on Tue02/09/23 at 1700, Last dose on Tue02/09/23 at 2000, Routine [facility] codeine-gua ifenesin (ROBITUSSIN AC) 10-100 mg/5 mL oral solution 5 mL 02-09 16:05: 07 Yes 5mL 5 mL, Oral, Q6HPRN, Starting on Tue02/09/23 at 1105, Until Discontinu ed, Routine, Cough [facility] aspirin EC tablet 81 mg 02-09 14:00: 00 Yes 81mg 81 mg, Oral, DAILY, First dose on Tue02/09/23 at 0900, Until Discontinu ed [facility] enoxaparin (LOVENOX) injection 30 mg 02-09 14:00: 00 Yes 30mg 30 mg, Subcutaneo us, DAILY, First dose on Tue02/09/23 at 0900, Until Discontinu ed, Routine [facility] amLODIPine (NORVASC) tablet 10 mg 02-09 14:00: 00 02-13 01:21 :24 No 10mg 10 mg, Oral, DAILY, First dose on Tue02/09/23 at 0900, Until Discontinu ed [facility] losartan (COZAAR) tablet 50 mg 02-09 13:00: 00 02-13 01:21 :24 No 50mg 50 mg, Oral, BID, First dose on Tue02/09/23 at 0800, Until Discontinu ed, Routine [facility] metoprolol tartrate (LOPRESSOR) tablet 25 mg 02-09 13:00: 00 02-13 01:21 :24 No 25mg 25 mg, Oral, BID, First dose on Tue02/09/23 at 0800, Until Discontinu ed, Routine [facility] hydrALAZINE (APRESOLINE ) tablet 100 mg 02-09 13:00: 00 02-13 01:21 :24 No 100mg 100 mg, Oral, TID, First dose on Tue02/09/23 at 0800, Until Discontinu ed, Routine [facility] cloNIDine (CATAPRES) tablet 0.3 mg 02-09 13:00: 00 02-13 01:21 :24 No .3mg 0.3 mg, Oral, QID, First dose on Tue02/09/23 at 0800, Until Discontinu ed, Routine [facility] acetaminoph en (TYLENOL) tablet 650 mg 02-09 04:36: 01 Yes 650mg 650 mg, Oral, Q6HPRN, Starting on Tue02/08/23 at 2336, Until Discontinu ed, Routine, Pain (scale 4-6) [facility] potassium chloride in water 10 mEq/100 mL RTU 10 mEq 02-09 01:00: 00 02-09 03:56 :00 No 10meq 10 mEq, IV Piggyback, Q1H, 2 doses, First dose on Tue02/08/23 at 2000, Last dose on Tue02/08/23 at 2100, Administer over 60 Minutes, 100 mL [facility] acetaminoph en (TYLENOL) tablet 650 mg 02-08 23:45: 55 Yes 650mg 650 mg, Oral, Q6HPRN, Starting on Tue02/08/23 at 1845, Until Discontinu ed, Routine, Pain (scale 1-3) [facility] cefTRIAXone (ROCEPHIN) 1,000 mg in NaCl 0.9% (NS) 100 mL MINI-BAG 02-08 21:45: 00 02-08 22:40 :00 No 1000mg 1,000 mg, IV Piggyback, ONCE, 1 dose, On Tue02/08/23 at 1645, Administer over 30 Minutes, 100 mL
Reas on for Anti-Infec tive: Documented Infection< br>Documen robert Infection Site: Urine
D uration of Therapy: Other (see Comments) [facility] potassium chloride in water 10 mEq/100 mL RTU 10 mEq 02-08 21:00: 00 02-09 01:06 :00 No 10meq 10 mEq, IV Piggyback, ONCE, 1 dose, On Tue02/08/23 at 1600, Administer over 60 Minutes, 100 mL [facility] magnesium sulfate in D5W 1 gram/100 mL RTU IV Piggyback 1 g 02-08 21:00: 00 02-08 22:43 :00 No 1g 1 g, IV Piggyback, ONCE, 1 dose, On Tue02/08/23 at 1600, Administer over 60 Minutes, 100 mL [facility] KCL (KLOR-CON M20) tablet 40 mEq 02-08 20:15: 00 02-08 21:45 :00 No 40meq 40 mEq, Oral, ONCE, 1 dose, On Tue02/08/23 at 1515, BAKARI [facility] NaCl 0.9% (NS) bolus infusion 500 mL 02-08 20:15: 00 02-08 22:50 :00 No 500mL at 999 mL/hr, 500 mL, IV Infusion, ONCE, 1 dose, On Tue02/08/23 at 1515, STAT [facility] cloniDINE (CATAPRES) 0.1 mg tablet 01-21 18:13: 59 Yes .1mg Take 0.1 mg by mouth 2 (two) times daily. [facility] olmesartan (BENICAR) 40 mg tablet 01-21 18:13: 59 Yes 40mg Take 40 mg by mouth daily. [facility] pravastatin (PRAVACHOL) 40 mg tablet 01-21 18:13: 59 Yes 40mg Take 40 mg by mouth at bedtime. [facility] amlodipine besylate (AMLODIPINE ORAL) 01-21 18:13: 59 Yes Take by mouth. [facility] losartan (COZAAR) tablet 50 mg 01-21 14:00: 00 Yes 50mg 50 mg, Oral, DAILY, First dose (after last modificati on) on Tue01/21/23 at 0900, Until Discontinu ed, Routine [facility] KCL (KLOR-CON M20) tablet 40 mEq 01-20 23:00: 00 01-20 22:44 :00 No 40meq 40 mEq, Oral, ONCE, 1 dose, On Tue01/20/23 at 1800, Routine [facility] KCL (KLOR-CON M20) tablet 40 mEq 01-20 17:45: 00 01-20 17:16 :00 No 40meq 40 mEq, Oral, ONCE, 1 dose, On Tue01/20/23 at 1245, BAKARI [facility] potassium chloride in water (KCL) 20 mEq/100 mL RTU IVPB 20 mEq 01-20 10:30: 00 01-20 17:17 :25 No 20meq 20 mEq, IV Piggyback, Q2H ES, 6 doses, First dose on Tue01/20/23 at 0530, Last dose on Tue01/20/23 at 1530, 100 mL [facility] acetaminoph en (TYLENOL) 325 mg tablet 01-20 00:00: 00 Yes [id number] 650mg Take 2 tablets by mouth every 6 (six) hours as needed for Pain (scale 4-6). [facility] benzocaine- menthoL (CEPACOL SORE THROAT (MICHELLE-MEN)) lozenge 1 Lozenge 01-19 21:28: 11 Yes 1{lozen ge} 1 Lozenge, Oral, Q4HPRN, Starting on Tue01/19/23 at 1628, Until Discontinu ed, Routine, Sore throat [facility] lactated ringers IV infusion 1,000 mL 01-19 16:15: 00 Yes 1000mL at 75 mL/hr, 1,000 mL, IV Infusion, CONTINUOUS , Starting on Tue01/19/23 at 1115, Until Discontinu ed, Routine, PACU [facility] bupivacaine (preserv free) (SENSORCAIN E MPF) 0.25 % (2.5 mg/mL) injection 01-19 15:57: 00 01-19 16:16 :43 No PRN, Starting on Tue01/19/23 at 1057, Until Tue01/19/23 at 1116, Routine, Intra-op [facility] sugammadex (BRIDION) injection 01-19 15:51: 00 01-19 16:14 :03 No IV Push, ONCE INTRA PROCEDURE, Starting on Tue01/19/23 at 1051, Until Tue01/19/23 at 1114, Routine, Intra-op [facility] dexamethaso ne (DECADRON PHOSPHATE) injection 01-19 15:09: 00 01-19 16:14 :16 No Slow IV Push, ONCE INTRA PROCEDURE, Starting on Tue01/19/23 at 1009, Until Tue01/19/23 at 1114, Routine, Intra-op [facility] PHENYLephri ne 1000 mcg/10 mL in 0.9% NaCl syringe 01-19 15:09: 00 01-19 16:14 :03 No Intravenou s, ONCE INTRA PROCEDURE, Starting on Tue01/19/23 at 1009, Until Discontinu ed, Routine, Intra-op [facility] FENTanyl PF (SUBLIMAZE (PF)) injection 01-19 15:01: 00 01-19 16:14 :03 No Epidural, ONCE INTRA PROCEDURE, Starting on Tue01/19/23 at 1001, Until Discontinu ed, Routine, Intra-op [facility] rocuronium (ZEMURON) injection 01-19 14:55: 00 01-19 16:14 :03 No IV Push, ONCE INTRA PROCEDURE, Starting on Tue01/19/23 at 0955, Until Discontinu ed, Routine, Intra-op [facility] propofoL IV infusion 01-19 14:55: 00 01-19 16:14 :03 No IV Infusion, ONCE INTRA PROCEDURE, Starting on Tue01/19/23 at 0955, Until Discontinu ed, Routine, Intra-op [facility] lidocaine 1% (XYLOCAINE) 100 mg/10 mL (1 %) injection 01-19 14:55: 00 01-19 16:14 :03 No Slow IV Push, ONCE INTRA PROCEDURE, Starting on Tue01/19/23 at 0955, Until Discontinu ed, Routine, Intra-op [facility] ceFAZolin (ANCEF) injection 01-19 14:41: 00 01-19 16:14 :03 No IV Piggyback, ONCE INTRA PROCEDURE, Starting on Tue01/19/23 at 0941, Until Discontinu ed, BAKARI, [facility] sulfate in water 2 gram/50 mL (4 %) infusion 2 g 01-19 11:30: 00 01-19 18:19 :00 No 2g 2 g, IV Piggyback, Administer over 60 Minutes, ONCE, 1 dose, On Tue01/19/23 at 0630, Routine [facility] potassium chloride in water (KCL) 20 mEq/100 mL RTU IVPB 20 mEq 01-19 07:00: 00 01-19 10:26 :00 No 20meq 20 mEq, IV Piggyback, Q2H, 2 doses, First dose on Tue01/19/23 at 0200, Last dose on Tue01/19/23 at 0400, 100 mL [facility] potassium chloride in water (KCL) 20 mEq/100 mL RTU IVPB 20 mEq 01-18 22:30: 00 01-19 03:05 :00 No 20meq 20 mEq, IV Infusion, Q2H ES, 2 doses, First dose on Tue01/18/23 at 1730, Last dose on Tue01/18/23 at 1930, 100 mL [facility] aspirin EC tablet 81 mg 01-18 14:00: 00 Yes 81mg 81 mg, Oral, DAILY, First dose on Tue01/18/23 at 0900, Until Discontinu ed, Routine [facility] amLODIPine (NORVASC) tablet 10 mg 01-18 14:00: 00 Yes 10mg 10 mg, Oral, DAILY, First dose (after last modificati on) on Tue01/18/23 at 0900, Until Discontinu ed [facility] pantoprazol e (PROTONIX) EC tablet 40 mg 01-18 14:00: 00 Yes 40mg 40 mg, Oral, DAILY, First dose on Tue01/18/23 at 0900, Until Discontinu ed, Routine [facility] losartan (COZAAR) tablet 25 mg 01-18 14:00: 00 Yes 25mg 25 mg, Oral, DAILY, First dose on Tue01/18/23 at 0900, Until Discontinu ed, Routine [facility] hydralAZINE (APRESOLINE ) injection 10 mg 01-18 03:20: 53 Yes 10mg 10 mg, Slow IV Push, Q4HPRN, Starting on Tue01/17/23 at 2220, Until Discontinu ed, Routine, DBP=>100; SBP=>180 [facility] hydrALAZINE 100 mg tablet 01-18 03:00: 00 Yes 100mg Take 1 tablet by mouth in the morning and 1 tablet at noon and 1 tablet in the evening. [facility] heparin (porcine) injection 5,000 Units 01-18 03:00: 00 Yes 5000U 5,000 Units, Subcutaneo us, Q8H, First dose on Tue01/17/23 at 2200, Until Discontinu ed, Routine [facility] pravastatin (PRAVACHOL) tablet 40 mg 01-18 02:00: 00 Yes 40mg 40 mg, Oral, QHS, First dose on Tue01/17/23 at 2100, Until Discontinu ed, Routine [facility] cloNIDine (CATAPRES) tablet 0.1 mg 01-18 01:00: 00 Yes .1mg 0.1 mg, Oral, BID, First dose on Tue01/17/23 at 2000, Until Discontinu ed, Routine [facility] Sliding Scale Insulin-Reg ular 01-17 21:30: 00 Yes Subcutaneo us, AC+HS, First dose on Tue01/17/23 at 1630, Until Discontinu ed, Routine [facility] lactated ringers IV infusion 1,000 mL 01-17 20:00: 00 Yes 1000mL at 100 mL/hr, 1,000 mL, IV Infusion, CONTINUOUS , Starting on Tue01/17/23 at 1500, Until Discontinu ed, Routine [facility] acetaminoph en ADULT (OFIRMEV) injection 1,000 mg 01-17 20:00: 00 01-18 11:32 :00 No 1000mg 1,000 mg, IV Infusion, at 400 mL/hr Administer over 15 Minutes, Q8H, 3 doses, First dose on Tue01/17/23 at 1500, Last dose on Tue01/18/23 at 0600, Routine
Indicatio n: Perioperat boris Patient [facility] HYDROcodone -acetaminop hen (NORCO 5) 5-325 mg tablet 1 tablet 01-17 19:48: 59 Yes 1{tbl} 1 tablet, Oral, Q6HPRN, Starting on Tue01/17/23 at 1448, Until Discontinu ed, Routine, Pain (scale 4-6) [facility] morpHINE (2 mg/mL) injection 2 mg 01-17 19:48: 47 Yes 2mg 2 mg, Slow IV Push, Q4HPRN, Starting on Tue01/17/23 at 1448, Until Discontinu ed, Routine, Pain (scale 7-10) [facility] glucagon (GLUCAGEN DIAGNOSTIC KIT) injection 1 mg 01-17 19:46: 28 Yes 1mg 1 mg, Intramuscu lar, PRN, Starting on Tue01/17/23 at 1446, Until Discontinu ed, BAKARI, Blood Glucose < or = 70 mg/dL and patient is NPO, unable to swallow or has mental changes. [facility] dextrose 50 % in water (D50W) injection 25 mL 01-17 19:46: 28 Yes 25mL 25 mL, Slow IV Push, PRN, Starting on Tue01/17/23 at 1446, Until Discontinu ed, BAKARI, Blood Glucose < or = 70 mg/dL and patient is NPO, unable to swallow or has mental status changes. [facility] ondansetron (ZOFRAN (PF)) injection 4 mg 01-17 19:46: 24 Yes 4mg 4 mg, Slow IV Push, Q6HPRN, Starting on Tue01/17/23 at 1446, Until Discontinu ed, Routine, Nausea and Vomiting (N/V) [facility] metroNIDAZO LE in NaCl (iso-os) (FLAGYL I.V.) RTU IV infusion 500 mg 01-17 15:45: 00 01-17 16:07 :00 No 500mg 500 mg, IV Infusion, ONCE, 1 dose, On Tue01/17/23 at 1045, Administer over 60 Minutes, 100 mL
Reas on for Anti-Infec tive: Documented Infection< br>Documen robert Infection Site: Abdominal< br>Duratio n of Therapy: Other (see Comments) [facility] insulin glargine (LANTUS U-100) 100 unit/mL injection 01-17 14:48: 31 01-17 00:00 :00 No 15U inject 15 Units under the skin daily. [facility] cloniDINE (CATAPRES) 0.1 mg tablet 01-17 14:48: 28 Yes .1mg Take 0.1 mg by mouth 2 (two) times daily. [facility] olmesartan (BENICAR) 40 mg tablet 01-17 14:48: 28 Yes 40mg Take 40 mg by mouth daily. [facility] pravastatin (PRAVACHOL) 40 mg tablet 01-17 14:48: 28 Yes 40mg Take 40 mg by mouth at bedtime. [facility] amlodipine besylate (AMLODIPINE ORAL) 01-17 14:48: 28 Yes Take by mouth. [facility] ondansetron (ZOFRAN (PF)) injection 4 mg 01-17 13:38: 00 01-17 13:41 :00 No 4mg 4 mg, Slow IV Push, ONCE, 1 dose, On Tue01/17/23 at 0845, BAKARI [facility] iopamidol (ISOVUE 370-500 mL) injection 73 mL 01-17 13:15: 00 01-17 13:15 :00 No [id number] 73mL 73 mL, Intravenou s, ONCE, 1 dose, On Tue01/17/23 at 0815, Routine [facility] cefTRIAXone (ROCEPHIN) 1,000 mg in NaCl 0.9% (NS) 100 mL MINI-BAG 01-17 12:15: 00 01-17 12:23 :00 No 1000mg 1,000 mg, IV Piggyback, ONCE, 1 dose, On Tue01/17/23 at 0715, Administer over 30 Minutes, 100 mL
Reas on for Anti-Infec tive: Documented Infection< br>Documen robert Infection Site: Urine
D uration of Therapy: Other (see Comments) [facility] NaCl 0.9% (NS) IV infusion 1,000 mL 01-17 12:00: 00 01-17 19:49 :56 No 1000mL at 999 mL/hr, Intravenou s, CONTINUOUS , Starting on Tue01/17/23 at 0700, Until Tue01/17/23 at 1449, Routine [facility] ondansetron (ZOFRAN (PF)) injection 4 mg 01-17 10:30: 00 01-17 10:26 :00 No 4mg 4 mg, Slow IV Push, ONCE, 1 dose, On Tue01/17/23 at 0530, BAKARI [facility] BISOPROLOL- HCTZ 10-6.25 MG 7-03 00:00: 00 Yes [id number] Dev Steiner VALSARTAN 320 MG - 00:00: 00 Yes 320 Dev Steiner TAKE 1 TABLET BY MOUTH AT BEDTIME 6- 00:00: 00 Yes 40 Dev Steiner TAKE 1 TABLET BY MOUTH 4 TIMES DAILY 4-17 00:00: 00 Yes Dev Steiner TAKE 1 TABLET DAILY. -05 00:00: 00 11-17 00:00 :00 No 500 Dev Steiner TAKE 1 TABLET EVERY 12 HOURS NEEDED. -05 00:00: 00 11-17 00:00 :00 No 50 Dev Steiner INJECT 25 UNITS QHS 4-05 00:00: 00 11-17 00:00 :00 No 100 Dev Steiner TAKE 1 TABLET BY MOUTH ONCE DAILY 4-05 00:00: 00 11-17 00:00 :00 No 10 Devlion Steiner BISOPROLOL- HCTZ 10-6.25 MG 4- 00:00: 00 Yes Dev Steiner INJECT 25 UNITS [facility] 4- 00:00: 00 11-17 00:00 :00 No 100 Dev Steiner TAKE 1 TABLET AT BEDTIME. 3- 00:00: 00 11-17 00:00 :00 No 40 eDv Steiner AMLODIPINE BESYLATE 10 MG 2-16 00:00: 00 Yes Dev Steiner TAKE 1 TABLET BY MOUTH ONCE DAILY 2- 00:00: 00 11-17 00:00 :00 No 10 Dev Steiner VALSARTAN 320 MG 1-10 00:00: 00 Yes Dev Steiner BISOPROLOL- HCTZ 10-6.25 MG 1- 00:00: 00 Yes Dev Steiner CLONIDINE HCL 0.3 MG TABLET 2021-07 2- 00:00: 00 Yes Dev Steiner Dose Unknown 2021-07 2- 00:00: 00 Yes Dev Steiner PRAVASTATIN SODIUM 40 MG TAB 2021-07 2- 00:00: 00 Yes Dev F Jatin Dose Unknown 2021-07 2- 00:00: 00 Yes Dev F Jatin Dose Unknown 2021-07 2- 00:00: 00 Yes Dev F Jatin Dose Unknown 2021-07 2- 00:00: 00 Yes Dev F Jatin Dose Unknown 2021-07 2- 00:00: 00 Yes Dev F Jatin Dose Unknown 2021-07 2- 00:00: 00 Yes Dev F Jatin Dose Unknown 2021-07 2- 00:00: 00 Yes Dev Steiner TAKE 1 TABLET DAILY. 2021-07 2- 00:00: 00 11-17 00:00 :00 No Dev Steiner HYDRALAZINE 100 MG 2021-07 1-28 00:00: 00 Yes Dev Steiner INJECT 25 UNITS [facility] 2021-07 1-21 00:00: 00 11-17 00:00 :00 No 100 Dev Steiner METFORMIN HCL 500 MG 2021-07 0-14 00:00: 00 Yes 500 Dev Steiner AMLODIPINE BESYLATE 5 MG 2021-07 0-06 00:00: 00 Yes 5 Dev Steiner LANTUS 100 UNIT/ML VIAL 9-26 00:00: 00 11-17 00:00 :00 No Dev Steiner HYDRALAZINE 100 MG TABLET 0 9-24 00:00: 00 Yes Dev Steiner TAKE 1 TABLET AT BEDTIME. 9-15 00:00: 00 11-17 00:00 :00 No 40 Dev Steiner HYDRALAZINE 100 MG TABLET 0 8-23 00:00: 00 Yes 100 Dev Steiner LANTUS 100 UNIT/ML VIAL 8-23 00:00: 00 Yes Dev Steiner CLONIDINE HCL 0.3 MG 8-15 00:00: 00 Yes 3 Dev Steiner Dose Unknown 0 8-09 00:00: 00 Yes 250 Dev Georges Jatin &lt 2022-0 8-09 00:00: 00 Yes 40 Dev Steiner Lantus U-100 Insulin 100 unit/mL subcutaneou s solution 0 8-08 00:00: 00 Yes unit/mL Dev Steiner metformin 500 mg tablet 0 8-08 00:00: 00 Yes 1mg Dev Steiner Dose Unknown 2021-0 8-05 00:00: 00 Yes 250 Dev F [...] 2022-0 7-07 00:00: 00 Yes 250 Dev Steiner Dose Unknown 2021-0 7-07 00:00: 00 Yes Dev Steiner &lt 2022-0 7- 00:00: 00 Yes 40 Dev Steiner &lt 2022-0 7- 00:00: 00 Yes 100 Dev Steiner &lt 2022-0 7- 00:00: 00 Yes 4 Dev Steiner &lt 2022-0 7- 00:00: 00 Yes 30 Dev Steiner &lt 2022-0 7- 00:00: 00 Yes Dev Steiner &lt 2-0 7- 00:00: 00 Yes Dev Steiner HYDRALAZINE 100 MG 0 4-12 00:00: 00 Yes 100 Dev Steiner AMLODIPINE BESYLATE 5 MG 4- 00:00: 00 Yes 5 Dev Steiner Lantus U-100 Insulin 100 unit/mL subcutaneou s solution 4-08 00:00: 00 Yes unit/mL Dev Steiner pravastatin 40 mg tablet 3-09 00:00: 00 Yes 1mg Dev Steiner Dose Unknown 3-09 00:00: 00 Yes Dev Steiner Dose Unknown 2-15 00:00: 00 Yes Dev Steiner Dose Unknown 2- 00:00: 00 Yes Dev Steiner metformin 500 mg tablet 2- 00:00: 00 Yes 1mg Dev Steiner tizanidine 4 mg capsule 2020-07 2-14 00:00: 00 Yes 1mg Dev Steiner duloxetine 30 mg capsule,del ayed release 2020-07 2-14 00:00: 00 Yes 1mg Dev Steiner metformin 500 mg tablet 2020-07 2- 00:00: 00 Yes 1mg Dev Steiner Dose Unknown 2020-07- 00:00: 00 Yes Dev Steiner Dose Unknown 2020-07- 00:00: 00 Yes Dev Steiner hydralazine 100 mg tablet 2020-07 1- 00:00: 00 Yes 1mg Dev Steiner clonidine HCl 0.3 mg tablet 2021-1 1-05 00:00: 00 Yes 1mg Dev Steiner Lantus U-100 Insulin 100 unit/mL subcutaneou s solution 2020-07 0-12 00:00: 00 Yes unit/mL Dev Steiner pravastatin 40 mg tablet 8- 00:00: 00 Yes 1mg Dev Steiner amlodipine besylate (AMLODIPINE ORAL) 8-08 10:40: 19 Yes 10mg Take 10 mg by mouth in the morning. [facility] Lantus U-100 Insulin 100 unit/mL subcutaneou s solution - 00:00: 00 Yes unit/mL Dev Steiner metformin 500 mg tablet 12-16 00:00: 00 Yes 1mg Dev Steiner Dose Unknown 12-16 00:00: 00 Yes Dev Steiner Lantus U-100 Insulin 100 unit/mL subcutaneou s solution 4- 00:00: 00 Yes unit/mL Dev Steiner Benicar 40 mg tablet 3-08 00:00: 00 Yes 1mg Dev Steiner Lantus U-100 Insulin 100 unit/mL subcutaneou s solution 2- 00:00: 00 Yes unit/mL Dev Steiner pravastatin 40 mg tablet 2- 00:00: 00 Yes 1mg Dev Steiner Lantus U-100 Insulin 100 unit/mL subcutaneou s solution 1-11 00:00: 00 Yes unit/mL Dev Steiner clonidine HCl 0.1 mg tablet 2019-07 2-21 00:00: 00 Yes 1mg Dev Steiner Lantus U-100 Insulin 100 unit/mL subcutaneou s solution 2019-07 2- 00:00: 00 Yes unit/mL Dev Steiner Benicar 40 mg tablet 2019-07 2- 00:00: 00 Yes 1mg Dev Steiner pravastatin 40 mg tablet 2019-07 2- 00:00: 00 Yes 1mg Dev Steiner Lantus U-100 Insulin 100 unit/mL subcutaneou s solution 2019-07 0-16 00:00: 00 Yes unit/mL Dev Steiner amlodipine 5 mg tablet 2019-0 8-17 00:00: 00 Yes 1mg Dev Steiner Lantus U-100 Insulin 100 unit/mL subcutaneou s solution 2019-0 7-27 00:00: 00 Yes 15unit/ mL Dev Steiner Lantus U-100 Insulin 100 unit/mL subcutaneou s solution 2019-0 6-18 00:00: 00 Yes 15unit/ mL Dev Steiner Ziac 10 mg-6.25 mg tablet 0 5-18 00:00: 00 Yes 1mg Dve Steiner buspirone 10 mg tablet 0 5-18 00:00: 00 Yes 5mg Dev Steiner Benicar 40 mg tablet 0 5-18 00:00: 00 Yes 1mg Dev Steiner pravastatin 40 mg tablet 0 5-18 00:00: 00 Yes 1mg Dev Steiner clonidine 0.2 mg/24 hr weekly transdermal patch 2019-0 4-20 00:00: 00 Yes 1mg/24 hr Dev Steiner Lantus U-100 Insulin 100 unit/mL subcutaneou s solution 0 3-18 00:00: 00 Yes 15unit/ mL Dev Steiner Lantus U-100 Insulin 100 unit/mL subcutaneou s solution 0 3-17 00:00: 00 Yes 15unit/ mL Dev Steiner meloxicam 15 mg tablet 0 3-02 00:00: 00 Yes 1mg Dev Steiner nystatin 100,000 unit/gram topical powder 2019-0 2-18 00:00: 00 Yes 1unit/g estee Steiner clonidine HCl 0.1 mg tablet 0 2-18 00:00: 00 Yes 1mg Dev Steiner amlodipine 5 mg tablet 0 2-18 00:00: 00 Yes 1mg Dev Steiner nystatin 100,000 unit/gram topical powder 0 2-17 00:00: 00 Yes 1unit/g estee Steiner clonidine HCl 0.1 mg tablet 0 2-17 00:00: 00 Yes 1mg Dev Steiner Lantus U-100 Insulin 100 unit/mL subcutaneou s solution 0 1-17 00:00: 00 Yes 1unit/m L Dev Steiner Ziac 10 mg-6.25 mg tablet 07-27 00:00: 00 Yes 1mg Dev Steiner Lantus U-100 Insulin 100 unit/mL subcutaneou s solution 07-17 00:00: 00 Yes 15unit/ mL Dev Steiner [...] Take 1 tablet by mouth at bedtime. [facility] insulin glargine (LANTUS U-100) 100 unit/mL injection 09-21 07:50: 54 Yes 15U inject 15 Units under the skin daily. [facility] cloniDINE (CATAPRES) 0.1 mg tablet 09-21 07:50: 54 Yes .1mg Take 0.1 mg by mouth 2 (two) times daily. [facility] olmesartan (BENICAR) 40 mg tablet 09-21 07:50: 54 Yes 40mg Take 1 tablet by mouth in the morning. [facility] Immunizations Ordered Immunization Name Filled Immunization Name Date Status Comments Source influenza, seasonal vaccine, quadrivalent, adjuvanted, .5mL dose, preservative-free influenza, seasonal vaccine, quadrivalent, adjuvanted, .5mL dose, preservative-free 2024-04-12 00:00:00 Completed Dev Steiner Remdesivir 2023-12-30 13:45:00 Completed [facility] Remdesivir 2023-12-30 13:45:00 Completed [facility] Remdesivir 2023-11-04 12:09:00 Completed [facility] Remdesivir 2023-11-04 12:09:00 Completed [facility] Remdesivir 2023-10-28 11:15:00 Completed [facility] Remdesivir 2023-10-28 11:15:00 Completed [facility] Remdesivir 2023-10-06 12:00:00 Completed [facility] Remdesivir 2023-10-06 12:00:00 Completed [facility] Remdesivir 2023-09-05 10:00:00 Completed [facility] Remdesivir 2023-09-05 10:00:00 Completed [facility] Remdesivir 2023-09-05 00:00:00 Completed [facility] Remdesivir 2023-09-05 00:00:00 Completed [facility] influenza, seasonal vaccine, quadrivalent, adjuvanted, .5mL dose, preservative-free influenza, seasonal vaccine, quadrivalent, adjuvanted, .5mL dose, preservative-free 2023-05-12 00:00:00 Completed Dev Steiner Remdesivir 2023-03-02 00:00:00 Completed [facility] Remdesivir 2023-03-02 00:00:00 Completed [facility] Remdesivir 2023-02-14 00:00:00 Completed [facility] Remdesivir 2023-02-14 00:00:00 Completed [facility] Remdesivir 2023-02-12 00:00:00 Completed [facility] Remdesivir 2023-02-12 00:00:00 Completed [facility] Remdesivir 2023-02-12 00:00:00 Completed [facility] Remdesivir 2023-02-11 00:00:00 Completed [facility] Remdesivir 2023-02-11 00:00:00 Completed [facility] Remdesivir 2023-02-11 00:00:00 Completed Remdesivir 2023-02-10 00:00:00 Completed [facility] Remdesivir 2023-02-10 00:00:00 Completed [facility] Remdesivir 2023-02-10 00:00:00 Completed Remdesivir 2023-02-09 00:00:00 Completed [facility] Remdesivir 2023-02-09 00:00:00 Completed [facility] Remdesivir 2023-02-08 00:00:00 Completed [facility] Remdesivir 2023-02-08 00:00:00 Completed [facility] Moderna COVID-19 Vaccine Moderna COVID-19 Vaccine 2020-09-06 00:00:00 Completed Dev Setiner Moderna COVID-19 Vaccine Moderna COVID-19 Vaccine 2020-08-09 00:00:00 Completed Dev Steiner influenza, high-dose, quadrivalent influenza, high-dose, quadrivalent 2020-04-21 00:00:00 Completed Dev Steiner Vital Signs Vital Name Observation Time Observation Value Comments S ource Systolic blood pressure 2023-11-04 17:05:00 143 mm[Hg] [facility] Diastolic blood pressure 2023-11-04 17:05:00 72 mm[Hg] [facility] Heart rate 2023-11-04 17:05:00 76 /min [facility] Body temperature 2023-11-04 17:05:00 37.22 Justine [facility] Respiratory rate 2023-11-04 17:05:00 16 /min [facility] Body height 2023-11-04 17:05:00 147.3 cm [facility] Body weight 2023-11-04 17:05:00 48.081 kg [facility] BMI 2023-11-04 17:05:00 22.15 kg/m2 [facility] Oxygen saturation in Arterial blood by Pulse oximetry 2023-11-04 17:05:00 94 /min [facility] Systolic blood pressure 2023-02-13 17:03:00 134 mm[Hg] [facility] Diastolic blood pressure 2023-02-13 17:03:00 62 mm[Hg] [facility] Heart rate 2023-02-13 17:03:00 68 /min [facility] Body temperature 2023-02-13 17:03:00 36.17 Justine [facility] Respiratory rate 2023-02-13 17:03:00 17 /min [facility] Oxygen saturation in Arterial blood by Pulse oximetry 2023-02-13 17:03:00 95 /min [facility] Body weight 2023-02-12 09:14:00 46.993 kg [facility] BMI 2023-02-12 09:14:00 34.42 kg/m2 [facility] Body height 2023-02-09 00:39:00 116.8 cm [facility] Systolic blood pressure 2023-01-21 13:33:00 155 mm[Hg] [facility] Diastolic blood pressure 2023-01-21 13:33:00 93 mm[Hg] [facility] Heart rate 2023-01-21 13:33:00 100 /min [facility] Body temperature 2023-01-21 13:33:00 36.89 Justine [facility] Respiratory rate 2023-01-21 13:33:00 20 /min [facility] Oxygen saturation in Arterial blood by Pulse oximetry 2023-01-21 13:33:00 90 /min [facility] Body height 2023-01-17 10:13:00 144.8 cm [facility] Body weight 2023-01-17 10:13:00 47.537 kg [facility] BMI 2023-01-17 10:13:00 22.68 kg/m2 [facility] Systolic blood pressure 2023-01-19 16:30:00 156 mm[Hg] [facility] Diastolic blood pressure 2023-01-19 16:30:00 66 mm[Hg] [facility] Respiratory rate 2023-01-19 16:30:00 23 /min [facility] Oxygen saturation in Arterial blood by Pulse oximetry 2023-01-19 16:30:00 95 /min [facility] Heart rate 2023-01-19 16:14:00 87 /min [facility] Body temperature 2023-01-19 16:14:00 36.28 Justine [facility] Body height 2023-01-17 10:13:00 144.8 cm [facility] Body weight 2023-01-17 10:13:00 47.537 kg [facility] BMI 2023-01-17 10:13:00 22.68 kg/m2 [facility] Systolic blood pressure 2022-10-27 18:55:00 174 mm[Hg] [facility] Diastolic blood pressure 2022-10-27 18:55:00 71 mm[Hg] [facility] Heart rate 2022-10-27 18:55:00 73 /min [facility] Body height 2022-10-27 18:55:00 147.3 cm [facility] Body weight 2022-10-27 18:55:00 50.848 kg [facility] BMI 2022-10-27 18:55:00 23.43 kg/m2 [facility] BP Systolic 2024-11-09 09:25:00 132 mm[Hg] Step hen F Jatin BP Diastolic 2024-11-09 09:25:00 75 mm[Hg] Greg phen [facility] [place] Weight Measured 2024-11-09 09:25:00 100.10 pounds Dev F Jatin Height Measured 2024-11-09 09:25:00 59.69 inches Dev F Jatin Body Temperature 2024-11-09 09:25:00 97.80 degrees Dev F Jatin Heart Rate 2024-11-09 09:25:00 50.00 /min [place] [facility] Respiratory Rate 2024-11-09 09:25:00 16.00 /min Dev F Jatin BP Systolic 2024-09-19 10:31:00 120 mm[Hg] Step hen F Jatin BP Diastolic 2024-09-19 10:31:00 66 mm[Hg] Greg phen F Jatin Weight Measured 2024-09-19 10:31:00 104.60 pounds Dev F Jatin Height Measured 2024-09-19 10:31:00 59.69 inches Dev F Jatin Body Temperature 2024-09-19 10:31:00 97.60 degrees Dev F Jatin Heart Rate 2024-09-19 10:31:00 61.00 /min [place] [facility] Respiratory Rate 2024-09-19 10:31:00 Dev F Jatin BP Systolic 2024-09-12 10:52:00 138 mm[Hg] Step hen F Jatin BP Diastolic 2024-09-12 10:52:00 68 mm[Hg] Greg phen F Jatin Weight Measured 2024-09-12 10:52:00 211.20 pounds Dev F Jatin Height Measured 2024-09-12 10:52:00 59.69 inches Dev F Jatin Body Temperature 2024-09-12 10:52:00 97.40 degrees Dev F Jatin Heart Rate 2024-09-12 10:52:00 69.00 /min [place] [facility] Respiratory Rate 2024-09-12 10:52:00 17.00 /min Dev F Jatin BP Systolic 2024-09-12 09:43:00 115 mm[Hg] Step hen F Jatin BP Diastolic 2024-09-12 09:43:00 56 mm[Hg] Greg phen F Jatin Weight Measured 2024-09-12 09:43:00 108.00 pounds Dev F Jatin Height Measured 2024-09-12 09:43:00 59.69 inches Dev F Jatin Body Temperature 2024-09-12 09:43:00 98.00 degrees Dev F Jatin Heart Rate 2024-09-12 09:43:00 89.00 /min [place] [facility] Respiratory Rate 2024-09-12 09:43:00 19.00 /min Dev F Jatin BP Systolic 2024-07-17 10:30:00 135 mm[Hg] Step [...] Jatin BP Diastolic 2023-06-21 13:43:00 86 mm[Hg] Greg phen F Jatin Weight Measured 2023-06-21 13:43:00 [...] Jatin Weight Measured 2022-10-13 15:10:00 113.40 pounds Dve F Jatin Height Measured 2022-10-13 15:10:00 56.69 [...] Rate 2022-08-23 11:03:00 77.00 /min [place] [facility] Respiratory Rate 2022-08-23 11:03:00 Dev F Jatin BP Systolic 2022-01-28 11:10:00 161 mm[Hg] Step hen F Jatin BP Diastolic 2022-01-28 11:10:00 79 mm[Hg] Greg phen F Jatin Weight Measured 2022-01-28 11:10:00 Dev F Jatin Height Measured 2022-01-28 11:10:00 Dev F Jatin Body Temperature 2022-01-28 11:10:00 Dev F Jatin Heart Rate 2022-01-28 11:10:00 59.00 /min [place] [facility] Respiratory Rate 2022-01-28 11:10:00 Dev F Jatin Procedures Procedure Date / Time Performed Performing Clinician Source PHYSICIAN ORDERS 2024-02-16 19:52:38 Doctor Unas signed, [facility] PHYSICIAN ORDERS 2024-01-04 17:55:51 Doctor Unas signed, [facility] XR CHEST 1 VW 2023-11-04 18:38:09 Tomasa Blair [facility] PHYSICIAN ORDERS 2023-10-25 19:00:22 Doctor Unagabbie signed, [facility] PHYSICIAN ORDERS 2023-09-05 06:01:00 Doctor Unagabbie signed, [facility] POCT GLUCOSE (AUTOMATED) 2023-02-13 17:02:00 Mica Hernández [facility] POCT GLUCOSE (AUTOMATED) 2023-02-13 13:17:00 Mica Hernández [facility] MAGNESIUM 2023-02-13 09:09:00 Mike Cid [facility] TROPONIN I 2023-02-13 09:09:00 Justin Leggett [facility] BASIC METABOLIC PANEL (NA, K, CL, CO2, GLUCOSE, BUN, CREATININE, CA) 2023-02-13 09:09:00 Mike Cid [facility] CBC WITH DIFF 2023-02-13 09:09:00 Mike Cid [facility] N-TERMINAL PRO-BNP 2023-02-13 09:09:00 Justin Leggett [facility] POCT GLUCOSE (AUTOMATED) 2023-02-13 01:06:00 Mica Hernández [facility] POCT GLUCOSE (AUTOMATED) 2023-02-12 22:00:00 Mica Hernández [facility] POCT GLUCOSE (AUTOMATED) 2023-02-12 17:06:00 Mica Hernández [facility] XR CHEST 1 VW 2023-02-12 15:24:01 Maria Luisa Hernández [facility] POCT GLUCOSE (AUTOMATED) 2023-02-12 13:00:00 Mica Hernández [facility] MAGNESIUM 2023-02-12 10:30:00 Florencia Taylor [facility] COMP. METABOLIC PANEL ([id number]) 2023-02-12 10:30:00 Florencia Taylor [facility] CBC WITH DIFF 2023-02-12 10:30:00 [facility] 2023-02-12 03:12:00 Mica Hernández [facility] POCT GLUCOSE (AUTOMATED) 2023-02-11 21:46:00 Mica Hernández [facility] POCT GLUCOSE (AUTOMATED) 2023-02-11 17:23:00 Mica Hernández [facility] POCT GLUCOSE (AUTOMATED) 2023-02-11 13:05:00 Mica Hernández [facility] BASIC METABOLIC PANEL (NA, K, CL, CO2, GLUCOSE, BUN, CREATININE, CA) 2023-02-11 09:51:00 Mike Cid [facility] CBC WITH DIFF 2023-02-11 09:51:00 Mike Cid [facility] POCT GLUCOSE (AUTOMATED) 2023-02-11 02:43:00 Mica Hernández [facility] POCT GLUCOSE (AUTOMATED) 2023-02-10 21:32:00 Mica Hernández [facility] POCT GLUCOSE (AUTOMATED) 2023-02-10 16:41:00 Mica Hernández [facility] POCT GLUCOSE (AUTOMATED) 2023-02-10 12:12:00 Mica Hernández [facility] XR CHEST 1 VW 2023-02-10 11:30:00 [facility] 2023-02-10 10:11:00 Mike Cid [facility] BASIC METABOLIC PANEL (NA, K, CL, CO2, GLUCOSE, BUN, CREATININE, CA) 2023-02-10 10:11:00 Mike Cid [facility] LIPID PANEL ([id number])(TOTAL CHOLESTEROL, TRIGLYCERIDES, HDL) 2023-02-10 10:11:00 Mike Cid [facility] CBC WITH DIFF 2023-02-10 10:11:00 Mike Cid [facility] POCT GLUCOSE (AUTOMATED) 2023-02-10 01:17:00 Mica Hernández [facility] POCT GLUCOSE (AUTOMATED) 2023-02-09 21:59:00 Mica Hernández [facility] COMP. METABOLIC PANEL ([id number]) 2023-02-09 11:16:00 Florencia Taylor [facility] CBC WITH DIFF 2023-02-09 11:16:00 Florencia Taylor Un [facility] ASSIGNMENT OF BENEFITS 2023-02-08 19:23:13 Docto r Unassigned, [facility] CONSENT/REFUSAL FOR DIAGNOSIS AND TREATMENT 2023-02-08 19:22:41 Doctor Unassigned, [facility] LIPASE 2023-02-08 18:59:00 Samanta Arenas [facility] MAGNESIUM 2023-02-08 18:59:00 Samanta Arenas [facility] COMP. METABOLIC PANEL ([id number]) 2023-02-08 18:59:00 Samanta Arenas [facility] CBC WITH DIFF 2023-02-08 18:59:00 Samanta Arenas [facility] URINALYSIS 2023-02-08 18:59:00 Apolonia Samanta G [facility] COVID-19 (ID NOW RAPID TESTING) 2023-02-08 17:52:00 Samanta Arenas [facility] LAB ONLY COVID INTERPRETATION 2023-02-08 17:52:00 Samanta Arenas [facility] POCT GLUCOSE (AUTOMATED) 2023-01-21 13:34:00 PersonCecesusanna [facility] CBC WITH DIFF 2023-01-21 10:30:00 Nicky Vicente [facility] POCT GLUCOSE (AUTOMATED) 2023-01-21 01:53:00 Cece Childssusanna [facility] CLOSTRIDIUM DIFFICILE TOXIN 2023-01-20 23:42:00 Benjamin Moreno [facility] POCT GLUCOSE (AUTOMATED) 2023-01-20 21:06:00 PersonCecesusnana [facility] BASIC METABOLIC PANEL (NA, K, CL, CO2, GLUCOSE, BUN, CREATININE, CA) 2023-01-20 20:43:00 Mikie Park [facility] POCT GLUCOSE (AUTOMATED) 2023-01-20 16:40:00 [facility] 2023-01-20 16:40:00 Person, Cece [facility] POCT GLUCOSE (AUTOMATED) 2023-01-20 13:03:00 [facility] 2023-01-20 13:03:00 [facility]OS[facility]US 2023-01-20 09:10:00 Nicky Vicente [facility] MAGNESIUM 2023-01-20 09:10:00 Nicky Vicente [facility] HEPATIC FUNCTION PANEL ([id number]) (ALB,T.PRO,BILI T,BU/BC,ALT,AST,ALK PHOS) 2023-01-20 09:10:00 Mikie Park [facility] BASIC METABOLIC PANEL (NA, K, CL, CO2, GLUCOSE, BUN, CREATININE, CA) 2023-01-20 09:10:00 Reji Vicente [facility] CBC WITH DIFF 2023-01-20 09:10:00 Nicky Vicente [facility] PHOSPHORUS 2023-01-20 09:10:00 Nicky Vicente [facility] MAGNESIUM 2023-01-20 09:10:00 Nicky Vicente [facility] HEPATIC FUNCTION PANEL (15836) (ALB,T.PRO,BILI T,BU/BC,ALT,AST,ALK PHOS) 2023-01-20 09:10:00 Mikie Park [facility] BASIC METABOLIC PANEL (NA, K, CL, CO2, GLUCOSE, BUN, CREATININE, CA) 2023-01-20 09:10:00 Reji Vicente [facility] CBC WITH DIFF 2023-01-20 09:10:00 Nicky Vicente [facility] POCT GLUCOSE (AUTOMATED) 2023-01-20 01:54:00 [facility]) 2023-01-20 01:54:00 [facility] PO[facility]SE ([facility]OMATED) 2023-01-19 16:56:00 Cece Childs [facility] POCT GLUCOSE (AUTOMATED) 2023-01-19 16:56:00 Cece Childs [facility] SURGICAL PATHOLOGY EXAM 2023-01-19 15:28:00 Macario [facility] INTUBATION 2023-01-19 14:58:00 Karli Roland [facility] LAPAROSCOPIC CHOLECYSTECTOMY 2023-01-19 14:28:00 Macario [facility] LYSIS OF ABDOMINAL ADHESIONS 2023-01-19 14:28:00 Macario [facility] LAPAROSCOPIC CHOLECYSTECTOMY 2023-01-19 14:28:00 Macario [facility] LYSIS OF ABDOMINAL ADHESIONS 2023-01-19 14:28:00 Macario [facility] POCT GLUCOSE (AUTOMATED) 2023-01-19 12:31[facility] 2023-01-19 12:31:00 Cece Childssusanna [facility] PHOSPHORUS 2023-01-19 08:34:00 Nicky Vicente [facility] MAGNESIUM 2023-01-19 08:34:00 Nicky Vicente [facility] BASIC METABOLIC PANEL (NA, K, CL, CO2, GLUCOSE, BUN, CREATININE, CA) 2023-01-19 08:34:00 Reji Vicente [facility] CBC WITH DIFF 2023-01-19 08:34:00 Nicky Vicente [facility] PHOSPHORUS 2023-01-19 08:34:00 Nicky Vicente [facility] MAGNESIUM 2023-01-19 08:34:00 Nicky Vicente [facility] BASIC METABOLIC PANEL (NA, K, CL, CO2, GLUCOSE, BUN, CREATININE, CA) 2023-01-19 08:34:00 Reji Vicente [facility] CBC WITH DIFF 2023-01-19 08:34:00 Nicky Vicente [facility] PHOSPHORUS 2023-01-19 04:33:00 [place] roshni [facility] MAGNESIUM 2023-01-19 04:33:00 Donovan Park [facility] BASIC METABOLIC PANEL (NA, K, CL, CO2, GLUCOSE, BUN, CREATININE, CA) 2023-01-19 04:33:00 Mikie Park [facility] PHOSPHORUS 2023-01-19 04:33:00 [place] roshni [facility] MAGNESIUM 2023-01-19 04:33:00 Dnoovan Park [facility] BASIC METABOLIC PANEL (NA, K, CL, CO2, GLUCOSE, BUN, CREATININE, CA) 2023-01-19 04:33:00 Mikie Park [facility] POCT GLUCOSE (AUTOMATED) 2023-01-19 01:28:00 [facility] PO[facility]SE ([facility]OMATED) 2023-01-19 01:28:00 [facility] PHOS[facility]US 2023-01-18 20:31:00 Nicky Vicente [facility] MAGNESIUM 2023-01-18 20:31:00 Nicky Vicente [facility] BASIC METABOLIC PANEL (NA, K, CL, CO2, GLUCOSE, BUN, CREATININE, CA) 2023-01-18 20:31:00 Reji Vicente [facility] EXTRA TUBE RED 2023-01-18 20:31:00 [facility] PHOSPHORUS 2023-01-18 20:31:00 Nicky Vicente [facility] MAGNESIUM 2023-01-18 20:31:00 Nicky Vicente [facility] BASIC METABOLIC PANEL (NA, K, CL, CO2, GLUCOSE, BUN, CREATININE, CA) 2023-01-18 20:31:00 Reji Vicente [facility] EXTRA TUBE RED 2023-01-18 20:31:00 Amadeo [facility] POCT GLUCOSE (AUTOMATED) 2023-01-18 20:10:00 Mrazek, A [facility] POCT GLUCOSE (AUTOMATED) 2023-01-18 20:10:00 Susanna Benitez [facility] POCT GLUCOSE (AUTOMATED) 2023-01-18 16:49:00 Susanna Benitez [facility] POCT GLUCOSE (AUTOMATED) 2023-01-18 16:49:00 Susanna Benitez [facility] POCT GLUCOSE (AUTOMATED) 2023-01-18 13:29:00 Susanna Benitez [facility] POCT GLUCOSE (AUTOMATED) 2023-01-18 13:29:00 Susanna Benitez [facility] CBC WITH DIFF 2023-01-18 09:52:00 Nicky Vicente [facility] CBC WITH DIFF 2023-01-18 09:52:00 Nicky Vicente [facility] POCT GLUCOSE (AUTOMATED) 2023-01-18 01:49:00 Susanna Benitez [facility] POCT GLUCOSE (AUTOMATED) 2023-01-18 01:49:00 Susanna Benitez [facility] CANCER ANTIGEN-GI (CA 19-9) 2023-01-17 22:00:00 Aren Stanton [facility] CARCINOEMBRYONIC ANTIGEN 2023-01-17 22:00:00 Mendez [facility] CANCER ANTIGEN-GI (CA 19-9) 2023-01-17 22:00:00 Aren Stanton [facility] CARCINOEMBRYONIC ANTIGEN 2023-01-17 22:00:00 Mendez Stanton [facility] HB ECG ROUTINE & RHYTHM STRIP 2023-01-17 21:27:50 Jeremias Crum [facility] HB ECG ROUTINE & RHYTHM STRIP 2023-01-17 21:27:50 Jeremias Crum [facility] POCT GLUCOSE (AUTOMATED) 2023-01-17 21:21:00 Susanna Benitez [facility] POCT GLUCOSE (AUTOMATED) 2023-01-17 21:21:00 Susanna Benitez [facility] US GALL BLADDER 2023-01-17 14:01:41 Jose Elias Lopes Un [facility] US GALL BLADDER 2023-01-17 14:01:41 Jose Elias Lopes Un [facility] CT ABDOMEN PELVIS W CONTRAST 2023-01-17 12:21:10 Loraine Burns [facility] CT ABDOMEN PELVIS W CONTRAST 2023-01-17 12:21:10 Loraine Burns [facility] LIPASE 2023-01-17 10:27:00 Loraine Burns [facility] THYROID STIMULATING HORMONE 2023-01-17 10:27:00 Skyla [facility] COMP. METABOLIC PANEL (12117) 2023-01-17 10:27:00 Loraine Burns [facility] LIPID PANEL (97309)(TOTAL CHOLESTEROL, TRIGLYCERIDES, HDL) 2023-01-17 10:27:00 Skyla [facility] CBC WITH DIFF 2023-01-17 10:27:00 Loraine Burns [facility] GLYCOSYLATED HEMOGLOBIN (A1C) 2023-01-17 10:27:00 Nils Hernandez [facility] URINALYSIS 2023-01-17 10:27:00 Loraine Burns [facility] LIPASE 2023-01-17 10:27:00 Loraine Burns [facility] THYROID STIMULATING HORMONE 2023-01-17 10:27:00 Skyla [facility] COMP. METABOLIC PANEL (51817) 2023-01-17 10:27:00 Loraine Burns [facility] LIPID PANEL (71391)(TOTAL CHOLESTEROL, TRIGLYCERIDES, HDL) 2023-01-17 10:27:00 Skyla, [facility] CBC WITH DIFF 2023-01-17 10:27:00 Loraine Burns [facility] GLYCOSYLATED HEMOGLOBIN (A1C) 2023-01-17 10:27:00 Aren Stanton [facility] URINALYSIS 2023-01-17 10:27:00 Loraine Burns [facility] NOTICE OF PRIVACY PRACTICES 2023-01-17 10:04:58 Doctor Unassigned, [employer] [facility] NOTICE OF PRIVACY PRACTICES 2023-01-17 10:04:58 Doctor Unassigned, [employer] [facility] CONSENT/REFUSAL FOR DIAGNOSIS AND TREATMENT 2023-01-17 10:03:13 Doctor Unassigned, [employer] [facility] CONSENT/REFUSAL FOR DIAGNOSIS AND TREATMENT 2023-01-17 10:03:13 Doctor Unassigned, [employer] [facility] HOSPITAL ADMISSION 2023-01-17 05:01:00 Doctor Un assigned, [employer] [facility] HOSPITAL ADMISSION 2023-01-17 05:01:00 Doctor Un assigned, [employer] [facility] ASSIGNMENT OF BENEFITS 2022-10-27 18:42:25 Docto r Unassigned, [employer] [facility] REFERRAL- REQUEST/RESPONSE 2022-10-13 05:01:00 D tai Unassigned, [employer] [facility] Encounters Start Date/Time End Date/Time Encounter Type Admission Type Attending [facility] Facility Care Department Encounter ID Source 2021-05-11 13:54:37 Emergency [facility] [id number] [facility] 2024-11-09 09:22:09 2024-11-09 09:22:[address] [facility] [id number] Dev Steiner 2024-11-09 00:00:00 2024-11-09 00:00:[address] [facility] [id number] Dev Steiner 2024-09-19 10:28:11 2024-09-19 10:28:[address] [facility] [id number] Dev Georges Jatin 2024-09-19 00:00:00 2024-09-19 00:00:[address] [facility] [id number] Dev Steiner 2024-09-14 11:29:41 2024-09-14 11:29:[address] [facility] [id number] Dev Steiner 2024-09-14 00:00:00 2024-09-14 00:00:[address] [facility] [id number] Dev Steiner 2024-09-12 09:20:18 2024-09-12 09:20:[address] [facility] [id number] Dev Steiner 2024-09-12 00:00:00 2024-09-12 00:00:[address] [facility] [id number] Dev Georges Jatin 2024-09-07 11:45:00 2024-09-07 12:00:00 Veterinary Assistant Technician Visit Pob, Adc Lab Main Dayne De La Vegab, Adc Lab Main [facility] 1..840.114 350.1.13.10 4.2.7.2.686 [id number] [facility] 2024-09-07 11:45:00 2024-09-07 11:45:00 Outpatient R DAYNE DE LA VEGA NAVEED [facility] [id number] [facility] 2024-01-04 00:00:00 2024-08-25 07:26:33 Orders Only Doctor Unassigned, [employer] Doctor Unassigned, [employer] [facility] ([place]) 1..840.114 350.1.13.10 4.2.7.2.686 [id number] [facility] 2024-02-16 00:00:00 2024-08-25 07:10:29 Orders Only Doctor Unassigned, [employer] Doctor Unassigned, [employer] [facility] ([place] 1.2.840.114 350.1.13.10 4.2.7.2.686 [id number] [facility] 2023-10-25 00:00:00 2024-08-25 02:19:06 Orders Only Doctor Unassigned, [employer] Doctor Unassigned, [employer] [facility] ([place] ..840.114 350.1.13.10 4.2.7.2.686 [id number] [facility] 2024-07-17 10:19:19 2024-07-17 10:19:[address] [facility] [id number] Dev Steiner 2024-07-17 00:00:00 2024-07-17 00:00:00 Outpatient Visit SFA [id number] Dev Steiner 2024-04-12 10:46:03 2024-04-12 10:46:[address] [facility] [id number] Dev Steiner 2024-04-12 00:00:00 2024-04-12 00:00:[address] [facility] [id number] Dev Steiner 2024-02-23 10:49:50 2024-02-23 10:49:[address] [facility] [id number] Dev Georges Jatin 2024-01-13 10:51:42 2024-01-13 10:51:[address] [facility] [id number] Dev Steiner 2024-01-13 00:00:00 2024-01-13 00:00:[address] [facility] [id number] Dev Steiner 2023-12-30 13:45:00 2023-12-30 14:00:00 Veterinary Assistant Technician Visit Pob, Adc Lab [facility] Dayne De La Vega [facility] ..840.114 350.1.13.10 4.2.7.2.686 [id number] [facility] 2023-12-30 13:45:00 2023-12-30 13:45:00 Outpatient R DAYNE DE LA VEGA NAVEED [facility] [id number] [facility] 2023-11-04 12:09:00 2023-11-04 15:40:00 Emergency X TOMASA BLAIR [facility] ERT [id number] [facility] 2023-11-04 12:09:00 2023-11-04 15:40:00 Emergency Tomasa Blair [facility] 1.2.840.114 350.1.13.10 4.2.7.2.686 [id number] [facility] 2023-11-03 09:25:57 2023-11-03 09:25:[address] [facility] [id number] Dev Steiner 2023-11-03 00:00:00 2023-11-03 00:00:00 Outpatient Visit SFA [id number] Dev Steiner 2023-10-28 11:15:00 2023-10-28 11:30:00 Veterinary Assistant Technician Visit Pob, Adc Lab Main [facility] 1.2.840.114 350.1.13.10 4.2.7.2.686 [id number] [facility] 2023-10-28 11:15:00 2023-10-28 11:15:00 Outpatient DAYNE TERRAZAS NAVEED [facility] [id number] [facility] 2023-10-06 12:00:00 2023-10-06 12:15:00 Veterinary Assistant Technician Visit Pob, Adc Lab Main Holli [facility] 1.2.840.114 350.1.13.10 4.2.7.2.686 [id number] [facility] 2023-10-06 12:00:00 2023-10-06 12:00:00 Outpatient HEATH OCASIO [facility] [id number] [facility] 2023-09-19 14:03:33 2023-09-19 14:03:33 Outpatient [facility] [id number] Dev Steiner 2023-09-05 10:00:00 2023-09-05 10:15:00 Veterinary Assistant Technician Visit Pob, Adc Lab Dayne Wolf [facility] 1..114 350.1.13.10 4.2.7.2.686 [id number] [facility] 2023-09-05 10:00:00 2023-09-05 10:00:00 Outpatient R DAYNE DE LA VEGA [facility] [id number] [facility] 2023-09-05 00:00:00 2023-09-05 00:00:00 Orders Only Doctor Unassigned, [employer] [facility] 1.0.114 350.1.13.10 4.2.7.2.686 [id number] [facility] 2023-06-21 13:43:03 2023-06-21 13:43:03 Outpatient [facility] [id number] Dev Georges [place] 2023-05-12 14:55:02 2023-05-12 14:55:02 Outpatient [facility] [id number] Dev Georges [place] 2023-03-22 12:38:20 2023-03-22 12:38:20 Outpatient [facility] [id number] Dev Georges [place] 2023-03-02 00:00:00 2023-03-02 00:00:00 Patient Secure Msg Doctor Unassigned, [employer] [facility] 1..114 350.1.13.10 4.2.7.2.686 [id number] [facility] 2023-02-15 00:00:00 2023-02-15 00:00:00 Transition of Care Lauren Giles 1.0.114 350.1.13.10 4.2.7.2.686 [id number] [facility] 2023-02-14 00:00:00 2023-02-14 00:00:00 Patient Secure Msg Doctor Unassigned, [employer] [facility] 1..840.114 350.1.13.10 4.2.7.2.686 [id number] [facility] 2023-02-08 12:08:00 2023-02-13 15:39:00 Inpatient X MARIA LUISA HERNÁNDEZ [facility] SUNNI [id number] [facility] 2023-02-08 12:08:00 2023-02-13 15:39:00 Hospital Encounter Samanta Arenas Maria Luisa Hernández [facility] 1..840.114 350.1.13.10 4.2.7.2.686 [id number] [facility] 2023-01-26 09:09:42 2023-01-26 09:09:[address] [facility] [id number] Dev Georges Jatin 2023-01-24 00:00:00 2023-01-24 00:00:00 Transition of Care Lauren Giles 1..840.114 350.1.13.10 4.2.7.2.686 [id number] [facility] 2023-01-17 05:15:00 2023-01-21 18:13:00 Outpatient Phoebe [facility] JANIYA [id number] [facility] 2023-01-17 05:15:00 2023-01-21 18:13:00 Emergency Loraine Burns Donnell Mrazek, Amy Person [facility] 1.840.114 350.1.13.10 4.2.7.2.686 [id number] [facility] 2023-01-19 09:00:00 2023-01-19 11:37:00 [facility] 1.2.840.114 350.1.13.10 4.2.7.2.686 [id number] [facility] 2023-01-19 09:43:00 2023-01-19 11:14:00 Anesthesia Event Chantelle Solo, Marcio [facility] 1.2.840.114 350.1.13.10 4.2.7.2.686 [id number] [facility] 2022-10-27 13:55:00 2022-10-27 23:59:00 Outpatient R MARIELA GIPSON [facility] [id number] [facility] 2022-10-27 14:00:00 2022-10-27 14:30:00 Office Visit Mariela Gipson [facility] 1.2840.114 350.1.13.10 4.2.7.2.686 [id number] [facility] 2022-10-27 00:00:00 2022-10-27 00:00:00 Orders Only Doctor Unassigned, [employer] [facility] 1.2.840.114 350.1.13.10 4.2.7.2.686 [id number] [facility] 2022-10-13 15:06:29 2022-10-13 15:06:[address] [facility] [id number] Dev Steiner 2022-10-13 00:00:00 2022-10-13 00:00:00 Orders Only Doctor Unassigned, [employer] [facility] 1.2840.114 350.1.13.10 4.2.7.2.686 [id number] [facility] 2022-08-23 10:53:50 2022-08-23 10:53:50 Outpatient SFA [facility] [id number] Dev Steiner 2020-12-04 00:00:00 2020-12-04 00:00:00 Outpatient R [facility] [id number] [facility] 2020-12-03 00:00:00 2020-12-03 00:00:00 Outpatient R [facility] [id number] [facility] 2020-11-26 00:00:00 2020-11-26 00:00:00 Outpatient R RADIOLOGY [facility] [id number] [facility] 2019-09-19 14:47:23 2019-09-19 23:59:00 Outpatient R STEF OSMAN I [facility] [id number] [facility] 2019-08-30 09:49:51 2019-08-30 23:59:00 Outpatient R JASSSTEF ROSAS I [facility] [id number] [facility] Results Test Description Test Time Test Comments Results Result Co mments Source Dev Georges AustinMICROALBUMIN, RANDOM URINE (W/CREATININE)2024-09-13 00:00:00* Test Item Value Reference Range Interpretation Comme nts CREATININE, RANDOM URINE (te st code = 2161-8) 121 mg/dL ALBUMIN, URINE (test code = 75168-2) 67.1 mg/dL ALBUMIN/CREATININE RATIO, RANDOM URINE (test code = 9318-7) 555 mg/gcreat Dev Georges AustinMICROALBUMIN, RANDOM URINE (W/CREATININE)2024-09-13 00:00:00* Test Item Value Reference Range Interpretation Comme nts CREATININE, RANDOM URINE (te st code = 2161-8) 121 mg/dL ALBUMIN, URINE (test code = 03038-8) 67.1 mg/dL ALBUMIN/CREATININE RATIO, RANDOM URINE (test code = 9318-7) 555 mg/gcreat Dev F AustinMICROALBUMIN, RANDOM URINE (W/CREATININE)2024-09-13 00:00:00* Test Item Value Reference Range Interpretation Comme nts CREATININE, RANDOM URINE (te st code = 2161-8) 121 mg/dL ALBUMIN, URINE (test code = 36254-6) 67.1 mg/dL ALBUMIN/CREATININE RATIO, RANDOM URINE (test code = 9318-7) 555 mg/gcreat Dev Georges AustinHEMOGLOBIN [id number] 03:58:11* Test Item Value Reference Range Interpretation Comme [facility] HEMOGLOBIN A1c (test code = 89861) 7.1 % 4.2-5.6 H [employer] GUIDELINES FOR HGB A1C: [...] TESTING PERFORMED AT [facility] [address] [place] [address] REGISTERED PHLEBOTOMIST PART TIME: FREDDY HUTCHISON M.D. [place] NUMBER [id number] [facility] [place]. [id number] HEMOGLOBIN [id number] 00:00:00* Test Item Value Reference Range Interpretation Comme [facility] HEMOGLOBIN A1c (test code = 82021) 7.1 % [facility] [id number] 00:00:00* Test Item Value Reference Range Interpretation Comme [facility] HEMOGLOBIN A1c (test code = 43662) 7.1 % Dev F AustinHEMOGLOBIN [id number] 00:00:00* Test Item Value Reference Range Interpretation Comme [facility] HEMOGLOBIN A1c (test code = 79210) 7.1 % Dev F AustinHEMOGLOBIN [id number] 00:00:00* Test Item Value Reference Range Interpretation Comme [facility] HEMOGLOBIN A1c (test code = 37422) 7.1 % Dev F AustinHEMOGLOBIN [id number] 00:00:00* Test Item Value Reference Range Interpretation Comme [facility] HEMOGLOBIN A1c (test code = 12303) 7.1 % Dev F AustinALBUMIN/CREATININE RATIO, URINE, [id number] 07:50:47* Test Item Value Reference Range Interpretation Comme nts CREATININE, URINE, CONC. (test code = 2072) 96.7 MG/DL NOT ESTAB ALBUMIN, URINE, RANDOM (test code = 79631) 82.4 MG/DL NOT ESTAB CALC ALBUMIN/CREAT, RND (test code = 61215) 852 MG/G <30 H Note: Albumin/Cr eatinine ratio reference interval reflects ADA and NKF guidelines. UNLESS OTHERWISE INDICATED, ALL TESTING PERFORMED AT [facility] [address] [facility] [place] [address] REGISTERED PHLEBOTOMIST PART TIME: Chantel LANEIA NUMBER [id number] [facility] [place]. [id number] LIPID [id number] 05:51:57* Test Item Value Reference Range Interpretation [...] SPECIMENS. FOR MOREINFORMATION, SEE CLIENT ANNOUNCEMENT AT [email or web address] RISK RATIO LDL/HDL (test code = 2238) 1.69 RATIO <3.22 COMPREHENSIVE METABOLIC [id number] 05:51:57* Test Item Value Reference Range Interpretation Comme nts GLUCOSE (test code = 2217) 210 MG/DL 70-99 H BUN (test code = 2208) 36 MG/DL 8-23 H CREATININE (test code = 2214) 1.42 MG/DL 0.60-1.30 H eGFR (2020 CKD-EPI) (test co de = 01085) 37 ML/MIN/1.73 >60 L CALC BUN/CREAT (test code = 2235) 25 RATIO 6-28 SODIUM (test code = 223) 138 MEQ/L 133-146 POTASSIUM (test code = 2228) 4.8 MEQ/L 3.5-5.4 CHLORIDE (test code = 2215) 104 MEQ/L 95-107 CARBON DIOXIDE (test code = 2206) 19 MEQ/L 19-31 CALCIUM (test code = 2209) 9.3 MG/DL 8.5-10.5 PROTEIN, TOTAL (test code = 2229) 7.3 G/DL 6.1-8.3 ALBUMIN (test code = 220) 4.3 G/DL 3.5-5.2 CALC GLOBULIN (test code = 2240) 3.0 G/DL 1.9-3.7 CALC A/G RATIO (test code = 2234) 1.4 RATIO 1.0-2.6 BILIRUBIN, TOTAL (test code = 2207) 0.2 MG/DL <=1.2 ALKALINE PHOSPHATASE (test code = 2204) 98 U/L 40-142 AST (test code = 2218) 14 U/L 9-40 ALT (test code = 2219) 12 U/L 5-40 HEMOGLOBIN [id number] 03:27:05* Test Item Value Reference Range Interpretation Comme nts HEMOGLOBIN A1c (test code = 27206) 7.3 % 4.2-5.6 H [employer] GUIDELINES FOR HGB A1C: [...] CONSIDER ALTERNATE TESTING OR LABORATORY CONSULTATION. HEMOGLOBIN [id number] 00:00:00* Test Item Value Reference Range Interpretation Comme [facility] HEMOGLOBIN A1c (test code = 90241) 7.3 % Dev Georges AustinLIPID [id number] 00:00:00* Test Item Value Reference Range Interpretation Comme nts CHOLESTEROL (test code = 2210) 140 MG/DL TRIGLYCERIDES (test code = 2232) 263 MG/DL HDL CHOLESTEROL (test code = 2220) 39 MG/DL CALC LDL CHOL (test code = 2237) 66 MG/DL RISK RATIO LDL/HDL (test cod e = 2238) 1.69 RATIO Dev F JatinCOMPREHENSIVE METABOLIC [id number] 00:00:00* Test Item Value Reference Range Interpretation Comme nts GLUCOSE (test code = 2217) 210 MG/DL BUN (test code = 2208) 36 MG/DL CREATININE (test code = 2214) 1.42 MG/DL eGFR (2020 CKD-EPI) (test co de = 49488) 37 ML/MIN/1.73 CALC BUN/CREAT (test code = 2235) 25 RATIO SODIUM (test code = 2231) 138 MEQ/L POTASSIUM (test code = 2228) 4.8 MEQ/L CHLORIDE (test code = 2215) 104 MEQ/L CARBON DIOXIDE (test code = 2206) 19 MEQ/L CALCIUM (test code = 2209) 9.3 MG/DL PROTEIN, TOTAL (test code = 2229) 7.3 G/DL ALBUMIN (test code = 220) 4.3 G/DL CALC GLOBULIN (test code = 2240) 3.0 G/DL CALC A/G RATIO (test code = 2234) 1.4 RATIO BILIRUBIN, TOTAL (test code = 2207) 0.2 MG/DL ALKALINE PHOSPHATASE (test code = 220) 98 U/L AST (test code = 221) 14 U/L ALT (test code = 221) 12 U/L Dev SteinerALBUMIN/CREATININE RATIO, RANDOM [id number] 00:00:00* Test Item Value Reference Range Interpretation Comme nts CREATININE, URINE, CONC. (te st code = 2072) 96.7 MG/DL ALBUMIN, URINE, RANDOM (test code = 11300) 82.4 MG/DL CALC ALBUMIN/CREAT, RND (eitan t code = 18900) 852 MG/G Dev SteinerHEMOGLOBIN [id number] 00:00:00* Test Item Value Reference Range Interpretation Comme nts HEMOGLOBIN A1c (test code = 66607) 7.3 % Dev SteinerLIPID [id number] 00:00:00* Test Item Value Reference Range Interpretation Comme nts CHOLESTEROL (test code = 2210) 140 MG/DL TRIGLYCERIDES (test code = 2232) 263 MG/DL HDL CHOLESTEROL (test code = 2220) 39 MG/DL CALC LDL CHOL (test code = 2237) 66 MG/DL RISK RATIO LDL/HDL (test cod e = 2238) 1.69 RATIO Dev SteinerCOMPREHENSIVE METABOLIC [id number] 00:00:00* Test Item Value Reference Range Interpretation Comme nts GLUCOSE (test code = 2217) 210 MG/DL BUN (test code = 2208) 36 MG/DL CREATININE (test code = 2214) 1.42 MG/DL eGFR (2020 CKD-EPI) (test co de = 60769) 37 ML/MIN/1.73 CALC BUN/CREAT (test code = 2235) 25 RATIO SODIUM (test code = 2231) 138 MEQ/L POTASSIUM (test code = 2228) 4.8 MEQ/L CHLORIDE (test code = 2215) 104 MEQ/L CARBON DIOXIDE (test code = 2206) 19 MEQ/L CALCIUM (test code = 2209) 9.3 MG/DL PROTEIN, TOTAL (test code = 2229) 7.3 G/DL ALBUMIN (test code = 220) 4.3 G/DL CALC GLOBULIN (test code = 2240) 3.0 G/DL CALC A/G RATIO (test code = 2234) 1.4 RATIO BILIRUBIN, TOTAL (test code = 2207) 0.2 MG/DL ALKALINE PHOSPHATASE (test code = 220) 98 U/L AST (test code = 221) 14 U/L ALT (test code = 2219) 12 U/L Dev SteinerALBUMIN/CREATININE RATIO, RANDOM [id number] 00:00:00* Test Item Value Reference Range Interpretation Comme nts CREATININE, URINE, CONC. (te st code = 2072) 96.7 MG/DL ALBUMIN, URINE, RANDOM (test code = 43268) 82.4 MG/DL CALC ALBUMIN/CREAT, RND (eitan t code = 42929) 852 MG/G Dev SteinerHEMOGLOBIN [id number] 00:00:00* Test Item Value Reference Range Interpretation Comme nts HEMOGLOBIN A1c (test code = 98434) 7.3 % Dev SteinerLIPID [id number] 00:00:00* Test Item Value Reference Range Interpretation Comme nts CHOLESTEROL (test code = 2210) 140 MG/DL TRIGLYCERIDES (test code = 2232) 263 MG/DL HDL CHOLESTEROL (test code = 2220) 39 MG/DL CALC LDL CHOL (test code = 2237) 66 MG/DL RISK RATIO LDL/HDL (test cod e = 2238) 1.69 RATIO Dev SteinerCOMPREHENSIVE METABOLIC [id number] 00:00:00* Test Item Value Reference Range Interpretation Comme nts GLUCOSE (test code = 2217) 210 MG/DL BUN (test code = 2208) 36 MG/DL CREATININE (test code = 2214) 1.42 MG/DL eGFR (2020 CKD-EPI) (test co de = 16283) 37 ML/MIN/1.73 CALC BUN/CREAT (test code = 2235) 25 RATIO SODIUM (test code = 2231) 138 MEQ/L POTASSIUM (test code = 2228) 4.8 MEQ/L CHLORIDE (test code = 2215) 104 MEQ/L CARBON DIOXIDE (test code = 2206) 19 MEQ/L CALCIUM (test code = 2209) 9.3 MG/DL PROTEIN, TOTAL (test code = 2229) 7.3 G/DL ALBUMIN (test code = 220) 4.3 G/DL CALC GLOBULIN (test code = 2240) 3.0 G/DL CALC A/G RATIO (test code = 2234) 1.4 RATIO BILIRUBIN, TOTAL (test code = 2207) 0.2 MG/DL ALKALINE PHOSPHATASE (test code = 220) 98 U/L AST (test code = 221) 14 U/L ALT (test code = 221) 12 U/L Dev SteinerALBUMIN/CREATININE RATIO, RANDOM [id number] 00:00:00* Test Item Value Reference Range Interpretation Comme [facility] CREATININE, URINE, CONC. (te st code = 2072) 96.7 MG/DL ALBUMIN, URINE, RANDOM (test code = 94434) 82.4 MG/DL CALC ALBUMIN/CREAT, RND (eitan t code = 52926) 852 MG/G Dev SteinerHEMOGLOBIN [id number] 00:00:00* Test Item Value Reference Range Interpretation Comme [facility] HEMOGLOBIN A1c (test code = 32483) 7.3 % Dev SteinerLIPID [id number] 00:00:00* Test Item Value Reference Range Interpretation Comme nts CHOLESTEROL (test code = 2210) 140 MG/DL TRIGLYCERIDES (test code = 2232) 263 MG/DL HDL CHOLESTEROL (test code = 2220) 39 MG/DL CALC LDL CHOL (test code = 2237) 66 MG/DL RISK RATIO LDL/HDL (test cod e = 2238) 1.69 RATIO Dev SteinerCOMPREHENSIVE METABOLIC [id number] 00:00:00* Test Item Value Reference Range Interpretation Comme nts GLUCOSE (test code = 2217) 210 MG/DL BUN (test code = 2207) 36 MG/DL CREATININE (test code = 2214) 1.42 MG/DL eGFR (2020 CKD-EPI) (test co de = 98604) 37 ML/MIN/1.73 CALC BUN/CREAT (test code = 5) 25 RATIO SODIUM (test code = 2231) 138 MEQ/L POTASSIUM (test code = 2228) 4.8 MEQ/L CHLORIDE (test code = 2215) 104 MEQ/L CARBON DIOXIDE (test code = 2206) 19 MEQ/L CALCIUM (test code = 2209) 9.3 MG/DL PROTEIN, TOTAL (test code = 2229) 7.3 G/DL ALBUMIN (test code = 220) 4.3 G/DL CALC GLOBULIN (test code = 2240) 3.0 G/DL CALC A/G RATIO (test code = 2234) 1.4 RATIO BILIRUBIN, TOTAL (test code = 2207) 0.2 MG/DL ALKALINE PHOSPHATASE (test code = 2203) 98 U/L AST (test code = 221) 14 U/L ALT (test code = 2219) 12 U/L Dev SteinerALBUMIN/CREATININE RATIO, RANDOM [id number] 00:00:00* Test Item Value Reference Range Interpretation Comme nts CREATININE, URINE, CONC. (te st code = 2072) 96.7 MG/DL ALBUMIN, URINE, RANDOM (test code = 23206) 82.4 MG/DL CALC ALBUMIN/CREAT, RND (eitan t code = 11745) 852 MG/G Dev SteinerHEMOGLOBIN [id number] 00:00:00* Test Item Value Reference Range Interpretation Comme nts HEMOGLOBIN A1c (test code = 55903) 7.3 % Dev SteinerLIPID [id number] 00:00:00* Test Item Value Reference Range Interpretation Comme nts CHOLESTEROL (test code = 2210) 140 MG/DL TRIGLYCERIDES (test code = 2232) 263 MG/DL HDL CHOLESTEROL (test code = 2220) 39 MG/DL CALC LDL CHOL (test code = 2237) 66 MG/DL RISK RATIO LDL/HDL (test cod e = 2238) 1.69 RATIO Dev SteinerCOMPREHENSIVE METABOLIC [id number] 00:00:00* Test Item Value Reference Range Interpretation Comme nts GLUCOSE (test code = 2217) 210 MG/DL BUN (test code = 2207) 36 MG/DL CREATININE (test code = 2214) 1.42 MG/DL eGFR (2020 CKD-EPI) (test co de = 57511) 37 ML/MIN/1.73 CALC BUN/CREAT (test code = 2234) 25 RATIO SODIUM (test code = 2231) 138 MEQ/L POTASSIUM (test code = 2228) 4.8 MEQ/L CHLORIDE (test code = 2215) 104 MEQ/L CARBON DIOXIDE (test code = 2206) 19 MEQ/L CALCIUM (test code = 2209) 9.3 MG/DL PROTEIN, TOTAL (test code = 222) 7.3 G/DL ALBUMIN (test code = 220) 4.3 G/DL CALC GLOBULIN (test code = 0) 3.0 G/DL CALC A/G RATIO (test code = 2234) 1.4 RATIO BILIRUBIN, TOTAL (test code = 2206) 0.2 MG/DL ALKALINE PHOSPHATASE (test code = 2203) 98 U/L AST (test code = 2217) 14 U/L ALT (test code = 221) 12 U/L Dev SteinerALBUMIN/CREATININE RATIO, RANDOM [id number] 00:00:00* Test Item Value Reference Range Interpretation Comme nts CREATININE, URINE, CONC. (te st code = 2072) 96.7 MG/DL ALBUMIN, URINE, RANDOM (test code = 13607) 82.4 MG/DL CALC ALBUMIN/CREAT, RND (eitan t code = 42151) 852 MG/G Dev SteinerHEMOGLOBIN [id number] 00:00:00* Test Item Value Reference Range Interpretation Comme nts HEMOGLOBIN A1c (test code = 88938) 7.3 % Dev SteinerLIPID [id number] 00:00:00* Test Item Value Reference Range Interpretation Comme nts CHOLESTEROL (test code = 2210) 140 MG/DL TRIGLYCERIDES (test code = 2232) 263 MG/DL HDL CHOLESTEROL (test code = 2220) 39 MG/DL CALC LDL CHOL (test code = 2237) 66 MG/DL RISK RATIO LDL/HDL (test cod e = 2238) 1.69 RATIO Dev Georges JatinCOMPREHENSIVE METABOLIC [id number] 00:00:00* Test Item Value Reference Range Interpretation Comme nts GLUCOSE (test code = 2217) 210 MG/DL BUN (test code = 2208) 36 MG/DL CREATININE (test code = 2214) 1.42 MG/DL eGFR (2020 CKD-EPI) (test co de = 10557) 37 ML/MIN/1.73 CALC BUN/CREAT (test code = [...] code = 2219) 12 U/L Dev Georges AustinALBUMIN/CREATININE RATIO, RANDOM [id number] 00:00:00* Test Item Value Reference Range Interpretation Comme nts CREATININE, URINE, CONC. (te st code = 2072) 96.7 MG/DL ALBUMIN, URINE, RANDOM (test code = 66457) 82.4 MG/DL CALC ALBUMIN/CREAT, RND (eitan t code = 85530) 852 MG/G Dev SteinerPHYSICIAN [id number] 19:52:38Ordered by an unspecified provider.[facility] [id number] 17:55:51 Ordered by an unspecified provider.[facility] DistrictXR [facility] 1 [id number] 19:00:05EXAM: XR CHEST 1 VW COMPARISON: 02/12/2023 [...] right shoulderjoint with decreased joint space. Moderate spondylosisUn[facility] PH[facility] [id number] 19:00:22Ordered by an unspecified provider.[facility]COM[facility] [id number] 05:28:36* Test Item Value Reference Range Interpretation Comme nts GLUCOSE (test code = 2217) 123 MG/DL 70-99 H BUN (test code = 220) 78 MG/DL 8-23 H CREATININE (test code = 2214) 1.88 MG/DL 0.60-1.30 H eGFR (2020 CKD-EPI) (test code = 81525) 27 ML/MIN/1.73 >60 L CALC BUN/CREAT (test [...] 1.0-2.6 BILIRUBIN, TOTAL (test code = 2207) <0.2 MG/DL <=1.2 ALKALINE PHOSPHATASE (test code = 220) 101 U/L 40-142 AST (test code = 2218) 18 U/L 9-40 ALT (test code = 2219) 15 U/L 5-40 LIPID [id number] 05:28:36* Test Item Value Reference Range Interpretation Comme nts CHOLESTEROL (test code = 2210) 153 MG/DL <200 TRIGLYCERIDES (test code = 2232) 286 MG/DL <150 H HDL CHOLESTEROL (test code = 2220) 45 MG/DL >39 CALC LDL CHOL (test code = 2237) 70 MG/DL <100 NOTE: CALCULATED LDL IS BASED ON BARBER-MATA METHOD WHICHINCLUDES ADJUSTABLE TRIGLYCERIDE:VLDL CHOLESTEROL RATIO.THIS FACTOR VARIES BY MEASURED TRIGLYCERIDE AND NON-HDLCHOLESTEROL CONCENTRATIONS WITH INCREASED CALCULATED LDL SEENIN HIGHER TRIGLYCERIDE OR LOWER NON-HDL SPECIMENS. FOR MOREINFORMATION, SEE CLIENT ANNOUNCEMENT AT [email or web address] RISK RATIO LDL/HDL (test code = 2238) 1.56 RATIO <3.22 UNLESS OTHERW ISE INDICATED, ALL TESTING PERFORMED AT [facility] [employer] [employer] [address] [place] [address] REGISTERED PHLEBOTOMIST PART TIME: FREDDY HUTCHISON M.D. CLIA NUMBER [id number] [facility] [place]. [id number] HEMOGLOBIN [id number] 02:29:10* Test Item Value Reference Range Interpretation Comme nts HEMOGLOBIN A1c (test code = 60130) 7.0 % 4.2-5.6 H [employer] GUIDELINES FOR HGB A1C: [...] ETC.). CONSIDER ALTERNATE TESTING OR LABORATORY CONSULTATION. COMPREHENSIVE METABOLIC [id number] 00:00:00* Test Item Value Reference Range Interpretation Comme nts GLUCOSE (test code = 2217) 123 MG/DL BUN (test code = 2208) 78 MG/DL CREATININE (test code = 2214) 1.88 MG/DL eGFR (2020 CKD-EPI) (test co de = 00193) 27 ML/MIN/1.73 CALC BUN/CREAT (test code = [...] code = 2219) 15 U/L Dev SteinerHEMOGLOBIN [id number] 00:00:00* Test Item Value Reference Range Interpretation Comme nts HEMOGLOBIN A1c (test code = 09693) 7.0 % Dev SteinerLIPID [id number] 00:00:00* Test Item Value Reference Range Interpretation Comme nts CHOLESTEROL (test code = 2210) 153 MG/DL TRIGLYCERIDES (test code = 2232) 286 MG/DL HDL CHOLESTEROL (test code = 2220) 45 MG/DL CALC LDL CHOL (test code = 2237) 70 MG/DL RISK RATIO LDL/HDL (test cod e = 2238) 1.56 RATIO Dev SteinerCOMPREHENSIVE METABOLIC [id number] 00:00:00* Test Item Value Reference Range Interpretation Comme nts GLUCOSE (test code = 2217) 123 MG/DL BUN (test code = 2208) 78 MG/DL CREATININE (test code = 2214) 1.88 MG/DL eGFR (2020 CKD-EPI) (test co de = 67401) 27 ML/MIN/1.73 CALC BUN/CREAT (test code = [...] code = 2219) 15 U/L Dev SteinerHEMOGLOBIN [id number] 00:00:00* Test Item Value Reference Range Interpretation Comme nts HEMOGLOBIN A1c (test code = 62328) 7.0 % Dev SteinerLIPID [id number] 00:00:00* Test Item Value Reference Range Interpretation Comme nts CHOLESTEROL (test code = 2210) 153 MG/DL TRIGLYCERIDES (test code = 2232) 286 MG/DL HDL CHOLESTEROL (test code = 2220) 45 MG/DL CALC LDL CHOL (test code = 2237) 70 MG/DL RISK RATIO LDL/HDL (test cod e = 2238) 1.56 RATIO Dev SteinerCOMPREHENSIVE METABOLIC [id number] 00:00:00* Test Item Value Reference Range Interpretation Comme nts GLUCOSE (test code = 2217) 123 MG/DL BUN (test code = 2208) 78 MG/DL CREATININE (test code = 2214) 1.88 MG/DL eGFR (2020 CKD-EPI) (test co de = 81330) 27 ML/MIN/1.73 CALC BUN/CREAT (test code = [...] code = 2219) 15 U/L Dev SteinerHEMOGLOBIN [id number] 00:00:00* Test Item Value Reference Range Interpretation Comme nts HEMOGLOBIN A1c (test code = 77255) 7.0 % Dev Georges AustinLIPID [id number] 00:00:00* Test Item Value Reference Range Interpretation Comme nts CHOLESTEROL (test code = 2210) 153 MG/DL TRIGLYCERIDES (test code = 2232) 286 MG/DL HDL CHOLESTEROL (test code = 2220) 45 MG/DL CALC LDL CHOL (test code = 2237) 70 MG/DL RISK RATIO LDL/HDL (test cod e = 2238) 1.56 RATIO Dev SteinerCOMPREHENSIVE METABOLIC [id number] 00:00:00* Test Item Value Reference Range Interpretation Comme nts GLUCOSE (test code = 2217) 123 MG/DL BUN (test code = 2208) 78 MG/DL CREATININE (test code = 2214) 1.88 MG/DL eGFR (2020 CKD-EPI) (test co de = 85351) 27 ML/MIN/1.73 CALC BUN/CREAT (test code = [...] code = 2219) 15 U/L Dev SteinerHEMOGLOBIN [id number] 00:00:00* Test Item Value Reference Range Interpretation Comme nts HEMOGLOBIN A1c (test code = 90821) 7.0 % Dev Georges AustinLIPID [id number] 00:00:00* Test Item Value Reference Range Interpretation Comme nts CHOLESTEROL (test code = 2210) 153 MG/DL TRIGLYCERIDES (test code = 2232) 286 MG/DL HDL CHOLESTEROL (test code = 2220) 45 MG/DL CALC LDL CHOL (test code = 2237) 70 MG/DL RISK RATIO LDL/HDL (test cod e = 2238) 1.56 RATIO Dev SteinerCOMPREHENSIVE METABOLIC [id number] 00:00:00* Test Item Value Reference Range Interpretation Comme nts GLUCOSE (test code = 2217) 123 MG/DL BUN (test code = 2208) 78 MG/DL CREATININE (test code = 2214) 1.88 MG/DL eGFR (2020 CKD-EPI) (test co de = 47729) 27 ML/MIN/1.73 CALC BUN/CREAT (test code = [...] code = 2219) 15 U/L Dev SteinerHEMOGLOBIN [id number] 00:00:00* Test Item Value Reference Range Interpretation Comme nts HEMOGLOBIN A1c (test code = 91684) 7.0 % Dev SteinerLIPID [id number] 00:00:00* Test Item Value Reference Range Interpretation Comme nts CHOLESTEROL (test code = 2210) 153 MG/DL TRIGLYCERIDES (test code = 2232) 286 MG/DL HDL CHOLESTEROL (test code = 2220) 45 MG/DL CALC LDL CHOL (test code = 2237) 70 MG/DL RISK RATIO LDL/HDL (test cod e = 2238) 1.56 RATIO Dev SteinerCOMPREHENSIVE METABOLIC [id number] 00:00:00* Test Item Value Reference Range Interpretation Comme nts GLUCOSE (test code = 2217) 123 MG/DL BUN (test code = 2208) 78 MG/DL CREATININE (test code = 2214) 1.88 MG/DL eGFR (2020 CKD-EPI) (test co de = 51389) 27 ML/MIN/1.73 CALC BUN/CREAT (test code = [...] code = 2219) 15 U/L Dev SteinerHEMOGLOBIN [id number] 00:00:00* Test Item Value Reference Range Interpretation Comme nts HEMOGLOBIN A1c (test code = 12204) 7.0 % Dev SteinerLIPID [id number] 00:00:00* Test Item Value Reference Range Interpretation Comme nts CHOLESTEROL (test code = 2210) 153 MG/DL TRIGLYCERIDES (test code = 2232) 286 MG/DL HDL CHOLESTEROL (test code = 2220) 45 MG/DL CALC LDL CHOL (test code = 2237) 70 MG/DL RISK RATIO LDL/HDL (test cod e = 2238) 1.56 RATIO Dev SteinerCOMPREHENSIVE METABOLIC [id number] 00:00:00* Test Item Value Reference Range Interpretation Comme nts GLUCOSE (test code = 2217) 123 MG/DL BUN (test code = 2208) 78 MG/DL CREATININE (test code = 2214) 1.88 MG/DL eGFR (2020 CKD-EPI) (test co de = 56567) 27 ML/MIN/1.73 CALC BUN/CREAT (test code = [...] code = 2219) 15 U/L Dev SteinerHEMOGLOBIN [id number] 00:00:00* Test Item Value Reference Range Interpretation Comme nts HEMOGLOBIN A1c (test code = 76165) 7.0 % Dev SteinerLIPID [id number] 00:00:00* Test Item Value Reference Range Interpretation Comme nts CHOLESTEROL (test code = 2210) 153 MG/DL TRIGLYCERIDES (test code = 2232) 286 MG/DL HDL CHOLESTEROL (test code = 2220) 45 MG/DL CALC LDL CHOL (test code = 2237) 70 MG/DL RISK RATIO LDL/HDL (test cod e = 2238) 1.56 RATIO Dev SteinerCOMPREHENSIVE METABOLIC [id number] 00:00:00* Test Item Value Reference Range Interpretation Comme nts GLUCOSE (test code = 2217) 123 MG/DL BUN (test code = 2208) 78 MG/DL CREATININE (test code = 2214) 1.88 MG/DL eGFR (2020 CKD-EPI) (test co de = 67548) 27 ML/MIN/1.73 CALC BUN/CREAT (test code = [...] code = 2219) 15 U/L Dev SteinerHEMOGLOBIN [id number] 00:00:00* Test Item Value Reference Range Interpretation Comme nts HEMOGLOBIN A1c (test code = 98192) 7.0 % Dev SteinerLIPID [id number] 00:00:00* Test Item Value Reference Range Interpretation Comme nts CHOLESTEROL (test code = 2210) 153 MG/DL TRIGLYCERIDES (test code = 2232) 286 MG/DL HDL CHOLESTEROL (test code = 2220) 45 MG/DL CALC LDL CHOL (test code = 2237) 70 MG/DL RISK RATIO LDL/HDL (test cod e = 2238) 1.56 RATIO Dev SteinerHEPATIC FUNCTION [id number] 05:49:16* Test Item Value Reference Range Interpretation Comme nts PROTEIN, TOTAL (test code = 2229) 7.5 G/DL 6.1-8.3 ALBUMIN (test code = 2201) 4.7 G/DL 3.5-5.2 BILIRUBIN, TOTAL (test code = 2207) <0.2 MG/DL <=1.2 BILIRUBIN, DIRECT (test code = 202) <0.2 MG/DL 0.0-0.3 ALKALINE PHOSPHATASE (test c ode = 2204) 92 U/L 40-142 AST (test code = 2218) 17 U/L 9-40 ALT (test code = 2219) 16 U/L 5-40 RENAL FUNCTION [id number] 05:49:16* Test Item Value Reference Range Interpretation Comme nts GLUCOSE (test code = 2217) 163 MG/DL 70-99 H BUN (test code = 2208) 48 MG/DL 8-23 H CREATININE (test code = 2214) 1.54 MG/DL 0.60-1.30 H eGFR (2020 CKD-EPI) (test co de = 44981) 34 ML/MIN/1.73 >60 L CALC BUN/CREAT (test code = 2235) 31 RATIO 6-28 H SODIUM (test code = 223) 139 MEQ/L 133-146 POTASSIUM (test code = 2228) 5.7 MEQ/L 3.5-5.4 H CHLORIDE (test code = 2215) 104 MEQ/L 95-107 CARBON DIOXIDE (test code = 2206) 19 MEQ/L 19-31 CALCIUM (test code = 220) 9.5 MG/DL 8.5-10.5 PHOSPHORUS (test code = 2227) 5.4 MG/DL 2.5-4.5 H ALBUMIN (test code = 2201) 4.7 G/DL 3.5-5.2 LIPID [id number] 05:49:16* Test Item Value Reference Range Interpretation [...] SPECIMENS. FOR MOREINFORMATION, SEE CLIENT ANNOUNCEMENT AT [email or web address] RISK RATIO LDL/HDL (test code = 2238) 2.03 RATIO <3.22 UNLESS OTHERW ISE INDICATED, ALL TESTING PERFORMED AT [facility] [address] [place] [address], [place] [address] REGISTERED PHLEBOTOMIST PART TIME: FREDDY HUTCHISON M.D. CLIA NUMBER [id number] [facility] [place]. [id number] LIVER (HEPATIC) FUNCTION [id number] 00:00:00* Test Item Value Reference Range Interpretation [...] 2219) 16 U/L Dev Jarquin (RENAL) FUNCTION [id number] 00:00:00* Test Item Value Reference Range Interpretation Comme nts GLUCOSE (test code = 2217) 163 MG/DL BUN (test code = 2208) 48 MG/DL CREATININE (test code = 2214) 1.54 MG/DL eGFR (2020 CKD-EPI) (test co de = 97842) 34 ML/MIN/1.73 CALC BUN/CREAT (test code = 2235) 31 RATIO SODIUM (test code = 2231) 139 MEQ/L POTASSIUM (test code = 2228) 5.7 MEQ/L CHLORIDE (test code = 2215) 104 MEQ/L CARBON DIOXIDE (test code = 2206) 19 MEQ/L CALCIUM (test code = 2209) 9.5 MG/DL PHOSPHORUS (test code = 2227) 5.4 MG/DL ALBUMIN (test code = 2201) 4.7 G/DL Dev SteinerLIPID [id number] 00:00:00* Test Item Value Reference Range Interpretation Comme nts CHOLESTEROL (test code = 2210) 152 MG/DL TRIGLYCERIDES (test code = 2232) 357 MG/DL HDL CHOLESTEROL (test code = 2220) 36 MG/DL CALC LDL CHOL (test code = 2237) 73 MG/DL RISK RATIO LDL/HDL (test cod e = 2238) 2.03 RATIO Dev Colmenares (HEPATIC) FUNCTION [id number] 00:00:00* Test Item Value Reference Range Interpretation [...] 2219) 16 U/L Dev Jarquin (RENAL) FUNCTION [id number] 00:00:00* Test Item Value Reference Range Interpretation Comme nts GLUCOSE (test code = 2217) 163 MG/DL BUN (test code = 2208) 48 MG/DL CREATININE (test code = 2214) 1.54 MG/DL eGFR (2020 CKD-EPI) (test co de = 55367) 34 ML/MIN/1.73 CALC BUN/CREAT (test code = 2235) 31 RATIO SODIUM (test code = 2231) 139 MEQ/L POTASSIUM (test code = 2228) 5.7 MEQ/L CHLORIDE (test code = 2215) 104 MEQ/L CARBON DIOXIDE (test code = 2206) 19 MEQ/L CALCIUM (test code = 2209) 9.5 MG/DL PHOSPHORUS (test code = 2227) 5.4 MG/DL ALBUMIN (test code = 2201) 4.7 G/DL Dev SteinerLIPID [id number] 00:00:00* Test Item Value Reference Range Interpretation Comme nts CHOLESTEROL (test code = 2210) 152 MG/DL TRIGLYCERIDES (test code = 2232) 357 MG/DL HDL CHOLESTEROL (test code = 2220) 36 MG/DL CALC LDL CHOL (test code = 2237) 73 MG/DL RISK RATIO LDL/HDL (test cod e = 2238) 2.03 RATIO Dev Colmenares (HEPATIC) FUNCTION [id number] 00:00:00* Test Item Value Reference Range Interpretation [...] 2219) 16 U/L Dev Jarquin (RENAL) FUNCTION [id number] 00:00:00* Test Item Value Reference Range Interpretation Comme nts GLUCOSE (test code = 2217) 163 MG/DL BUN (test code = 2208) 48 MG/DL CREATININE (test code = 2214) 1.54 MG/DL eGFR (2020 CKD-EPI) (test co de = 56515) 34 ML/MIN/1.73 CALC BUN/CREAT (test code = 2235) 31 RATIO SODIUM (test code = 2231) 139 MEQ/L POTASSIUM (test code = 2228) 5.7 MEQ/L CHLORIDE (test code = 2215) 104 MEQ/L CARBON DIOXIDE (test code = 2206) 19 MEQ/L CALCIUM (test code = 2209) 9.5 MG/DL PHOSPHORUS (test code = 2227) 5.4 MG/DL ALBUMIN (test code = 2201) 4.7 G/DL Dev SteinerLIPID [id number] 00:00:00* Test Item Value Reference Range Interpretation Comme nts CHOLESTEROL (test code = 2210) 152 MG/DL TRIGLYCERIDES (test code = 2232) 357 MG/DL HDL CHOLESTEROL (test code = 2220) 36 MG/DL CALC LDL CHOL (test code = 2237) 73 MG/DL RISK RATIO LDL/HDL (test cod e = 2238) 2.03 RATIO Dev Colmenares (HEPATIC) FUNCTION [id number] 00:00:00* Test Item Value Reference Range Interpretation [...] 2219) 16 U/L Dev Jarquin (RENAL) FUNCTION [id number] 00:00:00* Test Item Value Reference Range Interpretation Comme nts GLUCOSE (test code = 2217) 163 MG/DL BUN (test code = 2208) 48 MG/DL CREATININE (test code = 2214) 1.54 MG/DL eGFR (2020 CKD-EPI) (test co de = 23523) 34 ML/MIN/1.73 CALC BUN/CREAT (test code = 2235) 31 RATIO SODIUM (test code = 2231) 139 MEQ/L POTASSIUM (test code = 2228) 5.7 MEQ/L CHLORIDE (test code = 2215) 104 MEQ/L CARBON DIOXIDE (test code = 2206) 19 MEQ/L CALCIUM (test code = 2209) 9.5 MG/DL PHOSPHORUS (test code = 2227) 5.4 MG/DL ALBUMIN (test code = 2201) 4.7 G/DL Dev Destini SteinerLIPID [id number] 00:00:00* Test Item Value Reference Range Interpretation Comme nts CHOLESTEROL (test code = 2210) 152 MG/DL TRIGLYCERIDES (test code = 2232) 357 MG/DL HDL CHOLESTEROL (test code = 2220) 36 MG/DL CALC LDL CHOL (test code = 2237) 73 MG/DL RISK RATIO LDL/HDL (test cod e = 2238) 2.03 RATIO Dev Colmenares (HEPATIC) FUNCTION [id number] 00:00:00* Test Item Value Reference Range Interpretation [...] 16 U/L Dev Georges Milka (RENAL) FUNCTION [id number] 00:00:00* Test Item Value Reference Range Interpretation Comme nts GLUCOSE (test code = 2217) 163 MG/DL BUN (test code = 2208) 48 MG/DL CREATININE (test code = 2214) 1.54 MG/DL eGFR (2020 CKD-EPI) (test co de = 26356) 34 ML/MIN/1.73 CALC BUN/CREAT (test code = 2235) 31 RATIO SODIUM (test code = 2231) 139 MEQ/L POTASSIUM (test code = 2228) 5.7 MEQ/L CHLORIDE (test code = 2215) 104 MEQ/L CARBON DIOXIDE (test code = 2206) 19 MEQ/L CALCIUM (test code = 2209) 9.5 MG/DL PHOSPHORUS (test code = 2227) 5.4 MG/DL ALBUMIN (test code = 2201) 4.7 G/DL Dev SteinerLIPID [id number] 00:00:00* Test Item Value Reference Range Interpretation Comme nts CHOLESTEROL (test code = 2210) 152 MG/DL TRIGLYCERIDES (test code = 2232) 357 MG/DL HDL CHOLESTEROL (test code = 2220) 36 MG/DL CALC LDL CHOL (test code = 2237) 73 MG/DL RISK RATIO LDL/HDL (test cod e = 2238) 2.03 RATIO Dev Georges Dedra (HEPATIC) FUNCTION [id number] 00:00:00* Test Item Value Reference Range Interpretation [...] 2219) 16 U/L Dev SteinerNANDO (RENAL) FUNCTION [id number] 00:00:00* Test Item Value Reference Range Interpretation Comme nts GLUCOSE (test code = 2217) 163 MG/DL BUN (test code = 2208) 48 MG/DL CREATININE (test code = 2214) 1.54 MG/DL eGFR (2020 CKD-EPI) (test co de = 60103) 34 ML/MIN/1.73 CALC BUN/CREAT (test code = 2235) 31 RATIO SODIUM (test code = 2231) 139 MEQ/L POTASSIUM (test code = 2228) 5.7 MEQ/L CHLORIDE (test code = 2215) 104 MEQ/L CARBON DIOXIDE (test code = 2206) 19 MEQ/L CALCIUM (test code = 2209) 9.5 MG/DL PHOSPHORUS (test code = 2227) 5.4 MG/DL ALBUMIN (test code = 2201) 4.7 G/DL Dev SteinerLIPID [id number] 00:00:00* Test Item Value Reference Range Interpretation Comme nts CHOLESTEROL (test code = 2210) 152 MG/DL TRIGLYCERIDES (test code = 2232) 357 MG/DL HDL CHOLESTEROL (test code = 2220) 36 MG/DL CALC LDL CHOL (test code = 2237) 73 MG/DL RISK RATIO LDL/HDL (test cod e = 2238) 2.03 RATIO Dev Georges Dedra (HEPATIC) FUNCTION [id number] 00:00:00* Test Item Value Reference Range Interpretation [...] 16 U/L Dev Georges Milka (RENAL) FUNCTION [id number] 00:00:00* Test Item Value Reference Range Interpretation Comme nts GLUCOSE (test code = 2217) 163 MG/DL BUN (test code = 2208) 48 MG/DL CREATININE (test code = 2214) 1.54 MG/DL eGFR (2020 CKD-EPI) (test co de = 31469) 34 ML/MIN/1.73 CALC BUN/CREAT (test code = 2235) 31 RATIO SODIUM (test code = 2231) 139 MEQ/L POTASSIUM (test code = 2228) 5.7 MEQ/L CHLORIDE (test code = 2215) 104 MEQ/L CARBON DIOXIDE (test code = 2206) 19 MEQ/L CALCIUM (test code = 2209) 9.5 MG/DL PHOSPHORUS (test code = 2227) 5.4 MG/DL ALBUMIN (test code = 2201) 4.7 G/DL Dev Georges JatinLIPID [id number] 00:00:00* Test Item Value Reference Range Interpretation Comme nts CHOLESTEROL (test code = 2210) 152 MG/DL TRIGLYCERIDES (test code = 2232) 357 MG/DL HDL CHOLESTEROL (test code = 2220) 36 MG/DL CALC LDL CHOL (test code = 2237) 73 MG/DL RISK RATIO LDL/HDL (test cod e = 2238) 2.03 RATIO Dev Destini Dedra (HEPATIC) FUNCTION [id number] 00:00:00* Test Item Value Reference Range Interpretation [...] 2219) 16 U/L Dev Jarquin (RENAL) FUNCTION [id number] 00:00:00* Test Item Value Reference Range Interpretation Comme nts GLUCOSE (test code = 2217) 163 MG/DL BUN (test code = 2208) 48 MG/DL CREATININE (test code = 2214) 1.54 MG/DL eGFR (2020 CKD-EPI) (test co de = 49881) 34 ML/MIN/1.73 CALC BUN/CREAT (test code = 2235) 31 RATIO SODIUM (test code = 2231) 139 MEQ/L POTASSIUM (test code = 2228) 5.7 MEQ/L CHLORIDE (test code = 2215) 104 MEQ/L CARBON DIOXIDE (test code = 2206) 19 MEQ/L CALCIUM (test code = 2209) 9.5 MG/DL PHOSPHORUS (test code = 2227) 5.4 MG/DL ALBUMIN (test code = 2201) 4.7 G/DL Devlion SteinerLIPID [id number] 00:00:00* Test Item Value Reference Range Interpretation Comme nts CHOLESTEROL (test code = 2210) 152 MG/DL TRIGLYCERIDES (test code = 2232) 357 MG/DL HDL CHOLESTEROL (test code = 2220) 36 MG/DL CALC LDL CHOL (test code = 2237) 73 MG/DL RISK RATIO LDL/HDL (test cod e = 2238) 2.03 RATIO Dev Destini JatinHEMOGLOBIN [id number] 03:00:27* Test Item Value Reference Range Interpretation Comme nts HEMOGLOBIN A1c (test code = 48498) 6.4 % 4.2-5.6 H [employer] GUIDELINES FOR HGB A1C: [...] TESTING PERFORMED AT [facility] [address] [place] [id number] REGISTERED PHLEBOTOMIST PART TIME: FREDDY HUTCHISON M.D. [place] NUMBER [id number] [facility] [place]. [id number] HEMOGLOBIN A1c [ADDED]2023-03-23 00:00:00* Test Item Value Reference Range Interpretation Comme nts HEMOGLOBIN A1c (test code = 51684) 6.4 % Dev F AustinHEMOGLOBIN A1c [ADDED]2023-03-23 00:00:00* Test Item Value Reference Range Interpretation Comme nts HEMOGLOBIN A1c (test code = 99772) 6.4 % Dev F AustinHEMOGLOBIN A1c [ADDED]2023-03-23 00:00:00* Test Item Value Reference Range Interpretation Comme nts HEMOGLOBIN A1c (test code = 77838) 6.4 % Dev F AustinHEMOGLOBIN A1c [ADDED]2023-03-23 00:00:00* Test Item Value Reference Range Interpretation Comme nts HEMOGLOBIN A1c (test code = 62321) 6.4 % Dev F AustinHEMOGLOBIN A1c [ADDED]2023-03-23 00:00:00* Test Item Value Reference Range Interpretation Comme nts HEMOGLOBIN A1c (test code = 93795) 6.4 % Dev F AustinHEMOGLOBIN A1c [ADDED]2023-03-23 00:00:00* Test Item Value Reference Range Interpretation Comme nts HEMOGLOBIN A1c (test code = 25665) 6.4 % Dev F AustinHEMOGLOBIN A1c [ADDED]2023-03-23 00:00:00* Test Item Value Reference Range Interpretation Comme nts HEMOGLOBIN A1c (test code = 27646) 6.4 % Dev F AustinHEMOGLOBIN A1c [ADDED]2023-03-23 00:00:00* Test Item Value Reference Range Interpretation Comme nts HEMOGLOBIN A1c (test code = 44147) 6.4 % Dev F AustinPOCT GLUCOSE (AUTOMATED)2023-02-13 17:03:20* Test Item Value Reference Range Interpretation Comme nts POCT GLU (test code = 6607799320) 136 mg/dL 70-110 H Lab Interpretation (test cod e = 09237-4) [id number] 14:02:05* Test Item Value Reference Range Interpretation Comme [facility] TROPONIN I (test code = 8795514735) 0.001 ng/mL <=0.034 ABRAM (test code = [...] of biotin. Lab Interpretation (test code = 54556-0) Normal [facility] [id number] 14:02:05* Test Item Value Reference Range Interpretation Comme [facility] NT-proBNP (test code = 48775-6) 651 pg/mL <=125 ABRAM (test code = ABRAM) Result Indeterminate-Consid er causes of NT-proBNP elevation other than Heart failure such as acute coronary syndrome, pulmonary embolism, pulmonary hypertension, sepsis, stroke, and renal dysfunction. Lab Interpretation (test code = 24972-4) [facility]2023-02-13 13:18:32* Test Item Value Reference Range Interpretation Comme [facility] POCT GLU (test code = 8518214004) 89 mg/dL 70-110 Lab Interpretation (test cod e = 35559-3) Normal [facility] (NA, K, CL, CO2, GLUCOSE, BUN, CREATININE, CA)2023-02-13 10:20:15* Test Item Value Reference Range Interpretation Comme nts NA (test code = 0611401193) 139 mmol/L 135-145 K (test code = 0361044457) 4.7 mmol/L 3.5-5.0 CL (test code = 4501887541) 107 mmol/L 98-108 CO2 TOTAL (test code = 9994715892) 24 mmol/L 23-31 AGAP (test code = 3427589632) 8 2-16 BUN (test code = 7233287167) 16 mg/dL 7-23 GLUCOSE (test code = 5465929076) 109 mg/dL 70-110 CREATININE (test code = 9922976795) 1.21 mg/dL 0.50-1.04 H CALCIUM (test code = 0578919100) 8.3 mg/dL 8.6-10.6 L eGFR (test code = 9300743305) 42.8 mL/min/1.73m2 ABRAM (test code = ABRAM) [...] imaging tests). Lab Interpretation (test code = 78093-7) [facility]-06 10:20:15* Test Item Value Reference Range Interpretation Comme nts MAGNESIUM (test code = 1724696573) 1.8 mg/dL 1.7-2.4 Lab Interpretation (test cod e = 32713-6) Normal [facility] WITH [id number] 09:58:31* Test Item Value Reference Range Interpretation [...] 32.1 g/dL 31.6-35.1 RDW-SD (test code = 85982-6) 45.1 fL 39.0-49.9 RDW-CV (test code = 788-0) 13.3 % 12.0-15.5 PLT (test code = 777-3) 256 See_Comment [Automated messa ge] The system which generated this result transmitted reference range: 166 - 358 10*3/?L. The reference range was not used to interpret this result as normal/abnormal. MPV (test code = 85051-5) 10.9 fL 9.5-12.9 NRBC/100 WBC (test code = 7125985135) 0.0 See_Comment [Automated me ssage] The system which generated this result transmitted reference range: 0.0 - 10.0 /100 WBCs. The reference range was not used to interpret this result as normal/abnormal. NRBC x10^3 (test code = 0138537546) See_Comment [Automated messa ge] The system which generated this result transmitted reference range: 10*3/?L. The reference range was not used to interpret this result as normal/abnormal. GRAN MAT (NEUT) % (test code = 770-8) 61.7 % IMM GRAN % (test code = 8213209326) 1.60 % LYMPH % (test code = 736-9) 27.6 % MONO % (test code = 5905-5) 5.8 % EOS % (test code = 713-8) 3.0 % BASO % (test code = 706-2) 0.3 % GRAN MAT x10^3(ANC) (test code = 0240715598) 4.27 10*3/uL 1.88-7.09 IMM GRAN x10^3 (test code = 2986206729) 0.11 10*3/uL 0.00-0.06 H LYMPH x10^3 (test code = 731-0) 1.91 10*3/uL 1.32-3.29 MONO x10^3 (test code = 742-7) 0.40 10*3/uL 0.33-0.92 EOS x10^3 (test code = 711-2) 0.21 10*3/uL 0.03-0.39 BASO x10^3 (test code = 704-7) 0.01-0.07 Lab Interpretation (test code = 55622-7) [facility]normal [facility] GLU[facility]SE (AUTOMATED)2023-02-13 01:17:31* Test Item Value Reference Range Interpretation Comme nts POCT GLU (test code = 3836244059) 174 mg/dL 70-110 H Lab Interpretation (test cod e = 75837-5) Abnormal [facility] GLUCOSE (AUTOMATED)2023-02-12 22:03:01* Test Item Value Reference Range Interpretation Comme nts POCT GLU (test code = 7259631207) 197 mg/dL 70-110 H Lab Interpretation (test cod e = 29305-8) Abnormal [facility] GLUCOSE (AUTOMATED)2023-02-12 17:07:42* Test Item Value Reference Range Interpretation Comme nts POCT GLU (test code = 3728907186) 137 mg/dL 70-110 H Lab Interpretation (test cod e = 70747-5) Abnormal [facility] hospital GLUCOSE (AUTOMATED)2023-02-12 13:02:23* Test Item Value Reference Range Interpretation Comme nts POCT GLU (test code = 8604517653) 97 mg/dL 70-110 Lab Interpretation (test cod e = 05079-0) Normal [facility] acute hospital GLUCOSE (AUTOMATED)2023-02-12 03:18:11* Test Item Value Reference Range Interpretation Comme nts POCT GLU (test code = 2370821807) 108 mg/dL 70-110 Lab Interpretation (test cod e = 19215-8) Normal [facility] hospital GLUCOSE (AUTOMATED)2023-02-11 21:47:53* Test Item Value Reference Range Interpretation Comme nts POCT GLU (test code = 7871108217) 152 mg/dL 70-110 H Lab Interpretation (test cod e = 34396-0) Abnormal [facility] acute hospital GLUCOSE (AUTOMATED)2023-02-11 17:24:08* Test Item Value Reference Range Interpretation Comme nts POCT GLU (test code = 2883152894) 148 mg/dL 70-110 H Lab Interpretation (test cod e = 42088-3) Abnormal [facility] acute hospital GLUCOSE (AUTOMATED)2023-02-11 13:06:16* Test Item Value Reference Range Interpretation Comme nts POCT GLU (test code = 4856880590) 117 mg/dL 70-110 H Lab Interpretation (test cod e = 08016-1) Abnormal [facility] acute hospital GLUCOSE (AUTOMATED)2023-02-11 02:44:50* Test Item Value Reference Range Interpretation Comme nts POCT GLU (test code = 3082171606) 122 mg/dL 70-110 H Lab Interpretation (test cod e = 76741-0) Abnormal [facility] acute hospital GLUCOSE (AUTOMATED)2023-02-10 21:39:06* Test Item Value Reference Range Interpretation Comme nts POCT GLU (test code = 6772591950) 224 mg/dL 70-110 H Lab Interpretation (test cod e = 05595-2) Abnormal [facility] acute hospital GLUCOSE (AUTOMATED)2023-02-10 16:43:33* Test Item Value Reference Range Interpretation Comme nts POCT GLU (test code = 8333859458) 121 mg/dL 70-110 H Lab Interpretation (test cod e = 19708-9) Abnormal [facility] acute hospital GLUCOSE (AUTOMATED)2023-02-10 12:23:09* Test Item Value Reference Range Interpretation Comme nts POCT GLU (test code = 8534530472) 87 mg/dL 70-110 Lab Interpretation (test cod e = 49411-3) Normal [facility] acute hospital GLUCOSE (AUTOMATED)2023-02-10 01:18:25* Test Item Value Reference Range Interpretation Comme nts POCT GLU (test code = 6047952070) 130 mg/dL 70-110 H Lab Interpretation (test cod e = 85208-4) Abnormal [facility] acute hospital GLUCOSE (AUTOMATED)2023-02-09 22:00:20* Test Item Value Reference Range Interpretation Comme nts POCT GLU (test code = 8765273843) 133 mg/dL 70-110 H Lab Interpretation (test cod e = 11776-4) [facility]normal [facility] [id number] 02:48:02* Test Item Value Reference Range Interpretation Comme nts GLUCOSE (test code = 2217) 139 MG/DL 70-99 H BUN (test code = 2208) 10 MG/DL 8-23 CREATININE (test code = 2214) 0.96 MG/DL 0.60-1.30 eGFR (2020 CKD-EPI) (test code = 81687) 60 ML/MIN/1.73 >60 L CALC BUN/CREAT (test code = 2235) 10 RATIO 6-28 SODIUM (test code = 223) 141 MEQ/L 133-146 POTASSIUM (test code = [...] TESTING PERFORMED AT [facility] [address] [place] [address] REGISTERED PHLEBOTOMIST PART TIME: FREDDY HUTCHISON M.D. CLIA NUMBER [id number] [facility] [place]. [id number] CBC W/AUTO DIFF WITH [id number] 02:19:01* Test Item Value Reference Range Interpretation [...] H ABS NUCLEATED RBCS (test code = 79658) 0.00 K/UL 0.00-0.11 CBC W/AUTO DIFF WITH PLATELETS [ADDED]2023-01-27 00:00:00* Test [...] ABS NUCLEATED RBCS (test cod e = 43316) 0.00 K/UL Dev SteinerCOMPREHENSIVE METABOLIC PANEL [ADDED]2023-01-27 00:00:00* Test Item Value Reference Range Interpretation Comme nts GLUCOSE (test code = 2217) 139 MG/DL BUN (test code = 2208) 10 MG/DL CREATININE (test code = 2214) 0.96 MG/DL eGFR (2020 CKD-EPI) (test co de = 71777) 60 ML/MIN/1.73 CALC BUN/CREAT (test code = [...] ABS NUCLEATED RBCS (test cod e = 46313) 0.00 K/UL Dev SteinerCOMPREHENSIVE METABOLIC PANEL [ADDED]2023-01-27 00:00:00* Test Item Value Reference Range Interpretation Comme nts GLUCOSE (test code = 2217) 139 MG/DL BUN (test code = 2208) 10 MG/DL CREATININE (test code = 2214) 0.96 MG/DL eGFR (2020 CKD-EPI) (test co de = 93216) 60 ML/MIN/1.73 CALC BUN/CREAT (test code = [...] ABS NUCLEATED RBCS (test cod e = 61364) 0.00 K/UL Dev SteinerCOMPREHENSIVE METABOLIC PANEL [ADDED]2023-01-27 00:00:00* Test Item Value Reference Range Interpretation Comme nts GLUCOSE (test code = 2217) 139 MG/DL BUN (test code = 2208) 10 MG/DL CREATININE (test code = 2214) 0.96 MG/DL eGFR (2020 CKD-EPI) (test co de = 26893) 60 ML/MIN/1.73 CALC BUN/CREAT (test code = [...] ABS NUCLEATED RBCS (test cod e = 60004) 0.00 K/UL Dev SteinerCOMPREHENSIVE METABOLIC PANEL [ADDED]2023-01-27 00:00:00* Test Item Value Reference Range Interpretation Comme nts GLUCOSE (test code = 2217) 139 MG/DL BUN (test code = 2208) 10 MG/DL CREATININE (test code = 2214) 0.96 MG/DL eGFR (2020 CKD-EPI) (test co de = 92896) 60 ML/MIN/1.73 CALC BUN/CREAT (test code = [...] (test code = 2219) 15 U/L [facility] WITH PLATELETS [ADDED]2023-01-27 00:00:00* Test [...] ABS NUCLEATED RBCS (test cod e = 04410) 0.00 K/UL Dev SteinerCOMPREHENSIVE METABOLIC PANEL [ADDED]2023-01-27 00:00:00* Test Item Value Reference Range Interpretation Comme nts GLUCOSE (test code = 2217) 139 MG/DL BUN (test code = 2208) 10 MG/DL CREATININE (test code = 2214) 0.96 MG/DL eGFR (2020 CKD-EPI) (test co de = 56655) 60 ML/MIN/1.73 CALC BUN/CREAT (test code = [...] ABS NUCLEATED RBCS (test cod e = 65477) 0.00 K/UL Dev SteinerCOMPREHENSIVE METABOLIC PANEL [ADDED]2023-01-27 00:00:00* Test Item Value Reference Range Interpretation Comme nts GLUCOSE (test code = 2217) 139 MG/DL BUN (test code = 2208) 10 MG/DL CREATININE (test code = 2214) 0.96 MG/DL eGFR (2020 CKD-EPI) (test co de = 14593) 60 ML/MIN/1.73 CALC BUN/CREAT (test code = [...] ABS NUCLEATED RBCS (test cod e = 85325) 0.00 K/UL Dev SteinerCOMPREHENSIVE METABOLIC PANEL [ADDED]2023-01-27 00:00:00* Test Item Value Reference Range Interpretation Comme nts GLUCOSE (test code = 2217) 139 MG/DL BUN (test code = 2208) 10 MG/DL CREATININE (test code = 2214) 0.96 MG/DL eGFR (2020 CKD-EPI) (test co de = 18300) 60 ML/MIN/1.73 CALC BUN/CREAT (test code = [...] (test code = 2219) 15 U/L Dev SteinerCOMPREHENSIVE METABOLIC PANEL [ADDED]2023-01-27 00:00:00* Test Item Value Reference Range Interpretation Comme nts GLUCOSE (test code = 2217) 139 MG/DL BUN (test code = 2208) 10 MG/DL CREATININE (test code = 2214) 0.96 MG/DL eGFR (2020 CKD-EPI) (test co de = 13455) 60 ML/MIN/1.73 CALC BUN/CREAT (test code = [...] ABS NUCLEATED RBCS (test cod e = 20177) 0.00 K/UL Dev Georges AustinSURGICAL PATHOLOGY [id number] 19:55:36* Test Item Value Reference Range Interpretation Comme nts Case Report (test code = 3765044476) Surgical Pathology ?Case: [id number] ? Authorizing Provider: ?Heath Sorto DO ? ? ?Collected: ? 01/19/2023 1028 ?Ordering Location: ? ? [facility] OR ? Received: ?01/19/2023 1117 ? Department ? Pathologist: ? Sivan, Daniel, PhD ?Specimen: ? ?GALLBLADDER, Gallbladder ? Final Diagnosis (test code = 3436717217) [id number] FuZzEwMzNcZnRuYmpcdWMx AZdicuAlFTvsqEwnSIA9PE XcGB7qbRskwMx9vBsqKYAj tzH5iTSuLCahl3anCXE3r3 mcsrwyWPGaAKcgZm9yhHEn nZwbSnDqYYAfVYz0iN99BM GfjN4lvCTePBz0OGYlvVFi idDyQtCvAGDuiWTvpOJ4KQ KoRE7pwcxhNGijRNhuIPBs giK7VAJxoRGsC9NmZTWnDK 4dxdbnPDL5QNfpGCKyNBV8 CzImCMSqe9Enjjl9XxPatZ FyZFxwbGFpblxmczIwXHBh ciBBLiBHQUxMQkxBRERFUi piY1kAOEIUHCANTIPAT57J OlxwYXIgICAgICAtIENIUk 0WTIVcF0cYOJBPXUIFLGNB F3whPGJkaQJctBjjhySoYG wnz2KwC6EhJxVnZVijdxJl OTWiBctzkjdsXLJbGKV1wt HfAVXzSLstLUWwEGbiAr4f cTUioYalAmVcKCIcd7lzqq YCAXjhXsBmT264CEQsBCzm z3tpc2SjRTQcmAIhf0E1QH SDznibjCh7k5ytLlUfRfX2 jJFzDYngD9vtnvCibGSfX6 VvuUCxxHc6fNryY05oc4H1 IkbdR2leNZTqWNYpJ9PnTN 3iDYLjRxc7PKV3KSP9UDSf XLTsV4TrIF7tKQAymLZxOB n6w5yppYfuXSOgANZ1b6of LVxxayE9EL7pxd2iiKp9n4 xjczEgRGVmYXVsdCBQYXJh I6FhfGncHi0gmLg4fQpuRa vxWTV9Doz3HR7ijb08snn8 sXnsZPAxigwkXxW1VUduHR VxkvrhACj4YGccBLKmqST6 OWGrpQOgI2WvPSNhUE5hgr q6TCE9EGykWMPdPkL9AWGi hOIbEIMkgKoeXGchh856RW I2EjZlTJ4yG8Moy6L9dX5q aXRcZGVmdGFiNzIwXGZvcm 7ufCMvISlbt7WkXAY1loM3 kIYypBMfIBHrXW19Bfxbb8 FyQzioEWV0EIIfjbFpu9Ge l3ydNhOybxCdQ1qsL3BlCI EwSWZpEHJyWfIwryKya8Fo x3MiuJGbiIj3s9hhUJViPJ GwgBvav9rnIZO2DKBeP1V6 iQShw3kaHWaiUVLsfZS4ek F8YUSxfTIpD4YzyC1cWFWj KJ7kpxb5m0nzKXY4VFsbDW ReGtD1tpA0MQJjrGZvRWBh fUazLWuxz730OWN3YvJqUT Dyl3HfE4XusYuoQ70sjWpr S22zCEWpxNhviD4kwHgunJ 5cZjBcZnMyNFxxbFxwbGFp blxmMVxmczIwXGxhbmcxMD TiPTtuQ0vmOvOxCTHmrQvk RJxmx8LyNQIdHJOrKnzyae IwXHBhciBJIGhhdmUgcGVy x32zBCnppHDqDKMgXLaqDX SdtDyat5IjQ7pnFJ9iJ2Oz aWRlcyBhbmQgYWdyZWUgd2 o5kCWmhUygr4RgsAFjUM24 yzJjIXBwVMR2XPTgn5prDJ 46uwauDjIpvK51odUdpzBx EPJzt9fkK7xdoDHhy4Ylk0 FohhFdWLnpr8DzXB7jlELn zqcdsCK2XMMwmZZvsfXegu N4rEqsDWNpdR3bvI3fuQwb bN3oErFhPnWaVHbzYW2aXU WcA2tbvBAzZEGpMLKwW8cg KxJdbG9mzDpqRpjyadE1EI cn19 Clinical Information (test code = 1407740715) ABD PAIN Gross Description (test code = 5035723198) b9nbkHCsLWDqvPYOMQI7UD DyWC4bhOusfOw2hGjwSQXw abA7aJShQXqqy0ezYEQ5d7 zeyfVSRjmrNCSnOB3aZCbt HTYsNV7lPeDpJZLzCyPvKG BhcGVydzEyMjQwXHBhcGVy bAP9ZQTeNG6adqjtKNneJK ltLVArtzT5DXWzmEWoI9No BKFsWX1xdiqkRJZ8SFEILq imZl7vkVUmqBexNcXgUaUf YXJzZXQwXGZuaWwgQXJpYW a6sO5TUitvDIC2VLXXRneq NpcuoDajf2KkeEAyVYNnWE xcaWQgNTEwMDAgXFxkYiBP DqGqApL3BGYoIBm7FuU7YA y0ZTIEWXMeWsueIIS8IJK7 ZBf3IWOpHX3iXZazfWYqIC jhPugyPRfgK266URnmWGFu K8HvV8IyWRjbLmOdSCxbQL UoBGSqGKelWDKyZ0TRUVJk SRTvVhJ0FROxSUo1QLmjR9 WJWTGqZBWdHGY8GQN2ZnR7 LBl2LXSCNw4hUJu1ZDY7Dh erEAD6OBt9BVZjWXDfNyVx HGKvSRRwFVfunVVwLF5suX drTOQhIG8QASEjJUtrESPg ZoMtQ1PDL1bYPP5dQDgaaZ JjaFxmczIyXHBhciANClxw NCGkAH4RUKJzDNrsUPw2ty WgZJUoJzYlHMQvC76nl0AW f0AjOH9DYHq7eaLmnznspV 9bTDSqoeBcFMzZzLCagY3k duBNFKzsLWZdB1FzraUpMT naALZzoy3anMweEPjbWiEr KOWcb3r6rGT6nEUlxWL1xK PwzDrsLL4viFOqNPMCSH65 bWJlciwgImdhbGxibGFkZG ClFbgjMJ2iOIOkfhSjn9Zo SM8wWFXhFPsltIHuyEXnvA IfMy9blNX8BK3cbYAghGkn DRkgcKrxeIBnDLMsRKc5Iw PcpXRmRgnaaGRfScWaH66h LiAgQSBjbGlwIGlzIHByZX NavgMslHQhu5toCqH2vWGj L6hscUvoWMA5B9QbIIQDkZ Sls0Yll2KyLFppTDZyso3i qJExqKUzQE1lOTjiiUD1KS 7mhulcHBOSqCIbdB4sQWRu ZSBnYWxsYmxhZGRlciByZX ZlYWxzIGdyZWVuLXllbGxv kiP1hUAue8PjMD7qvETihI JyEpQrO8RdwSN6y64nmhYg qtTwqc94PJXfJKVximZgu8 g4mAupGCWaYNNiPXfjHsgs GBJhghTejvYruQBxnC1zvx Abp971WPigUYLiJDDdQBEe lHIrt2BdlXPltbQvpvA4lJ G2LI3iB3MyQW9rVK2hGTQo MZC5XHkaEWnnSGKiCkTpbS DsprL1sFsaa21or2OvGFRE ikGxGMFod50mKXQbFRLjLM VudGlmaWVkLiAgUmVwcmVz CT37FOBixtGea3HslVkufw PtiF7jkNZrmE7fWKI2l4Pb HqKquZN7MHRdmfMoLLMvUD hpbmtlZCBibHVlKSwgZnVu WEAjIPLjv6Q6AVFaueCrse SnolYbymBcx1SrlHi3hVYe IGluIEExLlxwYXIgDQpccG JkCC4DIHkpBW1cFJ3esdsf LCBQQSAoQVNDUClccGFyIA 4VSMVsSzOoRVUeD4tqKNVp MS7YLrgvxS2wkYEpF00uWU doFUDvfElMLRL9gUHnjvIf MEsrGPSbJ24nh6WSg1Iqx8 rocAcjh1DbxJDiNU65XEYp zVZgBSU2OC2zlAyaXYEdCB pccGFyZCANCn0= Disclaimer (test code = 7198576975) a4zpwDOpKOKeu3kbODInwZ FuZzEwMzNcZnRuYmpcdWMx YHyldwNeADaeh0VcK0NnIu AwMFxhbnNpXGRlZmxhbmcx MRNbCSL8auDtGLSwKSfoOO NaFNswZf1txWXtyZdaMxSx VRCvh4zbvzZYABndMhAdR9 32JBKgTDsbj9umi5HbMPHm vQWei1D1GPVToesvsXo0fK jxF39or2D6OiixE4evOPJi IANnK1SeJX7jNOUfRqa9FY Q3UHZ9KXBpHJJbO6DjEH2y ZKGfxSMwUOq5g7rdpAuyUZ SqSTG6y3slVRzoniUmMU4g tu2vwNw2f1gwdjDoYVQdQI SbzJLPACNpI5SoiGvbUw0u sWl6nTqlLgqlCZF6Gwj1OM 0pya00hpi0eIrgSOSptyhq AxJ9BCvjEIZasdhjQFb8DO lcOVDgrZU9EQHkkJCjX1Ks WQKiGQ0acwx6ATB1GRwfWL LsNzK2NPEhdALtPRRfpKop PIdqt583VVO9AzDdSI6vG1 Qse1F4uP8rmHCoVOVakFGw DeTpSXTlkg1gvTCeMKsbp0 JoBTG9ynT6yNAnsIYeTFXl HI03Jhnge8DeYpmbe1KqS5 3tkQU2TPbqi9wdLB2hHzB7 dvZxIIgkq8lkgP2gNsN8NH shKC8eRT8fWUTflF6lpypk XHBnYnJkcmhlYWRccGdicm JhMw5nlVgmYJS5FPkwY2cl gY5rZwE7GShvK4ljfY4cHS i6RFywuTH0OAGjsN9zQR6d ybfkb7tjNFzxNFzvHAIfjn Z1mcH9PFNgdIXsB8JpbB5v HDJdCY4gdvsjj3ecTEN2PS ttEVHcGVV7PgTnZPNaj6Cg imw4AdEps7AdoCCuMDopN1 7xa076GHMyunPvX5sewVGb pyyhmWFimdapRGpvnsD1SB BzphPdt9QpARSoUJZ2JBgn DGasyPMwEEWdaPqif5cqJ8 RscGFyXHBsYWluXGYxXGZz MjBcbGFuZzEwMzNcaGljaF azTJvcYwXwSKKkVGkfV7ck PbZaA3SsOLKlXdAxyEYeY9 ggVGhpcyByZXBvcnQgbWF5 VXvpA2b0KWDqpcVouUr6my KnFqZvJKTaQDA7QDmfoJYt QXUkh6JhkmnseQZoGw0ntP YnKNKkvA4jHZQlUTKzCBko WU9urYn3EDXVyYVcuORrBm KGORRfKC69riHgJICBcwwk a3F0PKljVSNph3XnsTVzT1 xzm0FzZPNft46wTU7fm1Q3 s5jwHDH5BX9mp9SzEUKwuC YybRFvOVLpr1Rzosaok8Ud OCJdanVte8LlOMIfmqBxfZ XjHHMwobOogv2lgtZpFAZh FLQoI5NabeisuOcsyqOxQA Omxo7nqmIcCFP8NTRCMKAz CYJmj5FoqV7miJEKUTH6dH Hqzq9qhuAQeOHsJSDtzw55 JTDuZJ7kU9gyINMlIJIhlb SiiCLoi4TiXCDrqAF2iPFv WK5VWyBUa86bTDSmUZLSdk TbAQJqjEedpOM1esA2sP4s IChGREEpLlx+IFRoZSBGRE GxBJ7wshOrj0JafmXjrBga LVSdwVLrb1PmkHCxn6FfvM zqa8CptZHplIVrDN6fLHKl clxwYXIgVVRNQiBMYWJvcm N7f2BpFNFaKVObAGW7iBkf fsi2IQFbfD9cQPDzQ4gjgg ifSCwbQYFsr0LaeU3rmJIQ qDTzf2HtuJRmzDPHrBLaGE 4ybdNpMCfRQJqOMLG2xkXr MMSky9BlCBhxQ9teP31gyA kyoXv6pFN3XVD5tQ5aQbh+ IFxwYXJccGFyIEFwcHJvcH XnKHOxwWxxyhRaM6DlzoDq bQ3jtYLcdxLdDD8rJR5iY1 K0kHNwCGVeovPct0duDFcv dmUgYmVlbiByZXZpZXdlZC God8OlNNhxDFC9TVsynmTq bmNsdWRpbmcgSCZFLCBTcG YizVSnFYJ8CWbuhcZuosZu RY5ejR2vxCfrpI3jnQNgsP E7euejDHDbZSGbyUirYGFz VJ7sxLLhQGChwtGGsPwmbH NvmU4bJ5PeUXKaIRBquy6o EJBtuV1dILjex2JwefvcVY UaCZTfTPLlxhRoyc4wXXDr pDJPBA1FZOhycFWjh1Wiix VaI6vUYZZ6IZLxJmYyCyoy OUUcrOFyjRXbNXKgqu19SV FrcM8vrPkpSCUbwA2tfC4v zXtpdZ3nCeNeLuInGLxxXW 7pIDQwF2lbjSHwENDeYGOa W1uwEzHplJ7otFfjMZuwIf ZeNcTaHHumSSG8cK== Embedded Images (test code = 9675753322) [facility]:35:48* Test Item Value Reference Range Interpretation Comme nts POCT GLU (test code = 8504494849) 97 mg/dL 70-110 Notified Provide r Lab Interpretation (test code = 19804-2) Normal [facility] WITH [id number] 10:50:03* Test Item Value Reference Range Interpretation Comme nts WBC (test code = 6690-2) 9.09 See_Comment [...] 33.1 g/dL 31.6-35.1 RDW-SD (test code = 27872-8) 42.8 fL 39.0-49.9 RDW-CV (test code = 788-0) 12.6 % 12.0-15.5 PLT (test code = 777-3) 154 See_Comment L [Automated messa ge] The system which generated this result transmitted reference range: 166 - 358 10*3/?L. The reference range was not used to interpret this result as normal/abnormal. MPV (test code = 10158-2) 11.0 fL 9.5-12.9 NRBC/100 WBC (test code = 7201130284) 0.0 See_Comment [Automated me ssage] The system which generated this result transmitted reference range: 0.0 - 10.0 /100 WBCs. The reference range was not used to interpret this result as normal/abnormal. NRBC x10^3 (test code = 4329233331) See_Comment [Automated messa ge] The system which generated this result transmitted reference range: 10*3/?L. The reference range was not used to interpret this result as normal/abnormal. GRAN MAT (NEUT) % (test code = 770-8) 71.4 % IMM GRAN % (test code = 7628216399) 1.10 % LYMPH % (test code = 736-9) 19.9 % MONO % (test code = 5905-5) 7.2 % EOS % (test code = 713-8) 0.2 % BASO % (test code = 706-2) 0.2 % GRAN MAT x10^3(ANC) (test code = 5133822664) 6.49 10*3/uL 1.88-7.09 IMM GRAN x10^3 (test code = 1489863273) 0.10 10*3/uL 0.00-0.06 H LYMPH x10^3 (test code = 731-0) 1.81 10*3/uL 1.32-3.29 MONO x10^3 (test code = 742-7) 0.65 10*3/uL 0.33-0.92 EOS x10^3 (test code = 711-2) 0.03-0.39 L BASO x10^3 (test code = 704-7) 0.01-0.07 Lab Interpretation (test code = 80209-4) Abnormal General acute hospital GLUCOSE (AUTOMATED)2023-01-21 01:54:15* Test Item Value Reference Range Interpretation Comme nts POCT GLU (test code = 9356090415) 91 mg/dL 70-110 Lab Interpretation (test cod e = 69842-8) Normal General acute hospital GLUCOSE (AUTOMATED)2023-01-20 21:06:44* Test Item Value Reference Range Interpretation Comme nts POCT GLU (test code = 2557808182) 126 mg/dL 70-110 H Notified Provide r Lab Interpretation (test code = 83545-5) Abnormal General acute hospital GLUCOSE (AUTOMATED)2023-01-20 16:44:17* Test Item Value Reference Range Interpretation Comme nts POCT GLU (test code = 6172860656) 235 mg/dL 70-110 H Notified Provide r Lab Interpretation (test code = 79981-1) [facility]normal [facility] GLUCOSE (AUTOMATED)2023-01-20 16:44:17* Test Item Value Reference Range Interpretation Comme nts POCT GLU (test code = 4469489954) 235 mg/dL 70-110 H Notified Provide r Lab Interpretation (test code = 30564-9) Abnormal [facility] GLUCOSE (AUTOMATED)2023-01-20 13:04:49* Test Item Value Reference Range Interpretation Comme nts POCT GLU (test code = 7856229954) 101 mg/dL 70-110 Notified Provide r Lab Interpretation (test code = 35064-4) [facility] 13:04:49* Test Item Value Reference Range Interpretation Comme [facility] POCT GLU (test code = 3831089531) 101 mg/dL 70-110 Notified Provide r Lab Interpretation (test code = 99073-3) Normal [facility] METABOLIC PANEL (NA, K, CL, CO2, GLUCOSE, BUN, CREATININE, CA)2023-01-20 10:01:16* Test Item Value Reference Range Interpretation Comme [facility] NA (test code = 1045333010) 142 mmol/L 135-145 K (test code = 5073853793) 2.7 mmol/L 3.5-5.0 LL CL (test code = 6777950789) 110 mmol/L 98-108 H CO2 TOTAL (test code = 8485282709) 22 mmol/L 23-31 L AGAP (test code = 6105646561) 10 2-16 BUN (test code = 2600432843) 14 mg/dL 7-23 GLUCOSE (test code = 8586425314) 108 mg/dL 70-110 CREATININE (test code = 3174279096) 1.04 mg/dL 0.50-1.04 CALCIUM (test code = 5391076288) 7.9 mg/dL 8.6-10.6 L eGFR (test code = 1323296842) 51.0 mL/min/1.73m2 ABRAM (test code = ABRAM) [...] imaging tests). Lab Interpretation (test code = 83574-0) Abnormal [facility] METABOLIC PANEL (NA, K, CL, CO2, GLUCOSE, BUN, CREATININE, CA)2023-01-20 10:01:16* Test Item Value Reference Range Interpretation Comme nts NA (test code = 8400960710) 142 mmol/L 135-145 K (test code = 0775967066) 2.7 mmol/L 3.5-5.0 LL CL (test code = 4977291630) 110 mmol/L 98-108 H CO2 TOTAL (test code = 1284968785) 22 mmol/L 23-31 L AGAP (test code = 7960896942) 10 2-16 BUN (test code = 0514300448) 14 mg/dL 7-23 GLUCOSE (test code = 3327945746) 108 mg/dL 70-110 CREATININE (test code = 2562858790) 1.04 mg/dL 0.50-1.04 CALCIUM (test code = 2112547076) 7.9 mg/dL 8.6-10.6 L eGFR (test code = 0256983131) 51.0 mL/min/1.73m2 ABRAM (test code = ABRAM) [...] imaging tests). Lab Interpretation (test code = 26965-6) [facility] 09:56:28* Test Item Value Reference Range Interpretation Comme nts PHOSPHORUS (test code = 2103232840) 2.4 mg/dL 2.5-5.0 L Lab Interpretation (test cod e = 97979-9) [facility] 09:56:28* Test Item Value Reference Range Interpretation Comme nts MAGNESIUM (test code = 6787402416) 1.9 mg/dL 1.7-2.4 Lab Interpretation (test cod e = 17101-5) [facility]47461[facility] (ALB,T.PRO,BILI T,BU/BC,ALT,AST,ALK PHOS)2023-01-20 09:56:28* Test Item Value Reference Range Interpretation Comme nts TOTAL BILI (test code = 2978381302) 0.5 mg/dL 0.1-1.1 BILI UNCON (test code = 4749563337) 0.3 mg/dL 0.1-1.1 BILI CONJ (test code = 8398000617) 0.0 mg/dL 0.0-0.3 T PROTEIN (test code = 9746647721) 5.9 g/dL 6.3-8.2 L ALBUMIN (test code = 2460063539) 3.1 g/dL 3.5-5.0 L ALK PHOS (test code = 1708903359) 48 U/L 34-122 ALTv (test code = 1742-6) 29 U/L 5-35 AST(SGOT) (test code = 3146818708) 79 U/L 13-40 H Lab Interpretation (test cod e = 55257-2) [facility] 09:56:28* Test Item Value Reference Range Interpretation Comme nts PHOSPHORUS (test code = 0965697292) 2.4 mg/dL 2.5-5.0 L Lab Interpretation (test cod e = 32341-7) [facility] 09:56:28* Test Item Value Reference Range Interpretation Comme nts MAGNESIUM (test code = 1030203536) 1.9 mg/dL 1.7-2.4 Lab Interpretation (test cod e = 19120-7) [facility] (26634[facility] (ALB,T.PRO,BILI T,BU/BC,ALT,AST,ALK PHOS)2023-01-20 09:56:28* Test Item Value Reference Range Interpretation Comme nts TOTAL BILI (test code = 1848714128) 0.5 mg/dL 0.1-1.1 BILI UNCON (test code = 6544428965) 0.3 mg/dL 0.1-1.1 BILI CONJ (test code = 6730837618) 0.0 mg/dL 0.0-0.3 T PROTEIN (test code = 8076732378) 5.9 g/dL 6.3-8.2 L ALBUMIN (test code = 3583806298) 3.1 g/dL 3.5-5.0 L ALK PHOS (test code = 0424413294) 48 U/L 34-122 ALTv (test code = 1742-6) 29 U/L 5-35 AST(SGOT) (test code = 0067249832) 79 U/L 13-40 H Lab Interpretation (test cod e = 26333-6) [facility]normal [facility] [id number] 09:38:25* Test Item Value Reference Range Interpretation [...] 34.1 g/dL 31.6-35.1 RDW-SD (test code = 56739-0) 42.3 fL 39.0-49.9 RDW-CV (test code = 788-0) 12.7 % 12.0-15.5 PLT (test code = 777-3) 164 See_Comment L [Automated messa ge] The system which generated this result transmitted reference range: 166 - 358 10*3/?L. The reference range was not used to interpret this result as normal/abnormal. MPV (test code = 78664-4) 10.5 fL 9.5-12.9 NRBC/100 WBC (test code = 4413601822) 0.0 See_Comment [Automated me ssage] The system which generated this result transmitted reference range: 0.0 - 10.0 /100 WBCs. The reference range was not used to interpret this result as normal/abnormal. NRBC x10^3 (test code = 8666633389) See_Comment [Automated messa ge] The system which generated this result transmitted reference range: 10*3/?L. The reference range was not used to interpret this result as normal/abnormal. GRAN MAT (NEUT) % (test code = 770-8) 71.1 % IMM GRAN % (test code = 7614305634) 0.60 % LYMPH % (test code = 736-9) 19.8 % MONO % (test code = 5905-5) 8.3 % EOS % (test code = 713-8) 0.1 % BASO % (test code = 706-2) 0.1 % GRAN MAT x10^3(ANC) (test code = 8863897353) 5.62 10*3/uL 1.88-7.09 IMM GRAN x10^3 (test code = 1497400723) 0.05 10*3/uL 0.00-0.06 LYMPH x10^3 (test code = 731-0) 1.57 10*3/uL 1.32-3.29 MONO x10^3 (test code = 742-7) 0.66 10*3/uL 0.33-0.92 EOS x10^3 (test code = 711-2) 0.03-0.39 L BASO x10^3 (test code = 704-7) 0.01-0.07 Lab Interpretation (test code = 07590-6) Abnormal [facility] WITH [id number] 09:38:25* Test Item Value Reference Range Interpretation [...] 34.1 g/dL 31.6-35.1 RDW-SD (test code = 98239-9) 42.3 fL 39.0-49.9 RDW-CV (test code = 788-0) 12.7 % 12.0-15.5 PLT (test code = 777-3) 164 See_Comment L [Automated messa ge] The system which generated this result transmitted reference range: 166 - 358 10*3/?L. The reference range was not used to interpret this result as normal/abnormal. MPV (test code = 20796-1) 10.5 fL 9.5-12.9 NRBC/100 WBC (test code = 5077597458) 0.0 See_Comment [Automated me ssage] The system which generated this result transmitted reference range: 0.0 - 10.0 /100 WBCs. The reference range was not used to interpret this result as normal/abnormal. NRBC x10^3 (test code = 2727891849) See_Comment [Automated messa ge] The system which generated this result transmitted reference range: 10*3/?L. The reference range was not used to interpret this result as normal/abnormal. GRAN MAT (NEUT) % (test code = 770-8) 71.1 % IMM GRAN % (test code = 4718939878) 0.60 % LYMPH % (test code = 736-9) 19.8 % MONO % (test code = 5905-5) 8.3 % EOS % (test code = 713-8) 0.1 % BASO % (test code = 706-2) 0.1 % GRAN MAT x10^3(ANC) (test code = 9624209134) 5.62 10*3/uL 1.88-7.09 IMM GRAN x10^3 (test code = 6136330991) 0.05 10*3/uL 0.00-0.06 LYMPH x10^3 (test code = 731-0) 1.57 10*3/uL 1.32-3.29 MONO x10^3 (test code = 742-7) 0.66 10*3/uL 0.33-0.92 EOS x10^3 (test code = 711-2) 0.03-0.39 L BASO x10^3 (test code = 704-7) 0.01-0.07 Lab Interpretation (test code = 41057-4) Abnormal [facility] GLUCOSE (AUTOMATED)2023-01-20 01:55:21* Test Item Value Reference Range Interpretation Comme nts POCT GLU (test code = 6837165418) 126 mg/dL 70-110 H Lab Interpretation (test cod e = 12970-3) Abnormal [facility] acute hospital GLUCOSE (AUTOMATED)2023-01-20 01:55:21* Test Item Value Reference Range Interpretation Comme nts POCT GLU (test code = 8372518274) 126 mg/dL 70-110 H Lab Interpretation (test cod e = 16206-2) Abnormal [facility] GLUCOSE (AUTOMATED)2023-01-19 16:57:26* Test Item Value Reference Range Interpretation Comme nts POCT GLU (test code = 2912933304) 119 mg/dL 70-110 H Lab Interpretation (test cod e = 84885-4) Abnormal [facility] GLUCOSE (AUTOMATED)2023-01-19 16:57:26* Test Item Value Reference Range Interpretation Comme nts POCT GLU (test code = 5192924157) 119 mg/dL 70-110 H Lab Interpretation (test cod e = 36623-5) Abnormal [facility] acute hospital GLUCOSE (AUTOMATED)2023-01-19 12:33:01* Test Item Value Reference Range Interpretation Comme nts POCT GLU (test code = 8934676738) 87 mg/dL 70-110 Lab Interpretation (test cod e = 05485-9) Normal [facility] GLUCOSE (AUTOMATED)2023-01-19 12:33:01* Test Item Value Reference Range Interpretation Comme nts POCT GLU (test code = 0111584942) 87 mg/dL 70-110 Lab Interpretation (test cod e = 47720-5) Normal [facility] METABOLIC PANEL (NA, K, CL, CO2, GLUCOSE, BUN, CREATININE, CA)2023-01-19 09:22:46* Test Item Value Reference Range Interpretation Comme nts NA (test code = 2252157884) 145 mmol/L 135-145 K (test code = 2624618176) 3.5 mmol/L 3.5-5.0 Slight hemolysis CL (test code = 5340043031) 111 mmol/L 98-108 H CO2 TOTAL (test code = 8260226730) 20 mmol/L 23-31 L AGAP (test code = 0344888520) 14 2-16 BUN (test code = 6862248263) 21 mg/dL 7-23 Slight hemolysis GLUCOSE (test code = 1014991087) 111 mg/dL 70-110 H CREATININE (test code = 4174155265) 1.21 mg/dL 0.50-1.04 H CALCIUM (test code = 1404127184) 8.3 mg/dL 8.6-10.6 L eGFR (test code = 1050048696) 42.8 mL/min/1.73m2 ABRAM (test code = ABRAM) [...] imaging tests). Lab Interpretation (test code = 02182-2) [facility] 09:22:46* Test Item Value Reference Range Interpretation Comme nts PHOSPHORUS (test code = 1425066706) 3.1 mg/dL 2.5-5.0 Lab Interpretation (test cod e = 66761-7) [facility] 09:22:46* Test Item Value Reference Range Interpretation Comme nts MAGNESIUM (test code = 7626351568) 1.9 mg/dL 1.7-2.4 Lab Interpretation (test cod e = 23971-8) [facility] (NA, K, CL, CO2, GLUCOSE, BUN, CREATININE, CA)2023-01-19 09:22:46* Test Item Value Reference Range Interpretation Comme nts NA (test code = 5163028199) 145 mmol/L 135-145 K (test code = 6839403674) 3.5 mmol/L 3.5-5.0 Slight hemolysis CL (test code = 3020223557) 111 mmol/L 98-108 H CO2 TOTAL (test code = 0840395395) 20 mmol/L 23-31 L AGAP (test code = 1248823608) 14 2-16 BUN (test code = 2320835843) 21 mg/dL 7-23 Slight hemolysis GLUCOSE (test code = 6818456201) 111 mg/dL 70-110 H CREATININE (test code = 4003959194) 1.21 mg/dL 0.50-1.04 H CALCIUM (test code = 9246356719) 8.3 mg/dL 8.6-10.6 L eGFR (test code = 6884857730) 42.8 mL/min/1.73m2 ABRAM (test code = ABRAM) [...] imaging tests). Lab Interpretation (test code = 33658-4) [facility] 09:22:46* Test Item Value Reference Range Interpretation Comme nts PHOSPHORUS (test code = 6301003309) 3.1 mg/dL 2.5-5.0 Lab Interpretation (test cod e = 62081-8) [facility] 09:22:46* Test Item Value Reference Range Interpretation Comme nts MAGNESIUM (test code = 5022067677) 1.9 mg/dL 1.7-2.4 Lab Interpretation (test cod e = 23728-7) [facility] WITH [id number] 08:46:39* Test Item Value Reference Range Interpretation [...] 33.1 g/dL 31.6-35.1 RDW-SD (test code = 03620-8) 43.1 fL 39.0-49.9 RDW-CV (test code = 788-0) 12.6 % 12.0-15.5 PLT (test code = 777-3) 197 See_Comment [Automated messa ge] The system which generated this result transmitted reference range: 166 - 358 10*3/?L. The reference range was not used to interpret this result as normal/abnormal. MPV (test code = 25360-1) 10.2 fL 9.5-12.9 NRBC/100 WBC (test code = 9437737040) 0.0 See_Comment [Automated [employer] ssage] The system which generated this result transmitted reference range: 0.0 - 10.0 /100 WBCs. The reference range was not used to interpret this result as normal/abnormal. NRBC x10^3 (test code = 9058668018) See_Comment [Automated [employer]] The system which generated this result transmitted reference range: 10*3/?L. The reference range was not used to interpret this result as normal/abnormal. GRAN MAT (NEUT) % (test code = 770-8) 69.2 % IMM GRAN % (test code = 0818800736) 0.40 % LYMPH % (test code = 736-9) 21.8 % MONO % (test code = 5905-5) 8.3 % EOS % (test code = 713-8) 0.0 % BASO % (test code = 706-2) 0.3 % GRAN MAT x10^3(ANC) (test code = 6100313949) 5.01 10*3/uL 1.88-7.09 IMM GRAN x10^3 (test code = 5028179937) 0.03 10*3/uL 0.00-0.06 LYMPH x10^3 (test code = 731-0) 1.58 10*3/uL 1.32-3.29 MONO x10^3 (test code = 742-7) 0.60 10*3/uL 0.33-0.92 EOS x10^3 (test code = 711-2) 0.03-0.39 L BASO x10^3 (test code = 704-7) 0.01-0.07 Lab Interpretation (test code = 85539-0) Abnormal [facility] WITH [id number] 08:46:39* Test Item Value Reference Range Interpretation [...] 33.1 g/dL 31.6-35.1 RDW-SD (test code = 32881-3) 43.1 fL 39.0-49.9 RDW-CV (test code = 788-0) 12.6 % 12.0-15.5 PLT (test code = 777-3) 197 See_Comment [Automated messa ge] The system which generated this result transmitted reference range: 166 - 358 10*3/?L. The reference range was not used to interpret this result as normal/abnormal. MPV (test code = 15140-0) 10.2 fL 9.5-12.9 NRBC/100 WBC (test code = 6373114857) 0.0 See_Comment [Automated me ssage] The system which generated this result transmitted reference range: 0.0 - 10.0 /100 WBCs. The reference range was not used to interpret this result as normal/abnormal. NRBC x10^3 (test code = 4205577464) See_Comment [Automated messa ge] The system which generated this result transmitted reference range: 10*3/?L. The reference range was not used to interpret this result as normal/abnormal. GRAN MAT (NEUT) % (test code = 770-8) 69.2 % IMM GRAN % (test code = 0997399177) 0.40 % LYMPH % (test code = 736-9) 21.8 % MONO % (test code = 5905-5) 8.3 % EOS % (test code = 713-8) 0.0 % BASO % (test code = 706-2) 0.3 % GRAN MAT x10^3(ANC) (test code = 6846153652) 5.01 10*3/uL 1.88-7.09 IMM GRAN x10^3 (test code = 7763578413) 0.03 10*3/uL 0.00-0.06 LYMPH x10^3 (test code = 731-0) 1.58 10*3/uL 1.32-3.29 MONO x10^3 (test code = 742-7) 0.60 10*3/uL 0.33-0.92 EOS x10^3 (test code = 711-2) 0.03-0.39 L BASO x10^3 (test code = 704-7) 0.01-0.07 Lab Interpretation (test code = 16339-9) Abnormal [facility] METABOLIC PANEL (NA, K, CL, CO2, GLUCOSE, BUN, CREATININE, CA)2023-01-19 05:31:14* Test Item Value Reference Range Interpretation Comme nts NA (test code = 2056275191) 147 mmol/L 135-145 H K (test code = 7799113708) 3.4 mmol/L 3.5-5.0 L Slight hemolysis CL (test code = 1756887116) 112 mmol/L 98-108 H CO2 TOTAL (test code = 7305682282) 21 mmol/L 23-31 L AGAP (test code = 8035078640) 14 2-16 BUN (test code = 1246937280) 22 mg/dL 7-23 Slight hemolysis GLUCOSE (test code = 9385038822) 127 mg/dL 70-110 H CREATININE (test code = 1675525713) 1.23 mg/dL 0.50-1.04 H CALCIUM (test code = 0438947925) 8.4 mg/dL 8.6-10.6 L eGFR (test code = 2878453964) 42.0 mL/min/1.73m2 ABRAM (test code = ABRAM) [...] imaging tests). Lab Interpretation (test code = 22392-0) Abnormal [facility] METABOLIC PANEL (NA, K, CL, CO2, GLUCOSE, BUN, CREATININE, CA)2023-01-19 05:31:14* Test Item Value Reference Range Interpretation Comme nts NA (test code = 1993706233) 147 mmol/L 135-145 H K (test code = 3320273433) 3.4 mmol/L 3.5-5.0 L Slight hemolysis CL (test code = 8112686222) 112 mmol/L 98-108 H CO2 TOTAL (test code = 9114992274) 21 mmol/L 23-31 L AGAP (test code = 5476211118) 14 2-16 BUN (test code = 9887559798) 22 mg/dL 7-23 Slight hemolysis GLUCOSE (test code = 2221925717) 127 mg/dL 70-110 H CREATININE (test code = 5032814950) 1.23 mg/dL 0.50-1.04 H CALCIUM (test code = 4986560162) 8.4 mg/dL 8.6-10.6 L eGFR (test code = 5754612775) 42.0 mL/min/1.73m2 ABRAM (test code = ABRAM) [...] imaging tests). Lab Interpretation (test code = 12546-5) [facility] 05:07:33* Test Item Value Reference Range Interpretation Comme nts MAGNESIUM (test code = 7925796242) 2.0 mg/dL 1.7-2.4 Lab Interpretation (test cod e = 28593-2) [facility] 05:07:33* Test Item Value Reference Range Interpretation Comme nts PHOSPHORUS (test code = 1836085290) 3.1 mg/dL 2.5-5.0 Lab Interpretation (test cod e = 71000-4) [facility]* Test Item Value Reference Range Interpretation Comme nts MAGNESIUM (test code = 5470857744) 2.0 mg/dL 1.7-2.4 Lab Interpretation (test cod e = 23054-8) [facility] 05:07:33* Test Item Value Reference Range Interpretation Comme nts PHOSPHORUS (test code = 4117871605) 3.1 mg/dL 2.5-5.0 Lab Interpretation (test cod e = 95803-5) Normal [facility] GLUCOSE (AUTOMATED)2023-01-19 01:30:01* Test Item Value Reference Range Interpretation Comme nts POCT GLU (test code = 8187062577) 153 mg/dL 70-110 H Lab Interpretation (test cod e = 99217-4) Abnormal [facility] GLUCOSE (AUTOMATED)2023-01-19 01:30:01* Test Item Value Reference Range Interpretation Comme nts POCT GLU (test code = 7822164789) 153 mg/dL 70-110 H Lab Interpretation (test cod e = 72213-2) Abnormal [facility] GLUCOSE (AUTOMATED)2023-01-18 20:11:32* Test Item Value Reference Range Interpretation Comme nts POCT GLU (test code = 3203623011) 145 mg/dL 70-110 H Lab Interpretation (test cod e = 04028-1) Abnormal [facility] GLUCOSE (AUTOMATED)2023-01-18 20:11:32* Test Item Value Reference Range Interpretation Comme nts POCT GLU (test code = 4605477433) 145 mg/dL 70-110 H Lab Interpretation (test cod e = 02269-6) Abnormal [facility] GLUCOSE (AUTOMATED)2023-01-18 16:50:23* Test Item Value Reference Range Interpretation Comme nts POCT GLU (test code = 4057830700) 196 mg/dL 70-110 H Lab Interpretation (test cod e = 25023-4) Abnormal [facility] acute hospital GLUCOSE (AUTOMATED)2023-01-18 16:50:23* Test Item Value Reference Range Interpretation Comme nts POCT GLU (test code = 2317203696) 196 mg/dL 70-110 H Lab Interpretation (test cod e = 82721-6) Abnormal [facility] acute hospital GLUCOSE (AUTOMATED)2023-01-18 13:30:37* Test Item Value Reference Range Interpretation Comme nts POCT GLU (test code = 6416709221) 193 mg/dL 70-110 H Lab Interpretation (test cod e = 15706-1) Abnormal [facility] acute hospital GLUCOSE (AUTOMATED)2023-01-18 13:30:37* Test Item Value Reference Range Interpretation Comme nts POCT GLU (test code = 9310038058) 193 mg/dL 70-110 H Lab Interpretation (test cod e = 54158-1) Abnormal [facility] WITH [id number] 10:18:27* Test Item Value Reference Range Interpretation [...] 34.1 g/dL 31.6-35.1 RDW-SD (test code = 78134-2) 41.4 fL 39.0-49.9 RDW-CV (test code = 788-0) 12.6 % 12.0-15.5 PLT (test code = 777-3) 229 See_Comment [Automated messa ge] The system which generated this result transmitted reference range: 166 - 358 10*3/?L. The reference range was not used to interpret this result as normal/abnormal. MPV (test code = 92859-5) 10.7 fL 9.5-12.9 NRBC/100 WBC (test code = 8057808902) 0.0 See_Comment [Automated [employer] ssage] The system which generated this result transmitted reference range: 0.0 - 10.0 /100 WBCs. The reference range was not used to interpret this result as normal/abnormal. NRBC x10^3 (test code = 0886090181) See_Comment [Automated messa ge] The system which generated this result transmitted reference range: 10*3/?L. The reference range was not used to interpret this result as normal/abnormal. GRAN MAT (NEUT) % (test code = 770-8) 65.1 % IMM GRAN % (test code = 5589372637) 0.10 % LYMPH % (test code = 736-9) 21.1 % MONO % (test code = 5905-5) 13.6 % EOS % (test code = 713-8) 0.0 % BASO % (test code = 706-2) 0.1 % GRAN MAT x10^3(ANC) (test code = 9853663207) 4.59 10*3/uL 1.88-7.09 IMM GRAN x10^3 (test code = 7693649937) 0.00-0.06 LYMPH x10^3 (test code = 731-0) 1.49 10*3/uL 1.32-3.29 MONO x10^3 (test code = 742-7) 0.96 10*3/uL 0.33-0.92 H EOS x10^3 (test code = 711-2) 0.03-0.39 L BASO x10^3 (test code = 704-7) 0.01-0.07 Lab Interpretation (test code = 29288-9) Abnormal [facility] WITH [id number] 10:18:27* Test Item Value Reference Range Interpretation [...] 34.1 g/dL 31.6-35.1 RDW-SD (test code = 46815-4) 41.4 fL 39.0-49.9 RDW-CV (test code = 788-0) 12.6 % 12.0-15.5 PLT (test code = 777-3) 229 See_Comment [Automated messa ge] The system which generated this result transmitted reference range: 166 - 358 10*3/?L. The reference range was not used to interpret this result as normal/abnormal. MPV (test code = 81899-5) 10.7 fL 9.5-12.9 NRBC/100 WBC (test code = 8111294512) 0.0 See_Comment [Automated [employer] ssage] The system which generated this result transmitted reference range: 0.0 - 10.0 /100 WBCs. The reference range was not used to interpret this result as normal/abnormal. NRBC x10^3 (test code = 8060877166) See_Comment [Automated messa ge] The system which generated this result transmitted reference range: 10*3/?L. The reference range was not used to interpret this result as normal/abnormal. GRAN MAT (NEUT) % (test code = 770-8) 65.1 % IMM GRAN % (test code = 9037362251) 0.10 % LYMPH % (test code = 736-9) 21.1 % MONO % (test code = 5905-5) 13.6 % EOS % (test code = 713-8) 0.0 % BASO % (test code = 706-2) 0.1 % GRAN MAT x10^3(ANC) (test code = 5059928004) 4.59 10*3/uL 1.88-7.09 IMM GRAN x10^3 (test code = 9774693428) 0.00-0.06 LYMPH x10^3 (test code = 731-0) 1.49 10*3/uL 1.32-3.29 MONO x10^3 (test code = 742-7) 0.96 10*3/uL 0.33-0.92 H EOS x10^3 (test code = 711-2) 0.03-0.39 L BASO x10^3 (test code = 704-7) 0.01-0.07 Lab Interpretation (test code = 92481-0) Abnormal General acute hospital GLUCOSE (AUTOMATED)2023-01-18 01:50:38* Test Item Value Reference Range Interpretation Comme nts POCT GLU (test code = 7700593533) 192 mg/dL 70-110 H Lab Interpretation (test cod e = 90807-6) Abnormal General acute hospital GLUCOSE (AUTOMATED)2023-01-18 01:50:38* Test Item Value Reference Range Interpretation Comme nts POCT GLU (test code = 4122276107) 192 mg/dL 70-110 H Lab Interpretation (test cod e = 23381-6) [facility] [id number] 22:41:19 * Test Item Value Reference Range Interpretation Comme nts TSH (test code = 2456913770) 0.59 See_Comment [Automated messa ge] The system which generated this result transmitted reference range: 0.45 - 4.70 mIU/L. The reference range was not used to interpret this result as normal/abnormal. Lab Interpretation (test code = 86977-9) [facility] [id number] 22:41:19 * Test Item Value Reference Range Interpretation Comme nts TSH (test code = 0847786017) 0.59 See_Comment [Automated [employer]] The system which generated this result transmitted reference range: 0.45 - 4.70 mIU/L. The reference range was not used to interpret this result as normal/abnormal. Lab Interpretation (test code = 88643-0) [facility] (13600)(TOTAL CHOLESTEROL, TRIGLYCERIDES, HDL)2023-01-17 22:10:08* Test Item Value Reference Range Interpretation Comme nts CHOL (test code = 1151779436) 151 mg/dL 120-200 HDL (test code = 7467937621) 52 mg/dL >=50 HDLC RATIO (test code = 8713235172) 2.9 <=4.5 TRIG (test code = 6852564062) 148 mg/dL 30-170 LDL CHOL (test code = 86630-1) 69 mg/dL <=160 VLDL (test code = 2813282293) 30 mg/dL 5-60 Lab Interpretation (test cod e = 08693-7) [facility] (58938)(TOTAL CHOLESTEROL, TRIGLYCERIDES, HDL)2023-01-17 22:10:08* Test Item Value Reference Range Interpretation Comme nts CHOL (test code = 7947102795) 151 mg/dL 120-200 HDL (test code = 3164611975) 52 mg/dL >=50 HDLC RATIO (test code = 9255356609) 2.9 <=4.5 TRIG (test code = 5505629777) 148 mg/dL 30-170 LDL CHOL (test code = 74799-0) 69 mg/dL <=160 VLDL (test code = 5756376887) 30 mg/dL 5-60 Lab Interpretation (test cod e = 48333-2) [facility] 21:23:09* Test Item Value Reference Range Interpretation Comme nts POCT GLU (test code = 8090779034) 119 mg/dL 70-110 H Lab Interpretation (test cod e = 27239-9) [facility]normal [facility] 21:23:09* Test Item Value Reference Range Interpretation Comme nts POCT GLU (test code = 9698917796) 119 mg/dL 70-110 H Lab Interpretation (test cod e = 88840-8) [facility]normal [facility]1C[facility]2023-01-17 20:50:54* Test Item Value Reference Range Interpretation Comme nts HGB A1C (test code = 4548-4) 7.1 % 4.0-5.7 H ABRAM (test code = ABRAM) Reference RangesNormal: <5.7%Prediabetes: 5.7 - 6.4%Diabetes: > 6.5% Lab Interpretation (test code = 46867-6) [facility]normal [facility]2023-01-17 20:50:54* Test Item Value Reference Range Interpretation Comme nts HGB A1C (test code = 4548-4) 7.1 % 4.0-5.7 H ABRAM (test code = ABRAM) Reference RangesNormal: <5.7%Prediabetes: 5.7 - 6.4%Diabetes: > 6.5% Lab Interpretation (test code = 93333-0) [facility]normal [facility] (95606)2023-01-17 11:58:31* Test Item Value Reference Range Interpretation Comme nts NA (test code = 8039744321) 147 mmol/L 135-145 H K (test code = 5496854705) 3.4 mmol/L 3.5-5.0 L CL (test code = 6600903481) 107 mmol/L 98-108 CO2 TOTAL (test code = 9753925442) 20 mmol/L 23-31 L AGAP (test code = 4420038307) 20 2-16 H BUN (test code = 3167319863) 33 mg/dL 7-23 H GLUCOSE (test code = 7717527869) 217 mg/dL 70-110 H CREATININE (test code = 4273867445) 1.45 mg/dL 0.50-1.04 H TOTAL BILI (test code = 0427564725) 0.6 mg/dL 0.1-1.1 CALCIUM (test code = 6340535491) 10.0 mg/dL 8.6-10.6 T PROTEIN (test code = 9204132974) 8.7 g/dL 6.3-8.2 H ALBUMIN (test code = 6268487958) 5.0 g/dL 3.5-5.0 ALK PHOS (test code = 1322736891) 86 U/L 34-122 ALTv (test code = 1742-6) 38 U/L 5-35 H AST(SGOT) (test code = 2342190183) 46 U/L 13-40 H eGFR (test code = 9020470107) 34.7 mL/min/1.73m2 ABRAM (test code = ABRAM) [...] imaging tests). Lab Interpretation (test code = 44346-7) [facility]normal [facility] (91952)2023-01-17 11:58:31* Test Item Value Reference Range Interpretation Comme nts NA (test code = 5088386393) 147 mmol/L 135-145 H K (test code = 5384871217) 3.4 mmol/L 3.5-5.0 L CL (test code = 7908513615) 107 mmol/L 98-108 CO2 TOTAL (test code = 8857627495) 20 mmol/L 23-31 L AGAP (test code = 6109338944) 20 2-16 H BUN (test code = 0142523937) 33 mg/dL 7-23 H GLUCOSE (test code = 1082498874) 217 mg/dL 70-110 H CREATININE (test code = 2731089655) 1.45 mg/dL 0.50-1.04 H TOTAL BILI (test code = 2323200408) 0.6 mg/dL 0.1-1.1 CALCIUM (test code = 8593592593) 10.0 mg/dL 8.6-10.6 T PROTEIN (test code = 9069542180) 8.7 g/dL 6.3-8.2 H ALBUMIN (test code = 0523586280) 5.0 g/dL 3.5-5.0 ALK PHOS (test code = 0464312496) 86 U/L 34-122 ALTv (test code = 1742-6) 38 U/L 5-35 H AST(SGOT) (test code = 0468728111) 46 U/L 13-40 H eGFR (test code = 1609106853) 34.7 mL/min/1.73m2 ABRAM (test code = ABRAM) [...] imaging tests). Lab Interpretation (test code = 57523-1) [facility]normal [facility] 11:15:48* Test Item Value Reference Range Interpretation Comme nts LIPASE (test code = 2672852917) 94 U/L 0-220 Lab Interpretation (test cod e = 78318-8) Normal [facility] 11:15:48* Test Item Value Reference Range Interpretation Comme nts LIPASE (test code = 0373666804) 94 U/L 0-220 Lab Interpretation (test cod e = 17318-8) Normal [facility] WITH [id number] 11:10:34* Test Item Value Reference Range Interpretation Comme nts WBC (test code = 6690-2) 10.88 See_Comment [Automated [employer]] The system which generated this result transmitted reference range: 4.30 - 11.10 10*3/?L. The reference range was not used to interpret this result as normal/abnormal. RBC (test code = 789-8) 4.37 See_Comment [Automated [employer]] The system which generated this result transmitted [...] 34.1 g/dL 31.6-35.1 RDW-SD (test code = 40814-5) 41.4 fL 39.0-49.9 RDW-CV (test code = 788-0) 11.9 % 12.0-15.5 L PLT (test code = 777-3) 289 See_Comment [Automated [employer]] The system which generated this result transmitted reference range: 166 - 358 10*3/?L. The reference range was not used to interpret this result as normal/abnormal. MPV (test code = 74853-8) 11.0 fL 9.5-12.9 NRBC/100 WBC (test code = 5947145612) 0.0 See_Comment [Automated [employer] ssage] The system which generated this result transmitted reference range: 0.0 - 10.0 /100 WBCs. The reference range was not used to interpret this result as normal/abnormal. NRBC x10^3 (test code = 2682229929) See_Comment [Automated [employer]] The system which generated this result transmitted reference range: 10*3/?L. The reference range was not used to interpret this result as normal/abnormal. GRAN MAT (NEUT) % (test code = 770-8) 59.3 % IMM GRAN % (test code = 5229254638) 0.50 % LYMPH % (test code = 736-9) 24.5 % MONO % (test code = 5905-5) 15.4 % EOS % (test code = 713-8) 0.0 % BASO % (test code = 706-2) 0.3 % GRAN MAT x10^3(ANC) (test code = 9457445121) 6.45 10*3/uL 1.88-7.09 IMM GRAN x10^3 (test code = 9899925386) 0.05 10*3/uL 0.00-0.06 LYMPH x10^3 (test code = 731-0) 2.67 10*3/uL 1.32-3.29 MONO x10^3 (test code = 742-7) 1.68 10*3/uL 0.33-0.92 H EOS x10^3 (test code = 711-2) 0.03-0.39 L BASO x10^3 (test code = 704-7) 0.03 10*3/uL 0.01-0.07 Lab Interpretation (test code = 66739-6) Abnormal [facility] WITH [id number] 11:10:34* Test Item Value Reference Range Interpretation Comme nts WBC (test code = 6690-2) 10.88 See_Comment [Automated [employer]] The system which generated this result transmitted reference range: 4.30 - 11.10 10*3/?L. The reference range was not used to interpret this result as normal/abnormal. RBC (test code = 789-8) 4.37 See_Comment [Automated [employer]] The system which generated this result transmitted [...] 34.1 g/dL 31.6-35.1 RDW-SD (test code = 12234-2) 41.4 fL 39.0-49.9 RDW-CV (test code = 788-0) 11.9 % 12.0-15.5 L PLT (test code = 777-3) 289 See_Comment [Automated [employer]] The system which generated this result transmitted reference range: 166 - 358 10*3/?L. The reference range was not used to interpret this result as normal/abnormal. MPV (test code = 72707-5) 11.0 fL 9.5-12.9 NRBC/100 WBC (test code = 4220424775) 0.0 See_Comment [Automated me ssage] The system which generated this result transmitted reference range: 0.0 - 10.0 /100 WBCs. The reference range was not used to interpret this result as normal/abnormal. NRBC x10^3 (test code = 0395172747) See_Comment [Automated messa ge] The system which generated this result transmitted reference range: 10*3/?L. The reference range was not used to interpret this result as normal/abnormal. GRAN MAT (NEUT) % (test code = 770-8) 59.3 % IMM GRAN % (test code = 0911548663) 0.50 % LYMPH % (test code = 736-9) 24.5 % MONO % (test code = 5905-5) 15.4 % EOS % (test code = 713-8) 0.0 % BASO % (test code = 706-2) 0.3 % GRAN MAT x10^3(ANC) (test code = 6705531416) 6.45 10*3/uL 1.88-7.09 IMM GRAN x10^3 (test code = 6918009888) 0.05 10*3/uL 0.00-0.06 LYMPH x10^3 (test code = 731-0) 2.67 10*3/uL 1.32-3.29 MONO x10^3 (test code = 742-7) 1.68 10*3/uL 0.33-0.92 H EOS x10^3 (test code = 711-2) 0.03-0.39 L BASO x10^3 (test code = 704-7) 0.03 10*3/uL 0.01-0.07 Lab Interpretation (test code = 15196-0) [facility]normal [facility] [id number] 07:05:52* Test Item Value Reference Range Interpretation Comme nts HEMOGLOBIN A1c (test code = 71383) 7.6 % 4.2-5.6 H [employer] GUIDELINES FOR HGB A1C: [...] TESTING PERFORMED AT [facility] [address] [place] [address] REGISTERED PHLEBOTOMIST PART TIME: FREDDY HUTCHISON M.D. CLIA NUMBER [id number] [facility] [place]. [id number] HEMOGLOBIN [id number] 00:00:00* Test Item Value Reference Range Interpretation Comme nts HEMOGLOBIN A1c (test code = 84551) 7.6 % Dev Georges AustinHEMOGLOBIN [id number] 00:00:00* Test Item Value Reference Range Interpretation Comme nts HEMOGLOBIN A1c (test code = 33292) 7.6 % Dev Georges AustinHEMOGLOBIN [id number] 00:00:00* Test Item Value Reference Range Interpretation Comme nts HEMOGLOBIN A1c (test code = 47440) 7.6 % Dev Georges AustinHEMOGLOBIN [id number] 00:00:00* Test Item Value Reference Range Interpretation Comme nts HEMOGLOBIN A1c (test code = 42060) 7.6 % Dev Georges AustinHEMOGLOBIN [id number] 00:00:00* Test Item Value Reference Range Interpretation Comme nts HEMOGLOBIN A1c (test code = 27034) 7.6 % Dev Georges AustinHEMOGLOBIN [id number] 00:00:00* Test Item Value Reference Range Interpretation Comme nts HEMOGLOBIN A1c (test code = 88573) 7.6 % Dev Georges AustinHEMOGLOBIN [id number] 00:00:00* Test Item Value Reference Range Interpretation Comme nts HEMOGLOBIN A1c (test code = 53394) 7.6 % Dev Georges AustinHEMOGLOBIN [id number] 00:00:00* Test Item Value Reference Range Interpretation Comme nts HEMOGLOBIN A1c (test code = 84897) 7.6 % Dev SteinerURINE CULTURE, NO [id number] 13:07:33SPECIMEN NUMBER: [id number] URINE CULTURE, NO SENS SPECIMEN NUMBER: [id number] SPECIMEN COMMENT: URINE SOURCE: URINE REPORT STATUS: FINAL FINAL REPORT: 08/25/2022 <10,000 CFU/ML UROGENITAL VENANCIO PRESENT NO COMMON PATHOGENSURINE CULTURE, NO [id number] 00:00:00* Test Item Value Reference Range Interpretation Comme nts URINE CULTURE, NO SENS (test code = 83509) SPECIMEN NUMBER: [id number] Dev SteinerURINE CULTURE, NO [id number] 00:00:00* Test Item Value Reference Range Interpretation Comme nts URINE CULTURE, NO SENS (test code = 30941) SPECIMEN NUMBER: [id number] Dev SteinerURINE CULTURE, NO [id number] 00:00:00* Test Item Value Reference Range Interpretation Comme nts URINE CULTURE, NO SENS (test code = 75906) SPECIMEN NUMBER: [id number] Dev SteinerURINE CULTURE, NO [id number] 00:00:00* Test Item Value Reference Range Interpretation Comme nts URINE CULTURE, NO SENS (test code = 70871) SPECIMEN NUMBER: [id number] Dev SteinerURINE CULTURE, NO [id number] 00:00:00* Test Item Value Reference Range Interpretation Comme nts URINE CULTURE, NO SENS (test code = 11866) SPECIMEN NUMBER: [id number] Dev SteinerURINE CULTURE, NO [id number] 00:00:00* Test Item Value Reference Range Interpretation Comme nts URINE CULTURE, NO SENS (test code = 58735) SPECIMEN NUMBER: [id number] Dev SteinerURINE CULTURE, NO [id number] 00:00:00* Test Item Value Reference Range Interpretation Comme nts URINE CULTURE, NO SENS (test code = 20763) SPECIMEN NUMBER: [id number] Dev SteinerURINE CULTURE, NO [id number] 00:00:00* Test Item Value Reference Range Interpretation Comme nts URINE CULTURE, NO SENS (test code = 16342) SPECIMEN NUMBER: [id number] Dev SteinerLIPID [id number] 05:33:31* Test Item Value Reference Range Interpretation Comme nts CHOLESTEROL (test code = 2210) 165 MG/DL <200 TRIGLYCERIDES (test code = 2232) 182 MG/DL <150 H HDL CHOLESTEROL (test code = 2220) 50 MG/DL >39 CALC LDL CHOL (test code = 2237) 87 MG/DL <100 NOTE: CALCULATED LDL IS BASED ON BARBER-MATA METHOD WHICHINCLUDES ADJUSTABLE TRIGLYCERIDE:VLDL CHOLESTEROL RATIO.THIS FACTOR VARIES BY MEASURED TRIGLYCERIDE AND NON-HDLCHOLESTEROL CONCENTRATIONS WITH INCREASED CALCULATED LDL SEENIN HIGHER TRIGLYCERIDE OR LOWER NON-HDL SPECIMENS. FOR MOREINFORMATION, SEE CLIENT ANNOUNCEMENT AT [email or web address] RISK RATIO LDL/HDL (test code = 2237) 1.74 RATIO <3.22 HEPATIC FUNCTION [id number] 05:33:31* Test Item Value Reference Range Interpretation Comme nts PROTEIN, TOTAL (test code = 2228) 7.9 G/DL 6.1-8.3 ALBUMIN (test code = 2200) 4.9 G/DL 3.5-5.2 BILIRUBIN, TOTAL (test code = 2206) <0.2 MG/DL See_Comment [Automated [employer]] The system which generated this result transmitted reference range: <=1.2. The reference range was not used to interpret this result as normal/abnormal. BILIRUBIN, DIRECT (test code = 2021) <0.2 MG/DL 0.0-0.3 ALKALINE PHOSPHATASE (test code = 2203) 92 U/L 40-142 AST (test code = 2217) 18 U/L 9-40 ALT (test code = 2218) 16 U/L 5-40 RENAL FUNCTION [id number] 05:33:31* Test Item Value Reference Range Interpretation Comme nts GLUCOSE (test code = 2216) 144 MG/DL 70-99 H BUN (test code = 2207) 32 MG/DL 8-23 H CREATININE (test code = 2213) 1.14 MG/DL 0.60-1.30 eGFR (2020 CKD-EPI) (test code = 06859) 49 ML/MIN/1.73 >60 L The NKF-ASN Taskforce recommends use of Cystatin C to confirm eGFR inadults at risk for CKD. [facility] offers eGFR with Cystatin C-Creatinineusing the 2020 CKD-EPI eGFR_creat-cystat equation (order code 3057) toincrease the accuracy of estimated GFR. For more information, contactyour accounting manager or see announcement [email or web address] CALC BUN/CREAT (test code = 2234) 28 RATIO 6-28 SODIUM (test code = 2230) 143 MEQ/L 133-146 POTASSIUM (test code = 2228) 4.6 MEQ/L 3.5-5.4 CHLORIDE (test code = 2215) 108 MEQ/L 95-107 H CARBON DIOXIDE (test code = 2206) 19 MEQ/L 19-31 CALCIUM (test code = 2209) 10.1 MG/DL 8.5-10.5 PHOSPHORUS (test code = 2227) 4.4 MG/DL 2.5-4.5 ALBUMIN (test code = 2201) 4.9 G/DL 3.5-5.2 [facility] has impo rtant pathology staff changes effective 09/08/2022. New pathology staff will provide uninterrupted, excellent patient care and clinical consultation. See URL: [email or web address]. UNLESS OTHERWISE INDICATED, ALL TESTING PERFORMED AT [facility] [address] [place] [address] CLIA: [id number], CAP: [id number] HEMOGLOBIN [id number] 03:58:30* Test Item Value Reference Range Interpretation Comme [facility] HEMOGLOBIN A1c (test code = 06277) 7.5 % 4.2-5.6 H [employer] GUIDELINES FOR HGB A1C: [...] CONSIDER ALTERNATE TESTING OR LABORATORY CONSULTATION. HEMOGLOBIN [id number] 00:00:00* Test Item Value Reference Range Interpretation Comme [facility] HEMOGLOBIN A1c (test code = 64237) 7.5 % Dev Georges AustinLIPID [id number] 00:00:00* Test Item Value Reference Range Interpretation Comme nts CHOLESTEROL (test code = 2210) 165 MG/DL TRIGLYCERIDES (test code = 2232) 182 MG/DL HDL CHOLESTEROL (test code = 2220) 50 MG/DL CALC LDL CHOL (test code = 2237) 87 MG/DL RISK RATIO LDL/HDL (test cod e = 2238) 1.74 RATIO Dev SteinerLIVER (HEPATIC) FUNCTION [id number] 00:00:00* Test Item Value Reference Range Interpretation [...] 2219) 16 U/L Dev Jarquin (RENAL) FUNCTION [id number] 00:00:00* Test Item Value Reference Range Interpretation Comme nts GLUCOSE (test code = 2217) 144 MG/DL BUN (test code = 2208) 32 MG/DL CREATININE (test code = 2214) 1.14 MG/DL eGFR (2020 CKD-EPI) (test co de = 61406) 49 ML/MIN/1.73 CALC BUN/CREAT (test code = 2235) 28 RATIO SODIUM (test code = 2231) 143 MEQ/L POTASSIUM (test code = 2228) 4.6 MEQ/L CHLORIDE (test code = 2215) 108 MEQ/L CARBON DIOXIDE (test code = 2206) 19 MEQ/L CALCIUM (test code = 2209) 10.1 MG/DL PHOSPHORUS (test code = 2227) 4.4 MG/DL ALBUMIN (test code = 2201) 4.9 G/DL Dev Georges JatinHEMOGLOBIN [id number] 00:00:00* Test Item Value Reference Range Interpretation Comme nts HEMOGLOBIN A1c (test code = 03783) 7.5 % Dev Destini JatinLIPID [id number] 00:00:00* Test Item Value Reference Range Interpretation Comme nts CHOLESTEROL (test code = 2210) 165 MG/DL TRIGLYCERIDES (test code = 2232) 182 MG/DL HDL CHOLESTEROL (test code = 2220) 50 MG/DL CALC LDL CHOL (test code = 2237) 87 MG/DL RISK RATIO LDL/HDL (test cod e = 2238) 1.74 RATIO Dev Colmenares (HEPATIC) FUNCTION [id number] 00:00:00* Test Item Value Reference Range Interpretation [...] 2219) 16 U/L Dev Jarquin (RENAL) FUNCTION [id number] 00:00:00* Test Item Value Reference Range Interpretation Comme nts GLUCOSE (test code = 2217) 144 MG/DL BUN (test code = 2208) 32 MG/DL CREATININE (test code = 2214) 1.14 MG/DL eGFR (2020 CKD-EPI) (test co de = 13089) 49 ML/MIN/1.73 CALC BUN/CREAT (test code = 2235) 28 RATIO SODIUM (test code = 2231) 143 MEQ/L POTASSIUM (test code = 2228) 4.6 MEQ/L CHLORIDE (test code = 2215) 108 MEQ/L CARBON DIOXIDE (test code = 2206) 19 MEQ/L CALCIUM (test code = 2209) 10.1 MG/DL PHOSPHORUS (test code = 2227) 4.4 MG/DL ALBUMIN (test code = 2201) 4.9 G/DL Dev SteinerHEMOGLOBIN [id number] 00:00:00* Test Item Value Reference Range Interpretation Comme nts HEMOGLOBIN A1c (test code = 91047) 7.5 % Dev SteinerLIPID [id number] 00:00:00* Test Item Value Reference Range Interpretation Comme nts CHOLESTEROL (test code = 2210) 165 MG/DL TRIGLYCERIDES (test code = 2232) 182 MG/DL HDL CHOLESTEROL (test code = 2220) 50 MG/DL CALC LDL CHOL (test code = 2237) 87 MG/DL RISK RATIO LDL/HDL (test cod e = 2238) 1.74 RATIO Dev Colmenares (HEPATIC) FUNCTION [id number] 00:00:00* Test Item Value Reference Range Interpretation Comme nts PROTEIN, TOTAL (test code = 2229) 7.9 G/DL ALBUMIN (test code = 2201) 4.9 G/DL BILIRUBIN, TOTAL (test code = 2207) <0.2 MG/DL BILIRUBIN, DIRECT (test code = 2021) <0.2 MG/DL ALKALINE PHOSPHATASE (test c ode = 220) 92 U/L AST (test code = 2218) 18 U/L ALT (test code = 2219) 16 U/L Dev Georges Milka (RENAL) FUNCTION [id number] 00:00:00* Test Item Value Reference Range Interpretation Comme nts GLUCOSE (test code = 2217) 144 MG/DL BUN (test code = 2208) 32 MG/DL CREATININE (test code = 2214) 1.14 MG/DL eGFR (2020 CKD-EPI) (test co de = 23697) 49 ML/MIN/1.73 CALC BUN/CREAT (test code = 2235) 28 RATIO SODIUM (test code = 2231) 143 MEQ/L POTASSIUM (test code = 2228) 4.6 MEQ/L CHLORIDE (test code = 2215) 108 MEQ/L CARBON DIOXIDE (test code = 2206) 19 MEQ/L CALCIUM (test code = 2209) 10.1 MG/DL PHOSPHORUS (test code = 2227) 4.4 MG/DL ALBUMIN (test code = 2201) 4.9 G/DL Dev SteinerHEMOGLOBIN [id number] 00:00:00* Test Item Value Reference Range Interpretation Comme nts HEMOGLOBIN A1c (test code = 69746) 7.5 % Dev Georges JatinLIPID [id number] 00:00:00* Test Item Value Reference Range Interpretation Comme nts CHOLESTEROL (test code = 2210) 165 MG/DL TRIGLYCERIDES (test code = 2232) 182 MG/DL HDL CHOLESTEROL (test code = 2220) 50 MG/DL CALC LDL CHOL (test code = 2237) 87 MG/DL RISK RATIO LDL/HDL (test cod e = 2238) 1.74 RATIO Dev Georges Dedra (HEPATIC) FUNCTION [id number] 00:00:00* Test Item Value Reference Range Interpretation Comme nts PROTEIN, TOTAL (test code = 2229) 7.9 G/DL ALBUMIN (test code = 2201) 4.9 G/DL BILIRUBIN, TOTAL (test code = 2207) <0.2 MG/DL BILIRUBIN, DIRECT (test code = 2021) <0.2 MG/DL ALKALINE PHOSPHATASE (test c ode = 220) 92 U/L AST (test code = 2218) 18 U/L ALT (test code = 2219) 16 U/L Dev Georges Milka (RENAL) FUNCTION [id number] 00:00:00* Test Item Value Reference Range Interpretation Comme nts GLUCOSE (test code = 2217) 144 MG/DL BUN (test code = 2208) 32 MG/DL CREATININE (test code = 2214) 1.14 MG/DL eGFR (2020 CKD-EPI) (test co de = 32579) 49 ML/MIN/1.73 CALC BUN/CREAT (test code = 2235) 28 RATIO SODIUM (test code = 2231) 143 MEQ/L POTASSIUM (test code = 2228) 4.6 MEQ/L CHLORIDE (test code = 2215) 108 MEQ/L CARBON DIOXIDE (test code = 2206) 19 MEQ/L CALCIUM (test code = 2209) 10.1 MG/DL PHOSPHORUS (test code = 2227) 4.4 MG/DL ALBUMIN (test code = 2201) 4.9 G/DL Dev SteinerHEMOGLOBIN [id number] 00:00:00* Test Item Value Reference Range Interpretation Comme nts HEMOGLOBIN A1c (test code = 46265) 7.5 % Dev Georges JatinLIPID [id number] 00:00:00* Test Item Value Reference Range Interpretation Comme nts CHOLESTEROL (test code = 2210) 165 MG/DL TRIGLYCERIDES (test code = 2232) 182 MG/DL HDL CHOLESTEROL (test code = 2220) 50 MG/DL CALC LDL CHOL (test code = 2237) 87 MG/DL RISK RATIO LDL/HDL (test cod e = 2238) 1.74 RATIO Dev Georges Dedra (HEPATIC) FUNCTION [id number] 00:00:00* Test Item Value Reference Range Interpretation Comme nts PROTEIN, TOTAL (test code = 2229) 7.9 G/DL ALBUMIN (test code = 2201) 4.9 G/DL BILIRUBIN, TOTAL (test code = 2207) <0.2 MG/DL BILIRUBIN, DIRECT (test code = 2021) <0.2 MG/DL ALKALINE PHOSPHATASE (test c ode = 4) 92 U/L AST (test code = 2218) 18 U/L ALT (test code = 2219) 16 U/L Dev Georges Milka (RENAL) FUNCTION [id number] 00:00:00* Test Item Value Reference Range Interpretation Comme nts GLUCOSE (test code = 2217) 144 MG/DL BUN (test code = 2208) 32 MG/DL CREATININE (test code = 2214) 1.14 MG/DL eGFR (2020 CKD-EPI) (test co de = 58277) 49 ML/MIN/1.73 CALC BUN/CREAT (test code = 2235) 28 RATIO SODIUM (test code = 2231) 143 MEQ/L POTASSIUM (test code = 2228) 4.6 MEQ/L CHLORIDE (test code = 2215) 108 MEQ/L CARBON DIOXIDE (test code = 2206) 19 MEQ/L CALCIUM (test code = 2209) 10.1 MG/DL PHOSPHORUS (test code = 2227) 4.4 MG/DL ALBUMIN (test code = 2201) 4.9 G/DL Dev Destini JatinHEMOGLOBIN [id number] 00:00:00* Test Item Value Reference Range Interpretation Comme nts HEMOGLOBIN A1c (test code = 00955) 7.5 % Dev Georges JatinLIPID [id number] 00:00:00* Test Item Value Reference Range Interpretation Comme nts CHOLESTEROL (test code = 2210) 165 MG/DL TRIGLYCERIDES (test code = 2232) 182 MG/DL HDL CHOLESTEROL (test code = 2220) 50 MG/DL CALC LDL CHOL (test code = 2237) 87 MG/DL RISK RATIO LDL/HDL (test cod e = 2238) 1.74 RATIO Dev Destini Dedra (HEPATIC) FUNCTION [id number] 00:00:00* Test Item Value Reference Range Interpretation [...] 2219) 16 U/L Dev Jarquin (RENAL) FUNCTION [id number] 00:00:00* Test Item Value Reference Range Interpretation Comme nts GLUCOSE (test code = 2217) 144 MG/DL BUN (test code = 2208) 32 MG/DL CREATININE (test code = 2214) 1.14 MG/DL eGFR (2020 CKD-EPI) (test co de = 53622) 49 ML/MIN/1.73 CALC BUN/CREAT (test code = 2235) 28 RATIO SODIUM (test code = 2231) 143 MEQ/L POTASSIUM (test code = 2228) 4.6 MEQ/L CHLORIDE (test code = 2215) 108 MEQ/L CARBON DIOXIDE (test code = 2206) 19 MEQ/L CALCIUM (test code = 2209) 10.1 MG/DL PHOSPHORUS (test code = 2227) 4.4 MG/DL ALBUMIN (test code = 2201) 4.9 G/DL Dev SteinerHEMOGLOBIN [id number] 00:00:00* Test Item Value Reference Range Interpretation Comme nts HEMOGLOBIN A1c (test code = 00801) 7.5 % Dev SteinerLIPID [id number] 00:00:00* Test Item Value Reference Range Interpretation Comme nts CHOLESTEROL (test code = 2210) 165 MG/DL TRIGLYCERIDES (test code = 2232) 182 MG/DL HDL CHOLESTEROL (test code = 2220) 50 MG/DL CALC LDL CHOL (test code = 2237) 87 MG/DL RISK RATIO LDL/HDL (test cod e = 2238) 1.74 RATIO Dev Colmenares (HEPATIC) FUNCTION [id number] 00:00:00* Test Item Value Reference Range Interpretation [...] 2219) 16 U/L Dev Jarquin (RENAL) FUNCTION [id number] 00:00:00* Test Item Value Reference Range Interpretation Comme nts GLUCOSE (test code = 2217) 144 MG/DL BUN (test code = 2208) 32 MG/DL CREATININE (test code = 2214) 1.14 MG/DL eGFR (2020 CKD-EPI) (test co de = 90301) 49 ML/MIN/1.73 CALC BUN/CREAT (test code = 2235) 28 RATIO SODIUM (test code = 2231) 143 MEQ/L POTASSIUM (test code = 2228) 4.6 MEQ/L CHLORIDE (test code = 2215) 108 MEQ/L CARBON DIOXIDE (test code = 2206) 19 MEQ/L CALCIUM (test code = 2209) 10.1 MG/DL PHOSPHORUS (test code = 2227) 4.4 MG/DL ALBUMIN (test code = 2201) 4.9 G/DL Dev SteinerHEMOGLOBIN [id number] 00:00:00* Test Item Value Reference Range Interpretation Comme nts HEMOGLOBIN A1c (test code = 36460) 7.5 % Dev SteinerLIPID [id number] 00:00:00* Test Item Value Reference Range Interpretation Comme nts CHOLESTEROL (test code = 2210) 165 MG/DL TRIGLYCERIDES (test code = 2232) 182 MG/DL HDL CHOLESTEROL (test code = 2220) 50 MG/DL CALC LDL CHOL (test code = 2237) 87 MG/DL RISK RATIO LDL/HDL (test cod e = 2238) 1.74 RATIO Dev Colmenares (HEPATIC) FUNCTION [id number] 00:00:00* Test Item Value Reference Range Interpretation [...] 2219) 16 U/L Dev Jarquin (RENAL) FUNCTION [id number] 00:00:00* Test Item Value Reference Range Interpretation Comme nts GLUCOSE (test code = 2217) 144 MG/DL BUN (test code = 2208) 32 MG/DL CREATININE (test code = 2214) 1.14 MG/DL eGFR (2020 CKD-EPI) (test co de = 69827) 49 ML/MIN/1.73 CALC BUN/CREAT (test code = 2235) 28 RATIO SODIUM (test code = 2231) 143 MEQ/L POTASSIUM (test code = 2228) 4.6 MEQ/L CHLORIDE (test code = 2215) 108 MEQ/L CARBON DIOXIDE (test code = 2206) 19 MEQ/L CALCIUM (test code = 2209) 10.1 MG/DL PHOSPHORUS (test code = 2227) 4.4 MG/DL ALBUMIN (test code = 2201) 4.9 G/DL Dev Georges MiddletownRENAL FUNCTION PANEL + [id number] 03:54:06* Test Item Value Reference Range Interpretation Comme nts GLUCOSE (test code = 2217) 214 MG/DL 70-99 H BUN (test code = 2208) 31 MG/DL 8-23 H CREATININE (test code = 2214) 1.13 MG/DL 0.60-1.30 eGFR (2020 CKD-EPI) (test code = 70552) 49 ML/MIN/1.73 >60 L CALC BUN/CREAT (test [...] 3.5-5.2 UNLESS OTHERWISE INDICATED, ALL TESTING PERFORMED [facility] [address] [facility] [place] [address] REGISTERED PHLEBOTOMIST PART TIME: THAO CARDONA M.D. CLIA NUMBER [id number] [facility] [place]. [id number] HEMOGLOBIN [id number] 03:30:01* Test Item Value Reference Range Interpretation Comme nts HEMOGLOBIN A1c (test code = 77412) 7.5 % 4.2-5.6 H [employer] GUIDELINES FOR HGB A1C: [...] CONSIDER ALTERNATE TESTING OR LABORATORY CONSULTATION. HEMOGLOBIN [id number] 00:00:00* Test Item Value Reference Range Interpretation Comme nts HEMOGLOBIN A1c (test code = 27625) 7.5 % Dev Georges AustinRENAL FUNCTION PANEL + [id number] 00:00:00* Test Item Value Reference Range Interpretation Comme nts GLUCOSE (test code = 2217) 214 MG/DL BUN (test code = 2208) 31 MG/DL CREATININE (test code = 2214) 1.13 MG/DL eGFR (2020 CKD-EPI) (test co de = 77468) 49 ML/MIN/1.73 CALC BUN/CREAT (test code = 2235) 27 RATIO SODIUM (test code = 2231) 139 MEQ/L POTASSIUM (test code = 2228) 4.6 MEQ/L CHLORIDE (test code = 2215) 103 MEQ/L CARBON DIOXIDE (test code = 2206) 21 MEQ/L CALCIUM (test code = 2209) 9.7 MG/DL PHOSPHORUS (test code = 2227) 3.8 MG/DL ALBUMIN (test code = 2201) 4.4 G/DL Dev Georges AustinHEMOGLOBIN [id number] 00:00:00* Test Item Value Reference Range Interpretation Comme nts HEMOGLOBIN A1c (test code = 50273) 7.5 % Dev Georges AustinRENAL FUNCTION PANEL + [id number] 00:00:00* Test Item Value Reference Range Interpretation Comme nts GLUCOSE (test code = 2217) 214 MG/DL BUN (test code = 2208) 31 MG/DL CREATININE (test code = 2214) 1.13 MG/DL eGFR (2020 CKD-EPI) (test co de = 65984) 49 ML/MIN/1.73 CALC BUN/CREAT (test code = 2235) 27 RATIO SODIUM (test code = 2231) 139 MEQ/L POTASSIUM (test code = 2228) 4.6 MEQ/L CHLORIDE (test code = 2215) 103 MEQ/L CARBON DIOXIDE (test code = 2206) 21 MEQ/L CALCIUM (test code = 2209) 9.7 MG/DL PHOSPHORUS (test code = 2227) 3.8 MG/DL ALBUMIN (test code = 2201) 4.4 G/DL Dev Georges AustinHEMOGLOBIN [id number] 00:00:00* Test Item Value Reference Range Interpretation Comme nts HEMOGLOBIN A1c (test code = 69674) 7.5 % Dev Georges AustinRENAL FUNCTION PANEL + [id number] 00:00:00* Test Item Value Reference Range Interpretation Comme nts GLUCOSE (test code = 2217) 214 MG/DL BUN (test code = 2208) 31 MG/DL CREATININE (test code = 2214) 1.13 MG/DL eGFR (2020 CKD-EPI) (test co de = 09429) 49 ML/MIN/1.73 CALC BUN/CREAT (test code = 2235) 27 RATIO SODIUM (test code = 2231) 139 MEQ/L POTASSIUM (test code = 2228) 4.6 MEQ/L CHLORIDE (test code = 2215) 103 MEQ/L CARBON DIOXIDE (test code = 2206) 21 MEQ/L CALCIUM (test code = 2209) 9.7 MG/DL PHOSPHORUS (test code = 2227) 3.8 MG/DL ALBUMIN (test code = 2201) 4.4 G/DL Dev Georges AustinHEMOGLOBIN [id number] 00:00:00* Test Item Value Reference Range Interpretation Comme nts HEMOGLOBIN A1c (test code = 78737) 7.5 % Dev Georges AustinRENAL FUNCTION PANEL + [id number] 00:00:00* Test Item Value Reference Range Interpretation Comme nts GLUCOSE (test code = 2217) 214 MG/DL BUN (test code = 2208) 31 MG/DL CREATININE (test code = 2214) 1.13 MG/DL eGFR (2020 CKD-EPI) (test co de = 12232) 49 ML/MIN/1.73 CALC BUN/CREAT (test code = 2235) 27 RATIO SODIUM (test code = 2231) 139 MEQ/L POTASSIUM (test code = 2228) 4.6 MEQ/L CHLORIDE (test code = 2215) 103 MEQ/L CARBON DIOXIDE (test code = 2206) 21 MEQ/L CALCIUM (test code = 2209) 9.7 MG/DL PHOSPHORUS (test code = 2227) 3.8 MG/DL ALBUMIN (test code = 2201) 4.4 G/DL Dev Georges AustinHEMOGLOBIN [id number] 00:00:00* Test Item Value Reference Range Interpretation Comme nts HEMOGLOBIN A1c (test code = 83098) 7.5 % Dev Georges AustinRENAL FUNCTION PANEL + [id number] 00:00:00* Test Item Value Reference Range Interpretation Comme nts GLUCOSE (test code = 2217) 214 MG/DL BUN (test code = 2208) 31 MG/DL CREATININE (test code = 2214) 1.13 MG/DL eGFR (2020 CKD-EPI) (test co de = 26071) 49 ML/MIN/1.73 CALC BUN/CREAT (test code = 2235) 27 RATIO SODIUM (test code = 2231) 139 MEQ/L POTASSIUM (test code = 2228) 4.6 MEQ/L CHLORIDE (test code = 2215) 103 MEQ/L CARBON DIOXIDE (test code = 2206) 21 MEQ/L CALCIUM (test code = 2209) 9.7 MG/DL PHOSPHORUS (test code = 2227) 3.8 MG/DL ALBUMIN (test code = 2201) 4.4 G/DL Dev Georges AustinHEMOGLOBIN [id number] 00:00:00* Test Item Value Reference Range Interpretation Comme nts HEMOGLOBIN A1c (test code = 82484) 7.5 % Dev Georges AustinRENAL FUNCTION PANEL + [id number] 00:00:00* Test Item Value Reference Range Interpretation Comme nts GLUCOSE (test code = 2217) 214 MG/DL BUN (test code = 2208) 31 MG/DL CREATININE (test code = 2214) 1.13 MG/DL eGFR (2020 CKD-EPI) (test co de = 84538) 49 ML/MIN/1.73 CALC BUN/CREAT (test code = 2235) 27 RATIO SODIUM (test code = 2231) 139 MEQ/L POTASSIUM (test code = 2228) 4.6 MEQ/L CHLORIDE (test code = 2215) 103 MEQ/L CARBON DIOXIDE (test code = 2206) 21 MEQ/L CALCIUM (test code = 2209) 9.7 MG/DL PHOSPHORUS (test code = 2227) 3.8 MG/DL ALBUMIN (test code = 2201) 4.4 G/DL Dev Georges AustinHEMOGLOBIN [id number] 00:00:00* Test Item Value Reference Range Interpretation Comme nts HEMOGLOBIN A1c (test code = 52221) 7.5 % Dev Georges AustinRENAL FUNCTION PANEL + [id number] 00:00:00* Test Item Value Reference Range Interpretation Comme nts GLUCOSE (test code = 2217) 214 MG/DL BUN (test code = 2208) 31 MG/DL CREATININE (test code = 2214) 1.13 MG/DL eGFR (2020 CKD-EPI) (test co de = 76447) 49 ML/MIN/1.73 CALC BUN/CREAT (test code = 2235) 27 RATIO SODIUM (test code = 2231) 139 MEQ/L POTASSIUM (test code = 2228) 4.6 MEQ/L CHLORIDE (test code = 2215) 103 MEQ/L CARBON DIOXIDE (test code = 2206) 21 MEQ/L CALCIUM (test code = 2209) 9.7 MG/DL PHOSPHORUS (test code = 2227) 3.8 MG/DL ALBUMIN (test code = 2201) 4.4 G/DL Dev Georges AustinHEMOGLOBIN [id number] 00:00:00* Test Item Value Reference Range Interpretation Comme nts HEMOGLOBIN A1c (test code = 20734) 7.5 % Dev Georges AustinRENAL FUNCTION PANEL + [id number] 00:00:00* Test Item Value Reference Range Interpretation Comme nts GLUCOSE (test code = 2217) 214 MG/DL BUN (test code = 2208) 31 MG/DL CREATININE (test code = 2214) 1.13 MG/DL eGFR (2020 CKD-EPI) (test co de = 55121) 49 ML/MIN/1.73 CALC BUN/CREAT (test code = 2235) 27 RATIO SODIUM (test code = 2231) 139 MEQ/L POTASSIUM (test code = 2228) 4.6 MEQ/L CHLORIDE (test code = 2215) 103 MEQ/L CARBON DIOXIDE (test code = 2206) 21 MEQ/L CALCIUM (test code = 2209) 9.7 MG/DL PHOSPHORUS (test code = 2227) 3.8 MG/DL ALBUMIN (test code = 2201) 4.4 G/DL Dev SteinerCOMPREHENSIVE METABOLIC [id number] 04:09:01* Test Item Value Reference Range Interpretation Comme nts GLUCOSE (test code = 2217) 156 MG/DL 70-99 H BUN (test code = 2207) 42 MG/DL 8-23 H CREATININE (test code = 221) 1.33 MG/DL 0.60-1.30 H eGFR (2020 CKD-EPI) (test code = 35138) 41 ML/MIN/1.73 >60 L CALC BUN/CREAT (test code = 2235) 32 RATIO 6-28 H SODIUM (test code = 223) 138 MEQ/L 133-146 POTASSIUM (test code = 2228) 4.5 MEQ/L 3.5-5.4 CHLORIDE (test code = 2215) 102 MEQ/L 95-107 CARBON DIOXIDE (test code = 2206) 19 MEQ/L 19-31 CALCIUM (test code = 2208) 10.2 MG/DL 8.5-10.5 PROTEIN, TOTAL (test code = 222) 7.9 G/DL 6.1-8.3 ALBUMIN (test code = 2201) 4.7 G/DL 3.5-5.2 CALC GLOBULIN (test code = 2240) 3.2 G/DL 1.9-3.7 CALC A/G RATIO (test code = 2234) 1.5 RATIO 1.0-2.6 BILIRUBIN, TOTAL (test code = 220) 0.3 MG/DL See_Comment [Automated me ssage] The system which generated this result transmitted reference range: <=1.2. The reference range was not used to interpret this result as normal/abnormal. ALKALINE PHOSPHATASE (test code = 220) 94 U/L 40-142 AST (test code = 2218) 17 U/L 9-40 ALT (test code = 2219) 13 U/L 5-40 LIPID [id number] 04:09:01* Test Item Value Reference Range Interpretation [...] SPECIMENS. FOR MOREINFORMATION, SEE CLIENT ANNOUNCEMENT AT [email or web address] RISK RATIO LDL/HDL (test code = 2238) 1.38 RATIO <3.22 UNLESS OTHERW ISE INDICATED, ALL TESTING PERFORMED [facility] [employer] [address] [place] [address] REGISTERED PHLEBOTOMIST PART TIME: THAO CARDONA M.D. CLIA NUMBER [id number] [facility] [place]. [id number] COMPREHENSIVE METABOLIC PANEL [ADDED]2021-10-17 00:00:00* Test Item Value Reference Range Interpretation Comme nts GLUCOSE (test code = 2217) 156 MG/DL BUN (test code = 2208) 42 MG/DL CREATININE (test code = 2214) 1.33 MG/DL eGFR (2020 CKD-EPI) (test co de = 87929) 41 ML/MIN/1.73 CALC BUN/CREAT (test code = [...] cod e = 2238) 1.38 RATIO Dev Georges AustinCOMPREHENSIVE METABOLIC PANEL [ADDED]2021-10-17 00:00:00* Test Item Value Reference Range Interpretation Comme nts GLUCOSE (test code = 2217) 156 MG/DL BUN (test code = 2208) 42 MG/DL CREATININE (test code = 2214) 1.33 MG/DL eGFR (2020 CKD-EPI) (test co de = 87051) 41 ML/MIN/1.73 CALC BUN/CREAT (test code = [...] (test code = 2219) 13 U/L Dev F AustinLIPID PANEL [ADDED]2021-10-17 00:00:00* Test Item Value Reference Range Interpretation Comme nts CHOLESTEROL (test code = 2210) 137 MG/DL TRIGLYCERIDES (test code = 2232) 150 MG/DL HDL CHOLESTEROL (test code = 2220) 48 MG/DL CALC LDL CHOL (test code = 2237) 66 MG/DL RISK RATIO LDL/HDL (test cod e = 2238) 1.38 RATIO Dev Georges AustinCOMPREHENSIVE METABOLIC PANEL [ADDED]2021-10-17 00:00:00* Test Item Value Reference Range Interpretation Comme nts GLUCOSE (test code = 2217) 156 MG/DL BUN (test code = 2208) 42 MG/DL CREATININE (test code = 2214) 1.33 MG/DL eGFR (2020 CKD-EPI) (test co de = 79531) 41 ML/MIN/1.73 CALC BUN/CREAT (test code = [...] eGFR (2020 CKD-EPI) (test co de = 70337) 41 ML/MIN/1.73 CALC BUN/CREAT (test code = [...] code = 2219) 13 U/L Dev Georges JatinLIPID PANEL [ADDED]2021-10-17 00:00:00* Test Item Value Reference Range Interpretation Comme nts CHOLESTEROL (test code = 2210) 137 MG/DL TRIGLYCERIDES (test code = 2232) 150 MG/DL HDL CHOLESTEROL (test code = 2220) 48 MG/DL CALC LDL CHOL (test code = 2237) 66 MG/DL RISK RATIO LDL/HDL (test cod e = 2238) 1.38 RATIO Dev Georges JatinCOMPREHENSIVE METABOLIC PANEL [ADDED]2021-10-17 00:00:00* Test Item Value Reference Range Interpretation Comme nts GLUCOSE (test code = 2217) 156 MG/DL BUN (test code = 2208) 42 MG/DL CREATININE (test code = 2214) 1.33 MG/DL eGFR (2020 CKD-EPI) (test co de = 43411) 41 ML/MIN/1.73 CALC BUN/CREAT (test code = [...] code = 2219) 13 U/L Dev Georges AustinLIPID PANEL [ADDED]2021-10-17 00:00:00* Test Item Value Reference [...] eGFR (2020 CKD-EPI) (test co de = 83082) 41 ML/MIN/1.73 CALC BUN/CREAT (test code = [...] code = 2219) 13 U/L Dev Georges AustinLIPID PANEL [ADDED]2021-10-17 00:00:00* Test Item Value Reference Range Interpretation Comme nts CHOLESTEROL (test code = 2210) 137 MG/DL TRIGLYCERIDES (test code = 2232) 150 MG/DL HDL CHOLESTEROL (test code = 2220) 48 MG/DL CALC LDL CHOL (test code = 2237) 66 MG/DL RISK RATIO LDL/HDL (test cod e = 2238) 1.38 RATIO Dev Georges AustinCOMPREHENSIVE METABOLIC PANEL [ADDED]2021-10-17 00:00:00* Test Item Value Reference Range Interpretation Comme nts GLUCOSE (test code = 2217) 156 MG/DL BUN (test code = 2208) 42 MG/DL CREATININE (test code = 2214) 1.33 MG/DL eGFR (2020 CKD-EPI) (test co de = 27671) 41 ML/MIN/1.73 CALC BUN/CREAT (test code = [...] code = 2219) 13 U/L Dev Georges AustinLIPID PANEL [ADDED]2021-10-17 00:00:00* Test Item Value Reference Range Interpretation Comme nts CHOLESTEROL (test code = 2210) 137 MG/DL TRIGLYCERIDES (test code = 2232) 150 MG/DL HDL CHOLESTEROL (test code = 2220) 48 MG/DL CALC LDL CHOL (test code = 2237) 66 MG/DL RISK RATIO LDL/HDL (test cod e = 2238) 1.38 RATIO Dev Georges AustinCOMPREHENSIVE METABOLIC PANEL [ADDED]2021-10-17 00:00:00* Test Item Value Reference Range Interpretation Comme nts GLUCOSE (test code = 2217) 156 MG/DL BUN (test code = 2208) 42 MG/DL CREATININE (test code = 2214) 1.33 MG/DL eGFR (2020 CKD-EPI) (test co de = 77413) 41 ML/MIN/1.73 CALC BUN/CREAT (test code = [...] cod e = 2238) 1.38 RATIO Dev Georges JatinHEMOGLOBIN [id number] 04:37:22* Test Item Value Reference Range Interpretation Comme nts HEMOGLOBIN A1c (test code = 90135) 7.6 % 4.2-5.6 H [employer] GUIDELINES FOR HGB A1C: [...] CONSULTATION. UNLESS OTHERWISE INDICATED, ALL TESTING PERFORMED ATCLINICAL PATHOLOGY [employer] [address] [place] [address] REGISTERED PHLEBOTOMIST PART TIME: THAO CARDONA M.D. IA NUMBER [id number] [facility] [place]. [id number] HEMOGLOBIN [id number] 00:00:00* Test Item Value Reference Range Interpretation Comme nts HEMOGLOBIN A1c (test code = 55314) 7.6 % Dev Georges AustinHEMOGLOBIN [id number] 00:00:00* Test Item Value Reference Range Interpretation Comme nts HEMOGLOBIN A1c (test code = 82182) 7.6 % Dev Georges AustinHEMOGLOBIN [id number] 00:00:00* Test Item Value Reference Range Interpretation Comme nts HEMOGLOBIN A1c (test code = 44915) 7.6 % Dev Georges AustinHEMOGLOBIN [id number] 00:00:00* Test Item Value Reference Range Interpretation Comme nts HEMOGLOBIN A1c (test code = 49107) 7.6 % Dev Georges AustinHEMOGLOBIN [id number] 00:00:00* Test Item Value Reference Range Interpretation Comme nts HEMOGLOBIN A1c (test code = 74280) 7.6 % Dev Georges AustinHEMOGLOBIN [id number] 00:00:00* Test Item Value Reference Range Interpretation Comme nts HEMOGLOBIN A1c (test code = 89680) 7.6 % Dev Georges AustinHEMOGLOBIN [id number] 00:00:00* Test Item Value Reference Range Interpretation Comme nts HEMOGLOBIN A1c (test code = 99921) 7.6 % Dev Georges AustinHEMOGLOBIN [id number] 00:00:00* Test Item Value Reference Range Interpretation Comme nts HEMOGLOBIN A1c (test code = 85685) 7.6 % Dev Georges AustinCBC W/AUTO [id number] 00:00:00* Test Item Value Reference Range Interpretation [...] ABS NUCLEATED RBCS (test cod e = 14888) 0.00 K/UL Dev SteinerHEMOGLOBIN [id number] 00:00:00* Test Item Value Reference Range Interpretation Comme nts HEMOGLOBIN A1c (test code = 38621) 7.8 % Dev SteinerCBC W/AUTO [id number] 00:00:00* Test Item Value Reference Range Interpretation [...] ABS NUCLEATED RBCS (test cod e = 17811) 0.00 K/UL Dev Georges AustinHEMOGLOBIN [id number] 00:00:00* Test Item Value Reference Range Interpretation Comme nts HEMOGLOBIN A1c (test code = 77382) 7.8 % Dev Georges AustinCBC W/AUTO [id number] 00:00:00* Test Item Value Reference Range Interpretation [...] ABS NUCLEATED RBCS (test cod e = 41788) 0.00 K/UL Dev Georges AustinHEMOGLOBIN [id number] 00:00:00* Test Item Value Reference Range Interpretation Comme nts HEMOGLOBIN A1c (test code = 87910) 7.8 % Dev Georges AustinCBC W/AUTO [id number] 00:00:00* Test Item Value Reference Range Interpretation [...] ABS NUCLEATED RBCS (test cod e = 88155) 0.00 K/UL Dev SteinerHEMOGLOBIN [id number] 00:00:00* Test Item Value Reference Range Interpretation Comme nts HEMOGLOBIN A1c (test code = 25331) 7.8 % Dev Georges AustinCBC W/AUTO [id number] 00:00:00* Test Item Value Reference Range Interpretation [...] ABS NUCLEATED RBCS (test cod e = 28249) 0.00 K/UL Dev SteinerHEMOGLOBIN [id number] 00:00:00* Test Item Value Reference Range Interpretation Comme nts HEMOGLOBIN A1c (test code = 61399) 7.8 % Dev SteinerCBC W/AUTO [id number] 00:00:00* Test Item Value Reference Range Interpretation [...] ABS NUCLEATED RBCS (test cod e = 29174) 0.00 K/UL Dev SteinerHEMOGLOBIN [id number] 00:00:00* Test Item Value Reference Range Interpretation Comme nts HEMOGLOBIN A1c (test code = 10015) 7.8 % Dev SteinerCBC W/AUTO [id number] 00:00:00* Test Item Value Reference Range Interpretation [...] ABS NUCLEATED RBCS (test cod e = 54446) 0.00 K/UL Dev Georges AustinHEMOGLOBIN [id number] 00:00:00* Test Item Value Reference Range Interpretation Comme nts HEMOGLOBIN A1c (test code = 97440) 7.8 % Dev SteinerCBC W/AUTO [id number] 00:00:00* Test Item Value Reference Range Interpretation [...] ABS NUCLEATED RBCS (test cod e = 20675) 0.00 K/UL Dev Georges AustinHEMOGLOBIN [id number] 00:00:00* Test Item Value Reference Range Interpretation Comme nts HEMOGLOBIN A1c (test code = 65831) 7.8 % Dev SteinerCOMPREHENSIVE METABOLIC [id number] 00:00:00* Test Item Value Reference Range Interpretation Comme nts GLUCOSE (test code = 2217) 242 MG/DL BUN (test code = 2208) 32 MG/DL CREATININE (test code = 2214) 1.31 MG/DL eGFR AMER. (test cod e = 81120) 45 ML/MIN/1.73 eGFR NON- AMER. (test code = 34635) 39 ML/MIN/1.73 CALC BUN/CREAT (test code = [...] 2219) 13 U/L Dev SteinerVITAMIN D, 25 [id number] 00:00:00* Test Item Value Reference Range Interpretation Comme nts VITAMIN D, 25 OH (test code = 4958) 25 NG/ML Dev SteinerLIPID [id number] 00:00:00* Test Item Value Reference Range Interpretation Comme nts CHOLESTEROL (test code = 2210) 157 MG/DL TRIGLYCERIDES (test code = 2232) 181 MG/DL HDL CHOLESTEROL (test code = 2220) 52 MG/DL CALC LDL CHOL (test code = 2237) 77 MG/DL RISK RATIO LDL/HDL (test cod e = 2238) 1.48 RATIO Dev SteinerCOMPREHENSIVE METABOLIC [id number] 00:00:00* Test Item Value Reference Range Interpretation Comme nts GLUCOSE (test code = 7) 242 MG/DL BUN (test code = 2208) 32 MG/DL CREATININE (test code = 2214) 1.31 MG/DL eGFR AMER. (test cod e = 34468) 45 ML/MIN/1.73 eGFR NON- AMER. (test code = 84918) 39 ML/MIN/1.73 CALC BUN/CREAT (test code = [...] 2219) 13 U/L Dev SteinerVITAMIN D, 25 [id number] 00:00:00* Test Item Value Reference Range Interpretation Comme nts VITAMIN D, 25 OH (test code = 4958) 25 NG/ML Dev SteinerLIPID [id number] 00:00:00* Test Item Value Reference Range Interpretation Comme nts CHOLESTEROL (test code = 2210) 157 MG/DL TRIGLYCERIDES (test code = 2232) 181 MG/DL HDL CHOLESTEROL (test code = 2220) 52 MG/DL CALC LDL CHOL (test code = 2237) 77 MG/DL RISK RATIO LDL/HDL (test cod e = 2238) 1.48 RATIO Dev SteinerCOMPREHENSIVE METABOLIC [id number] 00:00:00* Test Item Value Reference Range Interpretation Comme nts GLUCOSE (test code = 2217) 242 MG/DL BUN (test code = 2208) 32 MG/DL CREATININE (test code = 2214) 1.31 MG/DL eGFR AMER. (test cod e = 77628) 45 ML/MIN/1.73 eGFR NON- AMER. (test code = 94057) 39 ML/MIN/1.73 CALC BUN/CREAT (test code = [...] 221) 16 U/L ALT (test code = 2219) 13 U/L Dev SteinerVITAMIN D, 25 [id number] 00:00:00* Test Item Value Reference Range Interpretation Comme nts VITAMIN D, 25 OH (test code = 4958) 25 NG/ML Dev SteinerLIPID [id number] 00:00:00* Test Item Value Reference Range Interpretation Comme nts CHOLESTEROL (test code = 2210) 157 MG/DL TRIGLYCERIDES (test code = 2232) 181 MG/DL HDL CHOLESTEROL (test code = 2220) 52 MG/DL CALC LDL CHOL (test code = 2237) 77 MG/DL RISK RATIO LDL/HDL (test cod e = 2238) 1.48 RATIO Dev SteinerCOMPREHENSIVE METABOLIC [id number] 00:00:00* Test Item Value Reference Range Interpretation Comme nts GLUCOSE (test code = 2217) 242 MG/DL BUN (test code = 2208) 32 MG/DL CREATININE (test code = 2214) 1.31 MG/DL eGFR AMER. (test cod e = 36205) 45 ML/MIN/1.73 eGFR NON- AMER. (test code = 73428) 39 ML/MIN/1.73 CALC BUN/CREAT (test code = 2235) 24 RATIO SODIUM (test code = 2231) 139 MEQ/L POTASSIUM (test code = 2228) 4.7 MEQ/L CHLORIDE (test code = 2215) 102 MEQ/L CARBON DIOXIDE (test code = 2206) 20 MEQ/L CALCIUM (test code = 220) 9.9 MG/DL PROTEIN, TOTAL (test code = [...] 2219) 13 U/L Dev SteinerVITAMIN D, 25 [id number] 00:00:00* Test Item Value Reference Range Interpretation Comme [facility] VITAMIN D, 25 OH (test code = 4958) 25 NG/ML Dev SteinerLIPID [id number] 00:00:00* Test Item Value Reference Range Interpretation Comme nts CHOLESTEROL (test code = 2210) 157 MG/DL TRIGLYCERIDES (test code = 2232) 181 MG/DL HDL CHOLESTEROL (test code = 2220) 52 MG/DL CALC LDL CHOL (test code = 2237) 77 MG/DL RISK RATIO LDL/HDL (test cod e = 2238) 1.48 RATIO Dev SteinerCOMPREHENSIVE METABOLIC [id number] 00:00:00* Test Item Value Reference Range Interpretation Comme nts GLUCOSE (test code = 2217) 242 MG/DL BUN (test code = 2208) 32 MG/DL CREATININE (test code = 2214) 1.31 MG/DL eGFR AMER. (test cod e = 65102) 45 ML/MIN/1.73 eGFR NON- AMER. (test code = 28348) 39 ML/MIN/1.73 CALC BUN/CREAT (test code = 2235) 24 RATIO SODIUM (test code = 2231) 139 MEQ/L POTASSIUM (test code = 2228) 4.7 MEQ/L CHLORIDE (test code = 2215) 102 MEQ/L CARBON DIOXIDE (test code = 6) 20 MEQ/L CALCIUM (test code = 2209) [...] 2219) 13 U/L Dev SteinerVITAMIN D, 25 [id number] 00:00:00* Test Item Value Reference Range Interpretation Comme nts VITAMIN D, 25 OH (test code = 4958) 25 NG/ML Dev SteinerLIPID [id number] 00:00:00* Test Item Value Reference Range Interpretation Comme nts CHOLESTEROL (test code = 2210) 157 MG/DL TRIGLYCERIDES (test code = 2232) 181 MG/DL HDL CHOLESTEROL (test code = 2220) 52 MG/DL CALC LDL CHOL (test code = 2237) 77 MG/DL RISK RATIO LDL/HDL (test cod e = 2238) 1.48 RATIO Dev SteinerCOMPREHENSIVE METABOLIC [id number] 00:00:00* Test Item Value Reference Range Interpretation Comme nts GLUCOSE (test code = 2217) 242 MG/DL BUN (test code = 2208) 32 MG/DL CREATININE (test code = 2214) 1.31 MG/DL eGFR AMER. (test cod e = 71547) 45 ML/MIN/1.73 eGFR NON- AMER. (test code = 08954) 39 ML/MIN/1.73 CALC BUN/CREAT (test code = [...] 2219) 13 U/L Dev SteinerVITAMIN D, 25 [id number] 00:00:00* Test Item Value Reference Range Interpretation Comme nts VITAMIN D, 25 OH (test code = 4958) 25 NG/ML Dev SteinerLIPID [id number] 00:00:00* Test Item Value Reference Range Interpretation Comme nts CHOLESTEROL (test code = 2210) 157 MG/DL TRIGLYCERIDES (test code = 2232) 181 MG/DL HDL CHOLESTEROL (test code = 2220) 52 MG/DL CALC LDL CHOL (test code = 2237) 77 MG/DL RISK RATIO LDL/HDL (test cod e = 2238) 1.48 RATIO Dev SteinerCOMPREHENSIVE METABOLIC [id number] 00:00:00* Test Item Value Reference Range Interpretation Comme nts GLUCOSE (test code = 2217) 242 MG/DL BUN (test code = 2208) 32 MG/DL CREATININE (test code = 2214) 1.31 MG/DL eGFR AMER. (test cod e = 85336) 45 ML/MIN/1.73 eGFR NON- AMER. (test code = 02488) 39 ML/MIN/1.73 CALC BUN/CREAT (test code = [...] 2219) 13 U/L Dev SteinerVITAMIN D, 25 [id number] 00:00:00* Test Item Value Reference Range Interpretation Comme nts VITAMIN D, 25 OH (test code = 4958) 25 NG/ML Dev SteinerLIPID [id number] 00:00:00* Test Item Value Reference Range Interpretation Comme nts CHOLESTEROL (test code = 2210) 157 MG/DL TRIGLYCERIDES (test code = 2232) 181 MG/DL HDL CHOLESTEROL (test code = 2220) 52 MG/DL CALC LDL CHOL (test code = 2237) 77 MG/DL RISK RATIO LDL/HDL (test cod e = 2238) 1.48 RATIO Dev SteinerCOMPREHENSIVE METABOLIC [id number] 00:00:00* Test Item Value Reference Range Interpretation Comme nts GLUCOSE (test code = 2217) 242 MG/DL BUN (test code = 2208) 32 MG/DL CREATININE (test code = 2214) 1.31 MG/DL eGFR AMER. (test cod e = 16226) 45 ML/MIN/1.73 eGFR NON- AMER. (test code = 83228) 39 ML/MIN/1.73 CALC BUN/CREAT (test code = [...] 2219) 13 U/L Dev SteinerVITAMIN D, 25 [id number] 00:00:00* Test Item Value Reference Range Interpretation Comme nts VITAMIN D, 25 OH (test code = 4958) 25 NG/ML Dev Georges AustinLIPID [id number] 00:00:00* Test Item Value Reference Range Interpretation Comme nts CHOLESTEROL (test code = 2210) 157 MG/DL TRIGLYCERIDES (test code = 2232) 181 MG/DL HDL CHOLESTEROL (test code = 2220) 52 MG/DL CALC LDL CHOL (test code = 2237) 77 MG/DL RISK RATIO LDL/HDL (test cod e = 2238) 1.48 RATIO Dev Destini Jarquin (RENAL) FUNCTION [id number] 00:00:00* Test Item Value Reference Range Interpretation Comme nts GLUCOSE (test code = 2217) 173 MG/DL BUN (test code = 2208) 31 MG/DL CREATININE (test code = 2214) 1.09 MG/DL eGFR AMER. (test cod e = 37021) 56 ML/MIN/1.73 eGFR NON- AMER. (test code = 23578) 49 ML/MIN/1.73 CALC BUN/CREAT (test code = [...] 2201) 4.4 G/DL Dev Jarquin (RENAL) FUNCTION [id number] 00:00:00* Test Item Value Reference Range Interpretation Comme nts GLUCOSE (test code = 2217) 173 MG/DL BUN (test code = 2208) 31 MG/DL CREATININE (test code = 2214) 1.09 MG/DL eGFR AMER. (test cod e = 69504) 56 ML/MIN/1.73 eGFR NON- AMER. (test code = 54106) 49 ML/MIN/1.73 CALC BUN/CREAT (test code = 2235) 28 RATIO SODIUM (test code = 2231) 140 MEQ/L POTASSIUM (test code = 2228) 4.3 MEQ/L CHLORIDE (test code = 2215) 104 MEQ/L CARBON DIOXIDE (test code = 2206) 21 MEQ/L CALCIUM (test code = 2209) 9.8 MG/DL PHOSPHORUS (test code = 2227) 3.5 MG/DL ALBUMIN (test code = 2201) 4.4 G/DL Dev Destini Milka (RENAL) FUNCTION [id number] 00:00:00* Test Item Value Reference Range Interpretation Comme nts GLUCOSE (test code = 2217) 173 MG/DL BUN (test code = 2208) 31 MG/DL CREATININE (test code = 2214) 1.09 MG/DL eGFR AMER. (test cod e = 24762) 56 ML/MIN/1.73 eGFR NON- AMER. (test code = 59691) 49 ML/MIN/1.73 CALC BUN/CREAT (test code = [...] 2201) 4.4 G/DL Dev Jarquin (RENAL) FUNCTION [id number] 00:00:00* Test Item Value Reference Range Interpretation Comme nts GLUCOSE (test code = 2217) 173 MG/DL BUN (test code = 2208) 31 MG/DL CREATININE (test code = 2214) 1.09 MG/DL eGFR AMER. (test cod e = 04566) 56 ML/MIN/1.73 eGFR NON- AMER. (test code = 56323) 49 ML/MIN/1.73 CALC BUN/CREAT (test code = 2235) 28 RATIO SODIUM (test code = 2231) 140 MEQ/L POTASSIUM (test code = 2228) 4.3 MEQ/L CHLORIDE (test code = 2215) 104 MEQ/L CARBON DIOXIDE (test code = 2206) 21 MEQ/L CALCIUM (test code = 2209) 9.8 MG/DL PHOSPHORUS (test code = 2227) 3.5 MG/DL ALBUMIN (test code = 2201) 4.4 G/DL Dev Destini Milka (RENAL) FUNCTION [id number] 00:00:00* Test Item Value Reference Range Interpretation Comme nts GLUCOSE (test code = 2217) 173 MG/DL BUN (test code = 2208) 31 MG/DL CREATININE (test code = 2214) 1.09 MG/DL eGFR AMER. (test cod e = 40120) 56 ML/MIN/1.73 eGFR NON- AMER. (test code = 35192) 49 ML/MIN/1.73 CALC BUN/CREAT (test code = [...] 2201) 4.4 G/DL Dev Jarquin (RENAL) FUNCTION [id number] 00:00:00* Test Item Value Reference Range Interpretation Comme nts GLUCOSE (test code = 2217) 173 MG/DL BUN (test code = 2208) 31 MG/DL CREATININE (test code = 2214) 1.09 MG/DL eGFR AMER. (test cod e = 56613) 56 ML/MIN/1.73 eGFR NON- AMER. (test code = 54114) 49 ML/MIN/1.73 CALC BUN/CREAT (test code = [...] 2201) 4.4 G/DL Dev Jarquin (RENAL) FUNCTION [id number] 00:00:00* Test Item Value Reference Range Interpretation Comme nts GLUCOSE (test code = 2217) 173 MG/DL BUN (test code = 2208) 31 MG/DL CREATININE (test code = 2214) 1.09 MG/DL eGFR AMER. (test cod e = 13191) 56 ML/MIN/1.73 eGFR NON- AMER. (test code = 87190) 49 ML/MIN/1.73 CALC BUN/CREAT (test code = [...] 2201) 4.4 G/DL Dev Jarquin (RENAL) FUNCTION [id number] 00:00:00* Test Item Value Reference Range Interpretation Comme nts GLUCOSE (test code = 2217) 173 MG/DL BUN (test code = 2208) 31 MG/DL CREATININE (test code = 2214) 1.09 MG/DL eGFR AMER. (test cod e = 00125) 56 ML/MIN/1.73 eGFR NON- AMER. (test code = 99427) 49 ML/MIN/1.73 CALC BUN/CREAT (test code = 2235) 28 RATIO SODIUM (test code = 2231) 140 MEQ/L POTASSIUM (test code = 2228) 4.3 MEQ/L CHLORIDE (test code = 2215) 104 MEQ/L CARBON DIOXIDE (test code = 2206) 21 MEQ/L CALCIUM (test code = 2209) 9.8 MG/DL PHOSPHORUS (test code = 2227) 3.5 MG/DL ALBUMIN (test code = 2201) 4.4 G/DL Dev SteinerVITAMIN D, 25 [id number] 00:00:00* Test Item Value Reference Range Interpretation Comme nts VITAMIN D, 25 OH (test code = 4958) 16 NG/ML Dev oClmenares (HEPATIC) FUNCTION [id number] 00:00:00* Test Item Value Reference Range Interpretation [...] 16 U/L Dev SteinerRENAL FUNCTION PANEL + [id number] 00:00:00* Test Item Value Reference Range Interpretation Comme nts GLUCOSE (test code = 2217) 234 MG/DL BUN (test code = 2208) 36 MG/DL CREATININE (test code = 2214) 1.16 MG/DL eGFR AMER. (test cod e = 03236) 52 ML/MIN/1.73 eGFR NON- AMER. (test code = 29239) 45 ML/MIN/1.73 CALC BUN/CREAT (test code = 2235) 31 RATIO SODIUM (test code = 2231) 140 MEQ/L POTASSIUM (test code = 2228) 4.6 MEQ/L CHLORIDE (test code = 2215) 101 MEQ/L CARBON DIOXIDE (test code = 2206) 21 MEQ/L CALCIUM (test code = 2209) 10.0 MG/DL PHOSPHORUS (test code = 2227) 4.4 MG/DL ALBUMIN (test code = 2201) 4.6 G/DL Dev SteinerHEMOGLOBIN [id number] 00:00:00* Test Item Value Reference Range Interpretation Comme nts HEMOGLOBIN A1c (test code = 88528) 8.7 % Dev SteinerLIPID [id number] 00:00:00* Test Item Value Reference Range Interpretation Comme nts CHOLESTEROL (test code = 2210) 156 MG/DL TRIGLYCERIDES (test code = 2232) 206 MG/DL HDL CHOLESTEROL (test code = 2220) 47 MG/DL CALC LDL CHOL (test code = 2237) 79 MG/DL RISK RATIO LDL/HDL (test cod e = 2238) 1.68 RATIO Dev SteinerTSH + FREE T4 [id number] 00:00:00* Test Item Value Reference Range Interpretation Comme nts TSH, THIRD GENERATION (test code = 2821) 1.660 UIU/ML FREE T4 (THYROXINE) (test co de = 2823) 1.17 NG/DL Dev SteinerVITAMIN D, 25 [id number] 00:00:00* Test Item Value Reference Range Interpretation Comme nts VITAMIN D, 25 OH (test code = 4958) 16 NG/ML Dev SteinerLIVER (HEPATIC) FUNCTION [id number] 00:00:00* Test Item Value Reference Range Interpretation Comme nts PROTEIN, TOTAL (test code = 2229) 7.9 G/DL ALBUMIN (test code = 2201) 4.6 G/DL BILIRUBIN, TOTAL (test code = 2207) 0.2 MG/DL BILIRUBIN, DIRECT (test code = 202) 0.1 MG/DL ALKALINE PHOSPHATASE (test c ode = 2204) 90 U/L AST (test code = 2218) 19 U/L ALT (test code = 2219) 16 U/L Dev SteinerRENAL FUNCTION PANEL + [id number] 00:00:00* Test Item Value Reference Range Interpretation Comme nts GLUCOSE (test code = 2217) 234 MG/DL BUN (test code = 2208) 36 MG/DL CREATININE (test code = 2214) 1.16 MG/DL eGFR AMER. (test cod e = 60293) 52 ML/MIN/1.73 eGFR NON- AMER. (test code = 39101) 45 ML/MIN/1.73 CALC BUN/CREAT (test code = 2235) 31 RATIO SODIUM (test code = 2231) 140 MEQ/L POTASSIUM (test code = 2228) 4.6 MEQ/L CHLORIDE (test code = 2215) 101 MEQ/L CARBON DIOXIDE (test code = 2206) 21 MEQ/L CALCIUM (test code = 2209) 10.0 MG/DL PHOSPHORUS (test code = 2227) 4.4 MG/DL ALBUMIN (test code = 2201) 4.6 G/DL Dev SteinerHEMOGLOBIN [id number] 00:00:00* Test Item Value Reference Range Interpretation Comme nts HEMOGLOBIN A1c (test code = 83786) 8.7 % Dev SteinerLIPID [id number] 00:00:00* Test Item Value Reference Range Interpretation Comme nts CHOLESTEROL (test code = 2210) 156 MG/DL TRIGLYCERIDES (test code = 2232) 206 MG/DL HDL CHOLESTEROL (test code = 2220) 47 MG/DL CALC LDL CHOL (test code = 2237) 79 MG/DL RISK RATIO LDL/HDL (test cod e = 2238) 1.68 RATIO Dev SteinerTSH + FREE T4 [id number] 00:00:00* Test Item Value Reference Range Interpretation Comme nts TSH, THIRD GENERATION (test code = 2821) 1.660 UIU/ML FREE T4 (THYROXINE) (test co de = 2823) 1.17 NG/DL Dev SteinerVITAMIN D, 25 [id number] 00:00:00* Test Item Value Reference Range Interpretation Comme nts VITAMIN D, 25 OH (test code = 4958) 16 NG/ML Dev SteinerLIVER (HEPATIC) FUNCTION [id number] 00:00:00* Test Item Value Reference Range Interpretation [...] 16 U/L Dev SteinerRENAL FUNCTION PANEL + [id number] 00:00:00* Test Item Value Reference Range Interpretation Comme nts GLUCOSE (test code = 2217) 234 MG/DL BUN (test code = 2208) 36 MG/DL CREATININE (test code = 2214) 1.16 MG/DL eGFR AMER. (test cod e = 12511) 52 ML/MIN/1.73 eGFR NON- AMER. (test code = 50188) 45 ML/MIN/1.73 CALC BUN/CREAT (test code = 2235) 31 RATIO SODIUM (test code = 2231) 140 MEQ/L POTASSIUM (test code = 2228) 4.6 MEQ/L CHLORIDE (test code = 2215) 101 MEQ/L CARBON DIOXIDE (test code = 2206) 21 MEQ/L CALCIUM (test code = 2209) 10.0 MG/DL PHOSPHORUS (test code = 2227) 4.4 MG/DL ALBUMIN (test code = 2201) 4.6 G/DL Dev Georges JatinHEMOGLOBIN [id number] 00:00:00* Test Item Value Reference Range Interpretation Comme nts HEMOGLOBIN A1c (test code = 84026) 8.7 % Dev Georges JatinLIPID [id number] 00:00:00* Test Item Value Reference Range Interpretation Comme nts CHOLESTEROL (test code = 2210) 156 MG/DL TRIGLYCERIDES (test code = 2232) 206 MG/DL HDL CHOLESTEROL (test code = 2220) 47 MG/DL CALC LDL CHOL (test code = 2237) 79 MG/DL RISK RATIO LDL/HDL (test cod e = 2238) 1.68 RATIO Dev SteinerTSH + FREE T4 [id number] 00:00:00* Test Item Value Reference Range Interpretation Comme nts TSH, THIRD GENERATION (test code = 2821) 1.660 UIU/ML FREE T4 (THYROXINE) (test co de = 2823) 1.17 NG/DL Dev SteinerVITAMIN D, 25 [id number] 00:00:00* Test Item Value Reference Range Interpretation Comme nts VITAMIN D, 25 OH (test code = 4958) 16 NG/ML Dev SteinerLIVER (HEPATIC) FUNCTION [id number] 00:00:00* Test Item Value Reference Range Interpretation [...] 16 U/L Dev SteinerRENAL FUNCTION PANEL + [id number] 00:00:00* Test Item Value Reference Range Interpretation Comme nts GLUCOSE (test code = 2217) 234 MG/DL BUN (test code = 2208) 36 MG/DL CREATININE (test code = 2214) 1.16 MG/DL eGFR AMER. (test cod e = 50661) 52 ML/MIN/1.73 eGFR NON- AMER. (test code = 57236) 45 ML/MIN/1.73 CALC BUN/CREAT (test code = 2235) 31 RATIO SODIUM (test code = 2231) 140 MEQ/L POTASSIUM (test code = 2228) 4.6 MEQ/L CHLORIDE (test code = 2215) 101 MEQ/L CARBON DIOXIDE (test code = 2206) 21 MEQ/L CALCIUM (test code = 2209) 10.0 MG/DL PHOSPHORUS (test code = 2227) 4.4 MG/DL ALBUMIN (test code = 2201) 4.6 G/DL Dev SteinerHEMOGLOBIN [id number] 00:00:00* Test Item Value Reference Range Interpretation Comme nts HEMOGLOBIN A1c (test code = 56309) 8.7 % Dev SteinerLIPID [id number] 00:00:00* Test Item Value Reference Range Interpretation Comme nts CHOLESTEROL (test code = 2210) 156 MG/DL TRIGLYCERIDES (test code = 2232) 206 MG/DL HDL CHOLESTEROL (test code = 2220) 47 MG/DL CALC LDL CHOL (test code = 2237) 79 MG/DL RISK RATIO LDL/HDL (test cod e = 2238) 1.68 RATIO Dev SteinerTSH + FREE T4 [id number] 00:00:00* Test Item Value Reference Range Interpretation Comme sara TSH, THIRD GENERATION (test code = 2821) 1.660 UIU/ML FREE T4 (THYROXINE) (test co de = 2823) 1.17 NG/DL Dev SteinerVITAMIN D, 25 [id number] 00:00:00* Test Item Value Reference Range Interpretation Comme sara VITAMIN D, 25 OH (test code = 4958) 16 NG/ML Dev SteinerLIVER (HEPATIC) FUNCTION [id number] 00:00:00* Test Item Value Reference Range Interpretation Comme nts PROTEIN, TOTAL (test code = 2229) 7.9 G/DL ALBUMIN (test code = 2201) 4.6 G/DL BILIRUBIN, TOTAL (test code = 2207) 0.2 MG/DL BILIRUBIN, DIRECT (test code = 2) 0.1 MG/DL ALKALINE PHOSPHATASE (test c ode = 2204) 90 U/L AST (test code = 2218) 19 U/L ALT (test code = 2219) 16 U/L Dev SteinerRENAL FUNCTION PANEL + [id number] 00:00:00* Test Item Value Reference Range Interpretation Comme nts GLUCOSE (test code = 2217) 234 MG/DL BUN (test code = 2208) 36 MG/DL CREATININE (test code = 2214) 1.16 MG/DL eGFR AMER. (test cod e = 81486) 52 ML/MIN/1.73 eGFR NON- AMER. (test code = 21131) 45 ML/MIN/1.73 CALC BUN/CREAT (test code = 2235) 31 RATIO SODIUM (test code = 2231) 140 MEQ/L POTASSIUM (test code = 2228) 4.6 MEQ/L CHLORIDE (test code = 2215) 101 MEQ/L CARBON DIOXIDE (test code = 2206) 21 MEQ/L CALCIUM (test code = 2209) 10.0 MG/DL PHOSPHORUS (test code = 2227) 4.4 MG/DL ALBUMIN (test code = 2201) 4.6 G/DL Dev SteinerHEMOGLOBIN [id number] 00:00:00* Test Item Value Reference Range Interpretation Comme nts HEMOGLOBIN A1c (test code = 69341) 8.7 % Dev Georges JatinLIPID [id number] 00:00:00* Test Item Value Reference Range Interpretation Comme nts CHOLESTEROL (test code = 2210) 156 MG/DL TRIGLYCERIDES (test code = 2232) 206 MG/DL HDL CHOLESTEROL (test code = 2220) 47 MG/DL CALC LDL CHOL (test code = 2237) 79 MG/DL RISK RATIO LDL/HDL (test cod e = 2238) 1.68 RATIO Dev Georges JatinTSH + FREE T4 [id number] 00:00:00* Test Item Value Reference Range Interpretation Comme nts TSH, THIRD GENERATION (test code = 2821) 1.660 UIU/ML FREE T4 (THYROXINE) (test co de = 2823) 1.17 NG/DL Dev Georges JatinVITAMIN D, 25 [id number] 00:00:00* Test Item Value Reference Range Interpretation Comme nts VITAMIN D, 25 OH (test code = 4958) 16 NG/ML Dev Georges JatinLIVER (HEPATIC) FUNCTION [id number] 00:00:00* Test Item Value Reference Range Interpretation Comme nts PROTEIN, TOTAL (test code = 2229) 7.9 G/DL ALBUMIN (test code = 2201) 4.6 G/DL BILIRUBIN, TOTAL (test code = 2206) 0.2 MG/DL BILIRUBIN, DIRECT (test code = 2021) 0.1 MG/DL ALKALINE PHOSPHATASE (test c ode = 2204) 90 U/L AST (test code = 2218) 19 U/L ALT (test code = 2219) 16 U/L Dev SteinerRENAL FUNCTION PANEL + [id number] 00:00:00* Test Item Value Reference Range Interpretation Comme nts GLUCOSE (test code = 2217) 234 MG/DL BUN (test code = 2208) 36 MG/DL CREATININE (test code = 2214) 1.16 MG/DL eGFR AMER. (test cod e = 35637) 52 ML/MIN/1.73 eGFR NON- AMER. (test code = 11539) 45 ML/MIN/1.73 CALC BUN/CREAT (test code = 2235) 31 RATIO SODIUM (test code = 2231) 140 MEQ/L POTASSIUM (test code = 2228) 4.6 MEQ/L CHLORIDE (test code = 2215) 101 MEQ/L CARBON DIOXIDE (test code = 2206) 21 MEQ/L CALCIUM (test code = 2209) 10.0 MG/DL PHOSPHORUS (test code = 2227) 4.4 MG/DL ALBUMIN (test code = 2201) 4.6 G/DL Dev SteinerHEMOGLOBIN [id number] 00:00:00* Test Item Value Reference Range Interpretation Comme nts HEMOGLOBIN A1c (test code = 10885) 8.7 % Dev SteinerLIPID [id number] 00:00:00* Test Item Value Reference Range Interpretation Comme nts CHOLESTEROL (test code = 2210) 156 MG/DL TRIGLYCERIDES (test code = 2232) 206 MG/DL HDL CHOLESTEROL (test code = 2220) 47 MG/DL CALC LDL CHOL (test code = 2237) 79 MG/DL RISK RATIO LDL/HDL (test cod e = 2238) 1.68 RATIO Dev SteinerTSH + FREE T4 [id number] 00:00:00* Test Item Value Reference Range Interpretation Comme nts TSH, THIRD GENERATION (test code = 2821) 1.660 UIU/ML FREE T4 (THYROXINE) (test co de = 2823) 1.17 NG/DL Dev SteinerVITAMIN D, 25 [id number] 00:00:00* Test Item Value Reference Range Interpretation Comme nts VITAMIN D, 25 OH (test code = 4958) 16 NG/ML Dev SteinerLIVER (HEPATIC) FUNCTION [id number] 00:00:00* Test Item Value Reference Range Interpretation [...] 16 U/L Dev SteinerRENAL FUNCTION PANEL + [id number] 00:00:00* Test Item Value Reference Range Interpretation Comme nts GLUCOSE (test code = 2217) 234 MG/DL BUN (test code = 2208) 36 MG/DL CREATININE (test code = 2214) 1.16 MG/DL eGFR AMER. (test cod e = 32108) 52 ML/MIN/1.73 eGFR NON- AMER. (test code = 61491) 45 ML/MIN/1.73 CALC BUN/CREAT (test code = 2235) 31 RATIO SODIUM (test code = 2231) 140 MEQ/L POTASSIUM (test code = 2228) 4.6 MEQ/L CHLORIDE (test code = 2215) 101 MEQ/L CARBON DIOXIDE (test code = 2206) 21 MEQ/L CALCIUM (test code = 2209) 10.0 MG/DL PHOSPHORUS (test code = 2227) 4.4 MG/DL ALBUMIN (test code = 2201) 4.6 G/DL Dev SteinerHEMOGLOBIN [id number] 00:00:00* Test Item Value Reference Range Interpretation Comme nts HEMOGLOBIN A1c (test code = 56611) 8.7 % Dev SteinerLIPID [id number] 00:00:00* Test Item Value Reference Range Interpretation Comme nts CHOLESTEROL (test code = 2210) 156 MG/DL TRIGLYCERIDES (test code = 2232) 206 MG/DL HDL CHOLESTEROL (test code = 2220) 47 MG/DL CALC LDL CHOL (test code = 2237) 79 MG/DL RISK RATIO LDL/HDL (test cod e = 2238) 1.68 RATIO Dev SteinerTSH + FREE T4 [id number] 00:00:00* Test Item Value Reference Range Interpretation Comme nts TSH, THIRD GENERATION (test code = 2821) 1.660 UIU/ML FREE T4 (THYROXINE) (test co de = 2823) 1.17 NG/DL Dev SteinerVITAMIN D, 25 [id number] 00:00:00* Test Item Value Reference Range Interpretation Comme nts VITAMIN D, 25 OH (test code = 4958) 16 NG/ML Dev SteinerLIVER (HEPATIC) FUNCTION [id number] 00:00:00* Test Item Value Reference Range Interpretation [...] 16 U/L Dev SteinerRENAL FUNCTION PANEL + [id number] 00:00:00* Test Item Value Reference Range Interpretation Comme nts GLUCOSE (test code = 2217) 234 MG/DL BUN (test code = 2208) 36 MG/DL CREATININE (test code = 2214) 1.16 MG/DL eGFR AMER. (test cod e = 60534) 52 ML/MIN/1.73 eGFR NON- AMER. (test code = 24344) 45 ML/MIN/1.73 CALC BUN/CREAT (test code = 2235) 31 RATIO SODIUM (test code = 2231) 140 MEQ/L POTASSIUM (test code = 2228) 4.6 MEQ/L CHLORIDE (test code = 2215) 101 MEQ/L CARBON DIOXIDE (test code = 2206) 21 MEQ/L CALCIUM (test code = 2209) 10.0 MG/DL PHOSPHORUS (test code = 2227) 4.4 MG/DL ALBUMIN (test code = 2201) 4.6 G/DL Dev SteinerHEMOGLOBIN [id number] 00:00:00* Test Item Value Reference Range Interpretation Comme nts HEMOGLOBIN A1c (test code = 42340) 8.7 % Dev SteinerLIPID [id number] 00:00:00* Test Item Value Reference Range Interpretation Comme nts CHOLESTEROL (test code = 2210) 156 MG/DL TRIGLYCERIDES (test code = 2232) 206 MG/DL HDL CHOLESTEROL (test code = 2220) 47 MG/DL CALC LDL CHOL (test code = 2237) 79 MG/DL RISK RATIO LDL/HDL (test cod e = 2238) 1.68 RATIO Dev SteinerTSH + FREE T4 [id number] 00:00:00* Test Item Value Reference Range Interpretation Comme sara TSH, THIRD GENERATION (test code = 2821) 1.660 UIU/ML FREE T4 (THYROXINE) (test co de = 2823) 1.17 NG/DL Dev SteinerMICROALBUMIN/CREATININE, RANDOM AND [id number] 00:00:00* Test Item Value Reference Range Interpretation Comme nts CREATININE, URINE, CONC. (te st code = 2072) 137.7 MG/DL ALBUMIN, URINE, RANDOM (test code = 95349) 137.1 MG/DL CALC ALBUMIN/CREAT, RND (eitan t code = 54050) 996 MG/G Dev SteinerHEMOGLOBIN [id number] 00:00:00* Test Item Value Reference Range Interpretation Comme nts HEMOGLOBIN A1c (test code = 37312) 9.7 % Dev SteinerLIPID [id number] 00:00:00* Test Item Value Reference Range Interpretation Comme nts CHOLESTEROL (test code = 2210) 143 MG/DL TRIGLYCERIDES (test code = 2232) 204 MG/DL HDL CHOLESTEROL (test code = 2220) 46 MG/DL CALC LDL CHOL (test code = 2237) 70 MG/DL RISK RATIO LDL/HDL (test cod e = 2238) 1.52 RATIO Dev SteinerCOMPREHENSIVE METABOLIC [id number] 00:00:00* Test Item Value Reference Range Interpretation Comme nts GLUCOSE (test code = 2217) 339 MG/DL BUN (test code = 2208) 30 MG/DL CREATININE (test code = 2214) 1.12 MG/DL eGFR AMER. (test cod e = 59134) 55 ML/MIN/1.73 eGFR NON- AMER. (test code = 53683) 47 ML/MIN/1.73 CALC BUN/CREAT (test code = 2235) 27 RATIO SODIUM (test code = 2231) 140 MEQ/L POTASSIUM (test code = 2228) 4.4 MEQ/L CHLORIDE (test code = 2215) 103 MEQ/L CARBON DIOXIDE (test code = 2206) 24 MEQ/L CALCIUM (test code = 2209) 9.6 MG/DL PROTEIN, TOTAL (test code = 2229) 7.9 G/DL ALBUMIN (test code = 220) 4.2 G/DL CALC GLOBULIN (test code = 2240) 3.7 G/DL CALC A/G RATIO (test code = 2234) 1.1 RATIO BILIRUBIN, TOTAL (test code = 2207) 0.2 MG/DL ALKALINE PHOSPHATASE (test code = 220) 98 U/L AST (test code = 221) 12 U/L ALT (test code = 2219) 12 U/L Dev SteinerMICROALBUMIN/CREATININE, RANDOM AND [id number] 00:00:00* Test Item Value Reference Range Interpretation Comme nts CREATININE, URINE, CONC. (te st code = 2072) 137.7 MG/DL ALBUMIN, URINE, RANDOM (test code = 32532) 137.1 MG/DL CALC ALBUMIN/CREAT, RND (eitan t code = 40884) 996 MG/G Dev SteinerHEMOGLOBIN [id number] 00:00:00* Test Item Value Reference Range Interpretation Comme nts HEMOGLOBIN A1c (test code = 42550) 9.7 % Dev SteienrLIPID [id number] 00:00:00* Test Item Value Reference Range Interpretation Comme nts CHOLESTEROL (test code = 2210) 143 MG/DL TRIGLYCERIDES (test code = 2232) 204 MG/DL HDL CHOLESTEROL (test code = 2220) 46 MG/DL CALC LDL CHOL (test code = 2237) 70 MG/DL RISK RATIO LDL/HDL (test cod e = 2238) 1.52 RATIO Dev SteinerCOMPREHENSIVE METABOLIC [id number] 00:00:00* Test Item Value Reference Range Interpretation Comme nts GLUCOSE (test code = 2217) 339 MG/DL BUN (test code = 2208) 30 MG/DL CREATININE (test code = 2214) 1.12 MG/DL eGFR AMER. (test cod e = 63444) 55 ML/MIN/1.73 eGFR NON- AMER. (test code = 69554) 47 ML/MIN/1.73 CALC BUN/CREAT (test code = 2235) 27 RATIO SODIUM (test code = 2231) 140 MEQ/L POTASSIUM (test code = 2228) 4.4 MEQ/L CHLORIDE (test code = 2215) 103 MEQ/L CARBON DIOXIDE (test code = 2206) 24 MEQ/L CALCIUM (test code = 2209) 9.6 MG/DL PROTEIN, TOTAL (test code = 222) 7.9 G/DL ALBUMIN (test code = 220) 4.2 G/DL CALC GLOBULIN (test code = 2240) 3.7 G/DL CALC A/G RATIO (test code = 2234) 1.1 RATIO BILIRUBIN, TOTAL (test code = 2207) 0.2 MG/DL ALKALINE PHOSPHATASE (test code = 2203) 98 U/L AST (test code = 221) 12 U/L ALT (test code = 2219) 12 U/L Dev SteinerMICROALBUMIN/CREATININE, RANDOM AND [id number] 00:00:00* Test Item Value Reference Range Interpretation Comme nts CREATININE, URINE, CONC. (te st code = 2072) 137.7 MG/DL ALBUMIN, URINE, RANDOM (test code = 13348) 137.1 MG/DL CALC ALBUMIN/CREAT, RND (eitan t code = 78591) 996 MG/G eDv SteinerHEMOGLOBIN [id number] 00:00:00* Test Item Value Reference Range Interpretation Comme nts HEMOGLOBIN A1c (test code = 53727) 9.7 % Dev SteinerLIPID [id number] 00:00:00* Test Item Value Reference Range Interpretation Comme nts CHOLESTEROL (test code = 2210) 143 MG/DL TRIGLYCERIDES (test code = 2232) 204 MG/DL HDL CHOLESTEROL (test code = 2220) 46 MG/DL CALC LDL CHOL (test code = 2237) 70 MG/DL RISK RATIO LDL/HDL (test cod e = 2238) 1.52 RATIO Dev Georges JatinCOMPREHENSIVE METABOLIC [id number] 00:00:00* Test Item Value Reference Range Interpretation Comme nts GLUCOSE (test code = 2217) 339 MG/DL BUN (test code = 2208) 30 MG/DL CREATININE (test code = 2214) 1.12 MG/DL eGFR AMER. (test cod e = 58106) 55 ML/MIN/1.73 eGFR NON- AMER. (test code = 16354) 47 ML/MIN/1.73 CALC BUN/CREAT (test code = [...] 2219) 12 U/L Dev SteinerMICROALBUMIN/CREATININE, RANDOM AND [id number] 00:00:00* Test Item Value Reference Range Interpretation Comme nts CREATININE, URINE, CONC. (te st code = 2072) 137.7 MG/DL ALBUMIN, URINE, RANDOM (test code = 28742) 137.1 MG/DL CALC ALBUMIN/CREAT, RND (eitan t code = 78988) 996 MG/G Dev SteinerHEMOGLOBIN [id number] 00:00:00* Test Item Value Reference Range Interpretation Comme nts HEMOGLOBIN A1c (test code = 86632) 9.7 % Dev SteinerLIPID [id number] 00:00:00* Test Item Value Reference Range Interpretation Comme nts CHOLESTEROL (test code = 2210) 143 MG/DL TRIGLYCERIDES (test code = 2232) 204 MG/DL HDL CHOLESTEROL (test code = 2220) 46 MG/DL CALC LDL CHOL (test code = 2237) 70 MG/DL RISK RATIO LDL/HDL (test cod e = 223) 1.52 RATIO Dev SteinerCOMPREHENSIVE METABOLIC [id number] 00:00:00* Test Item Value Reference Range Interpretation Comme nts GLUCOSE (test code = 2217) 339 MG/DL BUN (test code = 2208) 30 MG/DL CREATININE (test code = 2214) 1.12 MG/DL eGFR AMER. (test cod e = 08258) 55 ML/MIN/1.73 eGFR NON- AMER. (test code = 04758) 47 ML/MIN/1.73 CALC BUN/CREAT (test code = 2235) 27 RATIO SODIUM (test code = 223) 140 MEQ/L POTASSIUM (test code = 2228) [...] 2219) 12 U/L Dev SteinerMICROALBUMIN/CREATININE, RANDOM AND [id number] 00:00:00* Test Item Value Reference Range Interpretation Comme nts CREATININE, URINE, CONC. (te st code = 2072) 137.7 MG/DL ALBUMIN, URINE, RANDOM (test code = 58944) 137.1 MG/DL CALC ALBUMIN/CREAT, RND (eitan t code = 75577) 996 MG/G Dev SteinerHEMOGLOBIN [id number] 00:00:00* Test Item Value Reference Range Interpretation Comme nts HEMOGLOBIN A1c (test code = 05612) 9.7 % Dev SteinerLIPID [id number] 00:00:00* Test Item Value Reference Range Interpretation Comme nts CHOLESTEROL (test code = 2210) 143 MG/DL TRIGLYCERIDES (test code = 2232) 204 MG/DL HDL CHOLESTEROL (test code = 2220) 46 MG/DL CALC LDL CHOL (test code = 2237) 70 MG/DL RISK RATIO LDL/HDL (test cod e = 2238) 1.52 RATIO Dev SteinerCOMPREHENSIVE METABOLIC [id number] 00:00:00* Test Item Value Reference Range Interpretation Comme nts GLUCOSE (test code = 2217) 339 MG/DL BUN (test code = 2208) 30 MG/DL CREATININE (test code = 2214) 1.12 MG/DL eGFR AMER. (test cod e = 70693) 55 ML/MIN/1.73 eGFR NON- AMER. (test code = 85778) 47 ML/MIN/1.73 CALC BUN/CREAT (test code = [...] 2219) 12 U/L Dev SteinerMICROALBUMIN/CREATININE, RANDOM AND [id number] 00:00:00* Test Item Value Reference Range Interpretation Comme nts CREATININE, URINE, CONC. (te st code = 2072) 137.7 MG/DL ALBUMIN, URINE, RANDOM (test code = 89767) 137.1 MG/DL CALC ALBUMIN/CREAT, RND (eitan t code = 38310) 996 MG/G Dev SteinerHEMOGLOBIN [id number] 00:00:00* Test Item Value Reference Range Interpretation Comme nts HEMOGLOBIN A1c (test code = 88722) 9.7 % Dev SteinerLIPID [id number] 00:00:00* Test Item Value Reference Range Interpretation Comme nts CHOLESTEROL (test code = 2210) 143 MG/DL TRIGLYCERIDES (test code = 2232) 204 MG/DL HDL CHOLESTEROL (test code = 2220) 46 MG/DL CALC LDL CHOL (test code = 2237) 70 MG/DL RISK RATIO LDL/HDL (test cod e = 2238) 1.52 RATIO Dev SteinerCOMPREHENSIVE METABOLIC [id number] 00:00:00* Test Item Value Reference Range Interpretation Comme nts GLUCOSE (test code = 2217) 339 MG/DL BUN (test code = 2208) 30 MG/DL CREATININE (test code = 2214) 1.12 MG/DL eGFR AMER. (test cod e = 38262) 55 ML/MIN/1.73 eGFR NON- AMER. (test code = 95742) 47 ML/MIN/1.73 CALC BUN/CREAT (test code = [...] 2219) 12 U/L Dev SteinerMICROALBUMIN/CREATININE, RANDOM AND [id number] 00:00:00* Test Item Value Reference Range Interpretation Comme nts CREATININE, URINE, CONC. (te st code = 2072) 137.7 MG/DL ALBUMIN, URINE, RANDOM (test code = 46019) 137.1 MG/DL CALC ALBUMIN/CREAT, RND (eitan t code = 08831) 996 MG/G Dev SteinerHEMOGLOBIN [id number] 00:00:00* Test Item Value Reference Range Interpretation Comme sara HEMOGLOBIN A1c (test code = 90170) 9.7 % Dev SteinerLIPID [id number] 00:00:00* Test Item Value Reference Range Interpretation Comme nts CHOLESTEROL (test code = 2210) 143 MG/DL TRIGLYCERIDES (test code = 2232) 204 MG/DL HDL CHOLESTEROL (test code = 2220) 46 MG/DL CALC LDL CHOL (test code = 2237) 70 MG/DL RISK RATIO LDL/HDL (test cod e = 2238) 1.52 RATIO Dev SteinerCOMPREHENSIVE METABOLIC [id number] 00:00:00* Test Item Value Reference Range Interpretation Comme nts GLUCOSE (test code = 2217) 339 MG/DL BUN (test code = 2208) 30 MG/DL CREATININE (test code = 2214) 1.12 MG/DL eGFR AMER. (test cod e = 22382) 55 ML/MIN/1.73 eGFR NON- AMER. (test code = 33526) 47 ML/MIN/1.73 CALC BUN/CREAT (test code = [...] 2219) 12 U/L Dev SteinerMICROALBUMIN/CREATININE, RANDOM AND [id number] 00:00:00* Test Item Value Reference Range Interpretation Comme nts CREATININE, URINE, CONC. (te st code = 207) 137.7 MG/DL ALBUMIN, URINE, RANDOM (test code = 79995) 137.1 MG/DL CALC ALBUMIN/CREAT, RND (eitan t code = 52314) 996 MG/G Dev SteinerHEMOGLOBIN [id number] 00:00:00* Test Item Value Reference Range Interpretation Comme sara HEMOGLOBIN A1c (test code = 31140) 9.7 % Dev SteinerLIPID [id number] 00:00:00* Test Item Value Reference Range Interpretation Comme nts CHOLESTEROL (test code = 2210) 143 MG/DL TRIGLYCERIDES (test code = 2232) 204 MG/DL HDL CHOLESTEROL (test code = 2220) 46 MG/DL CALC LDL CHOL (test code = 2237) 70 MG/DL RISK RATIO LDL/HDL (test cod e = 2238) 1.52 RATIO Dev SteinerCOMPREHENSIVE METABOLIC [id number] 00:00:00* Test Item Value Reference Range Interpretation Comme nts GLUCOSE (test code = 2217) 339 MG/DL BUN (test code = 2208) 30 MG/DL CREATININE (test code = 2214) 1.12 MG/DL eGFR AMER. (test cod e = 69994) 55 ML/MIN/1.73 eGFR NON- AMER. (test code = 53743) 47 ML/MIN/1.73 CALC BUN/CREAT (test code = [...] (test code = 2219) 12 U/L Dev SteinerCCP [id number] 00:00:00* Test Item Value Reference Range Interpretation Comme nts CCP IgG (test code = 70395) 2 UNITS Dve Georges AustinCCP [id number] 00:00:00* Test Item Value Reference Range Interpretation Comme nts CCP IgG (test code = 88017) 2 UNITS Dev Georges AustinCCP [id number] 00:00:00* Test Item Value Reference Range Interpretation Comme nts CCP IgG (test code = 78140) 2 UNITS Dev Georges AustinCCP [id number] 00:00:00* Test Item Value Reference Range Interpretation Comme nts CCP IgG (test code = 99021) 2 UNITS Dev Georges AustinCCP [id number] 00:00:00* Test Item Value Reference Range Interpretation Comme nts CCP IgG (test code = 51780) 2 UNITS Dev Georges AustinCCP [id number] 00:00:00* Test Item Value Reference Range Interpretation Comme nts CCP IgG (test code = 07560) 2 UNITS Dev Georges AustinCCP [id number] 00:00:00* Test Item Value Reference Range Interpretation Comme nts CCP IgG (test code = 62456) 2 UNITS Dev Georges AustinCCP [id number] 00:00:00* Test Item Value Reference Range Interpretation Comme nts CCP IgG (test code = 91494) 2 UNITS Dev SteinerANA (ANTI-NUCLEAR AB) WITH REFLEX [id number] 00:00:00* Test Item Value Reference Range Interpretation Comme nts ANTI-NUCLEAR ANTIBODIES (eitan t code = 3506) NEGATIVE Dev Georges AustinURIC [id number] 00:00:00* Test Item Value Reference Range Interpretation Comme nts URIC ACID (test code = 2233) 7.8 MG/DL Dev Georges AustinC-REACTIVE [id number] 00:00:00* Test Item Value Reference Range Interpretation Comme nts C-REACTIVE PROTEIN (test cod e = 3513) 0.8 MG/DL Dev SteinerRHEUMATOID FACTOR, [id number] 00:00:00* Test Item Value Reference Range Interpretation Comme nts RHEUMATOID FACTOR, QUANT (te st code = 3502) <10 IU/ML Dev SteinerCBC W/AUTO [id number] 00:00:00* Test Item Value Reference Range Interpretation [...] = 1015) 255 K/UL Dev SteinerCOMPREHENSIVE METABOLIC [id number] 00:00:00* Test Item Value Reference Range Interpretation Comme nts GLUCOSE (test code = 2217) 199 MG/DL BUN (test code = 2208) 31 MG/DL CREATININE (test code = 2214) 0.94 MG/DL eGFR AMER. (test cod e = 73587) 68 ML/MIN/1.73 eGFR NON- AMER. (test code = 53577) 59 ML/MIN/1.73 CALC BUN/CREAT (test code = [...] (test code = 2219) 13 U/L Dev F AustinSEDIMENTATION [id number] 00:00:00* Test Item Value Reference Range Interpretation Comme nts SEDIMENTATION RATE (test cod e = 1017) 71 MM/HOUR Dev Hoffman (ANTI-NUCLEAR AB) WITH REFLEX [id number] 00:00:00* Test Item Value Reference Range Interpretation Comme nts ANTI-NUCLEAR ANTIBODIES (eitan t code = 3506) NEGATIVE Dev SteinerURIC [id number] 00:00:00* Test Item Value Reference Range Interpretation Comme nts URIC ACID (test code = 2233) 7.8 MG/DL Dev SteinerC-REACTIVE [id number] 00:00:00* Test Item Value Reference Range Interpretation Comme nts C-REACTIVE PROTEIN (test cod e = 3513) 0.8 MG/DL Dev SteinerRHEUMATOID FACTOR, [id number] 00:00:00* Test Item Value Reference Range Interpretation Comme sara RHEUMATOID FACTOR, QUANT (te st code = 3502) <10 IU/ML Dev SteinerCBC W/AUTO [id number] 00:00:00* Test Item Value Reference Range Interpretation [...] COUNT (test code = 1015) 255 K/UL Dve SteinerCOMPREHENSIVE METABOLIC [id number] 00:00:00* Test Item Value Reference Range Interpretation Comme nts GLUCOSE (test code = 2217) 199 MG/DL BUN (test code = 2208) 31 MG/DL CREATININE (test code = 2214) 0.94 MG/DL eGFR AMER. (test cod e = 77668) 68 ML/MIN/1.73 eGFR NON- AMER. (test code = 14212) 59 ML/MIN/1.73 CALC BUN/CREAT (test code = [...] code = 2219) 13 U/L Dev SteinerSEDIMENTATION [id number] 00:00:00* Test Item Value Reference Range Interpretation Comme nts SEDIMENTATION RATE (test cod e = 1017) 71 MM/HOUR Dev SteinerSLIM (ANTI-NUCLEAR AB) WITH REFLEX [id number] 00:00:00* Test Item Value Reference Range Interpretation Comme nts ANTI-NUCLEAR ANTIBODIES (eitan t code = 3506) NEGATIVE Dev SteinerURIC [id number] 00:00:00* Test Item Value Reference Range Interpretation Comme nts URIC ACID (test code = 2233) 7.8 MG/DL Dev SteinerC-REACTIVE [id number] 00:00:00* Test Item Value Reference Range Interpretation Comme nts C-REACTIVE PROTEIN (test cod e = 3513) 0.8 MG/DL Dev SteinerRHEUMATOID FACTOR, [id number] 00:00:00* Test Item Value Reference Range Interpretation Comme nts RHEUMATOID FACTOR, QUANT (te st code = 3502) <10 IU/ML Dev SteinerCBC W/AUTO [id number] 00:00:00* Test Item Value Reference Range Interpretation [...] = 1015) 255 K/UL Dev SteinerCOMPREHENSIVE METABOLIC [id number] 00:00:00* Test Item Value Reference Range Interpretation Comme nts GLUCOSE (test code = 2217) 199 MG/DL BUN (test code = 2208) 31 MG/DL CREATININE (test code = 2214) 0.94 MG/DL eGFR AMER. (test cod e = 56905) 68 ML/MIN/1.73 eGFR NON- AMER. (test code = 58275) 59 ML/MIN/1.73 CALC BUN/CREAT (test code = [...] code = 2219) 13 U/L Dev SteinerSEDIMENTATION [id number] 00:00:00* Test Item Value Reference Range Interpretation Comme nts SEDIMENTATION RATE (test cod e = 1017) 71 MM/HOUR Dev Hoffman (ANTI-NUCLEAR AB) WITH REFLEX [id number] 00:00:00* Test Item Value Reference Range Interpretation Comme nts ANTI-NUCLEAR ANTIBODIES (eitan t code = 3506) NEGATIVE Dev SteinerURIC [id number] 00:00:00* Test Item Value Reference Range Interpretation Comme nts URIC ACID (test code = 2233) 7.8 MG/DL Dev SteinerC-REACTIVE [id number] 00:00:00* Test Item Value Reference Range Interpretation Comme nts C-REACTIVE PROTEIN (test cod e = 3513) 0.8 MG/DL Dev SteinerRHEUMATOID FACTOR, [id number] 00:00:00* Test Item Value Reference Range Interpretation Comme sara RHEUMATOID FACTOR, QUANT (te st code = 3502) <10 IU/ML Dev SteinerCBC W/AUTO [id number] 00:00:00* Test Item Value Reference Range Interpretation [...] = 1015) 255 K/UL Dev SteinerCOMPREHENSIVE METABOLIC [id number] 00:00:00* Test Item Value Reference Range Interpretation Comme nts GLUCOSE (test code = 2217) 199 MG/DL BUN (test code = 2208) 31 MG/DL CREATININE (test code = 2214) 0.94 MG/DL eGFR AMER. (test cod e = 84020) 68 ML/MIN/1.73 eGFR NON- AMER. (test code = 69594) 59 ML/MIN/1.73 CALC BUN/CREAT (test code = [...] code = 2219) 13 U/L Dev SteinerSEDIMENTATION [id number] 00:00:00* Test Item Value Reference Range Interpretation Comme nts SEDIMENTATION RATE (test cod e = 1017) 71 MM/HOUR Dev SteinerSLIM (ANTI-NUCLEAR AB) WITH REFLEX [id number] 00:00:00* Test Item Value Reference Range Interpretation Comme nts ANTI-NUCLEAR ANTIBODIES (eitan t code = 3506) NEGATIVE Dev SteinerURIC [id number] 00:00:00* Test Item Value Reference Range Interpretation Comme nts URIC ACID (test code = 2233) 7.8 MG/DL Dev SteinerC-REACTIVE [id number] 00:00:00* Test Item Value Reference Range Interpretation Comme nts C-REACTIVE PROTEIN (test cod e = 3513) 0.8 MG/DL Dev SteinerRHEUMATOID FACTOR, [id number] 00:00:00* Test Item Value Reference Range Interpretation Comme nts RHEUMATOID FACTOR, QUANT (te st code = 3502) <10 IU/ML Dev SteinerCBC W/AUTO [id number] 00:00:00* Test Item Value Reference Range Interpretation [...] = 1015) 255 K/UL Dev SteinerCOMPREHENSIVE METABOLIC [id number] 00:00:00* Test Item Value Reference Range Interpretation Comme nts GLUCOSE (test code = 2217) 199 MG/DL BUN (test code = 2208) 31 MG/DL CREATININE (test code = 2214) 0.94 MG/DL eGFR AMER. (test cod e = 90065) 68 ML/MIN/1.73 eGFR NON- AMER. (test code = 72462) 59 ML/MIN/1.73 CALC BUN/CREAT (test code = [...] code = 2219) 13 U/L Dev SteinerSEDIMENTATION [id number] 00:00:00* Test Item Value Reference Range Interpretation Comme nts SEDIMENTATION RATE (test cod e = 1017) 71 MM/HOUR Dev SteinerANA (ANTI-NUCLEAR AB) WITH REFLEX [id number] 00:00:00* Test Item Value Reference Range Interpretation Comme sara ANTI-NUCLEAR ANTIBODIES (eitan t code = 3506) NEGATIVE Dev SteinerURIC [id number] 00:00:00* Test Item Value Reference Range Interpretation Comme nts URIC ACID (test code = 2233) 7.8 MG/DL Dev SteinerC-REACTIVE [id number] 00:00:00* Test Item Value Reference Range Interpretation Comme nts C-REACTIVE PROTEIN (test cod e = 3513) 0.8 MG/DL Dev SteinerRHEUMATOID FACTOR, [id number] 00:00:00* Test Item Value Reference Range Interpretation Comme sara RHEUMATOID FACTOR, QUANT (te st code = 3502) <10 IU/ML Dev SteinerCBC W/AUTO [id number] 00:00:00* Test Item Value Reference Range Interpretation [...] = 1015) 255 K/UL Dev SteinerCOMPREHENSIVE METABOLIC [id number] 00:00:00* Test Item Value Reference Range Interpretation Comme nts GLUCOSE (test code = 2217) 199 MG/DL BUN (test code = 2208) 31 MG/DL CREATININE (test code = 2214) 0.94 MG/DL eGFR AMER. (test cod e = 75406) 68 ML/MIN/1.73 eGFR NON- AMER. (test code = 08909) 59 ML/MIN/1.73 CALC BUN/CREAT (test code = [...] code = 2219) 13 U/L Dev Georges AustinSEDIMENTATION [id number] 00:00:00* Test Item Value Reference Range Interpretation Comme nts SEDIMENTATION RATE (test cod e = 1017) 71 MM/HOUR Dev SteinerANA (ANTI-NUCLEAR AB) WITH REFLEX [id number] 00:00:00* Test Item Value Reference Range Interpretation Comme [facility] ANTI-NUCLEAR ANTIBODIES (eitan t code = 3506) NEGATIVE Dev Georges AustinURIC [id number] 00:00:00* Test Item Value Reference Range Interpretation Comme nts URIC ACID (test code = 2233) 7.8 MG/DL Dev SteinerC-REACTIVE [id number] 00:00:00* Test Item Value Reference Range Interpretation Comme nts C-REACTIVE PROTEIN (test cod e = 3513) 0.8 MG/DL Dev SteinerRHEUMATOID FACTOR, [id number] 00:00:00* Test Item Value Reference Range Interpretation Comme nts RHEUMATOID FACTOR, QUANT (te st code = 3502) <10 IU/ML Dev SteinerCBC W/AUTO [id number] 00:00:00* Test Item Value Reference Range Interpretation [...] = 1015) 255 K/UL Dev SteinerCOMPREHENSIVE METABOLIC [id number] 00:00:00* Test Item Value Reference Range Interpretation Comme nts GLUCOSE (test code = 2217) 199 MG/DL BUN (test code = 2208) 31 MG/DL CREATININE (test code = 2214) 0.94 MG/DL eGFR AMER. (test cod e = 13230) 68 ML/MIN/1.73 eGFR NON- AMER. (test code = 28402) 59 ML/MIN/1.73 CALC BUN/CREAT (test code = [...] (test code = 2219) 13 U/L Dev Destini AustinSEDIMENTATION [id number] 00:00:00* Test Item Value Reference Range Interpretation Comme nts SEDIMENTATION RATE (test cod e = 1017) 71 MM/HOUR Dev SteinerANA (ANTI-NUCLEAR AB) WITH REFLEX [id number] 00:00:00* Test Item Value Reference Range Interpretation Comme nts ANTI-NUCLEAR ANTIBODIES (eitan t code = 3506) NEGATIVE Dev SteinerURIC [id number] 00:00:00* Test Item Value Reference Range Interpretation Comme nts URIC ACID (test code = 2233) 7.8 MG/DL Dev SteinerC-REACTIVE [id number] 00:00:00* Test Item Value Reference Range Interpretation Comme nts C-REACTIVE PROTEIN (test cod e = 3513) 0.8 MG/DL Dev F JatinRHEUMATOID FACTOR, [id number] 00:00:00* Test Item Value Reference Range Interpretation Comme nts RHEUMATOID FACTOR, QUANT (te st code = 3502) <10 IU/ML Dev SteinerCOMPREHENSIVE METABOLIC [id number] 00:00:00* Test Item Value Reference Range Interpretation Comme nts GLUCOSE (test code = 2217) 199 MG/DL BUN (test code = 2208) 31 MG/DL CREATININE (test code = 2214) 0.94 MG/DL eGFR AMER. (test cod e = 85216) 68 ML/MIN/1.73 eGFR NON- AMER. (test code = 07978) 59 ML/MIN/1.73 CALC BUN/CREAT (test code = [...] (test code = 2219) 13 U/L Dev SteinerCBC W/AUTO [id number] 00:00:00* Test Item Value Reference Range Interpretation [...] (test code = 1015) 255 K/UL Dev SteinerSEDIMENTATION [id number] 00:00:00* Test Item Value Reference Range Interpretation Comme nts SEDIMENTATION RATE (test cod e = 1017) 71 MM/HOUR Dev SteinerLIPID [id number] 00:00:00* Test Item Value Reference Range Interpretation Comme nts CHOLESTEROL (test code = 2210) 139 MG/DL TRIGLYCERIDES (test code = 2232) 131 MG/DL HDL CHOLESTEROL (test code = 2220) 48 MG/DL CALC LDL CHOL (test code = 2237) 65 MG/DL RISK RATIO LDL/HDL (test cod e = 2238) 1.35 RATIO Dev SteinerHEMOGLOBIN [id number] 00:00:00* Test Item Value Reference Range Interpretation Comme nts HEMOGLOBIN A1c (test code = 65739) 9.0 % Dev SteinerCOMPREHENSIVE METABOLIC [id number] 00:00:00* Test Item Value Reference Range Interpretation Comme nts GLUCOSE (test code = 2217) 168 MG/DL BUN (test code = 2208) 27 MG/DL CREATININE (test code = 2214) 1.01 MG/DL eGFR AMER. (test cod e = 98707) 62 ML/MIN/1.73 eGFR NON- AMER. (test code = 53787) 54 ML/MIN/1.73 CALC BUN/CREAT (test code = [...] code = 2219) 13 U/L Dev SteinerLIPID [id number] 00:00:00* Test Item Value Reference Range Interpretation Comme nts CHOLESTEROL (test code = 2210) 139 MG/DL TRIGLYCERIDES (test code = 2232) 131 MG/DL HDL CHOLESTEROL (test code = 2220) 48 MG/DL CALC LDL CHOL (test code = 2237) 65 MG/DL RISK RATIO LDL/HDL (test cod e = 2238) 1.35 RATIO Dev SteinerHEMOGLOBIN [id number] 00:00:00* Test Item Value Reference Range Interpretation Comme sara HEMOGLOBIN A1c (test code = 92388) 9.0 % Dev SteinerCOMPREHENSIVE METABOLIC [id number] 00:00:00* Test Item Value Reference Range Interpretation Comme nts GLUCOSE (test code = 2217) 168 MG/DL BUN (test code = 2208) 27 MG/DL CREATININE (test code = 2214) 1.01 MG/DL eGFR AMER. (test cod e = 97495) 62 ML/MIN/1.73 eGFR NON- AMER. (test code = 80625) 54 ML/MIN/1.73 CALC BUN/CREAT (test code = [...] 1.2 RATIO BILIRUBIN, TOTAL (test code = 7) 0.3 MG/DL ALKALINE PHOSPHATASE (test code = 2204) 89 U/L AST (test code = 2218) 13 U/L ALT (test code = 2219) 13 U/L Dev SteinerLIPID [id number] 00:00:00* Test Item Value Reference Range Interpretation Comme nts CHOLESTEROL (test code = 2210) 139 MG/DL TRIGLYCERIDES (test code = 2232) 131 MG/DL HDL CHOLESTEROL (test code = 2220) 48 MG/DL CALC LDL CHOL (test code = 2237) 65 MG/DL RISK RATIO LDL/HDL (test cod e = 223) 1.35 RATIO Dev SteinerHEMOGLOBIN [id number] 00:00:00* Test Item Value Reference Range Interpretation Comme nts HEMOGLOBIN A1c (test code = 65852) 9.0 % Dev SteinerCOMPREHENSIVE METABOLIC [id number] 00:00:00* Test Item Value Reference Range Interpretation Comme nts GLUCOSE (test code = 2217) 168 MG/DL BUN (test code = 8) 27 MG/DL CREATININE (test code = 2214) 1.01 MG/DL eGFR AMER. (test cod e = ) 62 ML/MIN/1.73 eGFR NON- AMER. (test code = 04275) 54 ML/MIN/1.73 CALC BUN/CREAT (test code = [...] code = 2219) 13 U/L Dev SteinerLIPID [id number] 00:00:00* Test Item Value Reference Range Interpretation Comme nts CHOLESTEROL (test code = 2210) 139 MG/DL TRIGLYCERIDES (test code = 2232) 131 MG/DL HDL CHOLESTEROL (test code = 2220) 48 MG/DL CALC LDL CHOL (test code = 2237) 65 MG/DL RISK RATIO LDL/HDL (test cod e = 223) 1.35 RATIO Dev SteinerHEMOGLOBIN [id number] 00:00:00* Test Item Value Reference Range Interpretation Comme nts HEMOGLOBIN A1c (test code = 62211) 9.0 % Dev SteinerCOMPREHENSIVE METABOLIC [id number] 00:00:00* Test Item Value Reference Range Interpretation Comme nts GLUCOSE (test code = 2217) 168 MG/DL BUN (test code = 2208) 27 MG/DL CREATININE (test code = 2214) 1.01 MG/DL eGFR AMER. (test cod e = 99125) 62 ML/MIN/1.73 eGFR NON- AMER. (test code = 82415) 54 ML/MIN/1.73 CALC BUN/CREAT (test code = [...] code = 2219) 13 U/L Dev Georges AustinLIPID [id number] 00:00:00* Test Item Value Reference Range Interpretation Comme nts CHOLESTEROL (test code = 2210) 139 MG/DL TRIGLYCERIDES (test code = 2232) 131 MG/DL HDL CHOLESTEROL (test code = 2220) 48 MG/DL CALC LDL CHOL (test code = 2237) 65 MG/DL RISK RATIO LDL/HDL (test cod e = 2238) 1.35 RATIO Dev SteinerHEMOGLOBIN [id number] 00:00:00* Test Item Value Reference Range Interpretation Comme nts HEMOGLOBIN A1c (test code = 28196) 9.0 % Dev SteinerCOMPREHENSIVE METABOLIC [id number] 00:00:00* Test Item Value Reference Range Interpretation Comme nts GLUCOSE (test code = 2217) 168 MG/DL BUN (test code = 2208) 27 MG/DL CREATININE (test code = 2214) 1.01 MG/DL eGFR AMER. (test cod e = 61373) 62 ML/MIN/1.73 eGFR NON- AMER. (test code = 94894) 54 ML/MIN/1.73 CALC BUN/CREAT (test code = [...] code = 2219) 13 U/L Dev SteinerLIPID [id number] 00:00:00* Test Item Value Reference Range Interpretation Comme nts CHOLESTEROL (test code = 2210) 139 MG/DL TRIGLYCERIDES (test code = 2232) 131 MG/DL HDL CHOLESTEROL (test code = 2220) 48 MG/DL CALC LDL CHOL (test code = 2237) 65 MG/DL RISK RATIO LDL/HDL (test cod e = 2238) 1.35 RATIO Dev SteinerHEMOGLOBIN [id number] 00:00:00* Test Item Value Reference Range Interpretation Comme nts HEMOGLOBIN A1c (test code = 35238) 9.0 % Dev SteinerCOMPREHENSIVE METABOLIC [id number] 00:00:00* Test Item Value Reference Range Interpretation Comme nts GLUCOSE (test code = 2217) 168 MG/DL BUN (test code = 2208) 27 MG/DL CREATININE (test code = 2214) 1.01 MG/DL eGFR AMER. (test cod e = 42999) 62 ML/MIN/1.73 eGFR NON- AMER. (test code = 61043) 54 ML/MIN/1.73 CALC BUN/CREAT (test code = [...] code = 2219) 13 U/L Dev SteinerLIPID [id number] 00:00:00* Test Item Value Reference Range Interpretation Comme nts CHOLESTEROL (test code = 2210) 139 MG/DL TRIGLYCERIDES (test code = 2232) 131 MG/DL HDL CHOLESTEROL (test code = 2220) 48 MG/DL CALC LDL CHOL (test code = 2237) 65 MG/DL RISK RATIO LDL/HDL (test cod e = 2238) 1.35 RATIO Dev SteinerHEMOGLOBIN [id number] 00:00:00* Test Item Value Reference Range Interpretation Comme nts HEMOGLOBIN A1c (test code = 45336) 9.0 % Dev Georges AustinCOMPREHENSIVE METABOLIC [id number] 00:00:00* Test Item Value Reference Range Interpretation Comme nts GLUCOSE (test code = 2217) 168 MG/DL BUN (test code = 2208) 27 MG/DL CREATININE (test code = 2214) 1.01 MG/DL eGFR AMER. (test cod e = 39856) 62 ML/MIN/1.73 eGFR NON- AMER. (test code = 48257) 54 ML/MIN/1.73 CALC BUN/CREAT (test code = [...] code = 2219) 13 U/L Dev Georges AustinLIPID [id number] 00:00:00* Test Item Value Reference Range Interpretation Comme nts CHOLESTEROL (test code = 2210) 139 MG/DL TRIGLYCERIDES (test code = 2232) 131 MG/DL HDL CHOLESTEROL (test code = 2220) 48 MG/DL CALC LDL CHOL (test code = 2237) 65 MG/DL RISK RATIO LDL/HDL (test cod e = 2238) 1.35 RATIO Dev SteinerHEMOGLOBIN [id number] 00:00:00* Test Item Value Reference Range Interpretation Comme nts HEMOGLOBIN A1c (test code = 23463) 9.0 % Dev Georges AustinCOMPREHENSIVE METABOLIC [id number] 00:00:00* Test Item Value Reference Range Interpretation Comme nts GLUCOSE (test code = 2217) 168 MG/DL BUN (test code = 2208) 27 MG/DL CREATININE (test code = 2214) 1.01 MG/DL eGFR AMER. (test cod e = 03721) 62 ML/MIN/1.73 eGFR NON- AMER. (test code = 90269) 54 ML/MIN/1.73 CALC BUN/CREAT (test code = [...] (test code = 2219) 13 U/L Dev Steiner Consult Notes Date/Time Note Provider Source 2023-02-12 12:19:00 Associated Order(s): CONSULT CARDIOLOGY [facility] Cardiology Consult Note Patient: Latasha Elam Date [...] cholecystectomy performed about 2 weeks ago at [place]. Earlier today she was having intractable nausea [...] 01/19/2023 Surgeon: Heath Sorto DO; Location: [facility] No family history on file. [...] BID, Triny Roman MD, 50 mg at 02/12/23 2209 metoprolol tartrate (LOPRESSOR) tablet 25 mg, 25 mg, Oral, BID, rTiny Roman MD, 25 mg at 02/12/23 2210 insulin glargine (LANTUS U-100) injection 15 Units, [...] mg, 650 mg, Oral, Q6HPRN, Maria Luisa Hernández DO acetaminophen (TYLENOL) tablet 650 mg, 650 mg, Oral, Q6HPRN, Florencia Taylor MD aspirin EC tablet 81 mg, 81 mg, Oral, DAILY, Florencia Taylor MD, 81 mg at 02/12/23 0826 enoxaparin (LOVENOX) injection 30 mg, 30 mg, Subcutaneous, DAILY, Maria Luisa Hernández DO, 30 mg at 02/12/23 0825 pravastatin [...] discussed at length with the patient. Primary dowel sander operator: Dr. Matute Thank you for allowing us to participate in the care of Latasha Elam. If you have any questions or concerns please feel free to call our office at [phone]. I would be happy to be of further assistance for Latasha Elam wellbeing. Voice recognition software has been used to create portions of this document. An attempt to proofread has been made to minimize errors. Please do not hesitate to call with any questions. Jake Orourke MD Land Title Examiner, Division of Cardiology [facility] 2023-02-10 11:11:00 Associated Order(s): CONSULT ADULT PHYSICAL [...] Sorto DO; Location: [facility] Prior Living Situation: lives with [...] before and after session COMMUNICATION Primary Language: Bermudian Able to Verbalize needs: Yes Vision:good; no [...] in Minutes: 25 min Lizeth Pina PT Director Of Development And Marketing [place] PT License [id number] [facility] Health Rehab Services Dept [facility] [phone] (fax) Lizeth Fields PT [facility] - Health History and Physical Notes Date/Time Note Provider Source 2023-02-08 23:35:39 Formatting of this n ote is different from the original. [facility] Hospitalist Admission H&P Date of Service: 02/08/2023 CHIEF COMPLAINT: Intractable nausea and vomiting; hypokalemia HISTORY OF PRESENT ILLNESS Latasha Elam is a 82 year old female who presents with intractable nausea and vomiting that has been going on for the last couple of weeks. She had a laparoscopic cholecystectomy performed about 2 weeks ago at [place]. She had recovered and had gone home [...] OF ABDOMINAL ADHESIONS N/A 01/19/2023 Surgeon: Heath Sorot DO; Location: [facility] ALLERGIES Allergies Allergen Reactions Sulfa (Sulfonamide Antibiotics) [...] given high risk of morbidity and mortality. [place] HEAD OF VISUAL MERCHANDISING was verified during stay Florencia Taylor MD T [facility] - Health Notes Date/Time Note Provider Source [facility]25[facility]:00 [facility]2025-03-07 00:00:00 [facility]2025-03-05 00:00:00 [facility]2025-02-28 11:45:00 Images from the original note were not included. Venipuncture collection performed by clean technique on the left anticubitus. Total of 1 attempts were made. Slight pressure and a bandage/dressing were applied to the site(s). The patient experienced no complications. The following specimens were processed according to instructions and sent to [facility] laboratories per lab order on 06/29/24: LT BLUE SST 1 RED LAV PPT DK GREEN (LiHep) DK GREEN (SodH) BOOTH DK BLUE (K2) DK BLUE (S) ACD Blood Culture NIPT/NTD NCIAL SERVICES ASSISTANT [id number]:00 [facility]2024-10-03 00:00:00 [facility]2024-07-05 00:00:00 [facility]2024-06-21 13:45:00 Images from the original note were not included. Venipuncture collection performed by clean technique on the left anticubitus. Total of 1 attempts were made. Slight pressure and a bandage/dressing were applied to the site(s). The patient experienced no complications. The following specimens were processed according to instructions and sent to [facility] laboratories per lab order on 12/30/23: LT BLUE SST 1 RED LAV 1 PPT DK GREEN (LiHep) DK GREEN (SodH) BOOTH DK BLUE (K2) DK BLUE (S) ACD Blood Culture [facility]IPT[facility]NTD [id number] 12:04:12 Patient arrived ambulatory with daughter in law via private car c/o of left shoulder pain. Denies any falls, denies any injury to her knowledge. Left shoulder pain started 3 days ago. [facility] Blessing Nielson [facility]NC[facility] CenterKxlocu0090-31-15 00:00:00 [facility]2024-04-19 11:15:00 Images from the original note were not included. Venipuncture collection performed by clean technique on the left anticubitus. Total of 1 attempts were made. Slight pressure and a bandage/dressing were applied to the site(s). The patient experienced no complications. The following specimens were processed according to instructions and sent to [facility] laboratories per lab order on 10/28/2023 : LT BLUE SST 1 RED LAV PPT DK GREEN (LiHep) DK GREEN (SodH) BOOTH DK BLUE (K2) DK BLUE (S) ACD Blood Culture NIPT/NTD Patient has been identified by and name and was provided with cup, antiseptic towelette, and clean catch instructions. 4 urine specimen(s) sent. Unpreserved 3 Urine Culture 1 Aptima tube Other urine [facility]2024-03-28 12:00:00 Images from the original note were not included. Venipuncture collection performed by clean technique on the left anticubitus. Total of 1 attempts were made. Slight pressure and a bandage/dressing were applied to the site(s). The patient experienced no complications. The following specimens were processed according to instructions and sent to [facility] laboratories per lab order on 10/06/2023: LT BLUE SST 1 RED LAV PPT DK GREEN (LiHep) DK GREEN (SodH) BOOTH DK BLUE (K2) DK BLUE (S) ACD Blood Culture NIPT/NTD Patient has been identified by and name and was provided with cup, antiseptic towelette, and clean catch instructions. 2 urine specimen(s) sent. Unpreserved 1 Urine Culture 1 Aptima tube Other urine [facility] [id number] 10:00:00 Images from the original note were not included. Venipuncture collection performed by clean technique on the right anticubitus. Total of 1 attempts were made. Slight pressure and a bandage/dressing were applied to the site(s). The patient experienced no complications. The following specimens were processed according to instructions and sent to [facility] laboratories per lab order on 09/05/2023: LT BLUE SST 1 RED LAV PPT DK GREEN (LiHep) DK GREEN (SodH) BOOTH DK BLUE (K2) DK BLUE (S) ACD Blood Culture NIPT/NTD Patient has been identified by and name and was provided with cup, antiseptic towelette, and clean catch instructions. 3 urine specimen(s) sent. Unpreserved 2 Urine Culture 1 Aptima tube Other urine NCIAL SERVICES ASSISTANT [facility] [id number] 15:14:43 TRANSITIONAL CARE MANAGEMENT ASSESSMENT 02/15/2023 Latasha Elam [id number] Latasha Elam is a 82 year old /White female was admitted on 02/08/23 to [facility] SUR[facility]. She was discharged on 02/13/23 with discharge disposition of HR- Routine Discharge. Admitting Physician: Maria Luisa Hernández Discharge Diagnosis: COVID-19 No linked episodes TCM Kyo-lmjg-nn-face outreach documentation: Discharge Assessment Chart Assessed: 02/15/23 [...] home? : See comments (Per daughter will leaf size picker today) Do you know how to take [...] this time?: No Future Appointments: [id number] 12:23:23 Problem: Pain Goal: Control of pain [...] breakdown Outcome: Adequate for discharge Nancy Leyva [id number] 22:21:49 Problem: Pain Goal: Control of pain [...] breakdown Outcome: Progressing as expected Isa Sal [id number] 10:13:15 Problem: Pain Goal: Control of pain [...] Goal: Wound healing Outcome: Progressing as expected [facility]2023-08-05 01:41:37 Problem: Pain Goal: Control of pain [...] new skin breakdown Outcome: Progressing as expected [facility] Tim Aquino [facility] [id number] 15:11:48 Problem: Pain Goal: Control of pain [...] new skin breakdown Outcome: Progressing as expected [facility]2023-08-04 02:13:25 Problem: Pain Goal: Control of pain [...] new skin breakdown Outcome: Progressing as expected [facility] - [id number] 22:53:13 Problem: Pain Goal: Control of pain [...] of venous thromboembolism (Risk) 02/09/20232252 by Lynn Mesa RN Outcome: Progressing [...] new skin breakdown Outcome: Progressing as expected [facility]2023-08-02 22:10:30 Problem: Pain Goal: Control of pain [...] Absence of falls Outcome: Progressing as expected [facility]2023-08-02 04:48:32 Problem: Pain Goal: Control of pain [...] Absence of falls Outcome: Progressing as expected [facility]2023-08-01 19:15:33 Report given to TEE Baileywafer fab technician T Maria Isabel De Los Santos [facility] CenterQwugkr2002-15-13 12:05:35 Nausea/vomiting x1 month. Had gallbladder taken out shortly after. Still has some nausea when eating. Also complaining of cough-diagnosed with covid 2 days ago. Wants to know if she still has covid. Called her PCP Dr Gunter and was advised to come to ED. 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 METABOLIC PANEL (70897) LIPASE History provided by: Patient Vomiting Severity: [...] 01/19/2023 Surgeon: Heath Sorto DO; [facility] LYSIS OF ABDOMINAL ADHESIONS N/A 01/19/2023 Surgeon: Heath Sorto DO; Location: [facility] Review of Systems: Review of Systems Unable [...] 3 (*) <=2 LPF COMP. METABOLIC PANEL (39264) - Abnormal NA 142 135 - 145 [...] CBC WITH DIFF URINALYSIS COMP. METABOLIC PANEL (02437) LIPASE MAGNESIUM O2 Per Protocol Incentive Spirometer [...] [PD] ED Course User Index [PD] Samanta Arenas, ELKE Diagnosis/Impression as of 02/08/231944 COVID-19 virus infection [...] this a planned re-admission?: No Treatment Team: [facility] [[id number]] Is this patient COVID positive or a patient under investigation (PUI)?: No Electronically signed by: Samanta Arenas NP 02/08/231945 Associated attestation - Sumeet Marin MD - 02/08/2023 10:40 PM CDT Addendum I was personally available for consultation in the Emergency Department during this encounter and patient evaluation by ELKE Arenas. [facility]
[2025-02-24] MEDS ORDERED: ALBUTEROL 2.5 MG/3 ML NEB SOL ONE ×2 (15:23→19:04)
[2025-02-24] MEDS ORDERED: IPRATROPIUM BROM 0.5MG/2.5ML ONE ×2 (15:23→19:04)
[2025-02-24] MEDS ORDERED: METHYLPREDNISOLONE 40 MG INJ ONE (15:24)
[2025-02-24 15:39] LABS: Absolute Lymphocytes (CBC) 1.2 K/uL (0.7-4.9); Hematocrit 29.3 % (36.0-45.0); Hemoglobin 9.9 g/dL (12.0-15.0); MCH 31.1 pg (27.0-35.0); MCHC 33.7 g/dL (32.0-36.0); MCV 92.1 fL (80-100); MPV 8.1 fL (7.6-11.3); Nucleated RBC Absolute Count 0.0 (0-0); Nucleated Red Blood Cells % 0.0 % (0-0); RBC Red Blood Cell Count 3.18 M/uL (3.86-4.86); White Blood Count 17.90 thou/uL (4.3-10.9)
[2025-02-24 15:45] LABS: D-Dimer 2.515 FEUug/mL (0-0.500); PT Prothrombin Time 15.9 SECONDS (10-13.0); Protime INR 1.42
[2025-02-24 15:53] LABS: Influenza A Ag Negative; Influenza B Ag Negative; SARS-CoV-2 Antigen Rapid Res Negative (Negative)
--- NOTE | 2025-02-24 15:59 | RAD REPORT ---
EXAM: Chest Single View HISTORY: 84 years Female SOB;Cough COMPARISON: No prior exams FINDINGS: LUNGS/PLEURA: Linear opacities in the right mid lung may represent scarring. Like some chronic inters titial lung changes. No consolidative airspace disease. CARDIAC/MEDIASTINUM: Mild cardiomegaly UPPER ABDOMEN: No significant abnormality. BONES: No acute abnormality. LINES/TUBES/OTHER: N/A IMPRESSION: No consolidative airspace disease or edema. Suspected chronic changes. A chest CT is pending.
--- NOTE | 2025-02-24 16:11 | RAD REPORT ---
EXAM: Foot Left 3 View HISTORY: PAIN COMPARISON: None FINDINGS: Bones: No acute fracture identified. Alignment:No significant malalignment. Degenerative changes:Moderate degenerative changes are present the first MTP joint. Calcaneal spurs.. Other: n/a IMPRESSION: No acute osseous abnormality.
[2025-02-24 16:15] LABS: AST/SGOT 18 U/L (15-37); Albumin 2.6 g/dL (3.4-5.0); Albumin/Globulin Ratio 0.5 (1.1-1.8); Alkaline Phosphatase 88 U/L (45-117); Anion Gap 13.1 mEq/L (5.0-15.0); BUN Blood Urea Nitrogen 77 mg/dL (7-18); Bilirubin Indirect, Calculated 0.3 mg/dL (0.2-0.8); Globulin 5.5 g/dL (2.3-3.5); Glucose Level 222 mg/dL (74-106); Magnesium 2.6 mg/dL (1.6-2.4); NT PRO-BNP 4499 pg/mL (<450); Potassium 3.1 mEq/L (3.5-5.1); Troponin High Sensitivity 8.9 pg/mL (<58.9)
[2025-02-24 16:26] LABS: ALT/SGPT < 14 U/L (13-56)
--- NOTE | 2025-02-24 16:54 | RAD REPORT ---
EXAMINATION: Head Brain Wo Cont CLINICAL INDICATION: Female, 84 years old.WEAKNESS TECHNIQUE: Axial CT images from the skull base to the vertex without intravenous contrast. Coronal an d sagittal reformatted images were created from the data set. One or more of the following dose reduction techniques were used: Automated exposure control, adjustment of the mA and/or kV according to patient size, and/or iterative reconstruction. Unless otherwise specified, incidental findings do not require dedicated imaging follow-up. [id number]. COMPARISON: No prior exams FINDINGS: INTRACRANIAL: No acute intracranial hemorrhage. No acute large vascular territory infarct. No hydroce phalus. No mass effect or midline shift. Moderate chronic small vessel ischemic changes. VASCULATURE: No visualized abnormalities in the arteries or dural venous sinuses. SCALP/SKULL: No calvarial fracture identified. No acute soft tissue abnormality. SINUSES: Scattered areas of paranasal sinus thickening. No significant mastoid fluid. IMPRESSION: No acute intracranial abnormality.
--- NOTE | 2025-02-24 17:05 | RAD REPORT ---
EXAMINATION: Thorax Wo Con CLINICAL INDICATION: Female, 84 years old. Cough;SOB TECHNIQUE: Routine CT scan of the chest without intravenous contrast. One or more of the following do se reduction techniques were used: Automated exposure control, adjustment of the mA and/or kV according to patient size, and/or iterative reconstruction. Unless otherwise specified, incidental fi ndings do not require dedicated imaging follow-up. [id number]. COMPARISON: No prior exams FINDINGS: LOWER NECK: Visualized thyroid gland and soft tissues are normal. MEDIASTINUM AND LYMPH NODES: THORACIC AORTA: No thoracic aortic aneurysm. Small hiatal hernia. PULMONARY ARTERIES: Caliber is within normal limits. Unable to evaluate for pulmonary emboli due to e ither protocol or lack of contrast. HEART: Normal heart size. No coronary calcifications.No significant pericardial effusion. LUNGS AND AIRWAYS: Bilateral areas of scarring, architectural distortion, and subpleural reticulation . A few nonspecific groundglass opacities are present as well. Mild lower lung bronchiectasis. - Groundglass nodule in the left upper lobe measuring 10 mm on image 9, series 301.. 2017 Fleischner Society Recommendations for Lung Nodule(s): Follow-Up based on size (average of long- and short-axis diameters). Use most suspicious nodule for followup. Single GG lung nodule 6+ mm: Recommend a non-contrast chest CT at 6-12 months to confirm persistence, then additional non-contrast chest CTs every 2 years until 5 years. If nodule grows or develops solid component(s), consider resection. These guidelines do not apply to patients younger than 35 years, immunocompromised patients, and osiel ents with cancer. F/u in patients with significant comorbidities as clinically warranted. For lung cancer screening, adhere to Lung-RADS guidelines. Reference: Radiology. 2017 Jan; 284(1):228-243 No te: These guidelines do not apply to patients younger than 35 years, immunocompromised patients, and patients with cancer. F/u in patients with significant comorbidities as clinically warranted. For lung cancer screening, adhere to Lung-RADS guidelines. Reference: Radiology. 2017 Jan; 284(1):228-243 - 5mm solid nodule in the right middle lobe on image 22, series 301. No routine follow-up in low or h igh risk patients. PLEURA: No pleural effusions. No pneumothorax. OSSEOUS STRUCTURES AND CHEST WALL: No acute fracture. UPPER ABDOMEN:Cholecystectomy. Prominent but incompletely visualized common hepatic duct. Left adrena l nodule measuring at least 2.4 cm with Hounsfield units of 35. Adrenal Non-Incidental Indeterminate, CT W/O, No prior, Cancer not RCC/HCC, > 1 - < 4 cm: Noncontrast CT, Non-Incidental Indeterminate Adrenal Mass, No prior imaging, Cancer other than RCC/HC C, No other metastatic disease, > 1 - < 4 cm: Possible adenoma or metastasis. Recommend adrenal washout CT, chemical shift MRI or PET/CT (Consider PET/CT when morphological characteristics suggest metastasis). Reference: JACR 2017 Aug;14(8):2747-29 IMPRESSION: Chronic interstitial lung changes likely reflecting a combination of pulmonary fibrosis and possibly sequela of resolved pneumonia. No definite acute process identified. No convincing evidence of acute infectious process. No pulmonary edema. Pulmonary nodules as noted above. A 6-12 month follow-up could be obtained to reevaluate the groundgl ass nodule at the left lung apex.
[2025-02-24] MEDS ORDERED: CEFTRIAXONE 1000 MG/VIAL ONE (17:13)
[2025-02-24] MEDS ORDERED: AZITHROMYCIN 500 MG INJ IVPB ONE (17:14)
[2025-02-24] MEDS ORDERED: NA CHLORIDE 0.9% 500 ML ONE (17:14)
[2025-02-24] MEDS ORDERED: NA CHLORIDE 0.9% 100 ML ONE (17:14)
[2025-02-24 17:18] LABS: Sqamous Epithelial <5 /HPF (None Seen); Urine Crystals Unidentified Few /HPF (None Seen); Urine Culture Reflex Order NOT NEEDED; Urine Microscopic Reflex YN ORDER UMIC; Urine WBC Clump Rare /HPF (None Seen); Urine Yeast (Budding) Occasional /HPF (None Seen)
--- NOTE | 2025-02-24 17:21 | ER ---
Nurse's Notes [facility] Name: Latasha Black Age: 84 yrs Sex: Female : 1940 Arrival Date: 02/24/2025 Time: 14:52 Bed 7 Private MD: Diagnosis: Severe sepsis without septic shock;Pneumonia, unspecified organism;Unspecified kidney failure;Dyspnea Presentation: 02/24 15:08 Chief complaint: Patient states: cough and SOB x 2 weeks. Negative COVID test on ss Tuesday. Pt reports her SOB is getting worse and she is very tired. Coronavirus screen: Client denies travel out of the [place] in the last 14 days. Ebola Screen: Patient denies exposure to infectious person. Patient denies travel to an Ebola-affected area in the 21 days before illness onset. Initial Sepsis Screen: Does the patient meet any 2 criteria? No. Patient's initial sepsis screen is negative. Does the patient have a suspected source of infection? No. Patient's initial sepsis screen is negative. Risk Assessment: Do you want to hurt yourself or someone else? Patient reports no desire to harm self or others. Onset of symptoms was February 10, 2025. 15:08 Method Of Arrival: Wheelchair ss 15:08 Acuity: SESAR 3 Triage Assessment: 19:49 General: Appears in no apparent distress. uncomfortable, Behavior is calm, cooperative, cp4 appropriate for age. Historical: - Allergies: 15:09 Sulfa (Sulfonamide Antibiotics); ss - PMHx: 15:09 diabetes mellitus; kidney disease; ss - Immunization history:: Adult Immunizations up to date. - Infectious Disease History:: Denies. - Social history:: Smoking status: Patient denies any tobacco usage or history of. Screenin:33 [facility] ED Fall Risk Assessment (Adult) History of falling in the last 3 months, jl7 including since admission No falls in past 3 months (0 pts) Confusion or Disorientation No (0 pts) Intoxicated or Sedated No (0 pts) Impaired Gait No (0 pts) Mobility Assist Device Used No (0 pt) Altered Elimination No (0 pt) Score/Fall Risk Level 0 - 2 = Low Risk Oriented to surroundings, Maintained a safe environment. Abuse screen: Denies threats or abuse. Denies injuries from another. Nutritional screening: No deficits noted. Tuberculosis screening: No symptoms or risk factors identified. Assessment: 15:33 General: Appears in no apparent distress. uncomfortable, Behavior is calm, cooperative. jl7 Pain: Complains of pain in left foot. Neuro: [place]y Agitation-Sedation Scale (RASS): +1 Restless Level of Consciousness is awake, alert, obeys commands, Oriented to person, place, time, situation. Cardiovascular: Patient's skin is warm and dry. Respiratory: Reports cough that is dry, Airway is patent Respiratory effort is even, unlabored, Respiratory pattern is regular, symmetrical. Derm: Skin is pink, warm \T\ dry. 16:14 Reassessment: assisted to bedside commode, pt with SOB on exertion, pain to left foot, iw unable to bear weight, family at bedside, awaiting results. 17:34 Reassessment: Dr. Lord at bedside assessing pt for admission. jl7 18:40 Reassessment: Patient appears in no apparent distress at this time. No changes from jl7 previously documented assessment. Patient and/or family updated on plan of care and expected duration. Pain level reassessed. Patient is alert, oriented x 3, equal unlabored respirations, skin warm/dry/pink. Vital Signs: 15:08 BP 129 / 62; Pulse 75; Resp 22; Temp 98.8(O); Pulse Ox 92% on R/A; Weight 45.36 kg; ss Height 4 ft. 10 in. ; Pain 0/10; 15:51 BP 125 / 64; Pulse 75; Resp 15; Pulse Ox 100% ; jl7 17:34 BP 101 / 80; Pulse 83; Resp 15; Pulse Ox 96% 2 lpm ; jl7 18:40 BP 114 / 64; Pulse 86; Resp 19; Pulse Ox 95% on 2 lpm NC; jl7 19:16 BP 123 / 65; Pulse 86; Resp 19; Pulse Ox 100% ; hm5 20:28 BP 121 / 62; Pulse 86; Resp 18; Pulse Ox 100% ; cp4 15:08 Body Mass Index 20.90 (45.36 kg, 147.32 cm) ss 15:08 Pain Scale: Adult ss ED Course: 14:56 Patient arrived in ED. ts1 14:56 Kenan Haywood PA is PHCP. cp 14:56 Yg Garcia MD is Attending Physician. cp 15:06 Dane Will, TEE is Primary Nurse. jl7 15:09 Triage completed. ss 15:09 Arm band placed on right wrist. ss 15:18 EKG done, by ED staff, reviewed by Kenan HERNÁNDEZ. rk3 15:32 Initial lab(s) drawn, by fl, sent to lab. Inserted saline lock: 20 gauge in right jl7 antecubital area, using aseptic technique. Blood collected. Flushed with 10 mL NS. 15:33 Patient has correct armband on for positive identification. Provided Education on: use jl7 of call watts. Client placed on continuous cardiac and pulse oximetry monitoring. NIBP monitoring applied. quality assurance monitor body on. Pulse ox on. 15:55 XRAY Chest (1 view) In Process Unspecified. EDMS 15:55 XRAY Foot LEFT 3 View In Process Unspecified. EDMS 16:47 CT Head Brain wo Cont In Process Unspecified. EDMS 16:47 CT Chest Wo Con In Process Unspecified. EDMS 17:19 Ward Lord is Hospitalizing Provider. cp 18:39 No provider procedures requiring assistance completed. Patient admitted, IV remains in jl7 place. intact, No redness/swelling at site. Administered Medications: 15:42 Drug: DuoNeb Nebulize (2.5 mg - 0.5 mg) 3 ml Nebulizer once Route: Nebulizer; iw 18:40 Follow up: Response: No adverse reaction jl7 15:42 Drug: MethylPrednisoLONE IVP 80 mg IVP once Route: IVP; Site: right antecubital; iw 18:40 Follow up: Response: No adverse reaction jl7 16:52 CANCELLED (Physician Discretion): ns 0.9% 500 ml 500 ml IV at 1 bolus once; to be given cp as a bolus over 60 minutes 17:24 Drug: NS 0.9% IV 250 ml IV at calculated rate once; to be given as a bolus over 60 jl7 minutes Route: IV; Rate: calculated rate; Site: right antecubital; 18:15 Follow up: Response: No adverse reaction; IV Status: Completed infusion; IV Intake: jl7 250ml 17:25 Drug: Rocephin IV 1 grams IV at calculated rate once; Given slow IV push per pharmacy jl7 instructions Route: IV; Rate: calculated rate; Site: right antecubital; 17:40 Follow up: Response: No adverse reaction; IV Status: Completed infusion jl7 17:40 Drug: Zithromax IVPB 500 mg IVPB once over 1 hrs; mix in 250 mL NS Route: IVPB; Infused jl7 Over: 1 hrs; Site: right antecubital; 18:40 Follow up: Response: No adverse reaction; IV Status: Completed infusion; IV Intake: jl7 250ml Medication: 15:33 VIS not applicable for this client. jl7 Intake: 18:15 IV: 250ml; Total: 250ml. jl7 18:40 IV: 250ml; Total: 500ml. jl7 Outcome: 17:20 Decision to Hospitalize by Provider. cp 20:29 Admitted to Med/surg accompanied by tech, via stretcher, room 205, with chart, cp4 20:29 Condition: stable 20:29 Instructed on the need for admit, 20:30 Patient left the ED. cp4 Signatures: Dispatcher [employer] EDNidhi Baez RN RN Jessica Borja RN RN ss Kenan Haywood, PA-C PA-C Dane Martin RN RN jl7 Kenya Palacios PAS PAS ts1 Berna Jones cp4 Jeremías Neff rk3 Dahlia Kamara, TEE RN hm5 Corrections: (The following items were deleted from the chart) 15:10 15:09 Allergies: No Known Allergies; [facility]
--- NOTE | 2025-02-24 17:21 | EDPHYS ---
Physician Documentation [facility] Name: Latasha Black Age: 84 yrs Sex: Female : 1940 Arrival Date: 02/24/2025 Time: 14:52 Bed 7 Private MD: ED Physician Yg Garcia HPI: 02/24 15:20 This 84 yrs old Female presents to ER via Wheelchair with complaints of cp General Weakness, Cough, Blood Pressure Problem. 15:20 The patient or guardian reports cough, with no sputum, difficulty breathing. Onset: The cp symptoms/episode began/occurred 2 week(s) ago. Associated signs and symptoms: Pertinent positives: general weakness, Pertinent negatives: chest pain, diarrhea, fever, vomiting. Severity of symptoms: in the emergency department the symptoms are unchanged despite home interventions. Historical: - Allergies: 15:09 Sulfa (Sulfonamide Antibiotics); ss - PMHx: 15:09 diabetes mellitus; kidney disease; ss - Immunization history:: Adult Immunizations up to date. - Infectious Disease History:: Denies. - Social history:: Smoking status: Patient denies any tobacco usage or history of. ROS: 15:25 Constitutional: Negative for body aches, chills, fever, poor PO intake, cp 15:25 Cardiovascular: Negative for chest pain, cp 15:25 Eyes: Negative for injury, pain, redness, and discharge, cp 15:25 ENT: Negative for drainage from ear(s), ear pain, sore throat, difficulty swallowing, difficulty handling secretions, 15:25 Respiratory: Positive for cough, shortness of breath, 15:25 Abdomen/GI: Negative for abdominal pain, vomiting, diarrhea, constipation, black/tarry stool, rectal bleeding, 15:25 : Negative for urinary symptoms, difficulty urinating, 15:25 Skin: Negative for cellulitis, rash, 15:25 Neuro: Positive for weakness, Negative for altered mental status, syncope, 15:25 All other systems are negative, Exam: 15:23 ECG was reviewed by the Attending Physician. cp 15:30 Constitutional: The patient appears in no acute distress, alert, awake, cp non-diaphoretic, non-toxic, well developed, well nourished, uncomfortable, 15:30 Head/Face: Normocephalic, atraumatic. cp 15:30 Eyes: Periorbital structures: appear normal, Pupils: equal, round, and reactive to light and accomodation, Extraocular movements: intact throughout, Conjunctiva: normal, no exudate, no injection, Sclera: no appreciated abnormality, Lids and lashes: appear normal, bilaterally, 15:30 ENT: External ear(s): are unremarkable, Nose: is normal, Mouth: Lips: moist, Oral mucosa: moist, Posterior pharynx: Airway: no evidence of obstruction, patent, erythema, is not appreciated, exudate, is not appreciated, 15:30 Neck: ROM/movement: is normal, is supple, without pain, no range of motions limitations, no meningismus, 15:30 Chest/axilla: Inspection: normal, 15:30 Cardiovascular: Rate: normal, Rhythm: regular, Edema: ankle edema, that is very mild, JVD: is not appreciated, 15:30 Respiratory: the patient does not display signs of respiratory distress, Respirations: labored breathing, that is mild, Breath sounds: bronchial sounds, that are mild, are heard diffusely, decreased breath sounds, that are mild, throughout, rhonchi, are not appreciated, stridor, is not appreciated, 15:30 Abdomen/GI: Inspection: abdomen appears normal, Palpation: abdomen is soft and non-tender, in all quadrants, 15:30 Back: pain, is absent, ROM is normal, 15:30 Skin: cellulitis, is not appreciated, no rash present. 15:30 Neuro: Orientation: to person, place \T\ time. Mentation: is normal, Motor: moves all fours, strength is normal, Sensation: is normal, Vital Signs: 15:08 BP 129 / 62; Pulse 75; Resp 22; Temp 98.8(O); Pulse Ox 92% on R/A; Weight 45.36 kg; ss Height 4 ft. 10 in. ; Pain 0/10; 15:51 BP 125 / 64; Pulse 75; Resp 15; Pulse Ox 100% ; jl7 17:34 BP 101 / 80; Pulse 83; Resp 15; Pulse Ox 96% 2 lpm ; jl7 18:40 BP 114 / 64; Pulse 86; Resp 19; Pulse Ox 95% on 2 lpm NC; jl7 19:16 BP 123 / 65; Pulse 86; Resp 19; Pulse Ox 100% ; hm5 20:28 BP 121 / 62; Pulse 86; Resp 18; Pulse Ox 100% ; cp4 15:08 Body Mass Index 20.90 (45.36 kg, 147.32 cm) ss 15:08 Pain Scale: Adult ss MDM: 15:01 Medical Screening Exam initiated cp 16:00 Differential diagnosis: bronchitis, flu, pneumonia, sepsis, uti, respiratory failure. cp 17:00 Post IV fluid administration reassessment for Sepsis: Client not prescribed the 30 cp mL/kg IVF due to: Amount of IVF prescribed: 250 concern for volume overload with elevated bnp, very mild edema Focused Assessment performed: February 24, 2025 at 17:00 Heart: regular rate Current vital signs reviewed: Yes. Neuro: alert times 3, no change Respiratory: Respiratory exam improved from previous exam. Other: IV Rocephin and Zithromax ordered. 17:25 Data reviewed: vital signs, nurses notes, lab test result(s), EKG, radiologic studies, cp CT scan, plain films, I have discussed the patient's presentation/case with the attending Emergency Department Physician; and as a result, I will admit patient. 17:25 Data interpreted: campus monitor: rate is 85 beats/min, Pulse oximetry: on 2L(s) per cp nasal canula, is 95 %. Interpretation: acceptable, Plan: O2 by Mask applied. Management of patient was discussed with the following: Hospitalist: DR Lord who will admit after discussion. I considered the following discharge prescriptions or medication management in the emergency department Medications were administered in the Emergency Department. See MAR. Independent interpretation of the following test(s) in the Emergency Department EKG: See my EKG interpretation above. Care significantly affected by the following chronic conditions: Diabetes, Chronic Kidney Disease. Counseling: I had a detailed discussion with the patient and/or guardian regarding the historical points, exam findings, and any diagnostic results supporting the discharge/admit diagnosis, lab results, radiology results, the need for further work-up and treatment in the hospital. Response to treatment: the patient's symptoms have mildly improved after treatment. 02/24 15:16 Order name: Basic Metabolic Panel; Complete Time: 16:27 cp 02/24 15:16 Order name: CBC with Diff; Complete Time: 16:26 cp 02/24 16:26 Interpretation: Normal except: WBC 17.90; RBC 3.18; HGB 9.9; HCT 29.3; PAM% 83.1; LYM% cp 6.6; NEUT A 14.9; MNA 1.7. 02/24 15:16 Order name: LFT's; Complete Time: 16:27 cp 02/24 15:16 Order name: Magnesium; Complete Time: 16:27 cp 02/24 15:16 Order name: NT PRO-BNP; Complete Time: 16:27 cp 02/24 16:28 Interpretation: Reviewed. 02/24 15:16 Order name: PT-INR; Complete Time: 16:26 cp 02/24 15:16 Order name: Troponin HS; Complete Time: 16:27 cp 02/24 15:16 Order name: COVID-19 Ag + Flu A+B Ag; Complete Time: 16:26 cp 02/24 15:16 Order name: D-Dimer; Complete Time: 16:26 cp 02/24 15:20 Order name: CK; Complete Time: 16:26 cp 02/24 16:30 Order name: Blood Culture Adult (2) cp 02/24 16:30 Order name: Lactate w/ 2H reflex if indic. cp 02/24 16:52 Order name: UA Rfx Luis Cult if indicated; Complete Time: 17:28 cp 02/24 17:57 Order name: Basic Metabolic Panel EDMS 02/24 17:57 Order name: Basic Metabolic Panel EDMS 02/24 17:57 Order name: CBC with Automated Diff EDMS 02/24 17:57 Order name: CBC with Automated Diff EDMS 02/24 17:57 Order name: Magnesium EDMS 02/24 17:57 Order name: Magnesium EDMS 02/24 17:57 Order name: Phosphorus EDMS 02/24 17:57 Order name: Phosphorus EDMS 02/24 15:16 Order name: XRAY Chest (1 view); Complete Time: 16:26 cp 02/24 15:16 Order name: XRAY Foot LEFT 3 View; Complete Time: 16:26 cp 02/24 15:44 Order name: CT Head Brain wo Cont; Complete Time: 17:09 cp 02/24 16:30 Order name: CT Chest Wo Con; Complete Time: 17:09 cp 02/24 17:11 Interpretation: Report reviewed. cp 02/24 17:53 Order name: CONS Physician Consult EDMS 08/17 15:16 Order name: Cardiac monitoring; Complete Time: 15:18 cp 02/24 15:16 Order name: EKG - Nurse/Tech; Complete Time: 15:18 cp 02/24 15:16 Order name: IV Saline Lock; Complete Time: 15:32 cp 02/24 15:16 Order name: Labs collected and sent; Complete Time: 15:32 cp 02/24 15:16 Order name: O2 Per Protocol; Complete Time: 15:32 cp 02/24 15:16 Order name: O2 Sat Monitoring; Complete Time: 15:32 cp 02/24 16:30 Order name: Accucheck; Complete Time: 16:38 cp 02/24 16:30 Order name: IV Saline Lock - Large Bore; Complete Time: 16:38 cp 02/24 16:30 Order name: Vital Signs; Complete Time: 16:38 cp EC:23 Rate is 72 beats/min. Rhythm is regular. MS interval is normal. QRS interval is normal. cp QT interval is normal. T waves are Inverted in lead aVR. Interpreted by me. Reviewed by me. Administered Medications: 15:42 Drug: DuoNeb Nebulize (2.5 mg - 0.5 mg) 3 ml Nebulizer once Route: Nebulizer; iw 18:40 Follow up: Response: No adverse reaction jl7 15:42 Drug: MethylPrednisoLONE IVP 80 mg IVP once Route: IVP; Site: right antecubital; iw 18:40 Follow up: Response: No adverse reaction jl7 16:52 CANCELLED (Physician Discretion): ns 0.9% 500 ml 500 ml IV at 1 bolus once; to be given cp as a bolus over 60 minutes 17:24 Drug: NS 0.9% IV 250 ml IV at calculated rate once; to be given as a bolus over 60 jl7 minutes Route: IV; Rate: calculated rate; Site: right antecubital; 18:15 Follow up: Response: No adverse reaction; IV Status: Completed infusion; IV Intake: jl7 250ml 17:25 Drug: Rocephin IV 1 grams IV at calculated rate once; Given slow IV push per pharmacy jl7 instructions Route: IV; Rate: calculated rate; Site: right antecubital; 17:40 Follow up: Response: No adverse reaction; IV Status: Completed infusion jl7 17:40 Drug: Zithromax IVPB 500 mg IVPB once over 1 hrs; mix in 250 mL NS Route: IVPB; Infused jl7 Over: 1 hrs; Site: right antecubital; 18:40 Follow up: Response: No adverse reaction; IV Status: Completed infusion; IV Intake: jl7 250ml Disposition Summary: 02/24/25 17:20 Hospitalization Ordered Notes: Hospitalization Status: Inpatient Admission cp Provider: Ward Lord cp [facility] cp Condition: Stable cp Problem: new cp Symptoms: have improved cp Bed/Room Type: Standard cp Room Assignment: 205(02/24/25 19:13) kmf Diagnosis - Severe sepsis without septic shock cp - Pneumonia, unspecified organism cp - Unspecified kidney failure cp - Dyspnea cp Forms: - Medication Reconciliation Form cp - SBAR form cp - Leadership Thank You Letter cp Critical care time excluding procedures: 02/25 20:15 Critical care time: Bedside Care: 7 minutes, Consultation: 30 minutes, Family cp Intervention: 8 minutes. Total time: 45 minutes Addendum: 03/02/2025 07:18 Co-signature as Attending Physician, Yg Garcia MD I reviewed the patient's care r n provided by the Advanced Practice Provider and agree with the diagnosis and treatment plan. Signatures: Dispatcher [employer] Nidhi Zhong RN RN iw Nieto, Roman, MD MD rn Blanchard, Shelby, RN RN ss Page, Corey, PA-C PA-C Dane Martin RN RN jl7 Nathaly Huffman [facility] Corrections: (The following items were deleted from the chart) 02/24 15:10 15:09 Allergies: No Known Allergies; ss 15:17 15:17 BASIC METABOLIC PANEL+C.LAB.BRZ ordered. EDMS EDMS 15:17 15:17 CBC+H.LAB.BRZ ordered. EDMS EDMS 15:17 15:17 HEPATIC FUNCTION+C.LAB.BRZ ordered. EDMS EDMS 15:17 15:17 MAGNESIUM+C.LAB.BRZ ordered. EDMS EDMS 15:17 15:17 PROBNP+C.LAB.BRZ ordered. EDMS EDMS 15:17 15:17 PROTIME (+INR)+COAG.LAB.BRZ ordered. EDMS EDMS 15:17 15:17 Troponin High Sensitivity+C.LAB.BRZ ordered. EDMS EDMS 15:17 15:17 COVID-19 Ag + Flu A+B Ag+I.LAB.BRZ ordered. EDMS EDMS 15:17 15:17 D-DIMER+COAG.LAB.BRZ ordered. EDMS EDMS 15:17 15:17 Chest Single View+RAD.RAD.BRZ ordered. EDMS EDMS 15:17 15:17 Foot Left 3 View+RAD.RAD.BRZ ordered. EDMS EDMS 15:20 15:20 CREATINE PHOSPHOKINASE+C.LAB.BRZ ordered. EDMS EDMS 16:33 15:44 Chest For PE Angio+CT.RAD.BRZ ordered. EDMS EDMS 16:52 16:52 NS 0.9% IV 500 ml 500 ml IV at 1 bolus once; to be given as a bolus over 60 cp minutes ordered. cp 19:13 17:20 cp kmf
[2025-02-24] MEDS ORDERED: ACETAMINOPHEN 500 MG TAB PO PRN (17:51)
[2025-02-24] MEDS ORDERED: GLUCAGON 1 MG/VIAL IM PRN (17:55)
[2025-02-24] MEDS ORDERED: D10W 125 ML IV PRN (17:55)
--- NOTE | 2025-02-24 18:05 | P.HP ---
Certification for Inpatient Patient admitted to: Inpatient With expected LOS: >2 Midnights Practitioner: I am a practitioner with admitting privileges, knowledge of patient current condition, hospital course, and medical plan of care. Services: Services provided to patient in accordance with Admission requirements found in Title 42 Section 412.3 of the Code of Federal Regulations Patient History Date of Service: 02/24/25 Reason for admission: Shortness of breath of 2 weeks duration History of Present Illness: 10-year-old woman with a history of hypertension, diabetes, presented to the emergency department with a complaint progressive shortness of breath of 2 days duration. Symptoms associated with low-grade fever, wheezing, and cough productive of clear sputum. Patient reported nasal congestion and runny nose preceding the shortness of breath. She reported multiple bouts of COVID-19 pneumonia and had to be hospitalized for 9 days and was requiring oxygen therapy during the hospitalization, however she was discharged home without oxygen. In the ER, chest CT abdomen pelvis that showed ground glass opacities, bronchiectasis, areas of scarring and architectural distortion suggestive of pulmonary fibrosis and interstitial lung disease, and pulmonary nodules. Patient states that she has never been told she has any lung disease until after COVID infection when she was told she has residual lung disease. Blood work shows significant leukocytosis however patient does not meet criteria for sepsis. Patient placed on 2 L oxygen by nasal cannula and saturating around 95%. Serum creatinine elevated, BNP elevated troponin negative. Patient was hospitalized for cardiac management. Home medications list reviewed: Yes - Past Medical/Surgical History Diabetic: Yes -: Hypertension -: Diabetes mellitus type 2 - Family History Mother -: Heart disease - Social History Smoking Status: Never smoker Alcohol use: No CD- Drugs: No Place of Residence: Home Review of Systems Other: Patient denied any chest pain. She denied any nausea vomiting or diarrhea. She denied any abdominal pain No reported confusion. Family reported patient had low-grade fever up to 100 F. Except as documented, all other systems reviewed and negative. Physical Examination - Physical Exam General: Alert, In no apparent distress, Oriented x3 HEENT: Atraumatic, PERRLA, Mucous membr. moist/pink, EOMI, Sclerae nonicteric Neck: Supple, JVD not distended Respiratory: Diminished, Crackles/rales (Bilateral), Expiratory wheezes (Bilateral) Cardiovascular: No edema, Regular rate/rhythm, Normal S1 S2, No murmurs Capillary refill: <2 Seconds Gastrointestinal: Normal bowel sounds, Soft and benign, Non-distended, No tenderness Musculoskeletal: No swelling, No tenderness Integumentary: No rashes, No cyanosis Neurological: Normal speech, Normal strength at 5/5 x4 extr, Cranial nerves 3-12 intact Lymphatics: No axilla or inguinal lymphadenopathy - Studies Laboratory Data (last 24 hrs) 02/24/25 02/24/25 02/24/25 15:28 15:28 15:28 WBC 17.90 H Hgb 9.9 L Hct 29.3 L Plt Count 335 PT 15.9 H INR 1.42 Sodium 142 Potassium 3.1 L BUN 77 H Creatinine 2.32 H Glucose 222 H Magnesium 2.6 H Total Bilirubin 0.5 AST 18 ALT < 14 Alkaline Phosphatase 88 Assessment and Plan - Plan Diagnosis: Pneumonia Leukocytosis Chronic lung disease Pulmonary nodules Adrenal nodule Essential hypertension Diabetes mellitus type 2 Acute on chronic kidney disease stage III Hypokalemia Plan: Pneumonia Leukocytosis Chronic interstitial lung disease Pulmonary nodules Admit patient to the medical floor. Start IV Levaquin for Pseudomonas coverage Scheduled bronchodilators-albuterol and ipratropium Will hold steroid for now given leukocytosis and possible pneumonia Pulmonary consult Chest physiotherapy. Patient has been informed of the pulmonary nodules as noted in the CT chest done here and the need for outpatient follow-up with PET scan to rule out malignancy. A copy of the CT scan report printed and given to patient and his family. Monitor CBC to follow leukocytosis. Supplemental oxygen as needed. Acute on chronic kidney disease stage III Hypokalemia Cautious IV hydration with normal saline Replace potassium as needed Monitor renal function. Monitor electrolytes and replace as needed. Essential hypertension Patient is on multiple antihypertensives including hydralazine, bisoprolol/HCTZ, valsartan and amlodipine. Will continue hydralazine, amlodipine bisoprolol for now and hold HCTZ and valsartan given NIESHA. Hydralazine IV as needed for BP spikes. Diabetes mellitus type 2 Will manage blood sugar inpatient with insulin sliding scale and continue home dose Lantus insulin 5 units in the evenings. Adrenal nodule Follow-up as outpatient DVT prophylaxis: Heparin SQ Advanced directive: Full harry - Advance Directives Does patient have a Living Will: No Does patient have a Durable POA for Healthcare: No
[2025-02-24] MEDS: IPRATROPIUM BROM 0.5MG/2.5ML NEB SCH (19:06)
[2025-02-24] MEDS: ALBUTEROL 2.5 MG/3 ML NEB SOL NEB SCH (19:06)
[2025-02-24] MEDS: HYDRALAZINE HCL 25 MG TABLET PO SCH (20:56)
[2025-02-24] MEDS: INSULIN REGULAR (HUMAN) 100 UNIT/ML SQ SCH (20:57)
[2025-02-24] MEDS: NA CHLORIDE 0.9% 1,000 ML IV SCH (20:57)
[2025-02-24] MEDS: Levofloxacin 750mg IV 750 MG/150 ML BAG IV ONE (20:57)
[2025-02-24] MEDS: GUAIFENESIN 600 MG SA TAB PO SCH (20:57)
[2025-02-24] MEDS: INSULIN GLARGINE 100 UNIT/ML SQ SCH (20:57)
[2025-02-25] MEDS: HEPARIN 5000 UNIT/ML 1 ML VIAL SQ SCH (01:06)
[2025-02-25] MEDS: IPRATROPIUM BROM 0.5MG/2.5ML NEB SCH (01:10)
[2025-02-25 04:33] LABS: Absolute Lymphocytes (CBC) 0.6 K/uL (0.7-4.9); Hematocrit 29.6 % (36.0-45.0); Hemoglobin 9.9 g/dL (12.0-15.0); MCH 30.8 pg (27.0-35.0); MCHC 33.3 g/dL (32.0-36.0); MCV 92.4 fL (80-100); MPV 8.2 fL (7.6-11.3); Nucleated RBC Absolute Count 0.0 (0-0); Nucleated Red Blood Cells % 0.0 % (0-0); RBC Red Blood Cell Count 3.20 M/uL (3.86-4.86); White Blood Count 14.60 thou/uL (4.3-10.9)
[2025-02-25 05:07] LABS: Anion Gap 12.7 mEq/L (5.0-15.0); BUN Blood Urea Nitrogen 63.0 mg/dL (7-18); Glucose Level 172.0 mg/dL (74-106); Magnesium 2.6 mg/dL (1.6-2.4); Potassium 2.7 mEq/L (3.5-5.1)
[2025-02-25] MEDS: KCL 20 MEQ/100 mL IVPB 20 MEQ/100 ML BAG IV SCH (05:53)
[2025-02-25 09:00] LABS: Blood Morphology Comment NOT SEEN (NOT SEEN); White Blood Cell Scan OK (OK)
[2025-02-25] MEDS: BISOPROLOL 5 MG TABLET PO SCH (09:22)
[2025-02-25] MEDS: AMLODIPINE 5 MG TAB PO SCH (09:22)
--- NOTE | 2025-02-25 12:59 | P.CNS ---
Date of Consult: 02/25/25 Reason for Consult: Pneumonia Chief Complaint: Shortness of breath of 2 weeks duration History of Present Illness: Patient is a pleasant 84-year-old lady has been sick for about 2 weeks currently and complaining of persistent coughing spells apparently she has had COVID 3 times before with some scarring denies any fever chills or chest pain Allergies SULFA DRUGS Adverse Reaction (Uncoded 02/24/25 20:53) Itching/Hives/Rash Home Medications: Amlodipine [Norvasc] 10 mg PO DAILY 02/24/25 Bisoprolol/Hydrochlorothiazide [Bisoprolol-Hctz 10-6.25 mg Tab] 1 tab PO DAILY 02/24/25 Clonidine HCl [Catapres*] 0.3 mg PO BID 02/24/25 Hydralazine [Apresoline*] 50 mg PO BID 02/24/25 Na Bicarb Tab [Sodium Bicarb 325 MG Tab*] 1 tab PO BID 02/24/25 Pravastatin [Pravachol] 40 mg PO BEDTIME 02/24/25 Valsartan 1 tab PO BID 02/24/25 - Past Medical/Surgical History Diabetic: Yes -: Hypertension -: Diabetes mellitus type 2 -: KIDNEY DISEASE -: TONSILLITIS -: CHOLECYSTECTOMY -: LEFT KNEE SURGERY -: HYSTERECTOMY - Family History Mother Medical History: Heart disease - Social History Alcohol use: No CD- Drugs: No Place of Residence: Home Review of Systems 10-point ROS is otherwise unremarkable General: Weakness Respiratory: Cough Physical Examination Temp Pulse Resp BP Pulse Ox 97.9 F 95 H 16 147/71 H 94 02/25/25 12:00 02/25/25 12:00 02/25/25 12:00 02/25/25 12:00 02/25/25 12:00 General: Alert HEENT: Atraumatic Neck: Supple Respiratory: Clear to auscultation bilaterally, Crackles/rales Cardiovascular: No edema, Regular rate/rhythm, Normal S1 S2 Laboratory Data (last 24 hrs) 02/24/25 02/24/25 02/24/25 15:28 15:28 15:28 WBC 17.90 H Hgb 9.9 L Hct 29.3 L Plt Count 335 PT 15.9 H INR 1.42 Sodium 142 Potassium 3.1 L BUN 77 H Creatinine 2.32 H Glucose 222 H Magnesium 2.6 H Total Bilirubin 0.5 AST 18 ALT < 14 Alkaline Phosphatase 88 - Problems (1) Acute lung injury Current Visit: Yes Status: Acute Plan: Patient is 84 years of age she has prior history of COVID x 3 admitted with 2- week history of cough congestion some shortness of breath she continues to remain little hypoxic got bilateral interstitial lung disease patient's white count is mildly elevated has renal insufficiency otherwise lives with her granddaughter and relatives vital signs are stable add some prednisone changed to p.o. levofloxacin discharge planning May need oxygen at 1 dose of Lasix check an echocardiogram BNP is over 4-1/2 thousand
[2025-02-25] MEDS: FUROSEMIDE 40 MG/4 ML VIAL IV SCH (13:47)
[2025-02-25] MEDS: predniSONE 20 MG TAB PO SCH (13:47)
[2025-02-25] MEDS: ONDANSETRON 4 MG/2 ML VIAL IV PRN (13:47)
[2025-02-25] MEDS: ENSURE CLEAR 200 ML CAN PO SCH (20:26)
[2025-02-26 04:46] LABS: Absolute Lymphocytes (CBC) 0.9 K/uL (0.7-4.9); Hematocrit 30.8 % (36.0-45.0); Hemoglobin 10.5 g/dL (12.0-15.0); MCH 31.3 pg (27.0-35.0); MCHC 34.1 g/dL (32.0-36.0); MCV 92.0 fL (80-100); MPV 8.0 fL (7.6-11.3); Nucleated RBC Absolute Count 0.0 (0-0); Nucleated Red Blood Cells % 0.0 % (0-0); RBC Red Blood Cell Count 3.35 M/uL (3.86-4.86); White Blood Count 17.30 thou/uL (4.3-10.9)
[2025-02-26 05:06] LABS: Anion Gap 10.5 mEq/L (5.0-15.0); BUN Blood Urea Nitrogen 49.0 mg/dL (7-18); Glucose Level 171.0 mg/dL (74-106); Magnesium 2.1 mg/dL (1.6-2.4); Potassium 3.5 mEq/L (3.5-5.1)
--- NOTE | 2025-02-26 07:37 | RAD REPORT ---
Procedure: Chest Single View HISTORY: Cough COMPARISON: February 24, 2025 FINDINGS: Mild to moderate bilateral patchy lung opacities unchanged. No significant pleural effusion noted. The heart is mildly enlarged. IMPRESSION: Mild bilateral pulmonary opacities unchanged probably pneumonia
[2025-02-26] MEDS: POTASSIUM 25 MEQ EFFERV TAB PO ONE (07:51)
[2025-02-26] MEDS: levoFLOXacin 500 MG TAB PO SCH (07:52)
--- NOTE | 2025-02-26 15:19 | ECHO ---
HEIGHT: 5 ft 9 in WEIGHT: 101 lb 0 oz DATE OF STUDY: 02/26/[address]: Luis Alberto Grewal MD 2-DIMENSIONAL: YES M.MODE: YES DOPPLER: YES COLOR FLOW: YES TDS: NO PORTABLE: YES DEFINITY: NO BUBBLE STUDY: NO DIAGNOSIS: HYPOXEMIA CARDIAC HISTORY: CATHERIZATION: SURGERY: PROSTHETIC VALVE: PACEMAKER: MEASUREMENTS (cm) DIASTOLIC (NORMALS) SYSTOLIC (NORMALS) IVSd 1.0 (0.6-1.2) LA Diam 2.3 (1.9-4.0) LVEF 55-60% LVIDd 2.7 (3.5-5.7) LVIDs 2.0 (2.0-3.5) %FS 26% LVPWd 1.1 (0.6-1.2) Ao Diam 2.3 (2.0-3.7) 2 DIMENSIONAL ASSESSMENT: RIGHT ATRIUM: NORMAL LEFT ATRIUM: NORMAL RIGHT VENTRICLE: NORMAL LEFT VENTRICLE: NORMAL TRICUSPID VALVE: MILD TRICUSPID REGURGITATION MITRAL VALVE: MILD MITRAL REGURGITATION PULMONIC VALVE: NORMAL AORTIC VALVE: NORMAL PERICARDIAL EFFUSION: NONE AORTIC ROOT: NORMAL LEFT VENTRICULAR WALL MOTION: NORMAL. DOPPLER/COLOR FLOW: GRADE I DIASTOLIC DYSFUNCTION. COMMENTS: 1. NORMAL LEFT VENTRICULAR SYSTOLIC FUNCTION, EJECTION FRACTION 55-60%, NORMAL WALL MOTION. 2. GRADE I DIASTOLIC DYSFUNCTION. 3. NORMAL FILLING PRESSURE (RIGHT ATRIAL PRESSURE 0-5mmHg) 4. SEVERE PULMONARY HYPERTENSION (RIGHT VENTRICULAR SYSTOLIC PRESSURE GREATER THAN 60mmHg). TECHNOLOGIST: LARS MARKS
[2025-02-26] MEDS ORDERED: Levofloxacin500mg IV 500 MG/100 ML BAG IV SCH (18:00)
--- NOTE | 2025-02-27 12:05 | P.PN ---
Subjective Date of Service: 02/27/25 Chief Complaint: Shortness of breath of 2 weeks duration Subjective: Improving (Patient is improving doing much better no new complaint) Review of Systems General: Weakness Respiratory: Shortness of Breath Physical Examination - Vital Signs Temperature: 98.1 F Blood Pressure: 144/79 Pulse: 102 Respirations: 20 Pulse Ox (%): 94 - Physical Exam General: Alert, Oriented x3 Respiratory: Clear to auscultation bilaterally Cardiovascular: No edema, Regular rate/rhythm Assessment And Plan - Current Problems (Diagnosis) (1) Acute lung injury Current Visit: Yes Status: Acute Plan: Patient admitted with acute lung injury presumed viral doing much better Echocardiogram presumed diastolic heart failure NORMAL LEFT VENTRICULAR SYSTOLIC FUNCTION, EJECTION FRACTION 55-60%, NORMAL WALL MOTION. 2. GRADE I DIASTOLIC DYSFUNCTION. 3. NORMAL FILLING PRESSURE (RIGHT ATRIAL PRESSURE 0-5mmHg) 4. SEVERE PULMONARY HYPERTENSION (RIGHT VENTRICULAR SYSTOLIC PRESSURE GREATER THAN 60mmHg). TECHNOLOGIST: LARS DAVID plan to discharge patient on some Lasix patient also has renal insufficiency avoid steroids Ambulate physical therapy patient also has secondary severe pulmonary hypertension follow-up in my office in 2 to 4 weeks
[2025-02-28 06:36] LABS: Absolute Lymphocytes (CBC) 1.8 K/uL (0.7-4.9); Hematocrit 30.1 % (36.0-45.0); Hemoglobin 10.3 g/dL (12.0-15.0); MCH 31.4 pg (27.0-35.0); MCHC 34.1 g/dL (32.0-36.0); MCV 91.9 fL (80-100); MPV 8.3 fL (7.6-11.3); Nucleated RBC Absolute Count 0.0 (0-0); Nucleated Red Blood Cells % 0.1 % (0-0); RBC Red Blood Cell Count 3.27 M/uL (3.86-4.86); White Blood Count 13.90 thou/uL (4.3-10.9)
[2025-02-28 06:53] LABS: AST/SGOT 11 U/L (15-37); Albumin 2.4 g/dL (3.4-5.0); Albumin/Globulin Ratio 0.5 (1.1-1.8); Alkaline Phosphatase 80 U/L (45-117); Anion Gap 11.9 mEq/L (5.0-15.0); BUN Blood Urea Nitrogen 58 mg/dL (7-18); C-Reactive Protein 77.40 mg/L (<3.00); Globulin 5.1 g/dL (2.3-3.5); Glucose Level 135 mg/dL (74-106); NT PRO-BNP 1486 pg/mL (<450); Potassium 2.9 mEq/L (3.5-5.1)
[2025-02-28 06:54] LABS: ALT/SGPT < 14 U/L (13-56)
[2025-02-28] MEDS: FUROSEMIDE 40 MG TABLET PO SCH (09:55)
[2025-02-28] MEDS: KCL 20 MEQ/100 mL IVPB 20 MEQ/100 ML BAG IV SCH (09:56)
[2025-02-28] MEDS: NA CHLORIDE 0.9% 250 ML ONE ×2 (09:59→13:13)
[2025-02-28] MEDS: POTASSIUM CL 40 MEQ in NA CHLORIDE 0.9% 500 ML IV SCH (14:39)
[2025-02-28] MEDS: POTASSIUM 25 MEQ EFFERV TAB PO ONE ×2 (17:50→18:07)
[2025-02-28] MEDS: NA CHLORIDE 0.9% 1,000 ML IV SCH (18:59)
[2025-02-28] MEDS: SPIRONOLACTONE 25 MG TABLET PO SCH (20:37)
[2025-02-28 23:23] VITALS: BMI 14.1
[2025-03-01] MEDS: POTASSIUM CL SA 10 MEQ TAB PO ONE ×2 (02:05→10:01)
[2025-03-01 05:46] LABS: Anion Gap 8.7 mEq/L (5.0-15.0); BUN Blood Urea Nitrogen 44.0 mg/dL (7-18); Glucose Level 110.0 mg/dL (74-106); Potassium 3.7 mEq/L (3.5-5.1)
[2025-03-01 13:22] VITALS: TEMP 97.6
[2025-03-01 14:00] VITALS: O2SAT 88
[2025-03-01 16:47] VITALS: BP 110/64
== END 2025-03-01 18:40 | DRG 194 ==
LOC: ER 14:52 → ERHOLD 17:49 → 2ND 20:11 → 3RD 02-28 16:20
PROVIDERS: ADMIT Internal Medicine; ATTEND Hospitalist
DX: J18.9 Pneumonia, unspecified organism (principal); I13.0 Hypertensive heart and chronic kidney disease with heart failure and stage 1 through stage 4 chronic kidney disease, or unspecified chronic kidney disease; I50.32 Chronic diastolic (congestive) heart failure; S27.301A Unspecified injury of lung, unilateral, initial encounter; N18.30 Chronic kidney disease, stage 3 unspecified; E11.22 Type 2 diabetes mellitus with diabetic chronic kidney disease; E87.6 Hypokalemia; I27.20 Pulmonary hypertension, unspecified; N28.9 Disorder of kidney and ureter, unspecified; R91.8 Other nonspecific abnormal finding of lung field; Z88.2 Allergy status to sulfonamides; Z86.16 Personal history of COVID-19; Z90.49 Acquired absence of other specified parts of digestive tract; Z79.899 Other long term (current) drug therapy; Z90.710 Acquired absence of both cervix and uterus
CPT/HCPCS: 36415; 70450; 71045; 71250; 80048; 80053; 80076; 81001; 82550; 82947; 83605; 83735; 83880; 84100; 84132; 84484; 85025; 85379; 85610; 86140; 87040; 87428; 93005; 93306; 94640; 94668; 94760; 96365; 96375; 97116; 97161; 97530; 99285; G0238; J0456; J0696; J1644; J1815; J1938; J2405; J2919; J3480; J7030; J7040; J7050; J7512; J7613; J7644